=== PATIENT | male | born 1945 | race Caucasian/White ===

== ENCOUNTER 2019-02-11 09:43 | Inpatient (IN) ==
[2019-02-11 10:53] LABS: Basophils # (auto) 0.03 K/uL (0-0.2); Basophils % (auto) 0.4 %; Eosinophils # (auto) 0.07 K/uL (0-0.5); Eosinophils % (auto) 0.9 %; Hematocrit (blood only) 41.9 % (42-52); Hemoglobin 15.2 g/dL (14.0-18.0); Immature Granulocytes # (auto) 0.02 K/uL (0.00-0.02); Immature Granulocytes % (auto) 0.3 %; Lymphocytes # (auto) 1.03 K/uL (1.2-3.4); Lymphocytes % (auto) 13.9 %; Mean Corpuscular Hgb Conc 36.3 g/dL (32-36); Mean Corpuscular Volume 94.4 fL (80-100); Mean Platelet Volume 9.3 fL (7.4-10.4); Monocytes # (auto) 0.84 K/uL (0.11-0.59); Monocytes % (auto) 11.3 %; Neutrophils # (auto) 5.43 K/uL (1.4-6.5); Neutrophils % (auto) 73.2 %; Platelet Count 187 K/uL (130-400); RDW Coefficient of Variation 14.1 % (11.5-14.5); RDW Standard Deviation 48.1 fL (36.4-46.3); Red Blood Count 4.44 M/uL (4.7-6.1); White Blood Count 7.42 K/uL (4.8-10.8)
--- NOTE | 2019-02-11 10:54 | XRay Report ---
XR chest 1V portable CLINICAL HISTORY: Fall. Syncope. COMPARISON STUDY: Chest radiograph November 10, 2018. FINDINGS: Left subclavian pacer/AICD is in place. There are mediastinal wires and clips from bypass g rafting. Cardiomegaly is unchanged. There is no pneumothorax or pleural effusion. No evidence for pul monary edema. The appearance of the chest is unchanged. IMPRESSION: No acute cardiopulmonary findings. No change in appearance of the chest. Electronically signed by: Cristian Bradley M.D. 02/11/2019 10:52 AM
--- NOTE | 2019-02-11 11:07 | XRay Report ---
XR pelvis 1-2V routine CLINICAL HISTORY: Pain status post trauma COMPARISON: None. DISCUSSION: There are bilateral total hip arthroplasties. There are postsurgical changes present with in the lumbar spine. No fractures or dislocations are visualized. There is no SI joint diastases. The re is no symphysis diastases. IMPRESSION: Postsurgical change. No fractures identified. Electronically signed by: Gerardo Cueto M.D. 02/11/2019 11:05 AM
[2019-02-11 11:10] LABS: Appearance Urine Clear (Clear); Bilirubin Urine Negative (Negative); Blood Urine Negative (Negative); Color Urine Yellow; Glucose Urine UA Negative (Negative); Ketones Urine Negative (Negative); Leukocyte Esterase Urine Negative (Negative); Nitrite Urine Negative (Negative); Protein Urine Negative (Negative); Specific Gravity Urine 1.014 (1.000-1.030); Urobilinogen Urine Negative (Negative); pH Urine 7.5 (4.5-7.5)
[2019-02-11 11:13] LABS: Albumin Level 3.3 gm/dl (3.4-5.0); BUN Creatinine Ratio 20.5 (10-20); Calcium 8.7 mg/dl (8.5-10.1); Creatinine Clr Calc Pharmacy 107.4 ml/min; Est GFR (Non-African American) 86.3; INR 3.1 (0.9-1.1); Magnesium 2.2 mg/dl (1.8-2.4); Partial Thromboplastin Ratio 1.2; Partial Thromboplastin Time 32.8 Seconds (21.0-31.0); Potassium 3.5 mmol/L (3.5-5.1); Prothrombin Time 29.6 Seconds (9.0-12.0)
[2019-02-11 11:17] LABS: Albumin Globulin Ratio 1.1 (0.9-2); Bilirubin,Total 0.4 mg/dl (0.2-1); Globulin 3.1 gm/dl (2.5-4.0); Total Protein 6.4 gm/dl (6.4-8.2); Troponin I 0.033 ng/ml (0-0.045)
--- NOTE | 2019-02-11 11:27 | CT Scan Report ---
HEAD CT NONCONTRAST CT DOSE: 1258.59 mGy.cm HISTORY: syncope eval for bleed TECHNIQUE: Multiaxial CT images of the head were performed without the use of intravenous contrast. A utomated exposure control was utilized for this study. A dose lowering technique was utilized adheri ng to the principles of ALARA. Comparison: Head CT 11/10/2018. Findings: The paranasal sinuses and mastoid air cells are clear. The calvarium and skull base are int act. There is no mass, hematoma, midline shift, acute infarct. White matter hypodensity is nonspecifi c but suggestive of microvascular ischemic change. The ventricles and sulci demonstrate mild age-rela josé miguel involutional changes. Old left cerebellar infarct, unchanged. Impression: No significant change compared to the prior study. No acute intracranial abnormality. Electronically signed by: Ace Chao M.D. 02/11/2019 11:26 AM
--- NOTE | 2019-02-11 11:52 | CT Scan Report ---
CT OF THE CERVICAL SPINE WITHOUT CONTRAST CLINICAL HISTORY: Fall. COMPARISON STUDY: Cervical spine CT November 10, 2018. TECHNIQUE: Helical axial images of the cervical spine were obtained without IV contrast. Sagittal a nd coronal reconstructions were viewed. Automated exposure control was utilized for the study. A do se lowering technique was utilized adhering to the principles of ALARA. FINDINGS: Reversal of the normal cervical lordosis is noted. Slight anterolisthesis of C4 on C5 is un changed. There is moderate to severe disc space narrowing and osteophytosis at C5-C6 and C6-C7. There is no acute fracture. There is no prevertebral edema. Chronic deformity of several spinous processes is noted as well as emphysema within visualized portions of the lungs. There is moderate multilevel facet arthrosis. IMPRESSION: No acute cervical spine fracture or subluxation. Electronically signed by: Cristian Bradley M.D. 02/11/2019 11:51 AM
[2019-02-11] MEDS ORDERED: OXYMETAZOLINE 0.05% 30 ML BTL ONE (13:24)
--- NOTE | 2019-02-11 14:04 | History & Physical Report ---
Date of Service February 11, 2019 Assessment & Plan (1) Syncope: 73 yo M with History of VT s/p ICD/pacemaker placement, Afib, DVT, thrombus at base of brain in setting CVA (2011), Ulcerative colitis, CAD s/p Bipass surgery , HTN, HLD, COPD, BPH, CHF presenting with syncopal episode. Syncope: secondary to Ventricular Tachycardia - PER ED physician, interrogated ICD confirming Vtach prior to firing - no further episodes of syncope - Cardiology consulted (2) Ventricular tachycardia: - currently not in Vtach - Restart Amiodarone, Coreg at home dose - rate controlled, VSS - Cardiology consulted as above (3) Ischemic cardiomyopathy: s/p ICD - no CHF symptoms - ICD function appropriately in setting of Vfib - Continue home lasix (4) Atrial fibrillation: not currently in Afib -rate is controlled - remains on anticoagulation with Warfarin as Above (5) CAD (coronary artery disease): asx s/p CABG EKG if chest pain Troponin neg on arrival (6) Hypertension: BP controlled Continue amlodipine, coreg, lasix, losartan at home doses (7) Hyperlipidemia: Continue Lipitor (8) Ulcerative colitis: Continue Azathiprine, Sulfasalazine (9) History of DVT (deep vein thrombosis): already on warfarin (10) Acute head injury: superficial occipital hematoma one exam, patient denies significant pain, CT Head neg for bleed Continue to monitor History of Present Illness Chief Complaint: Syncope, Vtach Primary Care Provider: Ashanti Melchor, DO 73 yo M with History of VTach s/p ICD/pacemaker placement, Afib, DVT, 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 Patient reports around 8:30 am he felt progressively lightheaded while walking in the house and fell. Per his , who observed fall, he fell backwards hitting his head in the process. Defibrillator was activated per as she observed what appeared to be a shock and patient recovered quickly thereafter. Patient was momentarily disoriented per but soon thereafter was at baseline mental state. Patient denies associated palpitation, chest pain sob. He denies fevers chills, n/v, diarrhea. Patient was brought in my ambulance. Allergies Allergy/AdvReac Type Severity Reaction Status Date / Time simvastatin Allergy Mild DIARRHEA/ Verified 02/11/19 10:19 EXACERBATED COLITIS tetanus toxoid, adsorbed Allergy Unknown SWELLING Verified 02/11/19 10:19 lisinopril AdvReac Unknown ABDOMINAL Verified 02/11/19 10:19 PAIN/DIARRHEA Home Medications Home Medications Medication Instructions Recorded Confirmed Type nitroglycerin 1 tab SUBLINGUAL UD PRN #0 btl 08/03/13 02/11/19 History sulfasalazine 1,000 mg PO QID #0 tab 08/03/13 02/11/19 History aspirin 325 mg PO DAILY #0 07/25/16 02/11/19 History atorvastatin 80 mg PO HS #0 tab 07/25/16 02/11/19 History azathioprine 100 mg PO DAILY #0 tab 07/25/16 02/11/19 History carvedilol 25 mg PO BID #0 tab 07/25/16 02/11/19 History furosemide 120 mg PO DAILY #0 tab 07/25/16 02/11/19 History isosorbide mononitrate 60 mg PO DAILY #0 tab 07/25/16 02/11/19 History losartan 100 mg PO DAILY #0 tab 07/25/16 02/11/19 History metolazone 5 mg PO DAILY PRN #0 tab 07/25/16 02/11/19 History potassium chloride 80 meq PO DAILY #0 07/25/16 02/11/19 History multivitamin 1 tab PO DAILY 09/02/18 02/11/19 History amiodarone 300 mg PO DAILY #45 tab 11/11/18 02/11/19 Rx amlodipine [Norvasc] 10 mg PO DAILY 02/11/19 02/11/19 History calcium carbonate-vitamin D3 0 mg PO DAILY 02/11/19 02/11/19 History [Calcium 500 + D] warfarin 5 mg PO PM 02/11/19 02/11/19 History Past Med/Surg History Medical History Blood clots in brain (Acute) Fusion of spine (Acute) lumbar region Osteoarthritis (Acute) Chronic back pain (Acute) BPH (benign prostatic hyperplasia) (Acute) Ulcerative colitis (Acute) On anticoagulant therapy (Acute) Hearing deficit (Acute) bilateral [place] Stroke (Acute) Myocardial Infarction (Acute) Hypertension (Acute) Hyperlipidemia (Acute) ICD (implantable cardioverter-defibrillator) in place (Acute) Pacemaker (Acute) Atrial fibrillation (Acute) Deep vein thrombosis (Acute) RLE Surgical History History of total hip arthroplasty (Acute) bilateral Hx of transurethral resection of prostate (Acute) History of colonoscopy (Acute) History of cholecystectomy (Acute) History of tonsillectomy (Acute) History of adenoidectomy (Acute) History of coronary artery bypass graft (Acute) triple bypass History of heart artery stent (Acute) Social History Preferred Language: [place] Communication Ability: Effective Visual Impairment: No Limitations Hearing Ability: Normal 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 Beliefs That Will Affect Care: None Current Living Situation: Spouse Other Information That Helps Us Care for You: No Feels Safe at Home: Yes Safety Concerns: Feels Safe At This Time Smoking Status: Former smoker Do You Dip or Chew Tobacco: No Second Hand Exposure: No Tobacco Cessation Education Requested by Patient: No Hx Alcohol Use: No Hx Substance Use: No Review of Systems Review of Systems: All systems reviewed & are unremarkable except as noted in HPI & below Physical Exam Vital Signs (Past 24 Hours): Last Vital Signs Temp 36.5 C 02/11/19 09:44 Pulse 60 02/11/19 12:47 Resp 18 02/11/19 12:47 BP 151/71 H 02/11/19 12:47 Pulse Ox 96 02/11/19 12:47 Constitutional: WD/WN, vitals as above no acute distress Eyes: PERRL and EOM intact bilaterally ENMT: external ear and nose normal, oropharynx normal Neck: trachea midline, no thyromegaly Respiratory: normal respiratory effort, lungs clear to auscultation Cardiovascular: RRR, no murmur, no edema Gastrointestinal (Abdomen): normal bowel sounds, soft, nontender, no hepat osplenomegaly Musculoskeletal: no cyanosis or clubbing, extremities motor strength 5/5 Skin: no rashes, warm and dry superficial occipital hematoma Neurologic: PERRL, EOMI, accommodation nl, no face palsy, no dysarthria CN's II-XI intact bilaterally (grossly) and awake Psychiatric: A+Ox3, euthymic affect Results & Data Laboratory Results Laboratory Results WBC 7.42 K/uL (4.8-10.8) 02/11/19 10:41 RBC 4.44 M/uL (4.7-6.1) L 02/11/19 10:41 Hgb 15.2 g/dL (14.0-18.0) 02/11/19 10:41 Hct 41.9 % (42-52) L 02/11/19 10:41 MCV 94.4 fL (80-100) 02/11/19 10:41 MCH 34.2 pg (25-34) H 02/11/19 10:41 MCHC 36.3 g/dL (32-36) H 02/11/19 10:41 RDW Std Deviation 48.1 fL (36.4-46.3) H 02/11/19 10:41 RDW Coeff of Delmi 14.1 % (11.5-14.5) 02/11/19 10:41 Plt Count 187 K/uL (130-400) 02/11/19 10:41 MPV 9.3 fL (7.4-10.4) 02/11/19 10:41 Immature Gran % (Auto) 0.3 % 02/11/19 10:41 Neut % (Auto) 73.2 % 02/11/19 10:41 Lymph % (Auto) 13.9 % 02/11/19 10:41 [place] % (Auto) 11.3 % 02/11/19 10:41 Eos % (Auto) 0.9 % 02/11/19 10:41 Baso % (Auto) 0.4 % 02/11/19 10:41 Immature Gran # (Auto) 0.02 K/uL (0.00-0.02) 02/11/19 10:41 Neut # (Auto) 5.43 K/uL (1.4-6.5) 02/11/19 10:41 Lymph # (Auto) 1.03 K/uL (1.2-3.4) L 02/11/19 10:41 [place] # (Auto) 0.84 K/uL (0.11-0.59) H 02/11/19 10:41 Eos # (Auto) 0.07 K/uL (0-0.5) 02/11/19 10:41 Baso # (Auto) 0.03 K/uL (0-0.2) 02/11/19 10:41 PT 29.6 Seconds (9.0-12.0) H 02/11/19 10:41 INR 3.1 (0.9-1.1) H 02/11/19 10:41 APTT 32.8 Seconds (21.0-31.0) H 02/11/19 10:41 PTT Ratio 1.2 02/11/19 10:41 Sodium 141 mmol/L (136-145) 02/11/19 10:41 Potassium 3.5 mmol/L (3.5-5.1) 02/11/19 10:41 Chloride 106 mmol/L (98-107) 02/11/19 10:41 Carbon Dioxide 32 mmol/L (21-32) 02/11/19 10:41 Anion Gap 4.0 (3-11) 02/11/19 10:41 BUN 17 mg/dl (7-18) 02/11/19 10:41 Creatinine 0.84 mg/dl (0.6-1.4) 02/11/19 10:41 Est Cr Clr Drug Dosing 107.4 ml/min 02/11/19 10:41 Est GFR ( Amer) 100.0 02/11/19 10:41 Est GFR (Non-Af Amer) 86.3 02/11/19 10:41 BUN/Creatinine Ratio 20.5 (10-20) H 02/11/19 10:41 Glucose 108 mg/dl (70-99) H 02/11/19 10:41 Calcium 8.7 mg/dl (8.5-10.1) 02/11/19 10:41 Magnesium 2.2 mg/dl (1.8-2.4) 02/11/19 10:41 Total Bilirubin 0.4 mg/dl (0.2-1) 02/11/19 10:41 AST 18 U/L (15-37) 02/11/19 10:41 ALT 24 U/L (12-78) 02/11/19 10:41 Alkaline Phosphatase 68 U/L (45-117) 02/11/19 10:41 Troponin I 0.033 ng/ml (0-0.045) 02/11/19 10:41 Total Protein 6.4 gm/dl (6.4-8.2) 02/11/19 10:41 Albumin 3.3 gm/dl (3.4-5.0) L 02/11/19 10:41 Globulin 3.1 gm/dl (2.5-4.0) 02/11/19 10:41 Albumin/Globulin Ratio 1.1 (0.9-2) 02/11/19 10:41 Urine Color Yellow 02/11/19 10:41 Urine Appearance Clear (Clear) 02/11/19 10:41 Urine pH 7.5 (4.5-7.5) 02/11/19 10:41 Ur Specific [place] 1.014 (1.000-1.030) 02/11/19 10:41 Urine Protein Negative (Negative) 02/11/19 10:41 Urine Glucose (UA) Negative (Negative) 02/11/19 10:41 Urine Ketones Negative (Negative) 02/11/19 10:41 Urine Blood Negative (Negative) 02/11/19 10:41 Urine Nitrite Negative (Negative) 02/11/19 10:41 Urine Bilirubin Negative (Negative) 02/11/19 10:41 Urine Urobilinogen Negative (Negative) 02/11/19 10:41 Ur Leukocyte Esterase Negative (Negative) 02/11/19 10:[address] NONCONTRAST CT DOSE: 1258.59 mGy.cm HISTORY: syncope eval for bleed TECHNIQUE: Multiaxial CT images of the head were performed without the use of intravenous contrast. Automated exposure control was utilized for this study. A dose lowering technique was utilized adhering to the principles of ALARA. Comparison: Head CT 11/10/2018. Findings: The paranasal sinuses and mastoid air cells are clear. The calvarium and skull base are intact. There is no mass, hematoma, midline shift, acute infarct. White matter hypodensity is nonspecific but suggestive of microvascular ischemic change. The ventricles and sulci demonstrate mild age-related involutional changes. Old left cerebellar infarct, unchanged. Impression: No significant change compared to the prior study. No acute intracranial abnormality. XR chest 1V portable CLINICAL HISTORY: Fall. Syncope. COMPARISON STUDY: Chest radiograph November 10, 2018. FINDINGS: Left subclavian pacer/AICD is in place. There are mediastinal wires and clips from bypass grafting. Cardiomegaly is unchanged. There is no pneumothorax or pleural effusion. No evidence for pulmonary edema. The appearance of the chest is unchanged. IMPRESSION: No acute cardiopulmonary findings. No change in appearance of the chest. Medications Administered Discontinued Medications Oxymetazoline HCl (Afrin 0.05%) Confirm Administered Dose 75 sprays .ROUTE .STK- MED ONE Stop: 02/11/19 13:25 Last Admin: 02/11/19 13:29 Dose: Not Given Documented by: [id number] ECG Rate (beats per minute): 65 Findings: + other (atrial paced) Change: no significant change ( 11-NOV-2018 06:15) Code Status & VTE Plan Code Status Full Code VTE Prophylaxis Plan VTE Prophylaxis will be ordered: Yes Supervising Physician Co-Signing Physician Notes I personally examined the patient and verified all narayanan points of history and exam, discussed case, and agree with decision making with Dr Morataya. Feeling okay now. Fainted and then defibrillator went off. Has happened before. Vitals noted, in general he is in no distress. HEENT normocephalic atraumatic mucous members are moist. Breathing unlabored no accessory muscle use. No focal neurologic deficits. Ventricular arrhythmia arrestfortunately his ICD fired, now stable. Consult cardiology for antiarrhythmic management. otherwise as above Resident Activity Tracking Resident Involvement: Resident Care Provided Care Provided: Adult Hospital Medicine (1) Syncope Syncope type: unspecified Qualified Code(s): R55 - Syncope and collapse (2) Acute head injury Encounter type: initial encounter Qualified Code(s): S09.90XA - Unspecified injury of head, initial encounter
[2019-02-11] MEDS ORDERED: ALUMINUM/MAGNESIUM SUSP 30 ML UDC PO PRN (16:25)
[2019-02-11] MEDS ORDERED: POLYETHYLENE (MIRALAX) 17 GM PACK PO PRN (16:25)
[2019-02-11] MEDS ORDERED: ACETAMINOPHEN 325 MG TAB PO PRN (16:25)
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
[2019-02-11] MEDS: sulfaSALAzine 500 MG TABLET PO SCH ×2 (18:29→20:36)
[2019-02-11] MEDS: CARVEDILOL 25 MG TAB PO SCH (20:36)
[2019-02-11] MEDS ORDERED: ATORVASTATIN 40 MG TAB PO SCH (21:00)
[2019-02-11] MEDS ORDERED: WARFARIN SOD 5 MG TAB PO SCH (21:00)
[2019-02-11] MEDS ORDERED: Nursing to Pharmacy Communication ONE (21:47)
[2019-02-12] MEDS: CARVEDILOL 25 MG TAB PO SCH (08:31)
[2019-02-12] MEDS: sulfaSALAzine 500 MG TABLET PO SCH (08:31)
[2019-02-12] MEDS ORDERED: AMLODIPINE BESYLATE 5 MG TAB PO SCH (09:00)
[2019-02-12] MEDS ORDERED: ISOSORBIDE MONO EXTENDED REL 60 MG TABCR PO SCH (09:00)
[2019-02-12] MEDS ORDERED: LOSARTAN POTASSIUM 50 MG TAB PO SCH (09:00)
[2019-02-12] MEDS ORDERED: azaTHIOprine 50 MG TAB PO SCH (09:00)
[2019-02-12] MEDS ORDERED: MAGNESIUM OXIDE 400 MG TAB PO SCH (09:00)
[2019-02-12] MEDS ORDERED: POTASSIUM CHLORIDE 20 MEQ TABCR PO SCH (09:00)
[2019-02-12] MEDS ORDERED: AMIODARONE 200 MG TAB PO SCH (09:00)
--- NOTE | 2019-02-12 10:28 | Discharge Summary ---
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 Patient reports around 8:30 am he felt progressively lightheaded while walking in the house and fell. Per his , who observed fall, he fell backwards hitting his head in the process. Defibrillator was activated per as she observed what appeared to be a shock and patient recovered quickly thereafter. Patient was momentarily disoriented per but soon thereafter was at baseline mental state. Patient denies associated palpitation, chest pain sob. He denies fevers chills, n/v, diarrhea. Patient was brought in my ambulance. Principal Diagnosis VTACH Discharge Exam Vitals noted and within normal limits . GENERAL: Awake, alert to person, place, and time, nontoxic-appearing, in no distress HENT: Normocephalic, atraumatic. Mucus membranes appear moist. EYES: Normal conjunctiva. Sclera non-icteric. EOMI. NECK: Supple. Full range of motion. No JVD RESPIRATORY: Clear to auscultation. Normal work of breathing. CARDIAC: Regular rate, normal rhythm. Paced with occasional PACs on telemetry. Extremities warm and well perfused, 2+ radial pulses bilaterally. ABDOMEN: Soft, non-distended. No tenderness to palpation in all four quadrants. No rebound or guarding. No masses. Bowel sounds are normal. LOWER EXTREMITIES: Inspection of calves reveal equal size bilaterally. They are non-tender. No edema. No discoloration. NEURO: No focal gross focal motor deficits noted. Sensation in tact. CN II-XII grossly in tact. SKIN: Rash not present. No jaundice noted. Significant lesions not present. PSYCH: Appropriate mood and affect. Cooperative. Exam as done by Ashlyn Galeas MD, Neonatologist. Discharge Data Allergies Allergy/AdvReac Type Severity Reaction Status Date / Time simvastatin Allergy Mild DIARRHEA/ Verified 02/11/19 10:19 EXACERBATED COLITIS tetanus toxoid, adsorbed Allergy Unknown SWELLING Verified 02/11/19 10:19 lisinopril AdvReac Unknown ABDOMINAL Verified 02/11/19 10:19 PAIN/DIARRHEA Consultations 02/11/19 12:12 ED Decision to Admit Stat 02/11/19 16:25 Consult Cardiology Routine Consult Case Management - Discharge Planning Routine Ordered Studies 02/11/19 10:20 CT cervical spine wo con Stat 02/11/19 10:21 CT head/brain wo con Stat Hospital Course (1) Syncope: 73 yo M with History of VT s/p ICD/pacemaker placement, Afib, DVT, 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 Syncope: secondary to Ventricular Tachycardia - interrogation reveals appropriate shock delivered after VT - no further episodes of syncope while here - CT of head revealed no acute issues or bleeding - Cardiology consulted, recommend: increase amiodarone to 400 mg, add mexiletine 150 TID. Plan for follow up in office. (2) Ventricular tachycardia: (3) Ischemic cardiomyopathy: (4) Atrial fibrillation: not currently in Afib -rate is controlled - remains on anticoagulation with Warfarin as Above (5) CAD (coronary artery disease): (6) Hypertension: BP controlled Continue amlodipine, coreg, lasix, losartan at home doses (7) Hyperlipidemia: Continue Lipitor (8) Ulcerative colitis: Continue Azathioprine, Sulfasalazine (9) History of DVT (deep vein thrombosis): No acute issues. Continue warfarin (10) Acute head injury: superficial occipital hematoma, patient denies significant pain. CT Head neg for bleed Continue to monitor Total Time Total Time Spent Total Time Spent (In Minutes): <30 Discharge Plan Discharge Items Patient Disposition: Home - Self-Care Reason For Visit: SYNCOPE,VTACH Discharge Diagnosis: SYNCOPE, VTACH Condition: Good Discharge Goals: Decrease discomfort, Diagnostic testing, Improve disease control, Improve function and Increase independence Activity: Per 'Additional Instructions' section Non-emergency contact: Primary Care Provider and Water Chemist Call non-emergency contact if: you have any medication questions and your sym ptoms worsen Follow-up/Referrals: Ashanti Melchor, [Primary Care Provider] - Diet: Heart Healthy and Low Sodium (2gm) Addtl Provider Instructions: You were admitted for monitoring after an episode of VTACH (your known heart arrhythmia) and fall. Your cat scan of the head did not show any fractures or bleeding in the brain. We've monitored you on our telemetry and you have not had any more episodes of vtach. You were seen by cardiology, and 1 medication has been added, and 1 medication has been increased. 1. Mexiletine : this is medicine to help prevent further VTACH episodes. You are to take this medicine 3 times per day. 2. Amiodarone : this is medicaiton you are currently on, but the dose is being increased to 400mg. Your other medications remain the same. We have sent a refill of your metolazone and nitrostat. Cardiology will follow up with you. If your symptoms recur or you receive a shock from your defibrillator, please return to the emergency room. Be well A Adal CALDERON Prescriptions: New amiodarone 400 mg tablet 400 mg PO DAILY 30 Days Qty: 30 RF: 0 mexiletine 150 mg capsule 150 mg PO Q8H 30 Days Qty: 90 RF: 0 metolazone 5 mg tablet 5 mg PO DAILY Qty: 30 RF: 0 nitroglycerin 0.4 mg tablet, sublingual 0.4 mg sublingual Q5M PRN (Reason: chest pain) 30 Days Qty: 60 RF: 0 Continued sulfasalazine 500 mg Tablet 1,000 mg PO QID Qty: 0 RF: 0 nitroglycerin 0.4 mg Tablet, Sublingual 1 tab Sublingual UD PRN (Reason: Chest Pain) Qty: 0 RF: 0 furosemide 40 mg Tablet 120 mg PO DAILY Qty: 0 RF: 0 atorvastatin 80 mg Tablet 80 mg PO HS Qty: 0 RF: 0 carvedilol 25 mg Tablet 25 mg PO BID Qty: 0 RF: 0 metolazone 5 mg Tablet 5 mg PO DAILY PRN (Reason: Weight Gain) Qty: 0 RF: 0 azathioprine 50 mg Tablet 100 mg PO DAILY Qty: 0 RF: 0 isosorbide mononitrate 60 mg Tablet Extended Release 24 Hr 60 mg PO DAILY Qty: 0 RF: 0 aspirin 325 mg Tablet,Delayed Release (Dr/Ec) 325 mg PO DAILY Qty: 0 RF: 0 losartan 100 mg Tablet 100 mg PO DAILY Qty: 0 RF: 0 potassium chloride 20 mEq Tablet Extended Release 80 meq PO DAILY Qty: 0 RF: 0 multivitamin Tablet 1 tab PO DAILY RF: 0 amlodipine [Norvasc] 10 mg Tablet 10 mg PO DAILY RF: 0 calcium carbonate-vitamin D3 [Calcium 500 + D] 500 mg(1,250mg) -400 unit Tablet PO DAILY RF: 0 warfarin 6 mg tablet 5 mg PO PM RF: 0 Discontinued amiodarone 200 mg Tablet 300 mg PO DAILY Qty: 45 RF: 0 Stand-Alone Forms: [facility]/Other Patient Handouts: Nitroglycerin Sublingual tablet, Mexiletine Hydrochloride Oral capsule, Metolazone Oral tablet Discharge Orders: Discharge Order (Routine); Ordered 02/12/19 Ordered By: Ashlyn Galeas Admission Data Admit Date/Time: 02/11/19 16:25 Attending Provider: Chuy Trujillo Admit Provider: Hima Morataya Primary Care Provider: Ashanti Melchor Other Providers: Orlando Storm ; Alex Mosqueda Service: Telemetry Other Interventions: Discharge Summary Assessment (RN) Last Done: 02/12/19 10:44 Pending Studies at Discharge: No DC Date/Time DO NOT enter until pt leaves facility: 02/12/19 12:28 Supervising Physician Co-Signing Physician Notes I personally examined the patient and verified all narayanan points of history and exam, discussed case, and agree with decision making with Dr Galeas feeling better, case d/w cardiology - input greatly appreciated. pt would very much like to go home today vitals noted nad breathing unlabored no pallor or icterus. vtach - ICD fired appropriately. increase amiodarone, add mexilitine, home, c lose f/u. amiodarone level for outpt f/u Resident Activity Tracking Resident Involvement: Resident Care Provided Care Provided: Adult Hospital Medicine
--- NOTE | 2019-02-12 13:40 | Cardiology Consultation ---
Date of Consultation February 12, 2019 Assessment & Plan (1) Syncope: Secondary to sustained ventricular tachycardia. Fortunately, his implantable device is functioning properly. (2) Ventricular tachycardia: Plan made in conjunction with Randee Mosqueda and Ronnie. We will send off an amiodarone level, however, increase dosing to 400 mg daily. Will also add mexiletine at 75 mg t.i.d.. If this medication changes unsuccessful, we may need to consider a ventricular tachycardia ablation. (3) CAD (coronary artery disease): The patient underwent a 3 vessel bypass in August 2000. Had a stent placed in the mid LAD in January 2006. Has been quiescent on his current medical regimen. (4) Ischemic cardiomyopathy: Left ventricular ejection fraction was 30-35% on echocardiogram performed October. There was moderate global hypokinesis. (5) ICD (implantable cardioverter-defibrillator) in place: Device is functioning properly. Battery longevity is adequate. History of Present Illness Attending Physician: Chuy Trujillo DO History of Present Illness Mr Orlando is a 73-year-old male admitted yesterday after an episode of syncope and a defibrillator discharge. This consultation was ordered assistance cardiac management. Of note, the patient is well known to me from the outpatient setting. The patient was in his usual state of health until approximately 8:30 am on the day of presentation. The patient was walking in his home and was witnessed by the to fall backwards striking his head. She then observed an apparent defibrillator discharge and the patient awoke quickly. He was brought emergency room for further care. The patient has been noticing intermittent episodes of dizziness. He does recall a defibrillator discharge which occurred on January 29 while he was supine in bed. The patient has not experienced any recent angina pectoris or limiting dyspnea. He further denies PND, orthopnea, palpitations, lower extremity edema, and claudication. The patient has a longstanding history of coronary artery disease. He underwent 3 vessel bypass in August 2000. He required a stent to the mid LAD in January 2006. He does have an ischemic cardiomyopathy with an ejection fraction of 30- 35% on an echocardiogram performed in October 2018. The patient did have a dual- chamber ICD placed in August 2013. Unfortunately, Dr. Mosqueda was unable to advance a left ventricular lead. The patient follows daily weights at home. His typical dry weight is 300 lb with a trigger weight of 303 lb. He typically takes Lasix 120 mg daily and uses a dose of metolazone 5 mg prior to his morning dose of Lasix at when needed for weight gain. This occurs approximately 1 time each week. There has been no recent episode of his atrial fibrillation. He is tolerating rhythm control and long-term anticoagulation without difficulty. Currently, patient is resting comfortably in bed without complaints. Past medical and surgical history 1. Coronary artery disease 2. CABG x3-August 2000 3. Mid LAD stent-January 2006 4. Ischemic [id number]% 5. Chronic systolic CHF 6. Recurrent symptomatic ventricular tachycardia 7. Dual-chamber ICD-August 2013, failed LV lead 8. LBBB 9. Hypertension 10. Hypercholesterolemia 11. Paroxysmal atrial fibrillation 12. Ulcerative colitis 13. Obesity 14. Obstructive sleep apnea 15. Cerebellar ataxia 16. Chronic low back pain 17. Vitamin B12 deficiency 18. Hearing deficit 19. Gout 20. Chronic low back pain 21. Laparoscopic cholecystectomy 22. THR 23. Lumbar fusion Social history and lives with his No tobacco or alcohol Family history Noncontributory Review of systems A 10 point review of systems was negative except for that described above. Allergies Allergy/AdvReac Type Severity Reaction Status Date / Time simvastatin Allergy Mild DIARRHEA/ Verified 02/11/19 10:19 EXACERBATED COLITIS tetanus toxoid, adsorbed Allergy Unknown SWELLING Verified 02/11/19 10:19 lisinopril AdvReac Unknown ABDOMINAL Verified 02/11/19 10:19 PAIN/DIARRHEA Home Medications Home Medications Medication Instructions Recorded Confirmed Type nitroglycerin 1 tab SUBLINGUAL UD PRN #0 btl 08/03/13 02/11/19 History sulfasalazine 1,000 mg PO QID #0 tab 08/03/13 02/11/19 History aspirin 325 mg PO DAILY #0 07/25/16 02/11/19 History atorvastatin 80 mg PO HS #0 tab 07/25/16 02/11/19 History azathioprine 100 mg PO DAILY #0 tab 07/25/16 02/11/19 History carvedilol 25 mg PO BID #0 tab 07/25/16 02/11/19 History furosemide 120 mg PO DAILY #0 tab 07/25/16 02/11/19 History isosorbide mononitrate 60 mg PO DAILY #0 tab 07/25/16 02/11/19 History losartan 100 mg PO DAILY #0 tab 07/25/16 02/11/19 History metolazone 5 mg PO DAILY PRN #0 tab 07/25/16 02/11/19 History potassium chloride 80 meq PO DAILY #0 07/25/16 02/11/19 History multivitamin 1 tab PO DAILY 09/02/18 02/11/19 History amlodipine [Norvasc] 10 mg PO DAILY 02/11/19 02/11/19 History calcium carbonate-vitamin D3 0 mg PO DAILY 02/11/19 02/11/19 History [Calcium 500 + D] warfarin 5 mg PO PM 02/11/19 02/11/19 History amiodarone 400 mg PO DAILY 30 Days #30 tab 02/12/19 Rx metolazone 5 mg PO DAILY #30 tab 02/12/19 Rx mexiletine 150 mg PO Q8H 30 Days #90 cap 02/12/19 Rx nitroglycerin 0.4 mg SUBLINGUAL Q5M PRN 30 Days 02/12/19 Rx #60 tab Patient History Medical History Blood clots in brain (Acute) Fusion of spine (Acute) lumbar region Osteoarthritis (Acute) Chronic back pain (Acute) BPH (benign prostatic hyperplasia) (Acute) Ulcerative colitis (Acute) On anticoagulant therapy (Acute) Hearing deficit (Acute) bilateral [place] Stroke (Acute) Myocardial Infarction (Acute) Hypertension (Acute) Hyperlipidemia (Acute) ICD (implantable cardioverter-defibrillator) in place (Acute) Pacemaker (Acute) Atrial fibrillation (Acute) Deep vein thrombosis (Acute) RLE Surgical History History of total hip arthroplasty (Acute) bilateral Hx of transurethral resection of prostate (Acute) History of colonoscopy (Acute) History of cholecystectomy (Acute) History of tonsillectomy (Acute) History of adenoidectomy (Acute) History of coronary artery bypass graft (Acute) triple bypass History of heart artery stent (Acute) Social History Preferred Language: Lithuanian Communication Ability: Effective Visual Impairment: No Limitations Hearing Ability: Normal Tongue Carrier Required: No Beliefs That Will Affect Care: None Current Living Situation: Spouse Other Information That Helps Us Care for You: No Feels Safe at Home: Yes Safety Concerns: Feels Safe At This Time Smoking Status: Former smoker Do You Dip or Chew Tobacco: No Second Hand Exposure: No Tobacco Cessation Education Requested by Patient: No Hx Alcohol Use: No Hx Substance Use: No Physical Exam Physical Exam: In general this is an obese white male lying supine in bed without complaints. HEENT exam is negative. Neck is supple with full carotid upstrokes. No carotid bruits. Jugular venous pressure is flat at 90. There is no thyromegaly. Cardiovascular exam reveals a regular rhythm with distant heart sounds. No obvious murmurs. No S3. Lungs are clear without rales, rhonchi or wheezes. Abdomen is soft nontender without bruits. Extremities reveal intact radial artery pulses bilaterally. Trace pretibial edema is noted bilaterally. Results & Data Vital Signs (Past 12 Hours) Vital Signs Temp Pulse Pulse Resp BP BP Pulse Ox 02/12/19 10:44 36.9 C 60 18 145/85 H 148/77 H 93 02/12/19 08:11 36.9 C 60 18 145/85 H 93 02/12/19 07:59 60 02/12/19 03:24 36.8 C 51 L 19 139/79 92 Laboratory Results CBC notes a hemoglobin 15.2, hematocrit 41.9, white count 7.4, platelet count 336013. Electrolytes episode of 141, potassium 3.5, chloride 106, bicarb 32, BUN 17, creatinine 0.84, and a glucose of 108. INR is 3.1. Diagnostic Findings EKG notes atrial pacing with prolonged AV conduction. There is a left axis deviation incomplete LBBB. Telemetry notes the same. Device interrogation noted a defibrillation January 29, another 1 on February 11. Anti tachycardic pacing failed on both occasions. Chest x-ray notes cardiomegaly mediastinal wires, and the device in the left subclavicular region. (1) Syncope Syncope type: unspecified Qualified Code(s): R55 - Syncope and collapse
== END 2019-02-12 12:28 | disposition home or self-care (01) | DRG 309 ==
LOC: 2S 09:43 → ED 09:43 → 2S 15:40

== ENCOUNTER 2019-06-27 18:31 | Observation (INO) ==
--- NOTE | 2019-06-27 18:43 | Emergency Department Note ---
Entered by Delilah Smallwood acting as a scribe for Rickie Santana MD History of Present Illness General Chief complaint: Cardiac Assessment Time Seen by Provider: 06/27/19 18:34 Source: patient History of Present Illness Provider complaint: Defibrillator fired Onset (ago): hour(s) 2 Location: chest Relieved By: + none Exacerbated By: + none Associated symptoms: + other (+lightheaded); no chest pain and no shortness of breath Treatments prior to arrival: none The patient is a 74 year old male who presents to the Emergency Room with complaints of his defibrillator firing two hours ago. The patient states he was laying in his recliner at home when he began to feel light headed. He notes he was feeling lightheaded earlier in the day as well. The patient denies any chest pain or shortness of breath. The patient states he is feeling OK right now. The defibrillator was placed in 2012. Per the patient, he has been taking all of his prescribed medications regularly. Home Medications Home Medications Medication Instructions Recorded Confirmed Type sulfasalazine 1,000 mg PO QID #0 tab 08/03/13 06/27/19 History potassium chloride 80 meq PO DAILY #0 07/25/16 06/27/19 History multivitamin 1 tab PO DAILY 09/02/18 06/27/19 History amiodarone 400 mg tablet 400 mg PO DAILY #30 tab 05/21/19 06/27/19 Rx aspirin 325 mg tablet,delayed 325 mg PO DAILY #30 tab 05/21/19 06/27/19 Rx release atorvastatin 80 mg tablet 80 mg PO HS #30 tab 05/21/19 06/27/19 Rx azathioprine 50 mg tablet 100 mg PO DAILY #30 tab 05/21/19 06/27/19 Rx carvedilol 25 mg tablet 25 mg PO BID #60 tab 05/21/19 06/27/19 Rx furosemide 40 mg tablet 120 mg PO DAILY #180 tab 05/21/19 06/27/19 Rx isosorbide mononitrate ER 60 mg 60 mg PO DAILY #30 tab 05/21/19 06/27/19 Rx tablet,extended release 24 hr losartan 100 mg tablet 100 mg PO DAILY #90 tab 05/21/19 06/27/19 Rx nitroglycerin 0.4 mg sublingual 0.4 mg SUBLINGUAL UD PRN #1 btl 05/21/19 06/27/19 Rx tablet calcium carbonate 600 mg (1,500 1 tab PO DAILY tab 06/24/19 06/27/19 History mg)-vitamin D3 400 unit tablet acetaminophen [Tylenol Extra 1,000 mg PO QID PRN 06/27/19 06/27/19 History Strength] apixaban [Eliquis] 5 mg PO Q12 06/27/19 06/27/19 History lidocaine 1 applic TOPICAL HS 06/27/19 06/27/19 History metolazone 5 mg PO DAILY PRN 06/27/19 06/27/19 History mexiletine 150 mg PO Q8 06/27/19 06/27/19 History Allergies Allergy/AdvReac Type Severity Reaction Status Date / Time simvastatin Allergy Mild DIARRHEA/ Verified 06/27/19 19:17 EXACERBATED COLITIS tetanus toxoid, adsorbed Allergy Unknown Rash Verified 06/27/19 19:17 lisinopril AdvReac Unknown ABDOMINAL Verified 06/27/19 19:17 PAIN/DIARRHEA, Difficulty Swallowing Past Med/Surg History Medical History Chronic combined systolic and diastolic heart failure Obstructive sleep apnea Low vitamin B12 level Left bundle-branch block Hypercholesterolemia Coronary arteriosclerosis in [place] artery Cerebellar ataxia Cardiac defibrillator in place Osteoarthritis Chronic back pain BPH (benign prostatic hyperplasia) Ulcerative colitis On anticoagulant therapy Hypertension Hyperlipidemia ICD (implantable cardioverter-defibrillator) in place Pacemaker Atrial fibrillation 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) Deep vein thrombosis (Resolved) RLE Myocardial Infarction (Resolved) Stroke (Resolved) History of CVA (cerebrovascular accident) Surgical History History of adenoidectomy (Acute) History of cholecystectomy (Acute) History of colonoscopy (Acute) History of coronary artery bypass graft (Acute) triple bypass History of heart artery stent (Acute) History of tonsillectomy (Acute) History of total hip arthroplasty (Acute) bilateral Hx of transurethral resection of prostate (Acute) Fusion of spine lumbar region Family History Father Coronary heart disease Myocardial infarction Mother Myocardial infarction Coronary heart disease Social History Preferred Language: Belarusian Communication Ability: Effective Visual Impairment: No Limitations Hearing Ability: Normal Hotel Receptionist Required: No Beliefs That Will Affect Care: None Current Living Situation: Spouse Feels Safe at Home: Yes Smoking Status: Former smoker Second Hand Exposure: No ; Hx Alcohol Use: No Hx Substance Use: No Review of Systems See HPI for pertinent positives & negatives. and A total of 10 systems reviewed and were otherwise negative Physical Exam Vital Signs Vital Signs - 24 hr 06/27/19 18:36 06/27/19 18:38 06/27/19 18:47 Temperature 36.5 C Temperature Source Oral Sepsis Recent Fever Within 48 Hours No Sepsis New/Unexplained Change in Mental Status No Sepsis Action Taken by Nursing No Action Required Pulse Rate 66 67 67 Pulse Rate [Apical] Pulse Rate from SpO2 Sensor 33 L 34 L Respiratory Rate 20 18 16 Respiratory Effort / Characteristics Non-Labored Respiratory Depth Normal Blood Pressure 182/80 H 182/80 H Blood Pressure [Right Arm] Blood Pressure Mean 114 114 Blood Pressure Mean [Right Arm] Blood Pressure Position [Right Arm] Pulse Oximetry 95 94 95 Oxygen Delivery Method Room Air 06/27/19 19:00 06/27/19 19:39 06/27/19 19:41 Temperature Temperature Source Sepsis Recent Fever Within 48 Hours Sepsis New/Unexplained Change in Mental Status Sepsis Action Taken by Nursing Pulse Rate 65 60 Pulse Rate [Apical] 61 Pulse Rate from SpO2 Sensor 66 60 Respiratory Rate 19 16 16 Respiratory Effort / Characteristics Respiratory Depth Blood Pressure 176/92 H Blood Pressure [Right Arm] 176/92 H Blood Pressure Mean 120 Blood Pressure Mean [Right Arm] 120 Blood Pressure Position [Right Arm] Sitting Pulse Oximetry 95 93 95 Oxygen Delivery Method Room Air General: Non-ill appearing older male in no acute distress. HEENT: Normal cephalic atraumatic. Pupils are equal round and reactive to light. Extraocular movements are intact. Oropharynx is pink with moist mucous membranes. No swelling of the mouth lips or tongue. Neck: Supple with a midline trachea. No meningeal signs or stiffness, no JVD or bruits. No Stridor. Chest: Clear to auscultation bilaterally. No wheezes or rhonchi. No increased work of breathing. Heart: regular rate and rhythm. Abdomen: Soft nontender, nondistended without rebound guarding or rigidity. Extremities: No cyanosis clubbing or edema. No calf tenderness or asymmetry Spine/Back. Non tender to palpation. No CVA tenderness Skin: Good turgor without rashes. Neurologic exam: Cranial nerves two through 12 are intact. Motor and sensation are intact and symmetrical throughout. Course 1835: Medical records reviewed. The patient was seen in room C4, a physical examination was performed. 1854: I checked on the patient who is stable, I am waiting for [employer] to call back and I talked to the family and son. 1911: I spoke to [employer] who interrogated the pace maker and stated that the battery is fine but he had an episode of V-tach that was 180 bpm and lasted 30 seconds. The device tried to pace but shocked once. There were no other arrhythmias. 1939: I spoke to Irene Banks, [facility] Hospitalist, about the patients case and she agreed to accept for further evaluation. 1945: The patients potassium is hanging but he is resting comfortably. 1944: The patient was admitted. Consultations Consultation #1: I spoke to Irene Banks, [facility] Hospitalist, about the patients case and she agreed to accept for further evaluation. Time: 19:40 Administered Medications Apixaban (Eliquis) 5 mg PO Q12 UNA Stop: 07/27/19 21:18 Last Admin: 06/27/19 22:48 Dose: 5 mg Documented by: [id number] Cosigned by: [id number] Atorvastatin Calcium (Lipitor) 80 mg PO HS [facility] Stop: 07/27/19 21:18 Last Admin: 06/27/19 22:54 Dose: 80 mg Documented by: [id number] Cosigned by: [id number] Carvedilol (Coreg) 25 mg PO BID UNA Stop: 07/27/19 21:18 Last Admin: 06/27/19 22:48 Dose: 25 mg Documented by: [id number] Cosigned by: [id number] Lidocaine (Anecream 4%) 1 appln EXT HS UNA Stop: 07/27/19 21:18 Last Admin: 06/27/19 22:46 Dose: 1 appln Documented by: [id number] Cosigned by: [id number] Miscellaneous (Order Awaiting Action) 1 ea N/A QS UNA Stop: 07/27/19 21:29 Last Admin: 06/27/19 22:56 Dose: Not Given Documented by: [id number] Sulfadiazine (Azulfidine) 1,000 mg PO QID UNA Stop: 07/27/19 21:18 Last Admin: 06/27/19 22:47 Dose: 1,000 mg Documented by: [id number] Cosigned by: [id number] Discontinued Medications Potassium Chloride (K Pierce / Wtr) 10 meq in 100 mls @ 100 mls/hr IV Q1H UNA Stop: 06/27/19 21:44 Last Infusion: 06/27/19 21:54 Dose: 0 mls/hr Documented by: [id number] Admin: 06/27/19 20:48 Dose: 100 mls/hr Documented by: [id number] Infusion: 06/27/19 20:48 Dose: 0 mls/hr Documented by: [id number] Admin: 06/27/19 19:38 Dose: 100 mls/hr Documented by: [id number] Magnesium Sulfate/Dextrose (Magnesium Sulfate / D5w) 1 gm in 100 mls @ 100 mls/hr IV ONE ONE Stop: 06/27/19 22:29 Last Infusion: 06/28/19 00:03 Dose: 0 mls/hr Documented by: [id number] Cosigned by: [id number] Admin: 06/27/19 22:55 Dose: 100 mls/hr Documented by: [id number] Cosigned by: [id number] Potassium Chloride (Klor-Con M10) 40 meq PO NOW STA Stop: 06/27/19 19:34 Last Admin: 06/27/19 19:38 Dose: 40 meq Documented by: [id number] Potassium Chloride (Klor-Con M10) 40 meq PO NOW STA Stop: 06/27/19 21:20 Last Admin: 06/27/19 22:53 Dose: 40 meq Documented by: [id number] Cosigned by: [id number] Medical Decision Making Differential Diagnosis Differential Diagnosis: Acute coronary syndrome, arrhythmia, electrolyte or metabolic abnormality, CHF, infection, anemia. Medical Records Attestation: I reviewed the patient's medical records. Home Medications Current Medication List: was personally reviewed by me Laboratory Data Attestation: I reviewed the patient's lab results. Result diagrams: 06/27/19 18:06 06/27/19 18:06 Lab Results 06/27/19 06/27/19 06/27/19 Range/Units 18:06 18:06 18:06 WBC 7.40 (4.8-10.8) K/uL RBC 4.29 L (4.7-6.1) M/uL Hgb 15.2 (14.0-18.0) g/dL Hct 41.3 L (42-52) % MCV 96.3 (80-100) fL MCH 35.4 H (25-34) pg MCHC 36.8 H (32-36) g/dL RDW Std Deviation 50.4 H (36.4-46.3) fL RDW Coeff of Delmi 14.5 (11.5-14.5) % Plt Count 192 (130-400) K/uL MPV 10.0 (7.4-10.4) fL Immature Gran % (Auto) 0.3 % Neut % (Auto) 58.4 % Lymph % (Auto) 27.3 % Borden % (Auto) 12.3 % Eos % (Auto) 1.2 % Baso % (Auto) 0.5 % Immature Gran # (Auto) 0.02 (0.00-0.02) K/uL Neut # (Auto) 4.32 (1.4-6.5) K/uL Lymph # (Auto) 2.02 (1.2-3.4) K/uL Borden # (Auto) 0.91 H (0.11-0.59) K/uL Eos # (Auto) 0.09 (0-0.5) K/uL Baso # (Auto) 0.04 (0-0.2) K/uL PT 11.9 (9.0-12.0) Seconds INR 1.2 H (0.9-1.1) APTT 27.6 (21.0-31.0) Seconds PTT Ratio 1.0 Sodium 141 (136-145) mmol/L Potassium 2.7 L (3.5-5.1) mmol/L Chloride 100 (98-107) mmol/L Carbon Dioxide 33 H (21-32) mmol/L Anion Gap 8.0 (3-11) BUN 25 H (7-18) mg/dl Creatinine 1.17 (0.6-1.4) mg/dl Est Cr Clr Drug Dosing 77.5 ml/min Est GFR ( Amer) 70.3 Est GFR (Non-Af Amer) 60.6 BUN/Creatinine Ratio 21.1 H (10-20) Glucose 129 H (70-99) mg/dl Calcium 8.8 (8.5-10.1) mg/dl Magnesium 2.0 (1.8-2.4) mg/dl Total Bilirubin 0.4 (0.2-1) mg/dl AST 20 (15-37) U/L ALT 27 (12-78) U/L Alkaline Phosphatase 71 (45-117) U/L Troponin I < 0.015 (0-0.045) ng/ml NT-Pro-B Natriuret Pep (0-900) pg/ml Total Protein 6.8 (6.4-8.2) gm/dl Albumin 3.7 (3.4-5.0) gm/dl Globulin 3.1 (2.5-4.0) gm/dl Albumin/Globulin Ratio 1.2 (0.9-2) Lipase 101 (73-393) U/L 06/27/19 Range/Units 18:06 WBC (4.8-10.8) K/uL RBC (4.7-6.1) M/uL Hgb (14.0-18.0) g/dL Hct (42-52) % MCV (80-100) fL MCH (25-34) pg MCHC (32-36) g/dL RDW Std Deviation (36.4-46.3) fL RDW Coeff of Delmi (11.5-14.5) % Plt Count (130-400) K/uL MPV (7.4-10.4) fL Immature Gran % (Auto) % Neut % (Auto) % Lymph % (Auto) % Borden % (Auto) % Eos % (Auto) % Baso % (Auto) % Immature Gran # (Auto) (0.00-0.02) K/uL Neut # (Auto) (1.4-6.5) K/uL Lymph # (Auto) (1.2-3.4) K/uL Borden # (Auto) (0.11-0.59) K/uL Eos # (Auto) (0-0.5) K/uL Baso # (Auto) (0-0.2) K/uL PT (9.0-12.0) Seconds INR (0.9-1.1) APTT (21.0-31.0) Seconds PTT Ratio Sodium (136-145) mmol/L Potassium (3.5-5.1) mmol/L Chloride (98-107) mmol/L Carbon Dioxide (21-32) mmol/L Anion Gap (3-11) BUN (7-18) mg/dl Creatinine (0.6-1.4) mg/dl Est Cr Clr Drug Dosing ml/min Est GFR ( Amer) Est GFR (Non-Af Amer) BUN/Creatinine Ratio (10-20) Glucose (70-99) mg/dl Calcium (8.5-10.1) mg/dl Magnesium (1.8-2.4) mg/dl Total Bilirubin (0.2-1) mg/dl AST (15-37) U/L ALT (12-78) U/L Alkaline Phosphatase (45-117) U/L Troponin I (0-0.045) ng/ml NT-Pro-B Natriuret Pep 1355 H (0-900) pg/ml Total Protein (6.4-8.2) gm/dl Albumin (3.4-5.0) gm/dl Globulin (2.5-4.0) gm/dl Albumin/Globulin Ratio (0.9-2) Lipase (73-393) U/L Imaging Data Radiologist's Impression: Radiology results as stated below per my review and the radiologist's interpretation: XR chest 1V portable CLINICAL HISTORY: 74 years-old Male presenting with Chest Pain. TECHNIQUE: Portable upright AP view of the chest was obtained. COMPARISON: 02/11/2019. FINDINGS: Left subclavian implanted cardiac defibrillator with leads in the right atrium and right ventricular apex. Multiple median sternotomy wires are broken as on prior exam. Mediastinal surgical clips noted. Atherosclerosis of the aortic arch. Cardiac silhouette mildly enlarged as on prior. No focal opacity. No large effusion or pneumothorax. Osseous structures normal. IMPRESSION: 1. Mild cardiomegaly. No other convincing evidence of acute cardiopulmonary disease. Electronically signed by: Yoni Shoemaker M.D. 06/27/2019 7:23 PM ECG Data Attestation: I personally reviewed and interpreted this ECG as follows: Indication: other (cardiac assessment, poor baseline to interpretation) Rate (beats per minute): 64 Rhythm: normal sinus Findings: + 1st degree AV block and + LBBB; no ST depression, no ST elevation and no acute ischemic change Comparison ECG Date: from (02/11/2019) Change: the following changes noted (Paced spikes were not visualized) Blood Pressure Blood Pressure Findings: Elevated blood pressure Blood Pressure Disposition: further management by hospitalist [facility] Narrative This patient comes in as described above. He was feeling lightheaded and dizzy at times today. His defibrillator fired once. He had no chest pain or shortness of breath. he is asymptomatic at present. His initial EKG shows what appears to be normal sinus rhythm. He is stable vital signs. IV access was established he was placed on a monitoring and evaluation advisor chest x-ray EKG multiple blood testing was obtained. We did interrogate his [employer] pacer/defibrillator. The pacemaker/defibrillator appropriately fired. The patient did have 30 second run of V. tach. He tried to pace him out first but then fired. He had no other V. tach or arrhythmic episodes. His troponin is normal. Chest x-ray does not show overt CHF or pneumonia. His potassium is low at 2.7 and this likely attributed. His magnesium was normal at 2. He was given 2 potassium chloride 10 mill equivalent IV K riders over an hour each. He was also given potassium chloride 40 mEq p.o. I do think that he needs to be admitted/observed I discussed it with Dr. Smith who agrees. I also discussed with Dr. Banks who will be the hospitalist admitting the patient. Impression & Plan V-tach, Defibrillator discharge, Hypokalemia, Weakness Critical Care Time Critical Care Time: Yes Total Critical Care Time: 30 I have personally spent greater than 30 minutes of critical care time in the direct management of this patient. This includes bedside care, interpretation of diagnostic studies, and testing, discussion with consultants, patient, and f amily members, and other required patient management activities. This 30 minutes is in excess of all separately billable procedures. Discharge Plan Visit Data *Final* Discharge Date/Time: 06/27/19 21:00 Chief Complaint: Cardiac Assessment ED Provider: Rickie Santana Discharge Problem: V-tach, Defibrillator discharge, Hypokalemia, Weakness Patient Disposition: Admitted As Inpatient Discharge Instructions Interventions: ED Discharge Assessment Last Done: 06/27/19 21:00 The scribe's documentation has been prepared under my direction and personally r eviewed by me in its entirety. I confirm that the note above accurately reflects all work, treatment, procedures, and medical decision making performed by me.
[2019-06-27 18:58] LABS: Basophils # (auto) 0.04 K/uL (0-0.2); Basophils % (auto) 0.5 %; Eosinophils # (auto) 0.09 K/uL (0-0.5); Eosinophils % (auto) 1.2 %; Hematocrit (blood only) 41.3 % (42-52); Hemoglobin 15.2 g/dL (14.0-18.0); Immature Granulocytes # (auto) 0.02 K/uL (0.00-0.02); Immature Granulocytes % (auto) 0.3 %; Lymphocytes # (auto) 2.02 K/uL (1.2-3.4); Lymphocytes % (auto) 27.3 %; Mean Corpuscular Hemoglobin 35.4 pg (25-34); Mean Corpuscular Hgb Conc 36.8 g/dL (32-36); Mean Corpuscular Volume 96.3 fL (80-100); Monocytes # (auto) 0.91 K/uL (0.11-0.59); Monocytes % (auto) 12.3 %; Neutrophils # (auto) 4.32 K/uL (1.4-6.5); Neutrophils % (auto) 58.4 %; Platelet Count 192 K/uL (130-400); RDW Coefficient of Variation 14.5 % (11.5-14.5); RDW Standard Deviation 50.4 fL (36.4-46.3); Red Blood Count 4.29 M/uL (4.7-6.1)
[2019-06-27 19:08] LABS: INR 1.2 (0.9-1.1); Partial Thromboplastin Time 27.6 Seconds (21.0-31.0); Prothrombin Time 11.9 Seconds (9.0-12.0)
[2019-06-27 19:13] LABS: Alanine Aminotransferase 27 U/L (12-78); Albumin Level 3.7 gm/dl (3.4-5.0); BUN Creatinine Ratio 21.1 (10-20); Blood Urea Nitrogen 25 mg/dl (7-18); Calcium 8.8 mg/dl (8.5-10.1); Carbon Dioxide 33 mmol/L (21-32); Chloride 100 mmol/L (98-107); Creatinine Clr Calc Pharmacy 77.5 ml/min; Est GFR (African American) 70.3; Est GFR (Non-African American) 60.6; Glucose 129 mg/dl (70-99); Lipase 101 U/L (73-393); Potassium 2.7 mmol/L (3.5-5.1); Sodium 141 mmol/L (136-145)
[2019-06-27 19:19] LABS: Albumin Globulin Ratio 1.2 (0.9-2); Alkaline Phosphatase 71 U/L (45-117); Aspartate Aminotransferase 20 U/L (15-37); Bilirubin,Total 0.4 mg/dl (0.2-1); Globulin 3.1 gm/dl (2.5-4.0); Total Protein 6.8 gm/dl (6.4-8.2); Troponin I < 0.015 ng/ml (0-0.045)
--- NOTE | 2019-06-27 19:25 | XRay Report ---
XR chest 1V portable CLINICAL HISTORY: 74 years-old Male presenting with Chest Pain. TECHNIQUE: Portable upright AP view of the chest was obtained. COMPARISON: 02/11/2019. FINDINGS: Left subclavian implanted cardiac defibrillator with leads in the right atrium and right ventricular apex. Multiple median sternotomy wires are broken as on prior exam. Mediastinal surgical clips noted. Atherosclerosis of the aortic arch. Cardiac silhouette mildly enlarged as on prior. No focal opacity . No large effusion or pneumothorax. Osseous structures normal. IMPRESSION: 1. Mild cardiomegaly. No other convincing evidence of acute cardiopulmonary disease. Electronically signed by: Yoni Shoemaker M.D. 06/27/2019 7:23 PM
[2019-06-27] MEDS ORDERED: POTASSIUM CHLORIDE 10 MEQ TABCR PO STA ×2 (19:33→21:19)
[2019-06-27] MEDS: POTASSIUM CHLORIDE / WTR 10 MEQ/100 ML PLCT IV SCH ×2 (19:38→20:48)
--- NOTE | 2019-06-27 20:23 | History & Physical Report ---
Date of Service June 27, 2019 Assessment & Plan (1) Defibrillator discharge: Patient with defibrillator discharge x1 today. Interrogation completed in the ER which revealed V tach. Device attempted to pace out of V. tach which was unsuccessful therefore shock was appropriately delivered. Patient has had 2 AICD discharges in the past, one on November 10 and one on February 09. Etiology unclear, possibly secondary to hypokalemia. Troponin negative. -Observation to medical floor with telemetry -Optimize electrolytes -Check amiodarone level -Continue Eliquis -Continue amiodarone and mexiletine at home doses -Radiology consult in the morning. Appreciate assistance with this case Present on Admission?: Yes (2) V-tach: Description as above. Patient with history of the same, status post AICD. -Plan as above Present on Admission?: Yes (3) Hypokalemia: Potassium of 2.7. Patient is on high doses of Lasix at home as well as p.o. potassium supplementation. He takes metolazone as needed for 3 pound weight gain. reports that he has been taking metolazone more frequently than usual. This may be underlying cause of hypokalemia. He was repleted with 50 mEq of potassium in the ER. -Administer magnesium sulfate x1 g -Administer additional 40 mEq of potassium -Repeat BMP at midnight Present on Admission?: Yes (4) Chronic combined systolic and diastolic heart failure: Patient appears clinically euvolemic. No overt evidence of failure -Continue home medications. Lasix, carvedilol, losartan -Continue Imdur, Statin, ASA Present on Admission?: Yes (5) Obstructive sleep apnea: Patient reports compliance with home CPAP -CPAP nightly (6) Hypercholesterolemia: Chronic. Stable -Continue atorvastatin Present on Admission?: Yes (7) Coronary arteriosclerosis in [place] artery: Patient with no complaint of chest pain. EKG with no evidence of acute ischemia. Troponin x1- -continue aspirin, atorvastatin, carvedilol, losartan, Imdur Present on Admission?: Yes (8) Chronic back pain: Patient presently in mild back pain -Tylenol as needed -Continue home Lidoderm patch Present on Admission?: Yes (9) Ulcerative colitis: Currently well controlled. Patient reports normal bowel movements. No flare -Continue azathioprine -Continue sulfasalazine Present on Admission?: Yes (10) Hypertension: Blood pressure presently elevated 182/80 -Continue home medication regimen. Carvedilol, losartan -Continue to monitor FENHep-Lock. Potassium repletion as above. Check BMP at midnight. Heart healthy diet as tolerated. Continue calcium and multivitamin Prophylaxis-patient is anticoagulated on Eliquis. We will continue Code-full code. Dispositionobservation to medical floor telemetry Present on Admission?: Yes History of Present Illness Chief Complaint: AICD discharge Primary Care Provider: Ashanti Melchor DO Mr. Arnulfo Orlando is a pleasant 74-year-old male with multiple medical problems, most significantly CAD status post three-vessel CABG, ischemic cardiomyopathy with ejection fraction of 30 to 35% and global severe LV dysfunction per echo October 2018, status post AICD placed for history of sustained VT. Patient is on amiodarone and mexiletine antiarrhythmics and Eliquis anticoagulation. He presents today after an AICD discharge. At approximately 1630 he was sitting in his recliner when he began to feel light headed for approximately 5 to 10 minutes this was followed by an AICD discharge x1. Patient reports that the lightheadedness resolved. He denies chest pain, palpitations, dizziness, shortness of breath acutely. He does state that he has become slightly more short of breath over the past month. Patient manages his diuretics at home. He takes Lasix 120 mg p.o. daily. He weighs himself daily and takes a metolazone if his weight increases by 3 pounds. He reports that he has used 5-7 doses of metolazone over the last month. He took a dose on 06/21 and another dose on 06/24. His comments that he has been needing it more frequently than usual. He has no complaints of shortness of breath, orthopnea, edema. He states that his weight is stable. (134.6 kg today which is close to prior admissions) ER course: Testing chloride 10 mEq IV, potassium chloride 40 mEq p.o. Allergies Allergy/AdvReac Type Severity Reaction Status Date / Time simvastatin Allergy Mild DIARRHEA/ Verified 06/27/19 19:17 EXACERBATED COLITIS tetanus toxoid, adsorbed Allergy Unknown Rash Verified 06/27/19 19:17 lisinopril AdvReac Unknown ABDOMINAL Verified 06/27/19 19:17 PAIN/DIARRHEA, Difficulty Swallowing Home Medications Home Medications Medication Instructions Recorded Confirmed Type sulfasalazine 1,000 mg PO QID #0 tab 08/03/13 06/27/19 History potassium chloride 80 meq PO DAILY #0 07/25/16 06/27/19 History multivitamin 1 tab PO DAILY 09/02/18 06/27/19 History amiodarone 400 mg tablet 400 mg PO DAILY #30 tab 05/21/19 06/27/19 Rx aspirin 325 mg tablet,delayed 325 mg PO DAILY #30 tab 05/21/19 06/27/19 Rx release atorvastatin 80 mg tablet 80 mg PO HS #30 tab 05/21/19 06/27/19 Rx azathioprine 50 mg tablet 100 mg PO DAILY #30 tab 05/21/19 06/27/19 Rx carvedilol 25 mg tablet 25 mg PO BID #60 tab 05/21/19 06/27/19 Rx furosemide 40 mg tablet 120 mg PO DAILY #180 tab 05/21/19 06/27/19 Rx isosorbide mononitrate ER 60 mg 60 mg PO DAILY #30 tab 05/21/19 06/27/19 Rx tablet,extended release 24 hr losartan 100 mg tablet 100 mg PO DAILY #90 tab 05/21/19 06/27/19 Rx nitroglycerin 0.4 mg sublingual 0.4 mg SUBLINGUAL UD PRN #1 btl 05/21/19 06/27/19 Rx tablet calcium carbonate 600 mg (1,500 1 tab PO DAILY tab 06/24/19 06/27/19 History mg)-vitamin D3 400 unit tablet acetaminophen [Tylenol Extra 1,000 mg PO QID PRN 06/27/19 06/27/19 History Strength] apixaban [Eliquis] 5 mg PO Q12 06/27/19 06/27/19 History lidocaine 1 applic TOPICAL HS 06/27/19 06/27/19 History metolazone 5 mg PO DAILY PRN 06/27/19 06/27/19 History mexiletine 150 mg PO Q8 06/27/19 06/27/19 History Past Med/Surg History Medical History Chronic combined systolic and diastolic heart failure Obstructive sleep apnea Low vitamin B12 level Left bundle-branch block Hypercholesterolemia Coronary arteriosclerosis in [place] artery Cerebellar ataxia Cardiac defibrillator in place Osteoarthritis Chronic back pain BPH (benign prostatic hyperplasia) Ulcerative colitis On anticoagulant therapy Hypertension Hyperlipidemia ICD (implantable cardioverter-defibrillator) in place Pacemaker Atrial fibrillation 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) Deep vein thrombosis (Resolved) RLE Myocardial Infarction (Resolved) Stroke (Resolved) History of CVA (cerebrovascular accident) Surgical History History of adenoidectomy (Acute) History of cholecystectomy (Acute) History of colonoscopy (Acute) History of coronary artery bypass graft (Acute) triple bypass History of heart artery stent (Acute) History of tonsillectomy (Acute) History of total hip arthroplasty (Acute) bilateral Hx of transurethral resection of prostate (Acute) Fusion of spine lumbar region Family History Father Coronary heart disease Myocardial infarction Mother Myocardial infarction Coronary heart disease Social History Preferred Language: Stateless Communication Ability: Effective Visual Impairment: No Limitations Hearing Ability: Normal [place] Required: No Beliefs That Will Affect Care: None Current Living Situation: Spouse Feels Safe at Home: Yes Smoking Status: Former smoker Second Hand Exposure: No ; Hx Alcohol Use: No Hx Substance Use: No Review of Systems Review of Systems: All systems reviewed & are unremarkable except as noted in HPI & below Physical Exam Physical Exam: General: patient resting comfortably, NAD, non-toxic in appearance, AA&O x 4 Skin: warm, dry, intact, no rashes or lesions HEENT: NC/AT, PERRL, EOMI, anicteric sclera, conjunctiva without injection, external ear normal to inspection and nontender, nares patent, moist mucus membranes, dentition intact, no oropharyngeal lesions, neck supple, trachea midline, no LAD, no thyromegaly, no JVD Heart: +S1/S2, regular, distant heart sounds, no m/r/g Lungs: equal air entry bilaterally, no rales/rhonchi/wheezes Abd: +BS, soft, NT/ND, no masses/organomegaly/ascites Ext: warm, 2+ pulses in UE/LE bilaterally, no clubbing/cyanosis or edema Neuro: nonfocal, patient AA&O x 4, speech intact, no facial droop, moving all extremities on command with equal strength 5/5 Results & Data Vital Signs (Past 12 Hours) Vital Signs Temp Pulse Pulse Resp BP BP Pulse Ox 06/27/19 19:39 61 16 176/92 H 93 06/27/19 18:38 36.5 C 67 18 182/80 H 94 Laboratory Results Lab Results 06/27/19 06/27/19 06/27/19 Range/Units 18:06 18:06 18:06 WBC 7.40 (4.8-10.8) K/uL RBC 4.29 L (4.7-6.1) M/uL Hgb 15.2 (14.0-18.0) g/dL Hct 41.3 L (42-52) % MCV 96.3 (80-100) fL MCH 35.4 H (25-34) pg MCHC 36.8 H (32-36) g/dL RDW Std Deviation 50.4 H (36.4-46.3) fL RDW Coeff of Delmi 14.5 (11.5-14.5) % Plt Count 192 (130-400) K/uL MPV 10.0 (7.4-10.4) fL Immature Gran % (Auto) 0.3 % Neut % (Auto) 58.4 % Lymph % (Auto) 27.3 % [place] % (Auto) 12.3 % Eos % (Auto) 1.2 % Baso % (Auto) 0.5 % Immature Gran # (Auto) 0.02 (0.00-0.02) K/uL Neut # (Auto) 4.32 (1.4-6.5) K/uL Lymph # (Auto) 2.02 (1.2-3.4) K/uL [place] # (Auto) 0.91 H (0.11-0.59) K/uL Eos # (Auto) 0.09 (0-0.5) K/uL Baso # (Auto) 0.04 (0-0.2) K/uL PT 11.9 (9.0-12.0) Seconds INR 1.2 H (0.9-1.1) APTT 27.6 (21.0-31.0) Seconds PTT Ratio 1.0 Sodium 141 (136-145) mmol/L Potassium 2.7 L (3.5-5.1) mmol/L Chloride 100 (98-107) mmol/L Carbon Dioxide 33 H (21-32) mmol/L Anion Gap 8.0 (3-11) BUN 25 H (7-18) mg/dl Creatinine 1.17 (0.6-1.4) mg/dl Est Cr Clr Drug Dosing 77.5 ml/min Est GFR ( Amer) 70.3 Est GFR (Non-Af Amer) 60.6 BUN/Creatinine Ratio 21.1 H (10-20) Glucose 129 H (70-99) mg/dl Calcium 8.8 (8.5-10.1) mg/dl Magnesium 2.0 (1.8-2.4) mg/dl Total Bilirubin 0.4 (0.2-1) mg/dl AST 20 (15-37) U/L ALT 27 (12-78) U/L Alkaline Phosphatase 71 (45-117) U/L Troponin I < 0.015 (0-0.045) ng/ml Total Protein 6.8 (6.4-8.2) gm/dl Albumin 3.7 (3.4-5.0) gm/dl Globulin 3.1 (2.5-4.0) gm/dl Albumin/Globulin Ratio 1.2 (0.9-2) Lipase 101 (73-393) U/L Diagnostic Findings XR chest 1V portable CLINICAL HISTORY: 74 years-old Male presenting with Chest Pain. TECHNIQUE: Portable upright AP view of the chest was obtained. COMPARISON: 02/11/2019. FINDINGS: Left subclavian implanted cardiac defibrillator with leads in the right atrium and right ventricular apex. Multiple median sternotomy wires are broken as on prior exam. Mediastinal surgical clips noted. Atherosclerosis of the aortic arch. Cardiac silhouette mildly enlarged as on prior. No focal opacity. No large effusion or pneumothorax. Osseous structures normal. IMPRESSION: 1. Mild cardiomegaly. No other convincing evidence of acute cardiopulmonary disease. Electronically signed by: Yoni Shoemaker M.D. 06/27/2019 7:23 PM Dictated: 06/27/191921 Transcribed: 06/27/191921 ECG Additional Comments: The study shows sinus rhythm at 64 bpm, left axis deviation left bundle branch block, no evidence of acute ischemia Code Status & VTE Plan Code Status Full VTE Prophylaxis Plan VTE Prophylaxis will be ordered: Yes PG Care Time/CCT Total # of Minutes Spent Total Time Spent with Patient: Total time spent is greater than 50% in coordination of care (as documented) at patient's floor/unit and/or counseling patient: (1) Chronic back pain Back pain location: low back pain Back pain laterality: midline Sciatica presence: without sciatica Qualified Code(s): M54.5 - Low back pain; G89.29 - Other chronic pain (2) Ulcerative colitis Ulcerative colitis location: unspecified ulcerative colitis location Digestive disease complication type: without complication Qualified Code(s): K51.90 - Ulcerative colitis, unspecified, without complications (3) Hypertension Hypertension type: essential hypertension Qualified Code(s): I10 - Essential (primary) hypertension
[2019-06-27] MEDS ORDERED: ACETAMINOPHEN 500 MG TAB PO PRN (21:19)
[2019-06-27] MEDS ORDERED: DOCUSATE SODIUM 100 MG CAP PO PRN (21:19)
[2019-06-27] MEDS ORDERED: ACETAMINOPHEN 325 MG TAB PO PRN (21:19)
[2019-06-27] MEDS ORDERED: MAGNESIUM SULFATE / D5W 1 GM/100 ML BAG IV ONE (21:30)
[2019-06-27] MEDS: LIDOCAINE 4% CREAM 15 GM TUBE EXT SCH (22:46)
[2019-06-27] MEDS: sulfaSALAzine 500 MG TABLET PO SCH (22:47)
[2019-06-27] MEDS: APIXABAN 5 MG TABLET PO SCH (22:48)
[2019-06-27] MEDS: CARVEDILOL 25 MG TAB PO SCH (22:48)
[2019-06-27] MEDS: ATORVASTATIN 40 MG TAB PO SCH (22:54)
[2019-06-28 00:42] LABS: BUN Creatinine Ratio 25.5 (10-20); Calcium 8.1 mg/dl (8.5-10.1); Est GFR (African American) 89.3; Potassium 2.9 mmol/L (3.5-5.1)
[2019-06-28 06:23] LABS: Basophils # (auto) 0.04 K/uL (0-0.2); Basophils % (auto) 0.5 %; Eosinophils # (auto) 0.11 K/uL (0-0.5); Eosinophils % (auto) 1.5 %; Hematocrit (blood only) 37.5 % (42-52); Hemoglobin 13.5 g/dL (14.0-18.0); Immature Granulocytes # (auto) 0.02 K/uL (0.00-0.02); Immature Granulocytes % (auto) 0.3 %; Lymphocytes # (auto) 1.86 K/uL (1.2-3.4); Lymphocytes % (auto) 25.5 %; Mean Corpuscular Hemoglobin 34.6 pg (25-34); Mean Corpuscular Volume 96.2 fL (80-100); Mean Platelet Volume 9.5 fL (7.4-10.4); Monocytes # (auto) 0.67 K/uL (0.11-0.59); Monocytes % (auto) 9.2 %; Neutrophils # (auto) 4.59 K/uL (1.4-6.5); Platelet Count 149 K/uL (130-400); RDW Coefficient of Variation 14.5 % (11.5-14.5); RDW Standard Deviation 50.7 fL (36.4-46.3); White Blood Count 7.29 K/uL (4.8-10.8)
[2019-06-28 06:59] LABS: BUN Creatinine Ratio 23.9 (10-20); Calcium 8.3 mg/dl (8.5-10.1); Creatinine Clr Calc Pharmacy 99.1 ml/min; Est GFR (Non-African American) 81.1; Potassium 3.2 mmol/L (3.5-5.1)
[2019-06-28] MEDS: MULTIVITAMIN TAB PO SCH (08:11)
[2019-06-28] MEDS: azaTHIOprine 50 MG TAB PO SCH (08:11)
[2019-06-28] MEDS: FUROSEMIDE 40 MG TAB PO SCH (08:11)
[2019-06-28] MEDS: APIXABAN 5 MG TABLET PO SCH ×2 (08:11→21:29)
[2019-06-28] MEDS: ISOSORBIDE MONO EXTENDED REL 60 MG TABCR PO SCH (08:12)
[2019-06-28] MEDS: sulfaSALAzine 500 MG TABLET PO SCH ×4 (08:12→21:31)
[2019-06-28] MEDS: LOSARTAN POTASSIUM 50 MG TAB PO SCH (08:12)
[2019-06-28] MEDS: AMIODARONE 200 MG TAB PO SCH (08:12)
[2019-06-28] MEDS: CARVEDILOL 25 MG TAB PO SCH ×2 (08:12→21:32)
[2019-06-28] MEDS: ASPIRIN 325 MG ECTAB PO SCH (08:12)
[2019-06-28] MEDS ORDERED: POTASSIUM CHLORIDE 20 MEQ TABCR PO STA (08:36)
[2019-06-28] MEDS: POTASSIUM CHLORIDE 20 MEQ TABCR PO SCH (08:41)
[2019-06-28] MEDS: CALCIUM 600MG + VIT D 400 IU TAB PO SCH (08:41)
[2019-06-28] MEDS ORDERED: CALCIUM CARBONATE VITAMIN D3 PO SCH (09:00)
[2019-06-28] MEDS ORDERED: POTASSIUM CHLORIDE 20 MEQ TABCR PO ONE (16:00)
[2019-06-28] MEDS: MEXILETINE HCL PO SCH ×2 (16:14→21:35)
--- NOTE | 2019-06-28 16:41 | Cardiology Consultation ---
Date of Consultation June 28, 2019 Assessment & Plan (1) V-tach: The patient had a symptomatic episode of ventricular tachycardia yesterday which required a defibrillator discharge. Suspect that his significant hypokalemia may have been a factor. We have discussed increasing his potassium supplements, especially when he administers metolazone. (2) Chronic combined systolic and diastolic heart failure: The patient manages his volume status well in outpatient setting. As above, we will increase his potassium supplementation after he administers a metolazone tablet. (3) Coronary arteriosclerosis in [place] artery: Extensive history as described above. He did undergo a 3 vessel bypass in August 2000 and also had a stent placed within the mid LAD in January 2006. (4) Ischemic cardiomyopathy: Left ventricular ejection fraction was 30-35% on an echocardiogram performed October. There is moderate global hypokinesis. (5) ICD (implantable cardioverter-defibrillator) in place: Properly functioning device. History of Present Illness Attending Physician: Viri Banks DO History of Present Illness Mr Orlando is a 74-year-old male admitted yesterday after a defibrillator dis charge. This consultation was ordered to assist in his cardiac management. Of note, the patient follows with me in the outpatient setting. The patient was in his usual state of health until yesterday afternoon. He was seated in his reclining chair when he began to note dizziness. After approximately 5 minutes, he received a defibrillator discharge. After the event, he noticed numbness of his forehead. He proceeded to the emergency room for further care. Interrogation of his device apparently noted ventricular tachycardia with appropriate therapies delivered. His potassium level is s ignificantly depressed at 2.9. The patient has not experienced any recent angina pectoris or limiting dyspnea. He further denies PND, orthopnea, palpitations, lower extremity edema, and claudication. The patient has a longstanding history of coronary artery disease. He underwent 3 vessel bypass in August 2000. He required a stent to the mid LAD in January 2006. He does have an ischemic cardiomyopathy with an ejection fraction of 30- 35% on an echocardiogram performed in October 2018. The patient did have a dual- chamber ICD placed in August 2013. Unfortunately, Dr. Mosqueda was unable to a dvance a left ventricular lead. The patient follows daily weights at home. His typical dry weight is 300 lb with a trigger weight of 303 lb. He typically takes Lasix 120 mg daily and uses a dose of metolazone 5 mg prior to his morning dose of Lasix at when needed for weight gain. This occurs approximately 1 time each week. There has been no recent episode of his atrial fibrillation. He is tolerating rhythm control and long-term anticoagulation without difficulty. Currently, patient is resting comfortably in bed without complaints. Past medical and surgical history 1. Coronary artery disease 2. CABG x3-August 2000 3. Mid LAD stent-January 2006 4. Ischemic [id number]-15-70% 5. Chronic systolic CHF 6. Recurrent symptomatic ventricular tachycardia 7. Dual-chamber ICD-August 2013, failed LV lead 8. LBBB 9. Hypertension 10. Hypercholesterolemia 11. Paroxysmal atrial fibrillation 12. Ulcerative colitis 13. Obesity 14. Obstructive sleep apnea 15. Cerebellar ataxia 16. Chronic low back pain 17. Vitamin B12 deficiency 18. Hearing deficit 19. Gout 20. Chronic low back pain 21. Laparoscopic cholecystectomy 22. THR 23. Lumbar fusion Social history and lives with his No tobacco or alcohol Family history Noncontributory Review of systems A 10 point review of systems was negative except for that described above. Allergies Allergy/AdvReac Type Severity Reaction Status Date / Time simvastatin Allergy Mild DIARRHEA/ Verified 06/27/19 19:17 EXACERBATED COLITIS tetanus toxoid, adsorbed Allergy Unknown Rash Verified 06/27/19 19:17 lisinopril AdvReac Unknown ABDOMINAL Verified 06/27/19 19:17 PAIN/DIARRHEA, Difficulty Swallowing Home Medications Home Medications Medication Instructions Recorded Confirmed Type sulfasalazine 1,000 mg PO QID #0 tab 08/03/13 06/27/19 History potassium chloride 80 meq PO DAILY #0 07/25/16 06/27/19 History multivitamin 1 tab PO DAILY 09/02/18 06/27/19 History amiodarone 400 mg tablet 400 mg PO DAILY #30 tab 05/21/19 06/27/19 Rx aspirin 325 mg tablet,delayed 325 mg PO DAILY #30 tab 05/21/19 06/27/19 Rx release atorvastatin 80 mg tablet 80 mg PO HS #30 tab 05/21/19 06/27/19 Rx azathioprine 50 mg tablet 100 mg PO DAILY #30 tab 05/21/19 06/27/19 Rx carvedilol 25 mg tablet 25 mg PO BID #60 tab 05/21/19 06/27/19 Rx furosemide 40 mg tablet 120 mg PO DAILY #180 tab 05/21/19 06/27/19 Rx isosorbide mononitrate ER 60 mg 60 mg PO DAILY #30 tab 05/21/19 06/27/19 Rx tablet,extended release 24 hr losartan 100 mg tablet 100 mg PO DAILY #90 tab 05/21/19 06/27/19 Rx nitroglycerin 0.4 mg sublingual 0.4 mg SUBLINGUAL UD PRN #1 btl 05/21/19 06/27/19 Rx tablet calcium carbonate 600 mg (1,500 1 tab PO DAILY tab 06/24/19 06/27/19 History mg)-vitamin D3 400 unit tablet acetaminophen [Tylenol Extra 1,000 mg PO QID PRN 06/27/19 06/27/19 History Strength] apixaban [Eliquis] 5 mg PO Q12 06/27/19 06/27/19 History lidocaine 1 applic TOPICAL HS 06/27/19 06/27/19 History metolazone 5 mg PO DAILY PRN 06/27/19 06/27/19 History mexiletine 150 mg PO Q8 06/27/19 06/27/19 History Patient History Medical History Chronic combined systolic and diastolic heart failure Obstructive sleep apnea Low vitamin B12 level Left bundle-branch block Hypercholesterolemia Coronary arteriosclerosis in [place] artery Cerebellar ataxia Cardiac defibrillator in place Osteoarthritis Chronic back pain BPH (benign prostatic hyperplasia) Ulcerative colitis On anticoagulant therapy Hypertension Hyperlipidemia ICD (implantable cardioverter-defibrillator) in place Pacemaker Atrial fibrillation 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) Deep vein thrombosis (Resolved) RLE Myocardial Infarction (Resolved) Stroke (Resolved) History of CVA (cerebrovascular accident) Surgical History History of adenoidectomy (Acute) History of cholecystectomy (Acute) History of colonoscopy (Acute) History of coronary artery bypass graft (Acute) triple bypass History of heart artery stent (Acute) History of tonsillectomy (Acute) History of total hip arthroplasty (Acute) bilateral Hx of transurethral resection of prostate (Acute) Fusion of spine lumbar region Family History Father Coronary heart disease Myocardial infarction Mother Myocardial infarction Coronary heart disease Social History Preferred Language: Persian Communication Ability: Effective Visual Impairment: No Limitations Hearing Ability: Normal [place] [employer]ving Required: No Beliefs That Will Affect Care: None Current Living Situation: Spouse Feels Safe at Home: Yes Smoking Status: Former smoker Second Hand Exposure: No ; Hx Alcohol Use: No Hx Substance Use: No Physical Exam Physical Exam: In general this is an obese white male lying supine in bed without complaints. HEENT exam is negative. Neck is supple with full carotid upstrokes. No carotid bruits. Jugular venous pressure is flat at 90. There is no thyromegaly. Cardiovascular exam reveals a regular rhythm with distant heart sounds. No obvious murmurs. No S3. Lungs are clear without rales, rhonchi or wheezes. Abdomen is soft nontender without bruits. Extremities reveal intact radial artery pulses bilaterally. Trace pretibial edema is noted bilaterally. Results & Data Vital Signs (Past 12 Hours) Vital Signs Temp Pulse Pulse Pulse Resp BP Pulse Ox 06/28/19 15:57 36.3 C L 60 18 118/70 94 06/28/19 12:00 36.9 C 58 L 18 109/66 95 06/28/19 11:26 36.4 C L 63 20 108/66 96 06/28/19 07:16 36.5 C 60 20 153/77 H 93 06/28/19 05:42 60 16 97 Laboratory Results Laboratory Results - last 24 hr 06/27/19 06/27/19 06/27/19 18:06 18:06 18:06 WBC 7.40 RBC 4.29 L Hgb 15.2 Hct 41.3 L MCV 96.3 MCH 35.4 H MCHC 36.8 H RDW Std Deviation 50.4 H RDW Coeff of Delmi 14.5 Plt Count 192 MPV 10.0 Immature Gran % (Auto) 0.3 Neut % (Auto) 58.4 Lymph % (Auto) 27.3 [place] % (Auto) 12.3 Eos % (Auto) 1.2 Baso % (Auto) 0.5 Immature Gran # (Auto) 0.02 Neut # (Auto) 4.32 Lymph # (Auto) 2.02 [place] # (Auto) 0.91 H Eos # (Auto) 0.09 Baso # (Auto) 0.04 PT 11.9 INR 1.2 H APTT 27.6 PTT Ratio 1.0 Sodium 141 Potassium 2.7 L Chloride 100 Carbon Dioxide 33 H Anion Gap 8.0 BUN 25 H Creatinine 1.17 Est Cr Clr Drug Dosing 77.5 Est GFR ( Amer) 70.3 Est GFR (Non-Af Amer) 60.6 BUN/Creatinine Ratio 21.1 H Glucose 129 H Calcium 8.8 Magnesium 2.0 Total Bilirubin 0.4 AST 20 ALT 27 Alkaline Phosphatase 71 Troponin I < 0.015 NT-Pro-B Natriuret Pep Total Protein 6.8 Albumin 3.7 Globulin 3.1 Albumin/Globulin Ratio 1.2 Lipase 101 Amiodarone Desmethylamiodarone 06/27/19 06/27/19 06/27/19 18:06 23:44 23:44 WBC RBC Hgb Hct MCV MCH MCHC RDW Std Deviation RDW Coeff of Delmi Plt Count MPV Immature Gran % (Auto) Neut % (Auto) Lymph % (Auto) [place] % (Auto) Eos % (Auto) Baso % (Auto) Immature Gran # (Auto) Neut # (Auto) Lymph # (Auto) [place] # (Auto) Eos # (Auto) Baso # (Auto) PT INR APTT PTT Ratio Sodium 140 Potassium 2.9 L Chloride 103 Carbon Dioxide 32 Anion Gap 5.0 BUN 24 H Creatinine 0.96 Est Cr Clr Drug Dosing 95.0 Est GFR ( Amer) 89.3 Est GFR (Non-Af Amer) 77.0 BUN/Creatinine Ratio 25.5 H Glucose 102 H Calcium 8.1 L Magnesium Total Bilirubin AST ALT Alkaline Phosphatase Troponin I NT-Pro-B Natriuret Pep 1355 H Total Protein Albumin Globulin Albumin/Globulin Ratio Lipase Amiodarone Pending Desmethylamiodarone Pending 06/28/19 06/28/19 06:09 06:09 WBC 7.29 RBC 3.90 L Hgb 13.5 L Hct 37.5 L MCV 96.2 MCH 34.6 H MCHC 36.0 RDW Std Deviation 50.7 H RDW Coeff of Delmi 14.5 Plt Count 149 MPV 9.5 Immature Gran % (Auto) 0.3 Neut % (Auto) 63.0 Lymph % (Auto) 25.5 [place] % (Auto) 9.2 Eos % (Auto) 1.5 Baso % (Auto) 0.5 Immature Gran # (Auto) 0.02 Neut # (Auto) 4.59 Lymph # (Auto) 1.86 [place] # (Auto) 0.67 H Eos # (Auto) 0.11 Baso # (Auto) 0.04 PT INR APTT PTT Ratio Sodium 142 Potassium 3.2 L Chloride 105 Carbon Dioxide 33 H Anion Gap 4.0 BUN 22 H Creatinine 0.92 Est Cr Clr Drug Dosing 99.1 Est GFR ( Amer) 94.0 Est GFR (Non-Af Amer) 81.1 BUN/Creatinine Ratio 23.9 H Glucose 92 Calcium 8.3 L Magnesium Total Bilirubin AST ALT Alkaline Phosphatase Troponin I NT-Pro-B Natriuret Pep Total Protein Albumin Globulin Albumin/Globulin Ratio Lipase Amiodarone Desmethylamiodarone Diagnostic Findings director of radiology notes appropriate ventricular pacing. PG Care Time/CCT Total # of Minutes Spent Total Time Spent with Patient: Total time spent is greater than 50% in coordination of care (as documented) at patient's floor/unit and/or counseling patient:
--- NOTE | 2019-06-28 18:00 | Hospitalist Progress Note ---
Date of Service June 28, 2019 Assessment & Plan (1) Defibrillator discharge: Underlying cardiomyopathy, pacer/ICD appears to have done appropriate work. Seems most likely proximally to have been driven by hypokalemia, obviously with the underlying cardiomyopathy to blame. Correct hypokalemia (see below) (2) V-tach: See above (3) Hypokalemia: Appears to be that his diuretic related potassium wasting is out of proportion to his supplementation. We discussed that he seems to do a very good job of following his weights and dosing extra diuretics, first question would be to see simply need extra potassium supplementation, but the other question would be is he is occasionally creating a situation of fluid retention from unwittingly taking in too much sodium that that is leading to extra days of excess diuretics to offload his left ventricle. His will be bringing in his logs, generally they eat the breakfast in question on , we will follow what his weight is doing over the following days and see if that is a major culprit or a minor player. If it is a major culprit, we will discuss the risks and benefits of dropping that breakfast from his rotation, if it does not seem to be a significant player, then he may simply need more potassium supplementation (4) Chronic combined systolic and diastolic heart failure: Patient appears clinically euvolemic. No overt evidence of failure -Discussed diet as above, continue home regimen. (5) Obstructive sleep apnea: Patient reports compliance with home CPAP -Continue CPAP (6) Hypercholesterolemia: -Continue atorvastatin (7) Coronary arteriosclerosis in [place] artery: Continue home meds, no cardiac symptoms. (8) Chronic back pain: Patient presently in mild back pain -Tylenol as needed -Continue home Lidoderm patch (9) Ulcerative colitis: Currently well controlled. Patient reports normal bowel movements. No flare -Continue azathioprine -Continue sulfasalazine (10) Hypertension: Follow with home regimen, blood pressure has improved Prophylaxis-patient is anticoagulated on Eliquis. We will continue Code-full code. Dispositionif his potassium continues to improve, hopefully home tomorrow. Subjective Feeling better. No new complaints. Cardiology input appreciated. Discussed diet with patient. It sounds like generally he does quite well with sodium except for a few notable exceptions. One day a week he does have a breakfast with eggs, smith or sausage, and tomato juice (unclear what brand of tomato juice, which certainly could make a significant difference in sodium), and occasionally spaghetti with meat sauce (which certainly is very high in sodium). He does keep a log of daily weights, when he takes his metolazone in addition to his Lasix, and he notes his will bring this in tomorrow. Generally he seems very well versed in following his CHF. Review of Systems Review of Systems: All systems reviewed & are unremarkable except as noted in HPI & below Physical Exam Physical Exam: In general he is awake and alert pleasant no distress. HEENT normal cephalic atraumatic mucous membranes moist. Breathing unlabored no accessory muscle use good effort. Skin shows no rashes no pallor or icterus. Neuro shows no focal deficits. Results & Data Vital Signs (Past 12 Hours) Vital Signs Temp Pulse Pulse Resp BP Pulse Ox 06/28/19 15:57 97.3 F L 60 18 118/70 94 06/28/19 12:00 98.4 F 58 L 18 109/66 95 06/28/19 11:26 97.5 F L 63 20 108/66 96 06/28/19 07:16 97.7 F 60 20 153/77 H 93 PG Care Time/CCT Total # of Minutes Spent Total Time Spent with Patient: Total time spent is greater than 50% in coordination of care (as documented) at patient's floor/unit and/or counseling patient: (1) Chronic back pain Back pain location: low back pain Back pain laterality: midline Sciatica presence: without sciatica Qualified Code(s): M54.5 - Low back pain; G89.29 - Other chronic pain (2) Ulcerative colitis Ulcerative colitis location: unspecified ulcerative colitis location Digestive disease complication type: without complication Qualified Code(s): K51.90 - Ulcerative colitis, unspecified, without complications (3) Hypertension Hypertension type: essential hypertension Qualified Code(s): I10 - Essential (primary) hypertension
[2019-06-28] MEDS: LIDOCAINE 4% CREAM 15 GM TUBE EXT SCH (21:28)
[2019-06-28] MEDS: ATORVASTATIN 40 MG TAB PO SCH (21:34)
[2019-06-29 08:03] LABS: BUN Creatinine Ratio 20.7 (10-20); Calcium 8.7 mg/dl (8.5-10.1); Creatinine Clr Calc Pharmacy 97.4 ml/min; Est GFR (African American) 92.7; Potassium 3.8 mmol/L (3.5-5.1)
[2019-06-29] MEDS: APIXABAN 5 MG TABLET PO SCH (08:26)
[2019-06-29] MEDS: LOSARTAN POTASSIUM 50 MG TAB PO SCH (08:26)
[2019-06-29] MEDS: FUROSEMIDE 40 MG TAB PO SCH (08:26)
[2019-06-29] MEDS: POTASSIUM CHLORIDE 20 MEQ TABCR PO SCH (08:26)
[2019-06-29] MEDS: azaTHIOprine 50 MG TAB PO SCH (08:26)
[2019-06-29] MEDS: ISOSORBIDE MONO EXTENDED REL 60 MG TABCR PO SCH (08:26)
[2019-06-29] MEDS: CARVEDILOL 25 MG TAB PO SCH (08:26)
[2019-06-29] MEDS: ASPIRIN 325 MG ECTAB PO SCH (08:26)
[2019-06-29] MEDS: AMIODARONE 200 MG TAB PO SCH (08:26)
[2019-06-29] MEDS: sulfaSALAzine 500 MG TABLET PO SCH ×2 (08:26→12:39)
[2019-06-29] MEDS: CALCIUM 600MG + VIT D 400 IU TAB PO SCH (08:26)
[2019-06-29] MEDS: MEXILETINE HCL PO SCH (08:27)
[2019-06-29] MEDS: MULTIVITAMIN TAB PO SCH (08:27)
--- NOTE | 2019-06-29 13:08 | Discharge Summary ---
Date of Service June 29, 2019 Admission HPI Per Admitting Provider Mr. Arnulfo Orlando is a pleasant 74-year-old male with multiple medical problems, most significantly CAD status post three-vessel CABG, ischemic cardiomyopathy with ejection fraction of 30 to 35% and global severe LV dysfunction per echo October 2018, status post AICD placed for history of sustained VT. Patient is on amiodarone and mexiletine antiarrhythmics and Eliquis anticoagulation. He presents today after an AICD discharge. At approximately 1630 he was sitting in his recliner when he began to feel lightheaded for approximately 5 to 10 minutes this was followed by an AICD discharge x1. Patient reports that the lightheadedness resolved. He denies chest pain, palpitations, dizziness, shortness of breath acutely. He does state that he has become slightly more short of breath over the past month. Patient manages his diuretics at home. He takes Lasix 120 mg p.o. daily. He weighs himself daily and takes a metolazone if his weight increases by 3 pounds. He reports that he has used 5-7 doses of metolazone over the last month. He took a dose on 06/21 and another dose on 06/24. His comments that he has been needing it more frequently than usual. He has no complaints of shortness o f breath, orthopnea, edema. He states that his weight is stable. (134.6 kg today which is close to prior admissions) ER course: Testing chloride 10 mEq IV, potassium chloride 40 mEq p.o. Admission Exam Per Admitting Provider General: patient resting comfortably, NAD, non-toxic in appearance, AA&O x 4 Skin: warm, dry, intact, no rashes or lesions HEENT: NC/AT, PERRL, EOMI, anicteric sclera, conjunctiva without injection, external ear normal to inspection and nontender, nares patent, moist mucus membranes, dentition intact, no oropharyngeal lesions, neck supple, trachea midline, no LAD, no thyromegaly, no JVD Heart: +S1/S2, regular, distant heart sounds, no m/r/g Lungs: equal air entry bilaterally, no rales/rhonchi/wheezes Abd: +BS, soft, NT/ND, no masses/organomegaly/ascites Ext: warm, 2+ pulses in UE/LE bilaterally, no clubbing/cyanosis or edema Neuro: nonfocal, patient AA&O x 4, speech intact, no facial droop, moving all extremities on command with equal strength 5/5 Principal Diagnosis Ventricular Tachycardia, Hypokalemia Discharge Exam Constitutional WD/WN, vitals as above Respiratory normal respiratory effort, lungs clear to auscultation Cardiovascular Rate/Rhythm: regular rate and regular rhythm Heart Sounds: no murmur Extremities: + edema (minimal in bilateraly lower extremities) Skin no rashes, warm and dry Psychiatric A+Ox3, euthymic affect Discharge Data Allergies Allergy/AdvReac Type Severity Reaction Status Date / Time simvastatin Allergy Mild DIARRHEA/ Verified 06/27/19 19:17 EXACERBATED COLITIS tetanus toxoid, adsorbed Allergy Unknown Rash Verified 06/27/19 19:17 lisinopril AdvReac Unknown ABDOMINAL Verified 06/27/19 19:17 PAIN/DIARRHEA, Difficulty Swallowing Consultations 06/27/19 19:35 ED Decision to Admit Stat 06/27/19 21:19 Consult Cardiology Routine Hospital Course (1) Ventricular tachycardia: (2) Hypokalemia: (3) Syncope: 73 yo M with History of VT s/p ICD/pacemaker placement, Afib, DVT, 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 In regular rhythm now. Ventricular Tachycardia - While in the hospital Cardiology determined that his ICD was functioning properly. - Was found to be profoundly hypokalemic to 2.7, repleted to 3.8. - Discussed at length his diet and as determined that a high salt diet was causing increased need for metolazone which was the likely cause for his hypokalemia which likely threw him into VTach. - Have increased his potassium supplement at home to 80mEq K daily with an extra 80mEq on days he takes his metolazone. Hypokalemia - see Ventricular Tachycardia. Syncope: secondary to Ventricular Tachycardia - interrogation reveals appropriate shock delivered after VT. - no further episodes of syncope while here. - CT of head revealed no acute issues or bleeding. AFib - Has been rate controlled in the hospital without episodes of AFib. - To continue home amiodarone, carvedilol. - Will resume home Eliquis. CAD - BP controlled. - Resume home medications. HLD - continue home Lipitor. UC - Continue home azathioprine and sulfasalazine. YI - continue home CPAP at discharge. (4) Ischemic cardiomyopathy: (5) Atrial fibrillation: (6) CAD (coronary artery disease): (7) Hypertension: (8) Hyperlipidemia: (9) Ulcerative colitis: (10) Obstructive sleep apnea: (11) History of DVT (deep vein thrombosis): Total Time Total Time Spent Total Time Spent (In Minutes): >30 minutes, observation status Discharge Plan Discharge Items Patient Disposition: Home - Self-Care Reason For Visit: AICD DISCHARGE Discharge Diagnosis: Ventricular Tachycardia Discharge Goals: Improve disease control, Improve function and Therapeutic intervention Activity: Resume your previous activity Non-emergency contact: Primary Care Provider Call non-emergency contact if: you have any medication questions, your symptoms worsen and your temperature is above 100.5 Follow-up/Referrals: Ashanti Melchor DO [Primary Care Provider] - (Please call for an appointment this week as you will need hospital follow up.) Diet: Low Sodium (2gm) Addtl Provider Instructions: You were admitted to the hospital because your defibrillator went off. Here you were found to have gone into Ventricular Tachycardia, an irregular heart rhythm. This is likely due to your low potassium, which we fixed in the hospital. The cardiology service checked your defibrillator and found it to be working properly. Cardiology and the primary team feel comfortable sending you home with specific instructions moving forward. 1) We have sent you home with a potassium supplement to take by mouth. You will take 80 of potassium every day. You will add an EXTRA 80 of potassium on the days you take your metolazone. 2) We have also discussed your diet and that it is extremely important for you to decrease your salt intake so that you do not need to take your metolazone as much. 3) Please follow up with your family doctor within one week. Prescriptions: New potassium chloride 20 mEq tablet extended release 80 meq PO UD Qty: 60 RF: 0 Continued sulfasalazine 500 mg Tablet 1,000 mg PO QID Qty: 0 RF: 0 potassium chloride 20 mEq Tablet Extended Release 80 meq PO DAILY Qty: 0 RF: 0 amiodarone 400 mg tablet 400 mg PO DAILY Qty: 30 RF: 2 aspirin 325 mg tablet,delayed release (DR/EC) 325 mg PO DAILY Qty: 30 RF: 0 atorvastatin 80 mg tablet 80 mg PO HS Qty: 30 RF: 5 azathioprine 50 mg tablet 100 mg PO DAILY Qty: 30 RF: 1 carvedilol 25 mg tablet 25 mg PO BID Qty: 60 RF: 5 furosemide 40 mg tablet 120 mg PO DAILY Qty: 180 RF: 1 isosorbide mononitrate 60 mg tablet extended release 24 hr 60 mg PO DAILY Qty: 30 RF: 5 losartan 100 mg tablet 100 mg PO DAILY Qty: 90 RF: 1 nitroglycerin 0.4 mg tablet, sublingual 0.4 mg Sublingual UD PRN (Reason: Chest Pain) Qty: 1 RF: 0 calcium carbonate-vitamin D3 600 mg(1,500mg) -400 unit tablet 1 tab PO DAILY RF: 0 multivitamin Tablet 1 tab PO DAILY RF: 0 lidocaine 4 % Cream 1 applic TOPICAL HS RF: 0 acetaminophen [Tylenol Extra Strength] 500 mg Tablet 1,000 mg PO QID PRN (Reason: Pain) RF: 0 mexiletine 150 mg capsule 150 mg PO Q8 RF: 0 metolazone 5 mg tablet 5 mg PO DAILY PRN (Reason: FLUID BUILD UP) RF: 0 Eliquis 5 mg tablet 5 mg PO Q12 RF: 0 Stand-Alone Forms: [facility] Discharge Orders: Discharge Order (Routine); Ordered 06/29/19 Ordered By: Sofía Carreon Admission Data Admit Date/Time: 06/27/19 19:56 Attending Provider: Viri Banks Admit Provider: Viri Banks Primary Care Provider: Ashanti Melchor. Other Providers: Viri Banks ; Johnny Smith Service: Telemetry Medical Other Interventions: Discharge Summary Assessment (RN) Last Done: 06/29/19 12:24 DC Date/Time DO NOT enter until pt leaves facility: 06/29/19 13:00 Supervising Physician Co-Signing Physician Notes I personally examined the patient and verified all narayanan points of history and exam, discussed case, and agree with decision making with Dr Carreon. Feeling better. Would like to go home. On review of his weight and medication log, there does seem to be a pretty significant correlation between his metolazone days and when he most commonly eats his saltierbreakfast. We discussed this in the context of cutting down on accidental sodium intake so that he needs the metolazone less, but also discussed that because overall he is doing a very good job of keeping himself out of pulmonary edema, to continue his usual run of dosing diuretics, and including the additional metolazone, but to take double the potassium on his metolazone days. Vitals noted, in general he is awake and alert pleasant no distress. HEENT normocephalic atraumatic mucous members moist. Breathing unlabored no accessory muscle use good effort. Skin shows no rashes no pallor or icterus. ICD firingrelated to V. tachthis would in turn was related to hypokalemiathis in turn was related to diuretic losses. Discussed where he was not seeing some accidental ingestion of sodium, and discussed how cutting down on this would cut down on the need for the additional metolazone. He will take twice as much potassium on the days that he needs metolazone compared to what he was previously taking. Would recommend a weekly basic metabolic panel for the short-term but for foreseeable future Stable for home Outpatient follow-up Resident Activity Tracking Resident Involvement: Resident Care Provided Care Provided: Adult Hospital Medicine
--- NOTE | 2019-06-29 13:36 | Cardiology Progress Note ---
Date of Service June 29, 2019 Assessment & Plan (1) V-tach: The patient had a symptomatic episode of ventricular tachycardia prompting a defibrillator discharge. Suspect that his significant hypokalemia may have been a factor. We have discussed increasing his potassium supplements when he administers metolazone, from 20 mEq to 40 mEq. (2) Chronic combined systolic and diastolic heart failure: The patient manages his volume status well in outpatient setting. As above, we will increase his potassium supplementation after he administers a metolazone tablet. We have also discussed importance of avoiding high sodium foods such as smith, sausage, and tomato juice. (3) Coronary arteriosclerosis in [place] artery: Extensive history as described. He did undergo a 3 vessel bypass in August 2000 and also had a stent placed within the mid LAD in January 2006. (4) Ischemic cardiomyopathy: Left ventricular ejection fraction was 30-35% on an echocardiogram performed October. There is moderate global hypokinesis. (5) ICD (implantable cardioverter-defibrillator) in place: Properly functioning device. Subjective The patient is resting comfortably at the bedside without complaints of chest pain or dyspnea. Dr. Trujillo identify the fact the patient has been eating smith and drinking tomato juice 1 day each week. We have discussed importance of a dietary change. We have also discussed importance of increasing his potassium supplement when taking metolazone. Physical Exam Physical Exam: In general this is an obese male seated at the bedside without complaints. HEENT exam is negative. Neck is supple with full carotid upstrokes. No carotid bruits. Jugular venous pressure is flat at 90. There is no thyromegaly. Cardiovascular exam reveals a regular rhythm with distant heart sounds. No obvious murmurs. No S3. Lungs are clear without rales, rhonchi or wheezes. Abdomen is soft nontender without bruits. Extremities reveal intact radial artery pulses bilaterally. Trace pretibial edema is noted bilaterally. Results & Data Vital Signs (Past 12 Hours) Vital Signs Temp Pulse Pulse Resp BP Pulse Ox 06/29/19 12:24 36.5 C 60 20 139/68 95 06/29/19 12:06 36.5 C 60 20 139/68 95 06/29/19 09:00 69 06/29/19 07:35 36.6 C 60 20 146/50 H 94 06/29/19 04:17 155/83 H 06/29/19 03:40 36.5 C 60 19 166/91 H 96 Laboratory Results Potassium levels up to 3.8. Diagnostic Findings surveillance monitor notes appropriate ventricular pacing. PG Care Time/CCT Total # of Minutes Spent Total Time Spent with Patient: Total time spent is greater than 50% in coordination of care (as documented) at patient's floor/unit and/or counseling patient:
== END 2019-06-29 13:00 | disposition home or self-care (01) ==
LOC: ED 18:31 → 2N 18:31

== ENCOUNTER 2019-11-11 00:34 | Observation (INO) ==
[2019-11-11 01:01] LABS: Basophils # (auto) 0.03 K/uL (0-0.2); Basophils % (auto) 0.3 %; Eosinophils # (auto) 0.15 K/uL (0-0.5); Eosinophils % (auto) 1.7 %; Hematocrit (blood only) 43.8 % (42-52); Hemoglobin 15.9 g/dL (14.0-18.0); Immature Granulocytes # (auto) 0.04 K/uL (0.00-0.02); Immature Granulocytes % (auto) 0.4 %; Lymphocytes # (auto) 3.02 K/uL (1.2-3.4); Lymphocytes % (auto) 33.6 %; Mean Corpuscular Hemoglobin 34.9 pg (25-34); Mean Corpuscular Hgb Conc 36.3 g/dL (32-36); Mean Corpuscular Volume 96.1 fL (80-100); Mean Platelet Volume 9.9 fL (7.4-10.4); Monocytes # (auto) 0.89 K/uL (0.11-0.59); Monocytes % (auto) 9.9 %; Neutrophils # (auto) 4.87 K/uL (1.4-6.5); Neutrophils % (auto) 54.1 %; Platelet Count 211 K/uL (130-400); RDW Coefficient of Variation 13.9 % (11.5-14.5); RDW Standard Deviation 48.4 fL (36.4-46.3); Red Blood Count 4.56 M/uL (4.7-6.1)
[2019-11-11 01:20] LABS: iSTAT Hemoglobin 13.6 g/dl (14.0-18.0); iSTAT Ionized Calcium 1.06 mmol/l (1.12-1.32)
[2019-11-11 01:21] LABS: Alanine Aminotransferase 30 U/L (12-78); Albumin Level 3.6 gm/dl (3.4-5.0); Aspartate Aminotransferase 24 U/L (15-37); BUN Creatinine Ratio 24.2 (10-20); Blood Urea Nitrogen 25 mg/dl (7-18); Carbon Dioxide 32 mmol/L (21-32); Chloride 101 mmol/L (98-107); Est GFR (Non-African American) 69.9; Glucose 88 mg/dl (70-99); Lipase 122 U/L (73-393); Potassium 2.9 mmol/L (3.5-5.1); Sodium 139 mmol/L (136-145)
[2019-11-11 01:26] LABS: Alkaline Phosphatase 74 U/L (45-117); Bilirubin,Total 0.4 mg/dl (0.2-1); Creatine Kinase 95 U/L (39-308); Globulin 3.6 gm/dl (2.5-4.0); Total Protein 7.2 gm/dl (6.4-8.2); Troponin I 0.031 ng/ml (0-0.045)
[2019-11-11] MEDS ORDERED: POTASSIUM CHLORIDE 20 MEQ TABCR PO STA (01:37)
[2019-11-11] MEDS: POTASSIUM CHLORIDE / WTR 10 MEQ/100 ML PLCT IV SCH ×2 (01:45→02:37)
--- NOTE | 2019-11-11 02:39 | Emergency Department Note ---
Entered by Bubba Kam acting as a scribe for History of Present Illness General Chief complaint: Cardiac Assessment Stated complaint: CARDIAC ASSESSMENT Time Seen by Provider: 11/11/19 00:38 Source: patient History of Present Illness Onset (ago): day(s) (tonight) Location: chest Pain Consistency: + other (an episode) Quality: + other (cardiac assessment) Associated symptoms: + other (Negative for abdominal pain.) The patient is a 74 year old male who presents to the emergency department with a request for a cardiac assessment tonight. The patient states that his defibrillator went off twice recently. He notes that it went off the first time five days ago, and he reports that it went off again tonight. He denies any abdominal pain. The patient states that he takes Eliquis. Home Medications Home Medications Medication Instructions Recorded Confirmed Type sulfasalazine 1,000 mg PO QID #0 tab 08/03/13 11/11/19 History multivitamin 1 tab PO DAILY 09/02/18 11/11/19 History aspirin 325 mg tablet,delayed 325 mg PO DAILY #30 tab 05/21/19 11/11/19 Rx release atorvastatin 80 mg tablet 80 mg PO HS #30 tab 05/21/19 11/11/19 Rx azathioprine 50 mg tablet 100 mg PO DAILY #30 tab 05/21/19 11/11/19 Rx carvedilol 25 mg tablet 25 mg PO BID #60 tab 05/21/19 11/11/19 Rx furosemide 40 mg tablet 120 mg PO DAILY #180 tab 05/21/19 11/11/19 Rx isosorbide mononitrate 60 mg 60 mg PO DAILY #30 tab 05/21/19 11/11/19 Rx tablet,extended release 24 hr losartan 100 mg tablet 100 mg PO DAILY #90 tab 05/21/19 11/11/19 Rx nitroglycerin 0.4 mg sublingual 0.4 mg SUBLINGUAL UD PRN #1 btl 05/21/19 11/11/19 Rx tablet calcium carbonate 600 mg (1,500 1 tab PO DAILY tab 06/24/19 11/11/19 History mg)-vitamin D3 400 unit tablet Eliquis 5 mg PO Q12 06/27/19 11/11/19 History acetaminophen [Tylenol Extra 1,000 mg PO QID PRN 06/27/19 11/11/19 History Strength] lidocaine 1 applic TOPICAL HS 06/27/19 11/11/19 History metolazone 5 mg PO DAILY PRN 06/27/19 11/11/19 History mexiletine 150 mg PO Q8 06/27/19 11/11/19 History potassium chloride 20 mEq 80 meq PO UD #80 tab 08/26/19 11/11/19 Rx tablet,extended release levothyroxine 200 mcg tablet 200 mcg PO DAILY #30 tab 09/28/19 11/11/19 Rx levothyroxine 25 mcg capsule 25 mcg PO DAILY #30 cap 11/09/19 11/11/19 Rx amiodarone 400 mg tablet 600 mg PO DAILY #135 tab 11/10/19 11/11/19 Rx Allergies Allergy/AdvReac Type Severity Reaction Status Date / Time simvastatin Allergy Mild DIARRHEA/ Verified 11/11/19 02:19 EXACERBATED COLITIS tetanus toxoid, adsorbed Allergy Unknown Rash Verified 11/11/19 02:19 lisinopril AdvReac Unknown ABDOMINAL Verified 11/11/19 02:19 PAIN/DIARRHEA, Difficulty Swallowing Past Med/Surg History Social History Preferred Language: Setswana Communication Ability: Effective Visual Impairment: No Limitations Hearing Ability: Normal Cushion Mat Maker Required: No Beliefs That Will Affect Care: None marital status: Current Living Situation: Spouse current occupational status: retired and disabled Feels Safe at Home: Yes Smoking Status: Former smoker Second Hand Exposure: No ; Hx Alcohol Use: No Hx Substance Use: No Childhood Exposure to Second-Hand Smoke: Yes caffeine: Yes during the past year weight has: remained stable Dental Care, Regularly: Yes Physical Activity Frequency: Does not Exercise Seatbelt Use: always Sunscreen Use: Yes Review of Systems See HPI for pertinent positives & negatives. and A total of 10 systems reviewed and were otherwise negative Physical Exam Vital Signs Vital Signs - 24 hr 11/11/19 00:37 11/11/19 00:39 11/11/19 01:00 Temperature 36.4 C L Temperature Source Oral Pulse Rate 67 63 61 Pulse Rate from SpO2 Sensor 63 61 Respiratory Rate 17 20 19 Respiratory Effort / Characteristics Non-Labored Spontaneous Respiratory Depth Normal Respiratory Pattern Regular Blood Pressure 151/76 H 151/76 H 136/58 L Blood Pressure Mean 101 84 70 Blood Pressure Position Sitting Pulse Oximetry 96 96 96 Oxygen Delivery Method Room Air Sepsis Recent Fever Within 48 Hours No Sepsis New/Unexplained Change in Mental Status No Sepsis Action Taken by Nursing No Action Required 11/11/19 01:18 11/11/19 01:30 11/11/19 02:00 Temperature Temperature Source Pulse Rate 60 60 Pulse Rate from SpO2 Sensor 60 59 L Respiratory Rate 15 18 Respiratory Effort / Characteristics Respiratory Depth Respiratory Pattern Blood Pressure 130/62 144/77 H Blood Pressure Mean 75 103 Blood Pressure Position Pulse Oximetry 96 95 96 Oxygen Delivery Method Room Air Sepsis Recent Fever Within 48 Hours Sepsis New/Unexplained Change in Mental Status Sepsis Action Taken by Nursing GENERAL: Awake, alert, well-appearing, in no acute distress HENT: Normocephalic, atraumatic. Oropharynx unremarkable. EYES: Normal conjunctiva. Sclera non-icteric. NECK: Supple. No nuchal rigidity. FROM. No JVD. RESPIRATORY: Clear to auscultation. CARDIAC: Regular rate, normal rhythm. Extremities warm and well perfused. Pulses equal. ABDOMEN: Soft, non-distended. No tenderness to palpation. No rebound or guarding. No masses. RECTAL: Deferred. MUSCULOSKELETAL: Chest examination reveals no tenderness. The back is symmetrical on inspection without obvious abnormality. There is no CVA tenderness to palpation. No joint edema. LOWER EXTREMITIES: Calves are equal size bilaterally and non-tender. No edema. No discoloration. NEURO: Normal sensorium. No sensory or motor deficits noted. SKIN: No rash or jaundice noted. Course Course 0040: The patient was evaluated in room B11. A complete history and physical exam was performed. 0157: [employer] does not feel as though the defibrillator went off tonight. 0224: Upon reevaluation, the patient is stable. I discussed the findings and the treatment plan with the patient. He expresses agreement and understanding. I spoke with Dr. Moraes of the [facility] Hospitalist Service. The patient will be evaluated for further management. Consultations Consultation #1: I reviewed the patient's case with Dr. Moraes - Hospitalist, [facility]. He will evaluate the patient for further management. Time: 02:24 Administered Medications Potassium Chloride (K Pierce / Wtr) 10 meq in 100 mls @ 100 mls/hr IV Q1H UNA Stop: 11/11/19 03:44 Last Admin: 11/11/19 02:37 Dose: 100 mls/hr Documented by: [id number] Infusion: 11/11/19 02:37 Dose: 100 mls/hr Documented by: [id number] Admin: 11/11/19 01:45 Dose: 100 mls/hr Documented by: [id number] Discontinued Medications Potassium Chloride (Klor-Con M20) 40 meq PO NOW STA Stop: 11/11/19 01:38 Last Admin: 11/11/19 01:45 Dose: 40 meq Documented by: [id number] Medical Decision Making Differential Diagnosis Differential diagnosis: Etiologies such as shingles, musculoskeletal pain, pericarditis, myocarditis, cardiac ischemia, pericardial tamponade, pneumonia, pneumothorax, pleural effusion, hemothorax, pleurisy, aortic pathology, pulmonary embolism, intra- abdominal process, as well as others were considered. Medical Records Attestation: I reviewed the patient's medical records. Home Medications Current Medication List: was personally reviewed by me Laboratory Data Attestation: I reviewed the patient's lab results. Result diagrams: 11/11/19 00:05 11/11/19 00:05 Lab Results 11/11/19 11/11/19 11/11/19 Range/Units 00:05 00:05 01:05 WBC 9.00 (4.8-10.8) K/uL RBC 4.56 L (4.7-6.1) M/uL Hgb 15.9 (14.0-18.0) g/dL POC Hgb 13.6 L (14.0-18.0) g/dl Hct 43.8 (42-52) % POC Hct 40 L (42-52) % MCV 96.1 (80-100) fL MCH 34.9 H (25-34) pg MCHC 36.3 H (32-36) g/dL RDW Std Deviation 48.4 H (36.4-46.3) fL RDW Coeff of Delmi 13.9 (11.5-14.5) % Plt Count 211 (130-400) K/uL MPV 9.9 (7.4-10.4) fL Immature Gran % (Auto) 0.4 % Neut % (Auto) 54.1 % Lymph % (Auto) 33.6 % [place] % (Auto) 9.9 % Eos % (Auto) 1.7 % Baso % (Auto) 0.3 % Immature Gran # (Auto) 0.04 H (0.00-0.02) K/uL Neut # (Auto) 4.87 (1.4-6.5) K/uL Lymph # (Auto) 3.02 (1.2-3.4) K/uL [place] # (Auto) 0.89 H (0.11-0.59) K/uL Eos # (Auto) 0.15 (0-0.5) K/uL Baso # (Auto) 0.03 (0-0.2) K/uL POC Sodium 137 (135-144) mmol/L Sodium 139 (136-145) mmol/L POC Potassium 5.0 (3.3-5.0) mmol/L Potassium 2.9 L (3.5-5.1) mmol/L POC Chloride 97 L (101-112) mmol/L Chloride 101 (98-107) mmol/L Carbon Dioxide 32 (21-32) mmol/L POC Total CO2 35 H (24-31) mEq/l Anion Gap 6.0 (3-11) POC Anion Gap 11.0 L (16-25) mmol/L POC BUN 35 H (7-18) mg/dl BUN 25 H (7-18) mg/dl Creatinine 1.04 (0.6-1.4) mg/dl POC Creatinine 1.0 (0.6-1.3) mg/dl Est Cr Clr Drug Dosing Not Reportable Est GFR ( Amer) 81.0 Est GFR (Non-Af Amer) 69.9 BUN/Creatinine Ratio 24.2 H (10-20) Glucose 88 (70-99) mg/dl POC Glucose (other) 95 (70-99) mg/dl Calcium 9.0 (8.5-10.1) mg/dl POC Ioniz Calcium Fredi 1.06 L (1.12-1.32) mmol/l Magnesium 2.0 (1.8-2.4) mg/dl Total Bilirubin 0.4 (0.2-1) mg/dl AST 24 (15-37) U/L ALT 30 (12-78) U/L Alkaline Phosphatase 74 (45-117) U/L Total Creatine Kinase 95 (39-308) U/L CK-MB (CK-2) 1.0 (0.5-3.6) ng/ml CK/CKMB % Calc 1.1 (0-3.0) Troponin I 0.031 (0-0.045) ng/ml Total Protein 7.2 (6.4-8.2) gm/dl Albumin 3.6 (3.4-5.0) gm/dl Globulin 3.6 (2.5-4.0) gm/dl Albumin/Globulin Ratio 1.0 (0.9-2) Lipase 122 (73-393) U/L Specimen Hemolysis Imaging Data Attestation: I personally reviewed and interpreted this imaging study as follows: My Impression: 1 VIEW CHEST X-RAY: Pacemaker noted. No evidence of pneumonia, congestion, or pneumothorax. ECG Data Attestation: I personally reviewed and interpreted this ECG as follows: Indication: + chest pain Rate (beats per minute): 65 Rhythm: + other (atrial paced) ECG Intervals/blocks: + Left bundle branch block ECG ST segments: no ST depression and no ST elevation Comparison ECG Date: from (02/11/2019) Change: no significant change Additional Comments: QTC 517. Blood Pressure Blood Pressure Findings: Elevated blood pressure Blood Pressure Disposition: further management by hospitalist MDM Narrative This is a 74-year-old male who presents the emergency department complaining of his defibrillator going off. This is the second time the defibrillator has gone off in the past 5 days. Patient's potassium was found to be low therefore he was given IV potassium and p.o. potassium here in the emergency department. I did discuss the case with the hospitalist service who did agree to admit the pa adalberto. Patient was in agreement with the treatment plan. Impression & Plan ICD (implantable cardioverter-defibrillator) in place, Defibrillator discharge Discharge Plan Visit Data Chief Complaint: Cardiac Assessment Stated Complaint: CARDIAC ASSESSMENT ED Provider: Ricci Zamudio Discharge Problem: ICD (implantable cardioverter-defibrillator) in place, Defibrillator discharge Patient Disposition: Being Evaluated by Hospitalist Forms Stand Alone Forms: My [facility] [employer] Prescriptions Prescriptions: No Action sulfasalazine 500 mg Tablet 1,000 mg PO QID Qty: 0 RF: 0 potassium chloride 20 mEq tablet extended release 80 meq PO UD Qty: 80 RF: 1 levothyroxine 200 mcg tablet 200 mcg PO DAILY Qty: 30 RF: 1 levothyroxine 25 mcg capsule 25 mcg PO DAILY Qty: 30 RF: 2 amiodarone 400 mg tablet 600 mg PO DAILY Qty: 135 RF: 3 aspirin 325 mg tablet,delayed release (DR/EC) 325 mg PO DAILY Qty: 30 RF: 0 atorvastatin 80 mg tablet 80 mg PO HS Qty: 30 RF: 5 azathioprine 50 mg tablet 100 mg PO DAILY Qty: 30 RF: 1 carvedilol 25 mg tablet 25 mg PO BID Qty: 60 RF: 5 furosemide 40 mg tablet 120 mg PO DAILY Qty: 180 RF: 1 isosorbide mononitrate 60 mg tablet extended release 24 hr 60 mg PO DAILY Qty: 30 RF: 5 losartan 100 mg tablet 100 mg PO DAILY Qty: 90 RF: 1 nitroglycerin 0.4 mg tablet, sublingual 0.4 mg Sublingual UD PRN (Reason: Chest Pain) Qty: 1 RF: 0 calcium carbonate-vitamin D3 600 mg(1,500mg) -400 unit tablet 1 tab PO DAILY RF: 0 multivitamin Tablet 1 tab PO DAILY RF: 0 lidocaine 4 % Cream 1 applic TOPICAL HS RF: 0 acetaminophen [Tylenol Extra Strength] 500 mg Tablet 1,000 mg PO QID PRN (Reason: Pain) RF: 0 mexiletine 150 mg capsule 150 mg PO Q8 RF: 0 metolazone 5 mg tablet 5 mg PO DAILY PRN (Reason: FLUID BUILD UP) RF: 0 Eliquis 5 mg tablet 5 mg PO Q12 RF: 0 Referrals Referrals: Ashanti Melchor, DO [Primary Care Provider] - The scribe's documentation has been prepared under my direction and personally reviewed by me in its entirety. I confirm that the note above accurately r eflects all work, treatment, procedures, and medical decision making performed by me.
[2019-11-11] MEDS ORDERED: ONDANSETRON INJ 2 MG/ML 2 ML VIAL IV PRN (04:31)
[2019-11-11] MEDS ORDERED: NITROGLYCERIN SL 0.4 MG/TAB TAB SL PRN (04:31)
[2019-11-11] MEDS ORDERED: POTASSIUM CHLORIDE 20 MEQ TABCR PO SCH (04:31)
[2019-11-11] MEDS ORDERED: ACETAMINOPHEN 325 MG TAB PO PRN (04:31)
--- NOTE | 2019-11-11 04:59 | History & Physical Report ---
Date of Service November 11, 2019 Assessment & Plan (1) Hypokalemia: Obs tele replaced in ED check BMP in am. (2) Defibrillator discharge: 2 episodes in 5 days time Consult cardiology. (3) Chronic combined systolic and diastolic heart failure: Compensated. Continue Lasix and metolazone. (4) CAD (coronary artery disease): (5) Atrial fibrillation: Continue Eliquis Continue carvedilol (6) V-tach: Continue amiodarone, mexiletine. History of Present Illness 74 y/o male presented to the ED after his defibrillator discharged. He reports that this is the second time in 5 days. He had no preemptive symptoms. No chest pain, SOB, cough, F/C, palpitations, weakness, or headache. He was found to have low potassium of 2.9. Primary Care Provider: Ashanti Melchor DO Allergies Allergy/AdvReac Type Severity Reaction Status Date / Time simvastatin Allergy Mild DIARRHEA/ Verified 11/11/19 02:19 EXACERBATED COLITIS tetanus toxoid, adsorbed Allergy Unknown Rash Verified 11/11/19 02:19 lisinopril AdvReac Unknown ABDOMINAL Verified 11/11/19 02:19 PAIN/DIARRHEA, Difficulty Swallowing Home Medications Home Medications Medication Instructions Recorded Confirmed Type sulfasalazine 1,000 mg PO QID #0 tab 08/03/13 11/11/19 History multivitamin 1 tab PO DAILY 09/02/18 11/11/19 History aspirin 325 mg tablet,delayed 325 mg PO DAILY #30 tab 05/21/19 11/11/19 Rx release atorvastatin 80 mg tablet 80 mg PO HS #30 tab 05/21/19 11/11/19 Rx azathioprine 50 mg tablet 100 mg PO DAILY #30 tab 05/21/19 11/11/19 Rx carvedilol 25 mg tablet 25 mg PO BID #60 tab 05/21/19 11/11/19 Rx furosemide 40 mg tablet 120 mg PO DAILY #180 tab 05/21/19 11/11/19 Rx isosorbide mononitrate 60 mg 60 mg PO DAILY #30 tab 05/21/19 11/11/19 Rx tablet,extended release 24 hr losartan 100 mg tablet 100 mg PO DAILY #90 tab 05/21/19 11/11/19 Rx nitroglycerin 0.4 mg sublingual 0.4 mg SUBLINGUAL UD PRN #1 btl 05/21/19 11/11/19 Rx tablet calcium carbonate 600 mg (1,500 1 tab PO DAILY tab 06/24/19 11/11/19 History mg)-vitamin D3 400 unit tablet Eliquis 5 mg PO Q12 06/27/19 11/11/19 History acetaminophen [Tylenol Extra 1,000 mg PO QID PRN 06/27/19 11/11/19 History Strength] lidocaine 1 applic TOPICAL HS 06/27/19 11/11/19 History metolazone 5 mg PO DAILY PRN 06/27/19 11/11/19 History mexiletine 150 mg PO Q8 06/27/19 11/11/19 History potassium chloride 20 mEq 80 meq PO UD #80 tab 08/26/19 11/11/19 Rx tablet,extended release levothyroxine 200 mcg tablet 200 mcg PO DAILY #30 tab 09/28/19 11/11/19 Rx levothyroxine 25 mcg capsule 25 mcg PO DAILY #30 cap 11/09/19 11/11/19 Rx amiodarone 400 mg tablet 600 mg PO DAILY #135 tab 11/10/19 11/11/19 Rx Past Med/Surg History Medical History Atrial fibrillation 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) BPH (benign prostatic hyperplasia) Cerebellar ataxia Chronic back pain Chronic combined systolic and diastolic heart failure Coronary arteriosclerosis in [place] artery Deep vein thrombosis (Resolved) RLE History of CVA (cerebrovascular accident) Hyperlipidemia Hypertension Left bundle-branch block Low vitamin B12 level Myocardial Infarction (Resolved) Obstructive sleep apnea On anticoagulant therapy Osteoarthritis Stroke (Resolved) Ulcerative colitis Surgical History Fusion of spine lumbar region H/O prostate biopsy History of adenoidectomy (Acute) History of cholecystectomy (Acute) History of colonoscopy (Acute) History of coronary artery bypass graft (Acute) triple bypass History of heart artery stent (Acute) History of tonsillectomy (Acute) History of total hip arthroplasty (Acute) bilateral Hx of transurethral resection of prostate (Acute) Status post surgery implantation of diaphragmatic pacemaker Family History Father Coronary heart disease Myocardial infarction Mother Myocardial infarction Coronary heart disease Sister Breast cancer Had mastectomy in 2018'. Brother Cardiac disorder Social History Preferred Language: Arabic Communication Ability: Effective Visual Impairment: No Limitations Hearing Ability: Normal Care Support Representative Required: No Beliefs That Will Affect Care: None marital status: Current Living Situation: Spouse current occupational status: retired and disabled Other Information That Helps Us Care for You: No Feels Safe at Home: Yes Safety Concerns: Feels Safe At This Time Smoking Status: Never smoker Second Hand Exposure: No ; Hx Alcohol Use: No Hx Substance Use: No Childhood Exposure to Second-Hand Smoke: Yes caffeine: Yes during the past year weight has: remained stable Dental Care, Regularly: Yes Physical Activity Frequency: Does not Exercise Seatbelt Use: always Sunscreen Use: Yes Review of Systems Review of Systems: All systems reviewed & are unremarkable except as noted in HPI & below Physical Exam Physical Exam: General- adult male, NAD Head- atraumatic Eyes- PERRL, EOMI, anicteric ENT- oropharynx clear Neck- supple, no JVD, no adenopathy, no thyromegaly. Lungs- CTA b/l no R/R/W Heart- regular rhythm; no murmur, no gallop, no rub appreciated Abdomen- normal bowel sounds, soft, nontender, Extremities- trace pretibial edema, no calf tenderness; peripheral pulses intact Neuro- alert, oriented x 3; PERRL, EOMI; bruise trimmer II-XII grossly intact, non-focal. Skin- warm & dry Results & Data Vital Signs (Past 12 Hours) Vital Signs Temp Pulse Pulse Resp BP BP Pulse Ox 11/11/19 04:36 68 20 146/75 H 94 11/11/19 04:00 60 12 144/74 H 96 11/11/19 03:00 60 14 154/76 H 95 11/11/19 02:30 60 14 156/74 H 96 11/11/19 02:00 60 18 144/77 H 96 11/11/19 01:30 60 15 130/62 95 11/11/19 01:18 96 11/11/19 01:00 61 19 136/58 L 96 11/11/19 00:39 63 20 151/76 H 96 11/11/19 00:37 36.4 C L 67 17 151/76 H 96 Laboratory Results Laboratory Results WBC 9.00 K/uL (4.8-10.8) 11/11/19 00:05 RBC 4.56 M/uL (4.7-6.1) L 11/11/19 00:05 Hgb 15.9 g/dL (14.0-18.0) 11/11/19 00:05 POC Hgb 13.6 g/dl (14.0-18.0) L 11/11/19 01:05 Hct 43.8 % (42-52) 11/11/19 00:05 POC Hct 40 % (42-52) L 11/11/19 01:05 MCV 96.1 fL (80-100) 11/11/19 00:05 MCH 34.9 pg (25-34) H 11/11/19 00:05 MCHC 36.3 g/dL (32-36) H 11/11/19 00:05 RDW Std Deviation 48.4 fL (36.4-46.3) H 11/11/19 00:05 RDW Coeff of Delmi 13.9 % (11.5-14.5) 11/11/19 00:05 Plt Count 211 K/uL (130-400) 11/11/19 00:05 MPV 9.9 fL (7.4-10.4) 11/11/19 00:05 Immature Gran % (Auto) 0.4 % 11/11/19 00:05 Neut % (Auto) 54.1 % 11/11/19 00:05 Lymph % (Auto) 33.6 % 11/11/19 00:05 [place] % (Auto) 9.9 % 11/11/19 00:05 Eos % (Auto) 1.7 % 11/11/19 00:05 Baso % (Auto) 0.3 % 11/11/19 00:05 Immature Gran # (Auto) 0.04 K/uL (0.00-0.02) H 11/11/19 00:05 Neut # (Auto) 4.87 K/uL (1.4-6.5) 11/11/19 00:05 Lymph # (Auto) 3.02 K/uL (1.2-3.4) 11/11/19 00:05 [place] # (Auto) 0.89 K/uL (0.11-0.59) H 11/11/19 00:05 Eos # (Auto) 0.15 K/uL (0-0.5) 11/11/19 00:05 Baso # (Auto) 0.03 K/uL (0-0.2) 11/11/19 00:05 POC Sodium 137 mmol/L (135-144) 11/11/19 01:05 Sodium 139 mmol/L (136-145) 11/11/19 00:05 POC Potassium 5.0 mmol/L (3.3-5.0) 11/11/19 01:05 Potassium 2.9 mmol/L (3.5-5.1) L 11/11/19 00:05 POC Chloride 97 mmol/L (101-112) L 11/11/19 01:05 Chloride 101 mmol/L (98-107) 11/11/19 00:05 Carbon Dioxide 32 mmol/L (21-32) 11/11/19 00:05 POC Total CO2 35 mEq/l (24-31) H 11/11/19 01:05 Anion Gap 6.0 (3-11) 11/11/19 00:05 POC Anion Gap 11.0 mmol/L (16-25) L 11/11/19 01:05 POC BUN 35 mg/dl (7-18) H 11/11/19 01:05 BUN 25 mg/dl (7-18) H 11/11/19 00:05 Creatinine 1.04 mg/dl (0.6-1.4) 11/11/19 00:05 POC Creatinine 1.0 mg/dl (0.6-1.3) 11/11/19 01:05 Est Cr Clr Drug Dosing Not Reportable 11/11/19 00:05 Est GFR ( Amer) 81.0 11/11/19 00:05 Est GFR (Non-Af Amer) 69.9 11/11/19 00:05 BUN/Creatinine Ratio 24.2 (10-20) H 11/11/19 00:05 Glucose 88 mg/dl (70-99) 11/11/19 00:05 POC Glucose (other) 95 mg/dl (70-99) 11/11/19 01:05 Calcium 9.0 mg/dl (8.5-10.1) 11/11/19 00:05 POC Ioniz Calcium Fredi 1.06 mmol/l (1.12-1.32) L 11/11/19 01:05 Magnesium 2.0 mg/dl (1.8-2.4) 11/11/19 00:05 Total Bilirubin 0.4 mg/dl (0.2-1) 11/11/19 00:05 AST 24 U/L (15-37) 11/11/19 00:05 ALT 30 U/L (12-78) 11/11/19 00:05 Alkaline Phosphatase 74 U/L (45-117) 11/11/19 00:05 Total Creatine Kinase 95 U/L (39-308) 11/11/19 00:05 CK-MB (CK-2) 1.0 ng/ml (0.5-3.6) 11/11/19 00:05 CK/CKMB % Calc 1.1 (0-3.0) 11/11/19 00:05 Troponin I 0.031 ng/ml (0-0.045) 11/11/19 00:05 Total Protein 7.2 gm/dl (6.4-8.2) 11/11/19 00:05 Albumin 3.6 gm/dl (3.4-5.0) 11/11/19 00:05 Globulin 3.6 gm/dl (2.5-4.0) 11/11/19 00:05 Albumin/Globulin Ratio 1.0 (0.9-2) 11/11/19 00:05 Lipase 122 U/L (73-393) 11/11/19 00:05 Specimen Hemolysis 11/11/19 00:05 Code Status & VTE Plan VTE Prophylaxis Plan VTE Prophylaxis will be ordered: Yes PG Care Time/CCT Total # of Minutes Spent Total Time Spent: 55 Total Time Spent with Patient: Total time spent is greater than 50% in tank cooper rdination of care (as documented) at patient's floor/unit and/or counseling patient:
[2019-11-11] MEDS: MEXILETINE HCL 150 MG CAPSULE PO SCH ×3 (05:41→21:25)
[2019-11-11] MEDS ORDERED: Nursing to Pharmacy Communication ONE (05:44)
[2019-11-11] MEDS ORDERED: LEVOTHYROXINE SODIUM 25 MCG TABLET PO SCH ×2 (06:30→21:00)
[2019-11-11] MEDS ORDERED: LEVOTHYROXINE SODIUM 200 MCG TABLET PO SCH ×2 (06:30→21:00)
--- NOTE | 2019-11-11 06:31 | XRay Report ---
XR chest 1V portable HISTORY: 74 years-old Male Chest Pain acute atypical chest pain COMPARISON: Chest radiograph 06/27/2019 TECHNIQUE: Portable AP view of the chest FINDINGS: Cardiac silhouette is enlarged, unchanged. Prior median sternotomy and CABG. Left subclavian pacer/AI CD redemonstrated. Calcified plaque of the thoracic aortic arch. Lungs are mildly hyperinflated. No p neumothorax, pleural effusion, focal airspace consolidation or overt pulmonary edema. Degenerative ch anges of the shoulders and spine. IMPRESSION: Mild cardiomegaly without acute process. ACT 112: Negative or not required by law. The above report was generated using voice recognition software. It may contain grammatical, syntax o r spelling errors. Electronically signed by: Sky Chacon M.D. 11/11/2019 6:30 AM
[2019-11-11] MEDS: sulfaSALAzine 500 MG TABLET PO SCH ×4 (08:27→19:44)
[2019-11-11] MEDS: carvediloL 25 MG TAB PO SCH ×2 (08:27→19:46)
[2019-11-11] MEDS: CALCIUM 600MG + VIT D 400 IU TAB PO SCH (08:28)
[2019-11-11] MEDS: FUROSEMIDE 40 MG TAB PO SCH (08:28)
[2019-11-11] MEDS: ISOSORBIDE MONO EXTENDED REL 60 MG TABCR PO SCH (08:28)
[2019-11-11] MEDS: MULTIVITAMIN TAB PO SCH (08:29)
[2019-11-11] MEDS: APIXABAN 5 MG TABLET PO SCH ×2 (08:29→19:47)
[2019-11-11] MEDS: azaTHIOprine 50 MG TAB PO SCH (08:29)
[2019-11-11] MEDS: AMIODARONE 200 MG TAB PO SCH (08:30)
[2019-11-11] MEDS: LOSARTAN POTASSIUM 50 MG TAB PO SCH (08:30)
[2019-11-11] MEDS: ASPIRIN 325 MG ECTAB PO SCH (08:30)
[2019-11-11 08:36] LABS: BUN Creatinine Ratio 24.5 (10-20); Creatinine Clr Calc Pharmacy 102.6 ml/min; Est GFR (African American) 96.5; Est GFR (Non-African American) 83.3; Potassium 3.2 mmol/L (3.5-5.1)
--- NOTE | 2019-11-11 10:25 | Cardiology Consultation ---
Date of Consultation November 11, 2019 Assessment & Plan (1) Defibrillator discharge: Dr. Mosqueda will review the ICD interpretation. This is the 2nd episode since June of to fibrillator discharges. On each occasion, patient demonstrates significant hypokalemia. We will add spironolactone as a potassium-sparing diuretic. Potassium will be followed closely. Will likely need to decrease his supplementation. (2) Chronic combined systolic and diastolic heart failure: The patient follows daily weights and sliding-scale diuretics. He is well compensated at this time. However, has been taking metolazone every 3-4 days since . Suspect this may be the cause of his hypokalemia. Continue his outpatient cardiac medications. Could entertain a change to Entresto. (3) Ischemic cardiomyopathy: Will repeat an echocardiogram to assess left ventricular systolic function. (4) CAD (coronary artery disease): Quiescent his current medical regimen. (5) ICD (implantable cardioverter-defibrillator) in place: As above, his interrogation will be reviewed by Dr. Mosqueda. Further recommendations pending. History of Present Illness Attending Physician: Magdaleno Salazar History of Present Illness Mr Orlando is a 74-year-old male admitted yesterday after a defibrillator discharge. This consultation was ordered to assist in his cardiac management. Of note, the patient follows with me in the outpatient setting. The patient was in his usual state of health until approximately 3 a.m. Saturday when he awoke from a sound sleep after a defibrillation. He contacted our office and was instructed to increase his amiodarone to 600 mg daily. Unfortunately, at approximately 12:30 a.m. on Saturday, the patient again woke from sleep after a defibrillation. He then proceeded to our emergency room for further care. Unfortunately, his potassium level was low at 2.8. The patient has not experienced any recent angina pectoris or limiting dyspnea. He further denies PND, orthopnea, palpitations, lower extremity edema, and claudication. The patient has a longstanding history of coronary artery disease. He underwent 3 vessel bypass in August 2000. He required a stent to the mid LAD in January 2006. He does have an ischemic cardiomyopathy with an ejection fraction of 30- 35% on an echocardiogram performed in October 2018. The patient did have a dual- chamber ICD placed in August 2013. Unfortunately, Dr. Mosqueda was unable to advance a left ventricular lead. The patient follows daily weights at home. His typical dry weight is 309 lb with a trigger weight of 311 lb. He typically takes Lasix 40 mg, 3 tablets daily, and uses a dose of metolazone 5 mg prior to his morning dose of Lasix at when needed for weight gain. He has required metolazone every 3 or 4 days since Jarod. There has been no recent episode of his atrial fibrillation. He is tolerating rhythm control and long-term anticoagulation without difficulty. Currently, patient is resting comfortably in bed without complaints. Past medical and surgical history 1. Coronary artery disease 2. CABG x3-August 2000 3. Mid LAD stent-January 2006 4. Ischemic [id number]% 5. Chronic systolic CHF 6. Recurrent symptomatic ventricular tachycardia 7. Dual-chamber ICD-August 2013, failed LV lead 8. LBBB 9. Hypertension 10. Hypercholesterolemia 11. Paroxysmal atrial fibrillation 12. Ulcerative colitis 13. Obesity 14. Obstructive sleep apnea 15. Cerebellar ataxia 16. Chronic low back pain 17. Vitamin B12 deficiency 18. Hearing deficit 19. Gout 20. Chronic low back pain 21. Laparoscopic cholecystectomy 22. THR 23. Lumbar fusion Social history and lives with his No tobacco or alcohol Family history Noncontributory Review of systems A 10 point review of systems was negative except for that described above. Allergies Allergy/AdvReac Type Severity Reaction Status Date / Time simvastatin Allergy Mild DIARRHEA/ Verified 11/11/19 02:19 EXACERBATED COLITIS tetanus toxoid, adsorbed Allergy Unknown Rash Verified 11/11/19 02:19 lisinopril AdvReac Unknown ABDOMINAL Verified 11/11/19 02:19 PAIN/DIARRHEA, Difficulty Swallowing Home Medications Home Medications Medication Instructions Recorded Confirmed Type sulfasalazine 1,000 mg PO QID #0 tab 08/03/13 11/11/19 History multivitamin 1 tab PO DAILY 09/02/18 11/11/19 History aspirin 325 mg tablet,delayed 325 mg PO DAILY #30 tab 05/21/19 11/11/19 Rx release atorvastatin 80 mg tablet 80 mg PO HS #30 tab 05/21/19 11/11/19 Rx azathioprine 50 mg tablet 100 mg PO DAILY #30 tab 05/21/19 11/11/19 Rx carvedilol 25 mg tablet 25 mg PO BID #60 tab 05/21/19 11/11/19 Rx furosemide 40 mg tablet 120 mg PO DAILY #180 tab 05/21/19 11/11/19 Rx isosorbide mononitrate 60 mg 60 mg PO DAILY #30 tab 05/21/19 11/11/19 Rx tablet,extended release 24 hr losartan 100 mg tablet 100 mg PO DAILY #90 tab 05/21/19 11/11/19 Rx nitroglycerin 0.4 mg sublingual 0.4 mg SUBLINGUAL UD PRN #1 btl 05/21/19 11/11/19 Rx tablet calcium carbonate 600 mg (1,500 1 tab PO DAILY tab 06/24/19 11/11/19 History mg)-vitamin D3 400 unit tablet Eliquis 5 mg PO Q12 06/27/19 11/11/19 History acetaminophen [Tylenol Extra 1,000 mg PO QID PRN 06/27/19 11/11/19 History Strength] lidocaine 1 applic TOPICAL HS 06/27/19 11/11/19 History metolazone 5 mg PO DAILY PRN 06/27/19 11/11/19 History mexiletine 150 mg PO Q8 06/27/19 11/11/19 History potassium chloride 20 mEq 80 meq PO UD #80 tab 08/26/19 11/11/19 Rx tablet,extended release levothyroxine 200 mcg tablet 200 mcg PO DAILY #30 tab 09/28/19 11/11/19 Rx levothyroxine 25 mcg capsule 25 mcg PO DAILY #30 cap 11/09/19 11/11/19 Rx amiodarone 400 mg tablet 600 mg PO DAILY #135 tab 11/10/19 11/11/19 Rx Patient History Medical History Atrial fibrillation 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) BPH (benign prostatic hyperplasia) Cerebellar ataxia Chronic back pain Chronic combined systolic and diastolic heart failure Coronary arteriosclerosis in [place] artery Deep vein thrombosis (Resolved) RLE History of CVA (cerebrovascular accident) Hyperlipidemia Hypertension Left bundle-branch block Low vitamin B12 level Myocardial Infarction (Resolved) Obstructive sleep apnea On anticoagulant therapy Osteoarthritis Stroke (Resolved) Ulcerative colitis Surgical History Fusion of spine lumbar region H/O prostate biopsy History of adenoidectomy (Acute) History of cholecystectomy (Acute) History of colonoscopy (Acute) History of coronary artery bypass graft (Acute) triple bypass History of heart artery stent (Acute) History of tonsillectomy (Acute) History of total hip arthroplasty (Acute) bilateral Hx of transurethral resection of prostate (Acute) Status post surgery implantation of diaphragmatic pacemaker Family History Father Coronary heart disease Myocardial infarction Mother Myocardial infarction Coronary heart disease Sister Breast cancer Had mastectomy in 2018'. Brother Cardiac disorder Social History Preferred Language: Austrian Communication Ability: Effective Visual Impairment: No Limitations Hearing Ability: Normal Nuclear Medicine Pet Ct Technologist Required: No Beliefs That Will Affect Care: None marital status: Current Living Situation: Spouse current occupational status: retired and disabled Other Information That Helps Us Care for You: No Feels Safe at Home: Yes Safety Concerns: Feels Safe At This Time Smoking Status: Never smoker Second Hand Exposure: No ; Hx Alcohol Use: No Hx Substance Use: No Childhood Exposure to Second-Hand Smoke: Yes caffeine: Yes during the past year weight has: remained stable Dental Care, Regularly: Yes Physical Activity Frequency: Does not Exercise Seatbelt Use: always Sunscreen Use: Yes Physical Exam Physical Exam: In general this is an obese white male in no acute distress. HEENT exam is negative. Neck is supple with full carotid upstrokes. There are no carotid bruits. No jugular venous distension. There is no thyromegaly. Cardiovascular exam reveals a regular rhythm with distant heart sounds. No obvious S3, S4, or murmurs. Lungs are clear without rales, rhonchi, or wheezes. Abdomen is obese without bruits. Extremities reveal intact radial artery pulses bilaterally. Trace pretibial edema. Results & Data Vital Signs (Past 12 Hours) Vital Signs Temp Pulse Pulse Resp BP BP Pulse Ox 11/11/19 08:35 60 11/11/19 08:25 60 140/69 11/11/19 07:12 36.5 C 55 L 18 134/63 96 11/11/19 04:36 68 20 146/75 H 94 11/11/19 04:00 60 12 144/74 H 96 11/11/19 03:00 60 14 154/76 H 95 11/11/19 02:30 60 14 156/74 H 96 01/15/20 02:00 60 18 144/77 H 96 11/11/19 01:30 60 15 130/62 95 11/11/19 01:18 96 11/11/19 01:00 61 19 136/58 L 96 11/11/19 00:39 63 20 151/76 H 96 11/11/19 00:37 36.4 C L 67 17 151/76 H 96 Laboratory Results Laboratory Results - last 24 hr 11/11/19 11/11/19 11/11/19 00:05 00:05 01:05 WBC 9.00 RBC 4.56 L Hgb 15.9 POC Hgb 13.6 L Hct 43.8 POC Hct 40 L MCV 96.1 MCH 34.9 H MCHC 36.3 H RDW Std Deviation 48.4 H RDW Coeff of Delmi 13.9 Plt Count 211 MPV 9.9 Immature Gran % (Auto) 0.4 Neut % (Auto) 54.1 Lymph % (Auto) 33.6 Routt % (Auto) 9.9 Eos % (Auto) 1.7 Baso % (Auto) 0.3 Immature Gran # (Auto) 0.04 H Neut # (Auto) 4.87 Lymph # (Auto) 3.02 Routt # (Auto) 0.89 H Eos # (Auto) 0.15 Baso # (Auto) 0.03 POC Sodium 137 Sodium 139 POC Potassium 5.0 Potassium 2.9 L POC Chloride 97 L Chloride 101 Carbon Dioxide 32 POC Total CO2 35 H Anion Gap 6.0 POC Anion Gap 11.0 L POC BUN 35 H BUN 25 H Creatinine 1.04 POC Creatinine 1.0 Est Cr Clr Drug Dosing Not Reportable Est GFR ( Amer) 81.0 Est GFR (Non-Af Amer) 69.9 BUN/Creatinine Ratio 24.2 H Glucose 88 POC Glucose (other) 95 Calcium 9.0 POC Ioniz Calcium Ferdi 1.06 L Magnesium 2.0 Total Bilirubin 0.4 AST 24 ALT 30 Alkaline Phosphatase 74 Total Creatine Kinase 95 CK-MB (CK-2) 1.0 CK/CKMB % Calc 1.1 Troponin I 0.031 Total Protein 7.2 Albumin 3.6 Globulin 3.6 Albumin/Globulin Ratio 1.0 Lipase 122 Specimen Hemolysis Amiodarone Desmethylamiodarone 11/11/19 11/11/19 11/11/19 07:53 07:53 11:02 WBC RBC Hgb POC Hgb Hct POC Hct MCV MCH MCHC RDW Std Deviation RDW Coeff of Delmi Plt Count MPV Immature Gran % (Auto) Neut % (Auto) Lymph % (Auto) Routt % (Auto) Eos % (Auto) Baso % (Auto) Immature Gran # (Auto) Neut # (Auto) Lymph # (Auto) [place] # (Auto) Eos # (Auto) Baso # (Auto) POC Sodium Sodium 139 POC Potassium Potassium 3.2 L POC Chloride Chloride 102 Carbon Dioxide 33 H POC Total CO2 Anion Gap 4.0 POC Anion Gap POC BUN BUN 22 H Creatinine 0.90 POC Creatinine Est Cr Clr Drug Dosing 102.6 Est GFR ( Amer) 96.5 Est GFR (Non-Af Amer) 83.3 BUN/Creatinine Ratio 24.5 H Glucose 95 POC Glucose (other) Calcium 9.0 POC Ioniz Calcium Fredi Magnesium Total Bilirubin AST ALT Alkaline Phosphatase Total Creatine Kinase CK-MB (CK-2) CK/CKMB % Calc Troponin I 0.039 Total Protein Albumin Globulin Albumin/Globulin Ratio Lipase Specimen Hemolysis Amiodarone Pending Desmethylamiodarone Pending Diagnostic Findings residential monitor notes sinus rhythm and appropriate atrial and ventricular pacing. PG Care Time/CCT Total # of Minutes Spent Total Time Spent with Patient: Total time spent is greater than 50% in coordination of care (as documented) at patient's floor/unit and/or counseling patient:
[2019-11-11] MEDS: SPIRONOLACTONE 25 MG TAB PO SCH (10:42)
--- NOTE | 2019-11-11 11:24 | Electrocardiogram Report ---
Test Reason : Blood Pressure : / mmHG Vent. Rate : 065 BPM Atrial Rate : 065 BPM P-R Int : 256 ms QRS Dur : 156 ms QT Int : 498 ms P-R-T Axes : 000 -50 117 degrees QTc Int : 517 ms Electronic atrial pacemaker with prolonged AV conduction Left axis deviation Left bundle branch block Abnormal ECG When compared with ECG of 27-JUN-2019 18:38, Electronic atrial pacemaker has replaced Sinus rhythm Confirmed by Jozef Romo ([id number]) on 11/11/2019 11:24:29 AM Referred By: REFERRED SELF Confirmed By:Jozef Romo
[2019-11-11] MEDS ORDERED: ATORVASTATIN 40 MG TAB PO SCH (21:00)
[2019-11-12] MEDS: POTASSIUM CHLORIDE / WTR 10 MEQ/100 ML PLCT IV SCH ×8 (01:16→13:11)
[2019-11-12] MEDS: MEXILETINE HCL 150 MG CAPSULE PO SCH (06:30)
[2019-11-12 07:06] LABS: Basophils # (auto) 0.03 K/uL (0-0.2); Basophils % (auto) 0.4 %; Eosinophils # (auto) 0.18 K/uL (0-0.5); Eosinophils % (auto) 2.3 %; Hematocrit (blood only) 39.4 % (42-52); Hemoglobin 14.1 g/dL (14.0-18.0); Immature Granulocytes # (auto) 0.01 K/uL (0.00-0.02); Immature Granulocytes % (auto) 0.1 %; Lymphocytes # (auto) 1.83 K/uL (1.2-3.4); Lymphocytes % (auto) 23.7 %; Mean Corpuscular Hemoglobin 34.7 pg (25-34); Mean Corpuscular Hgb Conc 35.8 g/dL (32-36); Mean Platelet Volume 9.4 fL (7.4-10.4); Monocytes # (auto) 0.65 K/uL (0.11-0.59); Monocytes % (auto) 8.4 %; Neutrophils # (auto) 5.02 K/uL (1.4-6.5); Neutrophils % (auto) 65.1 %; Platelet Count 171 K/uL (130-400); RDW Coefficient of Variation 13.9 % (11.5-14.5); RDW Standard Deviation 49.6 fL (36.4-46.3); Red Blood Count 4.06 M/uL (4.7-6.1); White Blood Count 7.72 K/uL (4.8-10.8)
[2019-11-12 07:46] LABS: BUN Creatinine Ratio 23.8 (10-20); Calcium 8.5 mg/dl (8.5-10.1); Creatinine Clr Calc Pharmacy 102.8 ml/min; Est GFR (African American) 97.8; Est GFR (Non-African American) 84.4; Potassium 3.2 mmol/L (3.5-5.1)
[2019-11-12] MEDS: azaTHIOprine 50 MG TAB PO SCH (07:53)
[2019-11-12] MEDS: MULTIVITAMIN TAB PO SCH (07:54)
[2019-11-12] MEDS: carvediloL 25 MG TAB PO SCH (07:54)
[2019-11-12] MEDS: sulfaSALAzine 500 MG TABLET PO SCH ×2 (07:55→13:14)
[2019-11-12] MEDS: ASPIRIN 325 MG ECTAB PO SCH (07:55)
[2019-11-12] MEDS: APIXABAN 5 MG TABLET PO SCH (07:55)
[2019-11-12] MEDS: AMIODARONE 200 MG TAB PO SCH (07:56)
[2019-11-12] MEDS: ISOSORBIDE MONO EXTENDED REL 60 MG TABCR PO SCH (07:56)
[2019-11-12] MEDS: LOSARTAN POTASSIUM 50 MG TAB PO SCH (07:56)
[2019-11-12] MEDS: SPIRONOLACTONE 25 MG TAB PO SCH (07:56)
[2019-11-12] MEDS: CALCIUM 600MG + VIT D 400 IU TAB PO SCH (07:57)
--- NOTE | 2019-11-12 09:33 | Cardiology Progress Note ---
Date of Service November 12, 2019 Assessment & Plan (1) Defibrillator discharge: The only recent defibrillation occurred on November 06. There was no defibrillation late Saturday night as the patient suspected. The defibrillation converted ventricular tachycardia at a rate of 160 bpm. Suspect his dysrhythmia was related to significant hypokalemia. Spironolactone was started yesterday. He is currently receiving intravenous rider of potassium. Would start oral potassium at approximately 40 mEq daily. Would check a PRP on November 16. (2) Chronic combined systolic and diastolic heart failure: The patient is well compensated at this time. He does follow daily weights and sliding-scale diuretics. He had been taking frequent doses of metolazone since . Suspect this may be the cause of his hypokalemia. Continue his outpatient cardiac medications. Could entertain a change to Entresto. (3) Ischemic cardiomyopathy: Echocardiogram last October noted moderate to severe left ventricular dysfunction with an ejection fraction of 30-35%. (4) CAD (coronary artery disease): Quiescent his current medical regimen. (5) ICD (implantable cardioverter-defibrillator) in place: As above, interrogation revealed a defibrillator discharge on November 06. Amiodarone has been increased to 600 mg daily. Amiodarone levels are pending. Subjective The patient is resting comfortably in the bedside chair without complaints of chest pain, dyspnea, or palpitations. He is anxious for hospital discharge. Physical Exam Physical Exam: In general this is an obese white male in no acute distress. HEENT exam is negative. Neck is supple with full carotid upstrokes. There are no carotid bruits. No jugular venous distension. There is no thyromegaly. Cardiovascular exam reveals a regular rhythm with distant heart sounds. No obvious S3, S4, or murmurs. Lungs are clear without rales, rhonchi, or wheezes. Abdomen is obese without bruits. Extremities reveal intact radial artery pulses bilaterally. Trace pretibial edema. Results & Data Vital Signs (Past 12 Hours) Vital Signs Temp Pulse Resp BP Pulse Ox 11/12/19 07:20 36.3 C L 60 19 139/64 93 11/12/19 03:38 37.1 C 60 18 137/61 96 11/11/19 23:51 36.5 C 60 20 139/56 L 95 PG Care Time/CCT Total # of Minutes Spent Total Time Spent with Patient: Total time spent is greater than 50% in pastry cook helper rdination of care (as documented) at patient's floor/unit and/or counseling patient:
[2019-11-12] MEDS: FUROSEMIDE 40 MG TAB PO SCH (10:03)
[2019-11-12] MEDS ORDERED: POTASSIUM CHLORIDE 20 MEQ TABCR PO STA (12:49)
--- NOTE | 2019-11-18 00:26 | Discharge Summary ---
Date of Service November 12, 2019 Principal Diagnosis hypokalemia Discharge Exam General- adult male, NAD Head- atraumatic Eyes- PERRL, EOMI, anicteric ENT- oropharynx clear Neck- supple, no JVD, no adenopathy, no thyromegaly. Lungs- CTA b/l no R/R/W Heart- regular rhythm; no murmur, no gallop, no rub appreciated Abdomen- normal bowel sounds, soft, nontender, Extremities- trace pretibial edema, no calf tenderness; peripheral pulses intact Neuro- alert, oriented x 3; PERRL, EOMI; liberal arts teacher II-XII grossly intact, non-focal. Skin- warm & dry Discharge Data Allergies Allergy/AdvReac Type Severity Reaction Status Date / Time simvastatin Allergy Mild DIARRHEA/ Verified 11/17/19 09:34 EXACERBATED COLITIS tetanus toxoid, adsorbed Allergy Unknown Rash Verified 11/17/19 09:34 lisinopril AdvReac Unknown ABDOMINAL Verified 11/17/19 09:34 PAIN/DIARRHEA, Difficulty Swallowing Consultations 11/11/19 01:54 ED Decision to Admit Stat 11/11/19 04:31 Consult Cardiology Routine Hospital Course (1) Hypokalemia: Obs tele replaced (2) Defibrillator discharge: 2 episodes in 5 days time Consult cardiology. Appreciate cardio input (in bold) (1) Defibrillator discharge: The only recent defibrillation occurred on November 06. There was no defibrillation late Saturday night as the patient suspected. The defibrillation converted ventricular tachycardia at a rate of 160 bpm. Suspect his dysrhythmia was related to significant hypokalemia. Spironolactone was started yesterday. He is currently receiving intravenous rider of potassium. Would start oral potassium at approximately 40 mEq daily. Would check a PRP on November 16. (2) Chronic combined systolic and diastolic heart failure: The patient is well compensated at this time. He does follow daily weights and sliding-scale diuretics. He had been taking frequent doses of metolazone since . Suspect this may be the cause of his hypokalemia. Continue his outpatient cardiac medications. Could entertain a change to Entresto. (3) Ischemic cardiomyopathy: Echocardiogram last October noted moderate to severe left ventricular dysfunction with an ejection fraction of 30-35%. (4) CAD (coronary artery disease): Quiescent his current medical regimen. (5) ICD (implantable cardioverter-defibrillator) in place: As above, interrogation revealed a defibrillator discharge on November 06. Amiodarone has been increased to 600 mg daily. (3) Chronic combined systolic and diastolic heart failure: Compensated. Continue Lasix and metolazone. (4) CAD (coronary artery disease): (5) Atrial fibrillation: Continue Eliquis Continue carvedilol (6) V-tach: Continue amiodarone, mexiletine. Total Time Total Time Spent Total Time Spent (In Minutes): 32 Total Time Includes: Examination of the Patient, Discharge Planning and Medication Reconciliation Discharge Plan Discharge Items Patient Disposition: Home - Self-Care Reason For Visit: HYPOKALEMIA, AICD FIRING Discharge Diagnosis: Hypokalemia Activity: Resume your previous activity Non-emergency contact: Primary Care Provider Call non-emergency contact if: you have any medication questions Follow-up/Referrals: Ashanti Melchor DO [Primary Care Provider] - Diet: Heart Healthy Addtl Attending Provider Instructions: You have been hospitalized for an acute medical problem. During your stay at [facility], we have made an effort to correct the problem that brought you to the hospital while keeping you as comfortable as possible. Medications were used to bring your condition under control and your discharge instructions will include directions for any medications you should take after leaving the hospital. Please make sure you see your Primary Care Provider as part of your follow up plan. will check blood work on saturday. Pending Studies at Discharge: No Stand-Alone Forms: My [facility], Smoking Cessation Medications and DC Order Prescriptions: New spironolactone 25 mg Tablet 25 mg PO QAM Qty: 30 RF: 0 Continued sulfasalazine 500 mg Tablet 1,000 mg PO QID Qty: 0 RF: 0 amiodarone 400 mg tablet 600 mg PO DAILY Qty: 135 RF: 3 aspirin 325 mg tablet,delayed release (DR/EC) 325 mg PO DAILY Qty: 30 RF: 0 atorvastatin 80 mg tablet 80 mg PO HS Qty: 30 RF: 5 azathioprine 50 mg tablet 100 mg PO DAILY Qty: 30 RF: 1 carvedilol 25 mg tablet 25 mg PO BID Qty: 60 RF: 5 furosemide 40 mg tablet 120 mg PO DAILY Qty: 180 RF: 1 isosorbide mononitrate 60 mg tablet extended release 24 hr 60 mg PO DAILY Qty: 30 RF: 5 losartan 100 mg tablet 100 mg PO DAILY Qty: 90 RF: 1 nitroglycerin 0.4 mg tablet, sublingual 0.4 mg Sublingual UD PRN (Reason: Chest Pain) Qty: 1 RF: 0 calcium carbonate-vitamin D3 600 mg(1,500mg) -400 unit tablet 1 tab PO DAILY RF: 0 multivitamin Tablet 1 tab PO DAILY RF: 0 lidocaine 4 % Cream 1 applic TOPICAL HS RF: 0 acetaminophen [Tylenol Extra Strength] 500 mg Tablet 1,000 mg PO QID PRN (Reason: Pain) RF: 0 mexiletine 150 mg capsule 150 mg PO Q8 RF: 0 metolazone 5 mg tablet 5 mg PO DAILY PRN (Reason: FLUID BUILD UP) RF: 0 Eliquis 5 mg tablet 5 mg PO Q12 RF: 0 Discontinued potassium chloride 20 mEq tablet extended release 80 meq PO UD Qty: 80 RF: 1 No Action levothyroxine 25 mcg tablet 25 mcg PO DAILY Qty: 30 RF: 5 levothyroxine 200 mcg tablet 200 mcg PO DAILY Qty: 30 RF: 1 cholecalciferol (vitamin D3) 25 mcg PO DAILY RF: 0 potassium chloride 20 mEq tablet extended release See Rx Instructions PO DAILY Qty: 0 RF: 1 Discharge Orders: Discharge Order (Routine); Ordered 11/12/19 Ordered By: Magdaleno Salazar Admission Data Admit Date/Time: 11/11/19 02:28 Attending Provider: Magdaleno Salazar Admit Provider: Lul Moraes Primary Care Provider: Ashanti Melchor Other Providers: Lul Moraes ; Kirk Estrada Other Interventions: Discharge Summary Assessment (RN) Last Done: 11/12/19 12:56 DC Date/Time DO NOT enter until pt leaves facility: 11/12/19 14:50
== END 2019-11-12 14:50 | disposition home or self-care (01) ==
LOC: 2E 00:34 → ED 00:34 → SUATTDRO 02:28 → 2E 04:12

== ENCOUNTER 2021-04-11 09:34 | Observation (INO) ==
--- NOTE | 2021-03-24 16:18 | PAT Medication Instructions ---
Medication Instructions Date of Service March 24, 2021 Home Medications Medication Instructions Recorded atorvastatin 80 mg tablet 80 mg PO HS #30 tab 05/21/19 carvedilol 25 mg tablet 25 mg PO BID #60 tab 05/21/19 spironolactone 25 mg tablet 25 mg PO QAM #30 tab 12/08/19 metolazone 5 mg tablet 5 mg PO DAILY PRN #90 tab 06/03/20 nitroglycerin 0.4 mg sublingual 0.4 mg SUBLINGUAL UD PRN #25 tabs 07/25/20 tablet multivitamin 1 tab PO QAM atorvastatin 80 mg tablet 80 mg PO HS carvedilol 25 mg tablet 25 mg PO BID calcium carbonate 600 mg (1,500 mg)-vitamin D3 400 unit tablet 1 tab PO QAM Eliquis 5 mg PO Q12H acetaminophen [Tylenol Extra Strength] 1,000 mg PO QID PRN lidocaine 1 applic TOPICAL HS mexiletine 150 mg PO TID spironolactone 25 mg tablet 25 mg PO QAM metolazone 5 mg tablet 5 mg PO DAILY PRN probenecid 500 mg tablet 500 mg PO BID nitroglycerin 0.4 mg sublingual tablet 0.4 mg SUBLINGUAL UD PRN sulfasalazine 500 mg tablet 1,000 mg PO QID amiodarone 600 mg PO QAM aspirin 325 mg PO QAM azathioprine 100 mg PO QAM cholecalciferol (vitamin D3) [Vitamin D3] 1,000 unit PO QAM furosemide 120 mg PO QAM losartan 100 mg PO QAM potassium chloride 40 meq PO BID levothyroxine 250 mcg PO QAM pantoprazole 40 mg PO QAM Continue as directed nitroglycerin 0.4 mg sublingual tablet 0.4 mg SUBLINGUAL UD PRN ASK your prescriber and surgeon Eliquis 5 mg PO Q12H sulfasalazine 500 mg tablet 1,000 mg PO QID aspirin 325 mg PO QAM DO NOT take the morning of surgery multivitamin 1 tab PO QAM calcium carbonate 600 mg (1,500 mg)-vitamin D3 400 unit tablet 1 tab PO QAM spironolactone 25 mg tablet 25 mg PO QAM metolazone 5 mg tablet 5 mg PO DAILY PRN cholecalciferol (vitamin D3) [Vitamin D3] 1,000 unit PO QAM furosemide 120 mg PO QAM losartan 100 mg PO QAM potassium chloride 40 meq PO BID Take morning of surgery With a small sip of water, OTHERWISE NOTHING TO EAT OR DRINK AFTER MIDNIGHT: carvedilol 25 mg tablet 25 mg PO BID acetaminophen [Tylenol Extra Strength] 1,000 mg PO QID PRN (if needed, may be taken up to four hours before surgery) mexiletine 150 mg PO TID probenecid 500 mg tablet 500 mg PO BID amiodarone 600 mg PO QAM azathioprine 100 mg PO QAM levothyroxine 250 mcg PO QAM pantoprazole 40 mg PO QAM Take evening before surgery atorvastatin 80 mg tablet 80 mg PO HS carvedilol 25 mg tablet 25 mg PO BID acetaminophen [Tylenol Extra Strength] 1,000 mg PO QID PRN (if needed) mexiletine 150 mg PO TID metolazone 5 mg tablet 5 mg PO DAILY PRN (if needed) probenecid 500 mg tablet 500 mg PO BID potassium chloride 40 meq PO BID Other Notes If you have any questions please call us at [phone] or [phone] or or [phone]
--- NOTE | 2021-03-28 14:18 | Anesthesiology Consultation ---
Date of Service March 28, 2021 Assessment & Plan (1) Encounter for preoperative assessment: COVID Status: As of 03/28 assessment, patient denies travel to endemic area, known exposure/sick contacts, or symptoms of COVID19. Patient advised to adhere to social distancing guidelines, wear a mask in public and avoid large crowds or unnecessary travel in the 2 weeks leading up to surgery. Preoperative COVID19 testing to be completed prior to surgery per surgeon's arrangements. Patient encouraged to be extra cautious/conscientious with COVID precautions between COVID testing and surgery. Pt is fully vaccinated. Chart Review Chart Review: Acceptable Risk for Surgery (pending cardio appt 03/29, icd check 03/31) and Patient seen in Pre Admission Testing Teaching & Discussion Instructed NPO after midnight before surgery, except medications with 15 cc of water. Medication instructions provided according to the PAT guidelines. History Surgery Operation Date: 04/11/21 07:30 Proposed Procedures p Cystoscopy Transurethral Resection Prostate - Edin Bishop MD Height/Weight Height: 5 ft 10 in Weight: 139.7 kg Allergies Allergy/AdvReac Type Severity Reaction Status Date / Time lisinopril Allergy Intermediate ABDOMINAL Verified 03/22/21 13:37 PAIN/DIARRHEA, Difficulty Swallowing simvastatin Allergy Mild DIARRHEA/ Verified 03/22/21 13:37 EXACERBATED COLITIS tetanus toxoid, adsorbed Allergy Mild Rash Verified 03/22/21 13:37 Medications Home Medications Medication Instructions Recorded Confirmed Last Taken multivitamin 1 tab PO QAM 09/02/18 03/22/21 10/12/20 atorvastatin 80 mg tablet 80 mg PO HS #30 tab 05/21/19 03/22/21 10/12/20 carvedilol 25 mg tablet 25 mg PO BID #60 tab 05/21/19 03/22/21 10/13/20 05:40 calcium carbonate 600 mg (1,500 1 tab PO QAM tab 06/24/19 03/22/21 10/12/20 mg)-vitamin D3 400 unit tablet Eliquis 5 mg PO Q12H 06/27/19 03/22/21 10/12/20 acetaminophen [Tylenol Extra 1,000 mg PO QID PRN 06/27/19 03/22/21 Unknown Strength] lidocaine 1 applic TOPICAL HS 06/27/19 03/22/21 10/12/20 mexiletine 150 mg PO TID 06/27/19 03/22/21 10/13/20 0540 spironolactone 25 mg tablet 25 mg PO QAM #30 tab 12/08/19 03/22/21 10/13/20 metolazone 5 mg tablet 5 mg PO DAILY PRN #90 tab 06/03/20 03/22/21 10/09/20 probenecid 500 mg tablet 500 mg PO BID 06/15/20 03/22/21 10/12/20 nitroglycerin 0.4 mg sublingual 0.4 mg SUBLINGUAL UD PRN #25 tabs 07/25/20 03/22/21 Unknown tablet sulfasalazine 500 mg tablet 1,000 mg PO QID #0 tab 10/06/20 03/22/21 10/12/20 amiodarone 600 mg PO QAM 10/11/20 03/22/21 10/13/20 05:40 aspirin 325 mg PO QAM 10/11/20 03/22/21 10/12/20 azathioprine 100 mg PO QAM 10/11/20 03/22/21 10/12/20 cholecalciferol (vitamin D3) 1,000 unit PO QAM 10/11/20 03/22/21 10/12/20 [Vitamin D3] furosemide 120 mg PO QAM 10/11/20 03/22/21 10/12/20 losartan 100 mg PO QAM 10/11/20 03/22/21 10/13/20 05:40 potassium chloride 40 meq PO BID 10/11/20 03/22/21 10/12/20 levothyroxine 250 mcg PO QAM 03/22/21 03/22/21 Unknown pantoprazole 40 mg PO QAM 03/22/21 03/22/21 Unknown Past Medical History Medical History Atrial fibrillation on eliquis. Per Dr. Smith no reoccurrence since dx in 2015 BPH (benign prostatic hyperplasia) Cerebellar ataxia Chronic back pain Chronic combined systolic and diastolic heart failure EF 30-35% 2019 echo Coronary arteriosclerosis in [place] artery s/p CABG x 3 in 1999, LAD stent x 1 01/2006. Deep vein thrombosis RLE - dx ~2005, anticoagulant therapy Dysphagia Gout Hearing deficit History of CVA (cerebrovascular accident) 10/2011--on eliquis, no deficits. Previously followed with Dr Ty, was released from neuro. Hyperlipidemia Hypertension Hypothyroidism ICD (implantable cardioverter-defibrillator) in place (09/17/13) medtronic 2019. Last checked 03/31/21 Ischemic cardiomyopathy EF initially 25%, now 30-35% on most recent echo 2019. Left bundle-branch block Low vitamin B12 level Morbid obesity with BMI of 40.0-44.9, adult Myocardial Infarction x2--1997/[address] Smith Obstructive sleep apnea cpap On anticoagulant therapy eliquis--d/t CVA Osteoarthritis Ulcerative colitis Ventricular tachycardia hx of--follows with Dr. Smith Exercise / Class Metabolic Activity III < 4 Walking/Shop/Light housework (Denies CP or SOB with ambulation one one level using walker) Random episodes of chest pain once every month or so, usually just sitting. Past Family History Family History Father Coronary heart disease Myocardial infarction Mother Coronary heart disease Myocardial infarction Sister Breast cancer Had mastectomy in 2018'. Family history of diabetes mellitus Brother Cardiac disorder Other No family history of adverse response to anesthesia Denies family history of Ovarian cancer Prostate cancer Lung cancer Colorectal cancer Past Surgical History Surgical History Fusion of spine lumbar region H/O prostate biopsy History of adenoidectomy History of cardiac cath History of cholecystectomy History of colonoscopy History of coronary artery [place] [facility] [place] of esophageal dilatation Pt does report continued issues with taking his pills due to esophageal problems. History of heart artery stent x1--1997 History of tonsillectomy History of tooth extraction upper teeth removed History of total hip arthroplasty bilateral Hx of transurethral resection of prostate S/P cardiac pacemaker procedure inserted 09/17/2013. Medtronic device. Past Anesthesia History No Hx of Anesthesia Complications (other than issues with waking from CABG) and No Family Hx of Anesthesia Complications History of PONV No Hx of PONV and Hx of Motion Sickness Social History Smoking Status: Former smoker tobacco type: cigarettes Do You Dip or Chew Tobacco: No Smoking End Date: Hx Alcohol Use: No Hx Substance Use: No substance use type: does not use Review of Systems Pt denies any recent chest pain, shortness of breath, palpitations, cough, fever, URI, or uncontrolled acid reflux. Physical Exam Vital Signs BP: 128/71 P: 60bpm SPO2: 95% RA T: 97.8 F R: 16 ENMT Mouth: + dentures (upper full); no chipped teeth and no loose teeth Thyromental Distance: > or= 3.5 Finger Breadths Mallampati Class: I Neck + thick neck; neck extension not limited Respiratory normal respiratory effort, lungs clear to auscultation + prolonged expiratory phase Cardiovascular Heart Sounds: no murmur Vessels: no carotid bruit diifcult to hear Lab Results Anesthesia Preop Results Results Anesthesia Widget: WBC 5.84 K/uL (4.8-10.8) 03/28/21 Hgb 13.5 g/dL (14.0-18.0) L 03/28/21 Hct 39.6 % (42-52) L 03/28/21 Plt 217 K/uL (130-400) 03/28/21 Na 140 mmol/L (136-145) 03/28/21 K 4.1 mmol/L (3.5-5.1) 03/28/21 Cl 107 mmol/L (98-107) 03/28/21 CO2 28 mmol/L (21-32) 03/28/21 BUN 23 mg/dl (7-18) H 03/28/21 Creat 1.24 mg/dl (0.6-1.4) 03/28/21 Glucose Level 103 mg/dl (70-99) H 03/28/21 Testing Electrocardiogram Date: 03/28/21 Atrial-paced rhythm @ 62bpm, with prolonged AV conduction Right superior axis deviation Non-specific intra-ventricular conduction block When compared with ECG of 11-NOV-2019 00:37, No significant change. Chest X-Ray Date: 03/28/21 FINDINGS: Left subclavian pacer/AICD is in place. There are median sternotomy wires and mediastinal surgical clips. Mild cardiomegaly is unchanged. There is no evidence for pulmonary edema. There is no consolidation to suggest pneumonia. There is no pneumothorax or pleural effusion. Mild lung hyperexpansion is noted with flattening of the hemidiaphragms. IMPRESSION: No acute cardiopulmonary findings. Stable cardiomegaly. Echocardiogram Date: 11/10/18 EF: 30-35% Valvular Disease: + no significant valvular disease Normal LV size, mild c LVH. Severe global LV dysfunction, with abnormal septal motion c/w conduction abnormality. RV not well visualized. Normal est PAP.
[~2021-04-11 09:34] MED LIST: CIPROFLOXACIN / D5W 400 MG/200 ML BAG IV SCH; LR 15ML/HR IV SCH
[2021-04-11] MEDS ORDERED: LIDOCAINE 2% 2 ML VIAL/AMP(20MG/ML) INFIL ONE (11:41)
[2021-04-11] MEDS ORDERED: ONDANSETRON INJ 2 MG/ML 2 ML VIAL ONE (11:41)
[2021-04-11] MEDS ORDERED: PROPOFOL IV EMULSION 10 MG/ML 20 ML VIAL IV ONE (11:41)
[2021-04-11] MEDS ORDERED: fentaNYL citrate 100 MCG/2 ML VIAL ONE (11:41)
[2021-04-11] MEDS ORDERED: ePHEDrine sulfate 50 MG/ML AMP IV PRN (11:51)
[2021-04-11] MEDS ORDERED: ATROPINE SULFATE 0.1 MG/ML 10ML SYR IV PRN (11:51)
[2021-04-11] MEDS ORDERED: HYDROmorphone INJ 2 MG/ML SYR/VIAL IV PRN (11:51)
[2021-04-11] MEDS ORDERED: fentaNYL citrate 100 MCG/2 ML VIAL IV PRN (11:51)
[2021-04-11] MEDS ORDERED: ONDANSETRON INJ 2 MG/ML 2 ML VIAL IV PRN (11:51)
--- NOTE | 2021-04-11 12:19 | History & Physical Bridge Note ---
Date of Service April 11, 2021 History & Physical Bridge Note I have examined the patient, reviewed the History & Physical and in the interval since the performance of the History & Physical I have noted the following changes of clinical significance: no changes noted
--- NOTE | 2021-04-11 13:20 | Operative Report ---
PG Post Operative Report Pre & Post Diagnosis Operation Date: 04/11/21 11:35 Pre-Op Diagnosis: Benign Prostatic Hyperplasia Post-Op Diagnosis: Benign Prostatic Hyperplasia I identified the patient and participated in the time-out.: Yes Procedure Operation Date: 04/11/21 11:35 Actual Procedures p Cystoscopy, Transurethral Resection of Prostate(Not Applicable) - Edin Bishop MD Surgeon Otto Bishop MD Newspaper Illustrator none Estimated Blood Loss 0 Findings Consistent with Post-Op Diagnosis Specimens none Description of Procedure The patient was identified in the preoperative holding area, appropriate informed consents were reviewed and completed and the patient was transferred to the operative suite. Upon arrival, appropriate antibiotics and anesthesia were administered and the patient was placed in dorsal lithotomy position and prepped and draped in sterile fashion. Begin the case I passed a 27 Nauruan resectoscope with 30 degree lens and visual obturator. Inspection revealed a healthy-appearing urethra. His prostate is notably status post prior intervention. He does have asymmetrical regrowth of his prostatic tissue including a lump at the bladder neck as well as some lateral lobe tissue from both sides. Inspection of his bladder reveals a heavily trabeculated bladder with ureteral orifices in orthotopic position. There is one small stone within the bladder. There were no other gross abnormalities. Following my inspection I exchanged the visual obturator for resecting element using a button electrode. I began to flatten the lumps of regrowth. I began at the bladder neck and then moved to the left and right lateral lobes. At the conclusion of my resection the prostatic fossa was widely patent and hemostasis was excellent. A 22 Nauruan Seymour catheter was inserted without difficulty and the case was concluded. He was reversed of anesthesia and taken to the recovery room in stable condition. There were no complications. I attest to the content of the Intraoperative Record and any orders documented therein. Any exceptions are noted below.
--- NOTE | 2021-04-11 15:35 | Anesthesiology Progress Note ---
Date of Service April 11, 2021 Anesthesia Post Procedure Vital Signs Vital Signs: Temp Pulse Resp BP Pulse Ox 04/11/21 14:27 64 18 178/72 H 96 04/11/21 14:17 65 18 180/47 H 96 04/11/21 14:07 36.6 C 63 18 165/69 H 96 04/11/21 13:57 36.6 C 60 19 172/72 H 97 04/11/21 13:47 36.5 C 60 16 176/77 H 97 04/11/21 13:37 36.5 C 60 20 184/78 H 98 04/11/21 13:17 36.6 C 60 18 182/78 H 97 04/11/21 10:34 36.4 C L 61 18 177/80 H 97 Pain Intensity Penis: Pain Intensity: 3 Transfer of Care Handoff Completed per policy Notes Mental Status: alert / awake / arousable Patient Amnestic to Procedure: Yes Nausea / Vomiting: adequately controlled Pain: adequately controlled Airway Patency, RR, SpO2: stable & adequate BP & HR: stable & adequate Hydration State: stable & adequate Anesthetic Complications: no major complications apparent
[2021-04-11] MEDS ORDERED: metOLazone 5 MG TABLET PO PRN (16:03)
[2021-04-11] MEDS ORDERED: ACETAMINOPHEN HOME PACK 500 MG TABLET PO PRN (16:03)
[2021-04-11] MEDS ORDERED: NITROGLYCERIN SL 0.4 MG/TAB TAB SL PRN (16:03)
[2021-04-11] MEDS ORDERED: HYDROCODONE/ACETAMOPHEN 5/325MG TAB PO PRN (16:03)
[2021-04-11] MEDS ORDERED: ACETAMINOPHEN 325 MG TAB PO PRN (16:03)
[2021-04-11] MEDS: sulfaSALAzine 500 MG TABLET PO SCH ×2 (18:03→21:16)
[2021-04-11] MEDS: MEXILETINE HCL 150 MG CAPSULE PO SCH ×2 (18:03→21:16)
[2021-04-11] MEDS: POTASSIUM CHLORIDE CRTAB 20 MEQ TABCR PO SCH (18:03)
[2021-04-11] MEDS ORDERED: ATORVASTATIN 40 MG TAB PO SCH (21:00)
[2021-04-11] MEDS: carvediloL 25 MG TAB PO SCH (21:16)
[2021-04-11] MEDS: PROBENECID 500 MG TAB PO SCH (21:16)
[2021-04-12] MEDS ORDERED: LEVOTHYROXINE SODIUM 125 MCG TABLET PO SCH (06:30)
[2021-04-12 07:12] LABS: Basophils # (auto) 0.05 K/uL (0-0.2); Basophils % (auto) 0.6 %; Hematocrit (blood only) 42.6 % (42-52); Hemoglobin 14.6 g/dL (14.0-18.0); Immature Granulocytes # (auto) 0.03 K/uL (0.00-0.02); Immature Granulocytes % (auto) 0.3 %; Lymphocytes # (auto) 1.27 K/uL (1.2-3.4); Lymphocytes % (auto) 14.8 %; Mean Corpuscular Hemoglobin 35.4 pg (25-34); Mean Corpuscular Hgb Conc 34.3 g/dL (32-36); Mean Corpuscular Volume 103.4 fL (80-100); Mean Platelet Volume 9.3 fL (7.4-10.4); Monocytes # (auto) 0.88 K/uL (0.11-0.59); Monocytes % (auto) 10.3 %; Neutrophils # (auto) 6.35 K/uL (1.4-6.5); Platelet Count 225 K/uL (130-400); Red Blood Count 4.12 M/uL (4.7-6.1); White Blood Count 8.58 K/uL (4.8-10.8)
[2021-04-12] MEDS: POTASSIUM CHLORIDE CRTAB 20 MEQ TABCR PO SCH (07:20)
[2021-04-12] MEDS: PROBENECID 500 MG TAB PO SCH (07:22)
[2021-04-12] MEDS: carvediloL 25 MG TAB PO SCH (07:22)
[2021-04-12] MEDS: sulfaSALAzine 500 MG TABLET PO SCH ×2 (07:22→13:06)
[2021-04-12] MEDS: MEXILETINE HCL 150 MG CAPSULE PO SCH ×2 (07:25→13:06)
[2021-04-12 07:31] LABS: BUN Creatinine Ratio 19.3 (10-20); Calcium 8.8 mg/dl (8.5-10.1); Creatinine Clr Calc Pharmacy 79.1 ml/min; Est GFR (African American) 74.7 ml/min; Est GFR (Non-African American) 64.4 ml/min
[2021-04-12] MEDS ORDERED: ASPIRIN 325 MG ECTAB PO SCH (09:00)
[2021-04-12] MEDS ORDERED: azaTHIOprine 50 MG TAB PO SCH (09:00)
[2021-04-12] MEDS ORDERED: LOSARTAN POTASSIUM 50 MG TAB PO SCH (09:00)
[2021-04-12] MEDS ORDERED: FUROSEMIDE 40 MG TAB PO SCH (09:00)
[2021-04-12] MEDS ORDERED: MULTIVITAMIN TAB PO SCH (09:00)
[2021-04-12] MEDS ORDERED: SPIRONOLACTONE 25 MG TAB PO SCH (09:00)
[2021-04-12] MEDS ORDERED: CHOLECALCIFEROL 1,000 UNITS 25 MCG TAB PO SCH (09:00)
[2021-04-12] MEDS ORDERED: PANTOprazole 40 MG TAB PO SCH (09:00)
[2021-04-12] MEDS ORDERED: CALCIUM 600MG + VIT D 400 IU TAB PO SCH (09:00)
--- NOTE | 2021-04-12 09:20 | Urology Progress Note ---
Date of Service April 12, 2021 Assessment & Plan (1) BPH (benign prostatic hyperplasia): (2) Urinary symptom or sign: POD#1 s/p TURP - voiding trial this AM - dc home after lunch/void - resume eliquis on if urine remains clear - relatively high risk of re-bleed, but also has high cardiac risk status Admission and Anticipated Discharge Date Admission Date: April 11, 2021 Subjective no issues overnight cath draining well no pain minor leakage around the catheter Physical Exam Physical Exam: blood tinged urine in tubing - but overall all looks appropriate Results & Data ([facility]) Vital Signs (Past 12 Hours) Vital Signs Temp Pulse Pulse Resp BP Pulse Ox 04/12/21 07:20 36.5 C 60 16 152/81 H 94 04/12/21 03:20 82 18 96 04/12/21 03:05 37 C 60 19 134/68 97 04/11/21 23:24 36.6 C 60 20 135/75 95 04/11/21 22:41 60 20 94 PG Care Time/CCT Total # of Minutes Spent Total Time Spent with Patient: Total time spent is greater than 50% in coordination of care (as documented) at patient's floor/unit and/or counseling patient: Coding Level of Care Code 21098 Subseq Hosp Care Lvl 2 Diagnoses BPH (benign prostatic hyperplasia) N40.0 Urinary symptom or sign R39.9
--- NOTE | 2021-04-25 14:23 | Discharge Summary ---
Date of Service April 25, 2021 Principal Diagnosis BPH Discharge Data Allergies Allergy/AdvReac Type Severity Reaction Status Date / Time lisinopril Allergy Intermediate ABDOMINAL Verified 04/11/21 10:23 PAIN/DIARRHEA, Difficulty Swallowing simvastatin Allergy Mild DIARRHEA/ Verified 04/11/21 10:23 EXACERBATED COLITIS tetanus toxoid, adsorbed Allergy Mild Rash Verified 04/11/21 10:23 Procedures Performed Operation Date: 04/11/21 11:35 Actual Procedures p Cystoscopy, Transurethral Resection of Prostate(Not Applicable) - Edin Bishop MD Hospital Course (1) BPH (benign prostatic hyperplasia): Admitted for TURP - tolerated procedure very well - progressed appropriately overnight - passed a voiding trial on the morning of POD#1 - d/c home in stable condition Total Time Total Time Spent Total Time Spent (In Minutes): 15 Discharge Plan Discharge Items Patient Disposition: Home - Self-Care Reason For Visit: BPH Discharge Diagnosis: BPH Activity: Per Instructions section Lifting: No more than 25 pounds Bathing: No limitations Sexual Activity: Wait until after follow-up appointment Exercise/Sports: Wait until after follow-up appointment Driving/Machine Use: Do not drive while taking prescription pain medication. Non-emergency contact: Surgeon and Urologist Call non-emergency contact if: you have any medication questions, your pain is not controlled, you have a fever and your temperature is above 101.5 Follow-up/Referrals: Pool Ventura MD [Physician] - 04/26/21 1:20 pm Ashanti Melchor DO [Primary Care Provider] - Diet: Heart Healthy Addtl Attending Provider Instructions: Please take all medications as prescribed and keep all follow-ups as scheduled. Please call our office at [phone] with any questions, concerns or need to reschedule appointments for any reason. We are happy to assist you. You have a phone visit follow-up on 04/26/[address] Ventura. You can resume your Eliquis tomorrow () if your urine remains clear. Please call urology office if your urine is bright red in color. Tips for your recovery at home: Dont be alarmed by brownish or reddish blood or clots in your urine. This is a result of the procedure. This may occur off and on for weeks to months after the procedure but should continue to improve. Drink plenty of fluids during the day (enough to keep your urine very light colored). This will help keep a healthy flow of urine. Do not lift >25 lbs until your followup Avoid constipation. Please use a stool softener (Colace) for the first two weeks after your procedure Be sure to finish the antibiotics as prescribed. If you go home with a catheter, please wash tubing where it enters your body twice daily with mild soap (Dove or Dial). Once your catheter is removed, expect some blood in your urine and some burning when you urinate. You should have an appointment to have this removed, if you do not please call our office to arrange. When to call [facility] [place] Urology at [phone]: Your urine contains heavy blood clots You are constantly leaking urine Fever of 101F or higher, chills, nausea, or vomiting Your pain is not relieved with medication Pending Studies at Discharge: Yes Stand-Alone Forms: [facility] C[facility] Medications and DC Order Prescriptions: New docusate sodium [Colace] 100 mg capsule 100 mg PO BID Qty: 30 RF: 0 Continued spironolactone 25 mg tablet 25 mg PO QAM Qty: 30 RF: 0 metolazone 5 mg tablet 5 mg PO DAILY PRN (Reason: FLUID BUILD UP) Qty: 90 RF: 3 nitroglycerin 0.4 mg tablet, sublingual 0.4 mg Sublingual UD PRN (Reason: Chest Pain) Qty: 25 RF: 3 sulfasalazine 500 mg tablet 1,000 mg PO QID Qty: 0 RF: 0 probenecid 500 mg tablet 500 mg PO BID RF: 0 atorvastatin 80 mg tablet 80 mg PO HS Qty: 30 RF: 5 carvedilol 25 mg tablet 25 mg PO BID Qty: 60 RF: 5 calcium carbonate-vitamin D3 600 mg(1,500mg) -400 unit tablet 1 tab PO QAM RF: 0 multivitamin Tablet 1 tab PO QAM RF: 0 lidocaine 4 % Cream 1 applic TOPICAL HS RF: 0 acetaminophen [Tylenol Extra Strength] 500 mg Tablet 1,000 mg PO QID PRN (Reason: Pain) RF: 0 mexiletine 150 mg capsule 150 mg PO TID RF: 0 cholecalciferol (vitamin D3) [Vitamin D3] 25 mcg (1,000 unit) Tablet 1,000 unit PO QAM RF: 0 furosemide 40 mg tablet 120 mg PO QAM RF: 0 amiodarone 200 mg tablet 600 mg PO QAM RF: 0 azathioprine 50 mg tablet 100 mg PO QAM RF: 0 aspirin 325 mg tablet,delayed release (DR/EC) 325 mg PO QAM RF: 0 losartan 100 mg tablet 100 mg PO QAM RF: 0 potassium chloride 20 mEq tablet extended release 40 meq PO BID RF: 0 levothyroxine 125 mcg Tablet 250 mcg PO QAM RF: 0 pantoprazole 40 mg tablet,delayed release (DR/EC) 40 mg PO QAM RF: 0 Eliquis 5 mg tablet 5 mg PO Q12H Qty: 0 RF: 0 Discharge Orders: Discharge Order (Routine); Ordered 04/12/21 Ordered By: Opal Velarde Admission Data Admit Date/Time: 04/11/21 13:26 Attending Provider: Edin Bishop Admit Provider: Edin Bishop Primary Care Provider: Ashanti Melchor Other Interventions: Discharge Summary Assessment (RN) Last Done: 04/12/21 12:31 Coding Level of Care Code D/C Day Management <30 mins Diagnoses BPH (benign prostatic hyperplasia) N40.0 Time Spent (min) 15
== END 2021-04-12 13:29 | disposition home or self-care (01) ==
LOC: 3E 09:34 → ASU 09:34
DX: N40.0 Benign prostatic hyperplasia without lower urinary tract symptoms; E66.9 Obesity, unspecified; Z68.41 Body mass index [BMI] 40.0-44.9, adult; Z87.891 Personal history of nicotine dependence; I11.0 Hypertensive heart disease with heart failure; I50.42 Chronic combined systolic (congestive) and diastolic (congestive) heart failure; Z88.8 Allergy status to other drugs, medicaments and biological substances; G47.30 Sleep apnea, unspecified; E78.5 Hyperlipidemia, unspecified

== ENCOUNTER 2021-05-08 15:01 | Observation (INO) ==
--- NOTE | 2021-05-08 16:18 | Emergency Department Note ---
Impression & Plan CHF (congestive heart failure), Acute dyspnea ED Provider Note NAME: PRABHU JALLOH AGE: 76 SEX: M : 1945 ARRIVES VIA: Walk-In INFORMANT: patient, ED PROVIDER(S): Brannon Palma MD Chief Complaint: Hypotension, increased diuresis HPI: Patient does present with concern for increased diuresis and lower blood pressure. The patient states that over the weekend he had been about 3 pounds overweight and he had been told to take metolazone as an extra diuretic in the event that this occurs. The patient did this around 1 PM after muslim yesterday. The patient states that since then he has been urinating essentially on the hour every hour since then and believes he is down now 8 pounds since yesterday. The patient did have a lower blood pressure prior to arrival reported at home but not upon presentation. The patient denies any chest pains but does have some acute on chronic shortness of breath. The patient has not noticed much in sort of change of lower extremity edema. Patient denies any current chest pains. The patient is vaccinated for Covid and denies any cough. ROS: See HPI for pertinent positives and negatives. A total of 10 systems were reviewed and otherwise negative. Past medical history: See below Surgical history: See below Social history: See below Physical Exam: GENERAL: Wearing glasses and a mask. NAD, non-toxic. EYE EXAM: Normal conjunctiva. PERRL, no anisocoria and EOM's grossly intact w/o pain. NECK: Supple, no nuchal rigidity, no adenopathy, non-tender. No signs of meningismus. LUNGS: Clear to auscultation. Normal chest wall mechanics. HEART: NSR, no MRG. ABDOMEN: Abdomen soft, non-tender, normo-active bowel sounds, no masses, no rebound or guarding. BACK: No CVA TTP. SKIN: No rashes and no bruising. UPPER EXTREMITIES: Upper extremities are grossly normal. LOWER EXTREMITIES: Grossly normal, no edema. NEURO EXAM: A&O x3, cranial nerves II-XII grossly intact, normal speech, moves all 4 extremities on command w/o issue. Differential diagnoses: Infection, dehydration, metabolic abnormality, hypo/hyperglycemia, electrolyte disturbance, anemia, hypoxia, cardiac sources, intracerebral event, toxicologic, neurologic, as well as other pathologies. Course: Patient was seen and evaluated the bedside. Full history physical exam was performed. EKG interpreted by me Atrial paced rhythm, rate of 63, left axis deviation with left lower branch block. Imaging Studies: See below Cardiac monitoring: An order was placed for continuous cardiac monitoring. The monitor shows a rate of 61 with paced rhythm. MDM: Patient does present with concern for shortness of breath and increased diuresis. Blood work is obtained. The patient blood work is not grossly unremarkable with the exception of elevated BNP. After further discussion with the patient and the patient did undergo an ambulatory trial but was still feeling quite winded and short of breath where he believes that even if he went home patient would likely return for worsening shortness of breath. Given this with the patient's medical comorbidities I did speak with the on-call ho spitalist Dr. Nobles and the patient was admitted to the medicine service. Past Med/Surg History Medical History Atrial fibrillation on eliquis. Per Dr. Smith no reoccurrence since dx in 2015 BPH (benign prostatic hyperplasia) Cerebellar ataxia Chronic back pain Chronic combined systolic and diastolic heart failure EF 30-35% 2019 echo Coronary arteriosclerosis in [place] artery s/p CABG x 3 in 1999, LAD stent x 1 01/2006. Deep vein thrombosis RLE - dx ~2005, anticoagulant therapy Dysphagia Gout Hearing deficit History of CVA (cerebrovascular accident) 10/2011--on eliquis, no deficits. Previously followed with Dr Ty, was released from neuro. Hyperlipidemia Hypertension Hypothyroidism ICD (implantable cardioverter-defibrillator) in place (09/17/13) medtronic 2019. Last checked 03/31/21 Ischemic cardiomyopathy EF initially 25%, now 30-35% on most recent echo 2019. Left bundle-branch block Low vitamin B12 level Morbid obesity with BMI of 40.0-44.9, adult Myocardial Infarction x2--1997/[address] Smith Obstructive sleep apnea cpap On anticoagulant therapy eliquis--d/t CVA Osteoarthritis Ulcerative colitis Ventricular tachycardia hx of--follows with Dr. Smith Surgical History Fusion of spine lumbar region H/O prostate biopsy History of adenoidectomy History of cardiac cath History of cholecystectomy History of colonoscopy History of coronary artery bypass graft x 3 2007 @ [facility] [place] History of esophageal dilatation Pt does report continued issues with taking his pills due to esophageal problems. History of heart artery stent x1--1997 History of tonsillectomy History of tooth extraction upper teeth removed History of total hip arthroplasty bilateral Hx of transurethral resection of prostate S/P cardiac pacemaker procedure inserted 09/17/2013. Medtronic device. Family History Father Coronary heart disease Myocardial infarction Mother Coronary heart disease Myocardial infarction Sister Breast cancer Had mastectomy in 2018'. 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: No Beliefs That Will Affect Care: None marital status: Current Living Situation: Spouse Current Living Situation Comment: home with current occupational status: retired and disabled Feels Safe at Home: Yes Childhood Exposure to Second-Hand Smoke: Yes caffeine: Yes during the past year weight has: remained stable Dental Care, Regularly: Yes Physical Activity Frequency: Does not Exercise Seatbelt Use: always Sunscreen Use: Yes Assistive Devices: Denture - Upper and Glasses Allergies Allergies Allergy/AdvReac Type Severity Reaction Status Date / Time lisinopril Allergy Intermediate ABDOMINAL Verified 05/08/21 16:55 PAIN/DIARRHEA, Difficulty Swallowing simvastatin Allergy Intermediate DIARRHEA/ Verified 05/08/21 16:55 EXACERBATED COLITIS tetanus toxoid, adsorbed Allergy Mild Rash Verified 05/08/21 16:55 Home Meds Home Medications Medication Instructions Recorded Confirmed multivitamin 1 tab PO QAM 09/02/18 05/08/21 calcium carbonate 600 mg (1,500 1 tab PO QAM tab 06/24/19 05/08/21 mg)-vitamin D3 400 unit tablet acetaminophen [Tylenol Extra 1,000 mg PO QID PRN 06/27/19 05/08/21 Strength] lidocaine 1 applic TOPICAL HS 06/27/19 05/08/21 mexiletine 150 mg PO TID 06/27/19 05/08/21 probenecid 500 mg tablet 500 mg PO BID 06/15/20 05/08/21 sulfasalazine 500 mg tablet 1,000 mg PO QID #0 tab 10/06/20 05/08/21 amiodarone 600 mg PO QAM 10/11/20 05/08/21 aspirin 325 mg PO QAM 10/11/20 05/08/21 azathioprine 100 mg PO QAM 10/11/20 05/08/21 cholecalciferol (vitamin D3) 1,000 unit PO QAM 10/11/20 05/08/21 [Vitamin D3] furosemide 120 mg PO QAM 10/11/20 05/08/21 losartan 100 mg PO DAILYBB 10/11/20 05/08/21 potassium chloride 40 meq PO BID 10/11/20 05/08/21 levothyroxine 250 mcg PO DAILYBB 03/22/21 05/08/21 pantoprazole 40 mg PO DAILYBB 03/22/21 05/08/21 Previous Rx's Medication Instructions Recorded atorvastatin 80 mg tablet 80 mg PO HS #30 tab 05/21/19 carvedilol 25 mg tablet 25 mg PO BID #60 tab 05/21/19 spironolactone 25 mg tablet 25 mg PO QAM #30 tab 12/08/19 nitroglycerin 0.4 mg sublingual 0.4 mg SUBLINGUAL UD PRN #25 tabs 07/25/20 tablet Eliquis 5 mg PO Q12H #0 tab 04/12/21 metolazone 2.5 mg PO DAILY PRN #10 tab 05/09/21 Results & Data (ED) Vital Signs Vital Signs - 24 hr 05/08/21 18:00 05/08/21 18:31 05/08/21 19:01 Pulse Rate 60 60 61 Pulse Rate from SpO2 Sensor 60 59 L 60 Respiratory Rate 17 14 21 Blood Pressure 142/65 H 157/66 H 164/72 H Blood Pressure Mean 90 96 102 Pulse Oximetry 96 96 98 Oxygen Delivery Method Room Air Room Air 05/08/21 19:31 05/08/21 20:01 05/08/21 20:31 Pulse Rate 60 60 60 Pulse Rate from SpO2 Sensor 60 60 60 Respiratory Rate 13 20 24 Blood Pressure 140/65 150/71 H 168/83 H Blood Pressure Mean 90 97 111 Pulse Oximetry 96 96 96 Oxygen Delivery Method 05/08/21 21:01 Pulse Rate 60 Pulse Rate from SpO2 Sensor 55 L Respiratory Rate 23 Blood Pressure 203/83 H Blood Pressure Mean 123 Pulse Oximetry 95 Oxygen Delivery Method Home Medications Current Medication List: was personally reviewed by me Laboratory Data Attestation: I reviewed the patient's lab results. Result diagrams: 05/09/21 06:44 05/09/21 06:44 Lab Results 05/08/21 05/08/21 05/08/21 Range/Units 16:20 16:20 16:20 WBC 8.10 (4.8-10.8) K/uL RBC 4.17 L (4.7-6.1) M/uL Hgb 14.5 (14.0-18.0) g/dL Hct 42.4 (42-52) % MCV 101.7 H (80-100) fL MCH 34.8 H (25-34) pg MCHC 34.2 (32-36) g/dL RDW Std Deviation 51.4 H (36.4-46.3) fL RDW Coeff of Delmi 13.8 (11.5-14.5) % Plt Count 240 (130-400) K/uL MPV 9.7 (7.4-10.4) fL Immature Gran % (Auto) 0.4 % Neut % (Auto) 66.4 % Lymph % (Auto) 20.7 % Gilliam % (Auto) 11.9 % Eos % (Auto) 0.0 % Baso % (Auto) 0.6 % Neut # (Auto) 5.38 (1.4-6.5) K/uL Lymph # (Auto) 1.68 (1.2-3.4) K/uL Gilliam # (Auto) 0.96 H (0.11-0.59) K/uL Eos # (Auto) 0.00 (0-0.5) K/uL Baso # (Auto) 0.05 (0-0.2) K/uL Immature Gran # (Auto) 0.03 H (0.00-0.02) K/uL PT 11.4 (9.0-12.0) Seconds INR 1.1 (0.9-1.1) Sodium 136 (136-145) mmol/L Potassium 3.9 (3.5-5.1) mmol/L Chloride 103 (98-107) mmol/L Carbon Dioxide 28 (21-32) mmol/L Anion Gap 5.0 (3-11) BUN 29 H (7-18) mg/dl Creatinine 1.58 H (0.6-1.4) mg/dl Est Cr Clr Drug Dosing 56.0 ml/min Est GFR ( Amer) 48.2 ml/min Est GFR (Non-Af Amer) 41.6 ml/min BUN/Creatinine Ratio 18.5 (10-20) Glucose 111 H (70-99) mg/dl Calcium 8.6 (8.5-10.1) mg/dl Phosphorus 3.4 (2.5-4.9) mg/dl Magnesium 2.3 (1.8-2.4) mg/dl Total Bilirubin 0.4 (0.2-1) mg/dl AST 18 (15-37) U/L ALT 23 (12-78) U/L Alkaline Phosphatase 80 (45-117) U/L Troponin I < 0.015 (0-0.045) ng/ml NT-Pro-B Natriuret Pep 2923 H (0-1800) pg/ml Total Protein 7.1 (6.4-8.2) gm/dl Albumin 3.6 (3.4-5.0) gm/dl Globulin 3.5 (2.5-4.0) gm/dl Albumin/Globulin Ratio 1.0 (0.9-2) TSH 1.770 (0.300-4.500) uIu/ml Urine Color Urine Appearance (Clear) Urine pH (4.5-7.5) Ur Specific [place] (1.000-1.030) Urine Protein (Negative) Urine Glucose (UA) (Negative) Urine Ketones (Negative) Urine Blood (Negative) Urine Nitrite (Negative) Urine Bilirubin (Negative) Urine Urobilinogen (Negative) Ur Leukocyte Esterase (Negative) Urine WBC (Auto) (0-5) /hpf Urine RBC (Auto) (0-4) /hpf U Hyaline Cast (Auto) (0-5) /lpf U Epithel Cells (Auto) (0-5) /lpf Urine Bacteria (Auto) (Negative) COVID-19 Eval Order SARS-CoV-2 (PCR) (Negative) 05/08/21 05/08/21 05/08/21 Range/Units 18:55 19:50 19:50 WBC (4.8-10.8) K/uL RBC (4.7-6.1) M/uL Hgb (14.0-18.0) g/dL Hct (42-52) % MCV (80-100) fL MCH (25-34) pg MCHC (32-36) g/dL RDW Std Deviation (36.4-46.3) fL RDW Coeff of Delmi (11.5-14.5) % Plt Count (130-400) K/uL MPV (7.4-10.4) fL Immature Gran % (Auto) % Neut % (Auto) % Lymph % (Auto) % Gilliam % (Auto) % Eos % (Auto) % Baso % (Auto) % Neut # (Auto) (1.4-6.5) K/uL Lymph # (Auto) (1.2-3.4) K/uL [place]illi[place] # (Auto) (0.11-0.59) K/uL Eos # (Auto) (0-0.5) K/uL Baso # (Auto) (0-0.2) K/uL Immature Gran # (Auto) (0.00-0.02) K/uL PT (9.0-12.0) Seconds INR (0.9-1.1) Sodium (136-145) mmol/L Potassium (3.5-5.1) mmol/L Chloride (98-107) mmol/L Carbon Dioxide (21-32) mmol/L Anion Gap (3-11) BUN (7-18) mg/dl Creatinine (0.6-1.4) mg/dl Est Cr Clr Drug Dosing ml/min Est GFR ( Amer) ml/min Est GFR (Non-Af Amer) ml/min BUN/Creatinine Ratio (10-20) Glucose (70-99) mg/dl Calcium (8.5-10.1) mg/dl Phosphorus (2.5-4.9) mg/dl Magnesium (1.8-2.4) mg/dl Total Bilirubin (0.2-1) mg/dl AST (15-37) U/L ALT (12-78) U/L Alkaline Phosphatase (45-117) U/L Troponin I (0-0.045) ng/ml NT-Pro-B Natriuret Pep (0-1800) pg/ml Total Protein (6.4-8.2) gm/dl Albumin (3.4-5.0) gm/dl Globulin (2.5-4.0) gm/dl Albumin/Globulin Ratio (0.9-2) TSH (0.300-4.500) uIu/ml Urine Color Dark Yellow Urine Appearance Clear (Clear) Urine pH 5.0 (4.5-7.5) Ur Specific [place] 1.021 (1.000-1.030) Urine Protein Negative (Negative) Urine Glucose (UA) Negative (Negative) Urine Ketones Negative (Negative) Urine Blood Negative (Negative) Urine Nitrite Negative (Negative) Urine Bilirubin Negative (Negative) Urine Urobilinogen Negative (Negative) Ur Leukocyte Esterase 1+ H (Negative) Urine WBC (Auto) 10-30 H (0-5) /hpf Urine RBC (Auto) 5-10 H (0-4) /hpf U Hyaline Cast (Auto) 1-5 (0-5) /lpf U Epithel Cells (Auto) 10-20 H (0-5) /lpf Urine Bacteria (Auto) Negative (Negative) COVID-19 Eval Order Covid19 at [facility] SARS-CoV-2 (PCR) NEGATIVE (Negative) Administered Medications [facility] ([facility] 200 Mg Tab) [facility] Stop: 06/08/21 08:59 Last Admin: 05/09/21 08:33 Dose: 600 mg Documented by: [id number] Apixaban (Apixaban 5 Mg Tablet) 5 mg PO BID [facility] Stop: 06/07/21 22:04 Last Admin: 05/09/21 08:34 Dose: 5 mg Documented by: [id number] Admin: 05/08/21 23:08 Dose: 5 mg Documented by: [id number] Aspirin (Aspirin 325 Mg Ectab) 325 mg PO QAM [facility] Stop: 06/08/21 08:59 Last Admin: 05/09/21 08:33 Dose: 325 mg Documented by: [id number] Atorvastatin Calcium (Atorvastatin 40 Mg Tab) 80 mg PO [facility] Stop: 06/07/21 22:04 Last Admin: 05/08/21 22:47 Dose: 80 mg Documented by: [id number] Azathioprine (Azathioprine 50 Mg Tab) [facility] [place] Stop: 06/08/21 08:59 Last Admin: 05/09/21 08:33 Dose: 100 mg Documented by: [id number] Carvedilol (Carvedilol 25 Mg Tab) 25 mg PO BID [facility] Stop: 06/07/21 22:04 Last Admin: 05/09/21 08:33 Dose: 25 mg Documented by: [id number] Admin: 05/08/21 22:46 Dose: 25 mg Documented by: [id number] Furosemide (Furosemide 40 Mg Tab) [facility] [place] Stop: 06/08/21 09:14 Last Admin: 05/09/21 10:35 Dose: 120 mg Documented by: [id number] Levothyroxine Sodium (Levothyroxine Sodium 125 Mcg Tablet) [facility] Stop: 06/08/21 06:29 Last Admin: 05/09/21 03:01 Dose: 250 mcg Documented by: [id number] Lidocaine (Lidocaine 4% Cream 15 Gm Tube) 1 appln EXT HS [facility] Stop: 06/07/21 22:04 Last Admin: 05/08/21 22:47 Dose: 1 appln Documented by: [id number] Losartan Potassium (Losartan Potassium 50 Mg Tab) 100 mg PO DAILYBB [facility] Stop: 06/08/21 06:29 Last Admin: 05/09/21 05:51 Dose: 100 mg Documented by: [id number] Mexiletine HCl (Mexiletine Hcl 150 Mg Capsule) 150 mg PO TID [facility] Stop: 06/07/21 22:04 Last Admin: 05/09/21 13:10 Dose: 150 mg Documented by: [id number] Admin: 05/09/21 08:34 Dose: 150 mg Documented by: [id number] Admin: 05/08/21 22:48 Dose: 150 mg Documented by: [id number] Multivitamins (Multivitamin Tab) 1 tab PO [facility] Stop: 06/08/21 08:59 Last Admin: 05/09/21 08:33 Dose: 1 tab Documented by: [id number] Pantoprazole Sodium (Pantoprazole 40 Mg Tab) 40 mg PO DAILYBB [facility] Stop: 06/08/21 06:29 Last Admin: 05/09/21 05:48 Dose: 40 mg Documented by: [id number] Potassium Chloride (Potassium Chloride Crtab 20 Meq Tabcr) 40 meq PO BID [facility] Stop: 06/07/21 22:04 Last Admin: 05/09/21 08:34 Dose: 40 meq Documented by: [id number] Admin: 05/08/21 22:46 Dose: 40 meq Documented by: [id number] Probenecid (Probenecid 500 Mg Tab) 500 mg PO BID [facility] Stop: 06/07/21 22:04 Last Admin: 05/09/21 08:34 Dose: 500 mg Documented by: [id number] Admin: 05/08/21 23:16 Dose: Not Given Documented by: [id number] Spironolactone (Spironolactone 25 Mg Tab) 25 mg PO QAM [facility] Stop: 06/08/21 09:14 Last Admin: 05/09/21 10:35 Dose: 25 mg Documented by: [id number] Sulfasalazine (Sulfasalazine 500 Mg Tablet) 1,000 mg PO QID [facility] Stop: 06/07/21 22:04 Last Admin: 05/09/21 17:02 Dose: 1,000 mg Documented by: [id number] Admin: 05/09/21 13:10 Dose: 1,000 mg Documented by: [id number] Admin: 05/09/21 08:33 Dose: 1,000 mg Documented by: [id number] Admin: 05/08/21 22:47 Dose: 1,000 mg Documented by: [id number] Discontinued Medications Furosemide (Furosemide 40 Mg/4 Ml Vial) 40 mg IV NOW STA Stop: 05/08/21 20:12 Last Admin: 05/08/21 20:19 Dose: 40 mg Documented by: [id number] Potassium Chloride (K Pierce / Wtr) 10 meq in 100 mls @ 100 mls/hr IV Q1H [facility] Stop: 05/08/21 21:49 Last Infusion: 05/08/21 23:17 Dose: 0 mls/hr Documented by: [id number] Admin: 05/08/21 21:28 Dose: 100 mls/hr Documented by: [id number] Sodium Chloride (Nss 1000ml) 1,000 mls @ 60 mls/hr IV .[id number] [facility] Stop: 06/07/21 20:49 Last Infusion: 05/09/21 10:30 Dose: 0 mls/hr Documented by: [id number] Admin: 05/08/21 21:25 Dose: 60 mls/hr Documented by: [id number] Potassium Chloride (Potassium Chloride Crtab 20 Meq Tabcr) 20 meq PO NOW STA Stop: 05/09/21 09:12 Last Admin: 05/09/21 09:53 Dose: 20 meq Documented by: [id number] Discharge Plan Visit Data Chief Complaint: Hypotension Stated Complaint: DIZZY,LOW BP ED Provider: Brannon Palma Discharge Problem: CHF (congestive heart failure), Acute dyspnea Patient Disposition: Admitted As Inpatient Condition: Good Discharge Instructions Interventions: ED Discharge Assessment Last Done: 05/08/21 21:49 Discharge Problem: CHF (congestive heart failure) Qualifiers: Heart failure type: unspecified Heart failure chronicity: unspecified Qualified Code(s): I50.9 - Heart failure, unspecified
[2021-05-08 16:39] LABS: Basophils # (auto) 0.05 K/uL (0-0.2); Basophils % (auto) 0.6 %; Hematocrit (blood only) 42.4 % (42-52); Hemoglobin 14.5 g/dL (14.0-18.0); Immature Granulocytes # (auto) 0.03 K/uL (0.00-0.02); Immature Granulocytes % (auto) 0.4 %; Lymphocytes # (auto) 1.68 K/uL (1.2-3.4); Lymphocytes % (auto) 20.7 %; Mean Corpuscular Hemoglobin 34.8 pg (25-34); Mean Corpuscular Hgb Conc 34.2 g/dL (32-36); Mean Corpuscular Volume 101.7 fL (80-100); Mean Platelet Volume 9.7 fL (7.4-10.4); Monocytes # (auto) 0.96 K/uL (0.11-0.59); Monocytes % (auto) 11.9 %; Neutrophils # (auto) 5.38 K/uL (1.4-6.5); Neutrophils % (auto) 66.4 %; Platelet Count 240 K/uL (130-400); RDW Coefficient of Variation 13.8 % (11.5-14.5); RDW Standard Deviation 51.4 fL (36.4-46.3); Red Blood Count 4.17 M/uL (4.7-6.1)
[2021-05-08 16:49] LABS: INR 1.1 (0.9-1.1); Prothrombin Time 11.4 Seconds (9.0-12.0)
[2021-05-08 16:58] LABS: Alanine Aminotransferase 23 U/L (12-78); Albumin Level 3.6 gm/dl (3.4-5.0); Aspartate Aminotransferase 18 U/L (15-37); BUN Creatinine Ratio 18.5 (10-20); Blood Urea Nitrogen 29 mg/dl (7-18); Calcium 8.6 mg/dl (8.5-10.1); Carbon Dioxide 28 mmol/L (21-32); Chloride 103 mmol/L (98-107); Est GFR (African American) 48.2 ml/min; Est GFR (Non-African American) 41.6 ml/min; Glucose 111 mg/dl (70-99); Magnesium 2.3 mg/dl (1.8-2.4); Potassium 3.9 mmol/L (3.5-5.1); Sodium 136 mmol/L (136-145)
[2021-05-08 17:09] LABS: Alkaline Phosphatase 80 U/L (45-117); Bilirubin,Total 0.4 mg/dl (0.2-1); Globulin 3.5 gm/dl (2.5-4.0); NT Pro B Type Natriuretic Pept 2923 pg/ml (0-1800); Phosphorus 3.4 mg/dl (2.5-4.9); Total Protein 7.1 gm/dl (6.4-8.2); Troponin I < 0.015 ng/ml (0-0.045)
--- NOTE | 2021-05-08 17:56 | XRay Report ---
XR chest 1V portable CLINICAL HISTORY: weakness COMPARISON STUDY: Chest radiograph March 28, 2021. FINDINGS: There are median sternotomy wires. A left subclavian pacer/AICD is in place. There is no pn eumothorax or pleural effusion. There is no consolidation or evidence for pulmonary edema. Cardiomega ly is unchanged. The appearance of the chest is unchanged. IMPRESSION: No acute cardiopulmonary findings. No change in appearance of the chest. Cardiomegaly. ACT 112: Negative or not required by law. Electronically signed by: Cristian Bradley M.D. 05/08/2021 5:54 PM
[2021-05-08 19:38] LABS: Bacteria Urine Automated Negative (Negative); Bilirubin Urine Negative (Negative); Blood Urine Negative (Negative); Color Urine Dark Yellow; Glucose Urine UA Negative (Negative); Ketones Urine Negative (Negative); Leukocyte Esterase Urine 1+ (Negative); Nitrite Urine Negative (Negative); Protein Urine Negative (Negative); Specific Gravity Urine 1.021 (1.000-1.030); Urobilinogen Urine Negative (Negative)
[2021-05-08 19:50] LABS: Appearance Urine Clear (Clear)
[2021-05-08] MEDS ORDERED: FUROSEMIDE 40 MG/4 ML VIAL IV STA (20:11)
[2021-05-08] MEDS ORDERED: SODIUM CHLORIDE 0.9% 1000ML 1,000 ML IV SCH (20:50)
[2021-05-08] MEDS ORDERED: POTASSIUM CHLORIDE / WTR 10 MEQ/100 ML PLCT IV STA (20:50)
--- NOTE | 2021-05-08 20:54 | History & Physical Report ---
Date of Service May 08, 2021 Assessment & Plan (1) MATT (acute kidney injury): 76 yo M Hx HTN, HLD, CAD s/p CABG with ischemic cardiomyopathy (EF 30-35% in 2019) and AICD, hypothyroidism, gout, AFib on Eliquis admitted for MATT due to overdiuresis causing lightheadedness. MATT: - Presented to ER with lightheadedness and weight of 302 (dry weight per Cardiology of 303) after taking metolazone yesterday for weight gain. - BP normal in ER; on standing however patient felt lightheaded. - Creatinine 1.58; baseline 1.1. - MATT suspected to be prerenal from overdiuresis. - Light fluid resuscitation given Hx HFrEF; 60cc/hr NSS x1bag. - Repeat BMP in AM. CAD s/p CABG, ischemic CM, AICD, HTN, HLD: - Hx [place] s/p CABG 2007. - Hx VTach January 2019 s/p dual-chamber AICD. - Maximize electrolytes (K>4< Mg>2, Phos >3). - Last Echo October 2018 showed EF 30-35%. - Home regimen: takes daily Lasix 120mg, spironolactone 25mg daily. Metolazone as needed for weight gain (dry weight 303, to take if weight gain >3lbs). - Close monitoring of fluid status, resume diuretics either when patient has worsening respiratory status, or when creatinine improves to baseline. - May benefit from decreased dose or elimination of metolazone, and increased dose of spironolactone given spironolactone is potassium-sparing and given acute presentation today. - Presented with complaints of hypotension at home and lightheadedness after taking metolazone yesterday (for a weight of 309lbs). 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 - In ER not hypoxic, no respiratory distress. Normal BP, but began to feel pre- syncopal with standing. - Will hold diuretics with low salt diet for now. - Continue Eliquis for Hx AFib, normal HR and no RVR in ER. Continue mexiletine, amiodarone for rhythm control. - Echo tomorrow AM to evaluate for change in ejection fraction. - Telemetry for cardiac monitoring. COPD, YI: - Hx COPD on EMR, however not on any inhalers at home. - No SOB in ER, not hypoxic. - Continue CPAP qHS for YI. Hypothyroidism: - Continue levothyroxine. Gout: - Continue probenecid. Ulcerative colitis: - Continue sulfasalazine. Code Status: FULL CODE FEN: Hearty Healthy, low sodium diet; gentle fluids NSS @ 60cc/hr DVT ppx: home Eliquis BID Dispo: Med/Surg with Telemetry (2) Ischemic cardiomyopathy: (3) Chronic obstructive pulmonary disease: (4) Atrial fibrillation: (5) CAD (coronary artery disease): (6) Hypothyroidism: (7) Gout: (8) Obstructive sleep apnea: (9) Ulcerative colitis: (10) Hypertension: (11) Hyperlipidemia: History of Present Illness Chief Complaint: lightheadedness Primary Care Provider: Ashanti Melchor, DO 76 yo M Hx HTN, HLD, CAD s/p CABG with ischemic cardiomyopathy (EF 30-35% in 2019) and AICD, hypothyroidism, gout, AFib on Eliquis presented to the ER for complaints of weakness starting this morning. Reports that his blood pressure was 80s over 50s on waking with a normal heart rate. His weight was 302 pounds. Yesterday he reports taking metolazone for a weight of 309 lbs in the morning. He has been advised by Dr. Smith with cardiology to take metolazone as needed for weight gain greater than 3 pounds; his dry weight is 303 pounds. When the symptoms did not improve he came to the ER at the suggestion of his primary care doctor. In the ER patient was found to have normal vitals, lab work which showed an MATT. When patient was asked to stand he started to again feel lightheaded. Hospitalist service was consulted for admission. At time of my interview patient does not complain of chest pain, shortness of breath, nausea, bowel or bladder issues, headaches, lightheadedness. Allergies Allergy/AdvReac Type Severity Reaction Status Date / Time lisinopril Allergy Intermediate ABDOMINAL Verified 05/08/21 16:55 PAIN/DIARRHEA, Difficulty Swallowing simvastatin Allergy Intermediate DIARRHEA/ Verified 05/08/21 16:55 EXACERBATED COLITIS tetanus toxoid, adsorbed Allergy Mild Rash Verified 05/08/21 16:55 Home Medications Medication Instructions Recorded Confirmed Type multivitamin 1 tab PO QAM 09/02/18 05/08/21 History atorvastatin 80 mg tablet 80 mg PO HS #30 tab 05/21/19 05/08/21 Rx carvedilol 25 mg tablet 25 mg PO BID #60 tab 05/21/19 05/08/21 Rx calcium carbonate 600 mg (1,500 1 tab PO QAM tab 06/24/19 05/08/21 History mg)-vitamin D3 400 unit tablet acetaminophen [Tylenol Extra 1,000 mg PO QID PRN 06/27/19 05/08/21 History Strength] lidocaine 1 applic TOPICAL HS 06/27/19 05/08/21 History mexiletine 150 mg PO TID 06/27/19 05/08/21 History spironolactone 25 mg tablet 25 mg PO QAM #30 tab 12/08/19 05/08/21 Rx probenecid 500 mg tablet 500 mg PO BID 06/15/20 05/08/21 History nitroglycerin 0.4 mg sublingual 0.4 mg SUBLINGUAL UD PRN #25 tabs 07/25/20 05/08/21 Rx tablet sulfasalazine 500 mg tablet 1,000 mg PO QID #0 tab 10/06/20 05/08/21 History amiodarone 600 mg PO QAM 10/11/20 05/08/21 History aspirin 325 mg PO QAM 10/11/20 05/08/21 History azathioprine 100 mg PO QAM 10/11/20 05/08/21 History cholecalciferol (vitamin D3) 1,000 unit PO QAM 10/11/20 05/08/21 History [Vitamin D3] furosemide 120 mg PO QAM 10/11/20 05/08/21 History losartan 100 mg PO DAILYBB 10/11/20 05/08/21 History potassium chloride 40 meq PO BID 10/11/20 05/08/21 History levothyroxine 250 mcg PO DAILYBB 03/22/21 05/08/21 History pantoprazole 40 mg PO DAILYBB 03/22/21 05/08/21 History Eliquis 5 mg PO Q12H #0 tab 04/12/21 05/08/21 Rx metolazone 2.5 mg PO DAILY PRN #10 tab 05/09/21 Rx Past Med/Surg History Medical History Atrial fibrillation on eliquis. Per Dr. Smith no reoccurrence since dx in 2016 BPH (benign prostatic hyperplasia) Cerebellar ataxia Chronic back pain Chronic combined systolic and diastolic heart failure EF 30-35% 2019 echo Coronary arteriosclerosis in [place] artery s/p CABG x 3 in 1999, LAD stent x 1 01/2006. Deep vein thrombosis RLE - dx ~2005, anticoagulant therapy Dysphagia Gout Hearing deficit History of CVA (cerebrovascular accident) 10/2011--on eliquis, no deficits. Previously followed with Dr Ty, was released from neuro. Hyperlipidemia Hypertension Hypothyroidism ICD (implantable cardioverter-defibrillator) in place (09/17/13) medtronic 2019. Last checked 03/31/21 Ischemic cardiomyopathy EF initially 25%, now 30-35% on most recent echo 2019. Left bundle-branch block Low vitamin B12 level Morbid obesity with BMI of 40.0-44.9, adult Myocardial Infarction x2--1997/[address] Smith Obstructive sleep apnea cpap On anticoagulant therapy eliquis--d/t CVA Osteoarthritis Ulcerative colitis Ventricular tachycardia hx of--follows with Dr. Smith Surgical History Fusion of spine lumbar region H/O prostate biopsy History of adenoidectomy History of cardiac cath History of cholecystectomy History of colonoscopy History of coronary artery bypass graft [place] [address] [facility] [place] of esophageal dilatation Pt does report continued issues with taking his pills due to esophageal problems. History of heart artery stent x1--1997 History of tonsillectomy History of tooth extraction upper teeth removed History of total hip arthroplasty bilateral Hx of transurethral resection of prostate S/P cardiac pacemaker procedure inserted 09/17/2013. Medtronic device. Family History Father Coronary heart disease Myocardial infarction Mother Coronary heart disease Myocardial infarction Sister Breast cancer Had mastectomy in 2018'. Family history of diabetes mellitus Brother Cardiac disorder Other No family history of adverse response to anesthesia Denies family history of Ovarian cancer Prostate cancer Lung cancer Colorectal cancer Social History Smoking Status: Former smoker Tobacco Type: Cigarettes and Pipe Second Hand Exposure: No; Hx Alcohol Use: No Hx Substance Use: No Preferred Language: Danish Communication Ability: Effective Visual Impairment: No Limitations Hearing Ability: Hard of Hearing Seat Cover Cutter Required: No Beliefs That Will Affect Care: None marital status: Current Living Situation: Spouse Current Living Situation Comment: home with current occupational status: retired and disabled Feels Safe at Home: Yes Childhood Exposure to Second-Hand Smoke: Yes caffeine: Yes during the past year weight has: remained stable Dental Care, Regularly: Yes Physical Activity Frequency: Does not Exercise Seatbelt Use: always Sunscreen Use: Yes Assistive Devices: Denture - Upper and Glasses Review of Systems Review of Systems: All systems reviewed & are unremarkable except as noted in HPI & below Constitutional: no fever, no chills and no malaise Respiratory: no cough and no dyspnea Cardiovascular: no chest pain, no palpitations and no edema Gastrointestinal: no abdominal pain, no constipation and no diarrhea/loose stools Physical Exam Constitutional: well developed, well nourished and + morbidly obese Eyes: PERRL, conjunctivae normal, anicteric sclerae ENMT: external ear and nose normal, oropharynx normal Neck: normal visual inspection Respiratory: poor air movement, no wheezes, no rhonchi or crackles, saturating well Cardiovascular: Rate/Rhythm: + irregularly irregular Heart Sounds: no murmur Extremities: + edema (1+ bilateral LE) Gastrointestinal (Abdomen): normal bowel sounds, soft, nontender, no hepatosplenomegaly (protuberant) Musculoskeletal: no cyanosis or clubbing, extremities motor strength 5/5 Skin: no rashes, warm and dry Neurologic: No focal motor deficits, alert and oriented, normal speech Psychiatric: A+Ox3, euthymic affect Results & Data Results & Data ([facility]) Vital Signs (Past 12 Hours) Vital Signs Temp Pulse Resp BP Pulse Ox 05/08/21 18:31 60 14 157/66 H 96 05/08/21 18:00 60 17 142/65 H 96 05/08/21 17:31 60 22 138/66 95 05/08/21 17:00 60 16 141/63 H 95 05/08/21 16:31 60 14 125/61 95 05/08/21 16:30 60 20 95 05/08/21 16:18 95 05/08/21 16:16 60 17 161/70 H 95 05/08/21 15:06 36.8 C 68 20 120/64 95 Supervising Physician Co-Signing Physician Notes Attending addendum: I have physically seen this patient, have supervised the medical residents activities, and agree with the H&P unless as otherwise noted. Assessment and Plan: Acute kidney injury- Creatinine 1.58 upon admission Hold metolazone Gentle IV fluid rehydration due to EF of 30 to 35%. 1 L total of normal saline Repeat laboratories in a.m. CAD, status post CABG, ischemic cardiomyopathy, AICD, hypertension, V. tach history- The patient will be admitted to telemetry for serial cardiac enzymes, serial EKG's, cardiac rhythm monitoring and a 2-D echocardiogram with Dopplers. HFpEF, with EF 30 to 35% noted on echo 11/10/2018. Hold metolazone as noted for now Hold furosemide and spironolactone overnight Consult cardiology for further management Remaining orders and notations as noted Resident Activity Tracking Resident Involvement: Resident Care Provided Care Provided: Adult Hospital Medicine (1) Hypertension Hypertension type: essential hypertension Qualified Code(s): I10 - Essential (primary) hypertension (2) Ulcerative colitis Digestive disease complication type: without complication Ulcerative colitis location: unspecified ulcerative colitis location Qualified Code(s): K51.90 - Ulcerative colitis, unspecified, without complications
[2021-05-08] MEDS ORDERED: LIDOCAINE 4% CREAM 15 GM TUBE EXT SCH (22:05)
[2021-05-08] MEDS ORDERED: ATORVASTATIN 40 MG TAB PO SCH (22:05)
[2021-05-08] MEDS ORDERED: ONDANSETRON INJ 2 MG/ML 2 ML VIAL IV PRN (22:05)
[2021-05-08] MEDS ORDERED: NITROGLYCERIN SL 0.4 MG/TAB TAB SL PRN (22:05)
[2021-05-08] MEDS ORDERED: ACETAMINOPHEN 325 MG TAB PO PRN (22:05)
[2021-05-08] MEDS: carvediloL 25 MG TAB PO SCH (22:46)
[2021-05-08] MEDS: POTASSIUM CHLORIDE CRTAB 20 MEQ TABCR PO SCH (22:46)
[2021-05-08] MEDS: sulfaSALAzine 500 MG TABLET PO SCH (22:47)
[2021-05-08] MEDS: MEXILETINE HCL 150 MG CAPSULE PO SCH (22:48)
[2021-05-08] MEDS: APIXABAN 5 MG TABLET PO SCH (23:08)
[2021-05-08] MEDS: PROBENECID 500 MG TAB PO SCH (23:16)
[2021-05-09] MEDS ORDERED: LOSARTAN POTASSIUM 50 MG TAB PO SCH (06:30)
[2021-05-09] MEDS ORDERED: LEVOTHYROXINE SODIUM 125 MCG TABLET PO SCH (06:30)
[2021-05-09] MEDS ORDERED: PANTOprazole 40 MG TAB PO SCH (06:30)
[2021-05-09 07:08] LABS: Mean Corpuscular Hemoglobin 34.1 pg (25-34); Mean Corpuscular Hgb Conc 34.2 g/dL (32-36); Mean Corpuscular Volume 99.7 fL (80-100); Mean Platelet Volume 9.5 fL (7.4-10.4); Platelet Count 187 K/uL (130-400); RDW Coefficient of Variation 13.9 % (11.5-14.5); RDW Standard Deviation 50.1 fL (36.4-46.3); Red Blood Count 3.81 M/uL (4.7-6.1); White Blood Count 6.46 K/uL (4.8-10.8)
[2021-05-09 07:53] LABS: BUN Creatinine Ratio 24.7 (10-20); Creatinine Clr Calc Pharmacy 77.6 ml/min; Magnesium 2.3 mg/dl (1.8-2.4); Phosphorus 3.4 mg/dl (2.5-4.9); Potassium 3.2 mmol/L (3.5-5.1)
[2021-05-09] MEDS: sulfaSALAzine 500 MG TABLET PO SCH ×3 (08:33→17:02)
[2021-05-09] MEDS: carvediloL 25 MG TAB PO SCH (08:33)
[2021-05-09] MEDS: APIXABAN 5 MG TABLET PO SCH (08:34)
[2021-05-09] MEDS: POTASSIUM CHLORIDE CRTAB 20 MEQ TABCR PO SCH (08:34)
[2021-05-09] MEDS: PROBENECID 500 MG TAB PO SCH (08:34)
[2021-05-09] MEDS: MEXILETINE HCL 150 MG CAPSULE PO SCH ×2 (08:34→13:10)
[2021-05-09] MEDS ORDERED: AMIODARONE 200 MG TAB PO SCH (09:00)
[2021-05-09] MEDS ORDERED: MULTIVITAMIN TAB PO SCH (09:00)
[2021-05-09] MEDS ORDERED: ASPIRIN 325 MG ECTAB PO SCH (09:00)
[2021-05-09] MEDS ORDERED: azaTHIOprine 50 MG TAB PO SCH (09:00)
[2021-05-09] MEDS ORDERED: POTASSIUM CHLORIDE CRTAB 20 MEQ TABCR PO STA (09:11)
[2021-05-09] MEDS ORDERED: SPIRONOLACTONE 25 MG TAB PO SCH (09:15)
[2021-05-09] MEDS ORDERED: FUROSEMIDE 40 MG TAB PO SCH (09:15)
--- NOTE | 2021-05-09 16:43 | XCELERA ---
[id number] \\[id number]
--- NOTE | 2021-05-09 16:58 | Discharge Summary ---
Date of Service May 09, 2021 Admission HPI Per Admitting Provider 76 yo M Hx HTN, HLD, CAD s/p CABG with ischemic cardiomyopathy (EF 30-35% in 2019) and AICD, hypothyroidism, gout, AFib on Eliquis presented to the ER for complaints of weakness starting this morning. Reports that his blood pressure was 80s over 50s on waking with a normal heart rate. His weight was 302 pounds. Yesterday he reports taking metolazone for a weight of 309 lbs in the morning. He has been advised by Dr. Smith with cardiology to take metolazone as needed for weight gain greater than 3 pounds; his dry weight is 303 pounds. When the symptoms did not improve he came to the ER at the suggestion of his primary care doctor. In the ER patient was found to have normal vitals, lab work which showed an MATT. When patient was asked to stand he started to again feel lightheaded. Hospitalist service was consulted for admission. At time of my interview patient does not complain of chest pain, shortness of breath, nausea, bowel or bladder issues, headaches, lightheadedness. Principal Diagnosis Hypotension, acute kidney injury Discharge Exam Constitutional WD/WN, vitals as above Eyes PERRL, conjunctivae normal, anicteric sclerae ENMT external ear and nose normal, oropharynx normal Neck trachea midline, no thyromegaly Respiratory normal respiratory effort, lungs clear to auscultation Cardiovascular Rate/Rhythm: regular rate and regular rhythm Chest (Breasts) Chest: normal inspection of chest Gastrointestinal (Abdomen) normal bowel sounds, soft, nontender, no hepatosplenomegaly Musculoskeletal Extremities: extremities normal to inspection; no cyanosis and no clubbing Skin no rashes, warm and dry Neurologic moves all extremities and awake; no focal motor deficits Psychiatric A+Ox3, euthymic affect Lymphatic no lymphedema Discharge Data Allergies Allergy/AdvReac Type Severity Reaction Status Date / Time lisinopril Allergy Intermediate ABDOMINAL Verified 05/17/21 10:07 PAIN/DIARRHEA, Difficulty Swallowing simvastatin Allergy Intermediate DIARRHEA/ Verified 05/17/21 10:07 EXACERBATED COLITIS tetanus toxoid, adsorbed Allergy Mild Rash Verified 05/17/21 10:07 Consultations 05/08/21 20:12 ED Decision to Admit Stat Hospital Course (1) MATT (acute kidney injury): 76 yo M Hx HTN, HLD, CAD s/p CABG with ischemic cardiomyopathy (EF 30-35% in 2019) and AICD, hypothyroidism, gout, AFib on Eliquis admitted for MATT due to overdiuresis causing lightheadedness. MATT: - Presented to ER with lightheadedness and weight of 302 (dry weight per Cardiology of 303) after taking metolazone for weight gain. - BP normal in ER; on standing however patient felt lightheaded. - Creatinine 1.58; baseline 1.1. - MATT suspected to be prerenal from overdiuresis. - Light fluid resuscitation given Hx HFrEF; 60cc/hr NSS x1bag was given and patient's symptoms improved. -Creatinine down to 1.12 on day of discharge CAD s/p CABG, ischemic CM, AICD, HTN, HLD: - Hx [place] s/p CABG 2007. - Hx VTach January 2019 s/p dual-chamber AICD. - Maximize electrolytes (K>4< Mg>2, Phos >3). Replaced potassium - Last Echo October 2018 showed EF 30-35%. Echocardiogram here now with EF 35- 40%, moderate aortic regurgitation, mild mitral regurgitation - Home regimen: takes daily Lasix 120mg, spironolactone 25mg daily. Metolazone as needed for weight gain (dry weight 303, to take if weight gain >3lbs). - Presented with complaints of hypotension at home and lightheadedness after taking metolazone yesterday (for a weight of 309lbs). 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 - In ER not hypoxic, no respiratory distress. Normal BP, but began to feel pre- syncopal with standing. -Held diuretics initially but can restart upon discharge, would recommend only taking half of a metolazone pill in the future as needed - Continue Eliquis for Hx AFib, normal HR and no RVR in ER. Continue mexiletine, amiodarone for rhythm control. -He had only paced rhythm on telemetry and no arrhythmias COPD, YI: - Hx COPD on EMR, however not on any inhalers at home. - No SOB in ER, not hypoxic. - Continue CPAP qHS for YI. Hypothyroidism: - Continue levothyroxine. Gout: - Continue probenecid. Ulcerative colitis: - Continue sulfasalazine. Code Status: FULL CODE DVT ppx: home Eliquis BID Dispo: Discharged to home Doing well (2) Ischemic cardiomyopathy: (3) Chronic obstructive pulmonary disease: (4) Atrial fibrillation: (5) CAD (coronary artery disease): (6) Hypothyroidism: (7) Gout: (8) Obstructive sleep apnea: (9) Ulcerative colitis: (10) Hypertension: (11) Hyperlipidemia: Total Time Total Time Spent Total Time Spent (In Minutes): 35 minutes Discharge Plan Discharge Items Patient Disposition: Home - Self-Care Reason For Visit: MATT, WEAKNESS Discharge Diagnosis: Hypotension, Acute kidney injury Condition on Discharge: Good Activity: As commented below Lifting: Gradually increase as tolerated Exercise/Sports: Gradually increase as tolerated Non-emergency contact: Primary Care Provider and Business Office Technician Call non-emergency contact if: you have any medication questions and your symptoms worsen Follow-up/Referrals: Ashanti Melchor DO [Primary Care Provider] - 05/17/21 10:20 am (Follow up within 1-2 weeks. Your appointment is with the physician daycare assistant, Macy Cyr. If you have any questions or need to change this appointment, please call [phone].) Diet: Low Sodium (2gm) Fluids: 1800ml (7 cups) Addtl Attending Provider Instructions: You were admitted with lightheadedness and low blood pressure, likely due to taking metolazone. In the future, it is advised that you only take 1/2 of a tablet of the metolazone as needed. Pending Studies at Discharge: No Stand-Alone Forms: My [facility] Medications and DC Order Prescriptions: New metolazone 5 mg tablet 2.5 mg PO DAILY PRN (Reason: weight gain > 3 lbs in one day) Qty: 10 RF: 0 Continued spironolactone 25 mg tablet 25 mg PO QAM Qty: 30 RF: 0 nitroglycerin 0.4 mg tablet, sublingual 0.4 mg Sublingual UD PRN (Reason: Chest Pain) Qty: 25 RF: 3 sulfasalazine 500 mg tablet 1,000 mg PO QID Qty: 0 RF: 0 probenecid 500 mg tablet 500 mg PO BID RF: 0 atorvastatin 80 mg tablet 80 mg PO HS Qty: 30 RF: 5 carvedilol 25 mg tablet 25 mg PO BID Qty: 60 RF: 5 calcium carbonate-vitamin D3 600 mg(1,500mg) -400 unit tablet 1 tab PO QAM RF: 0 multivitamin Tablet 1 tab PO QAM RF: 0 lidocaine 4 % Cream 1 applic TOPICAL HS RF: 0 acetaminophen [Tylenol Extra Strength] 500 mg Tablet 1,000 mg PO QID PRN (Reason: Pain) RF: 0 mexiletine 150 mg capsule 150 mg PO TID RF: 0 cholecalciferol (vitamin D3) [Vitamin D3] 25 mcg (1,000 unit) Tablet 1,000 unit PO QAM RF: 0 furosemide 40 mg tablet 120 mg PO QAM RF: 0 amiodarone 200 mg tablet 600 mg PO QAM RF: 0 azathioprine 50 mg tablet 100 mg PO QAM RF: 0 losartan 100 mg tablet 100 mg PO DAILYBB RF: 0 potassium chloride 20 mEq tablet extended release 40 meq PO BID RF: 0 levothyroxine 125 mcg Tablet 250 mcg PO DAILYBB RF: 0 pantoprazole 40 mg tablet,delayed release (DR/EC) 40 mg PO DAILYBB RF: 0 Eliquis 5 mg tablet 5 mg PO Q12H Qty: 0 RF: 0 No Action aspirin 81 mg tablet,delayed release (DR/EC) 81 mg PO DAILY RF: 0 ketoconazole topical DAILY PRN (Reason: as needed for rash) RF: 0 Discharge Orders: Discharge Order (Routine); Ordered 05/09/21 Ordered By: Shayla Harvey Admission Data Admit Date/Time: 05/08/21 21:17 Attending Provider: Shayla Harvey Admit Provider: Xavi Mohan Primary Care Provider: Ashanti Melchor Other Interventions: Discharge Summary Assessment (RN) Last Done: 05/09/21 16:58 Coding Level of Care Code 55533 OBS Care - Discharge Diagnoses MATT (acute kidney injury) N17.9 Ischemic cardiomyopathy I25.5 Chronic obstructive pulmonary disease J44.9 Atrial fibrillation I48.91 CAD (coronary artery disease) I25.10 Hypothyroidism E03.9 Gout M10.9 Obstructive sleep apnea G47.33 Ulcerative colitis K51.90 Digestive disease complication type: without complication Ulcerative colitis location: unspecified ulcerative colitis location Hypertension I10 Hypertension type: essential hypertension Hyperlipidemia E78.5
--- NOTE | 2021-05-09 18:22 | Electrocardiogram Report ---
Test Reason : Blood Pressure : / mmHG Vent. Rate : 063 BPM Atrial Rate : 063 BPM P-R Int : 256 ms QRS Dur : 156 ms QT Int : 502 ms P-R-T Axes : 074 -43 107 degrees QTc Int : 513 ms Atrial-paced rhythm with prolonged AV conduction Left axis deviation Left bundle branch block Abnormal ECG When compared with ECG of 28-MAR-2021 14:34, No significant change was found Confirmed by Otto Dooley ([id number]) on 05/09/2021 6:21:54 PM Referred By: Ashanti Melchor Confirmed By:Maikel Dooley
--- NOTE | 2021-05-09 18:27 | Electrocardiogram Report ---
Test Reason : Blood Pressure : / mmHG Vent. Rate : 061 BPM Atrial Rate : 061 BPM P-R Int : 282 ms QRS Dur : 170 ms QT Int : 526 ms P-R-T Axes : 096 -42 091 degrees QTc Int : 529 ms Atrial-paced rhythm with prolonged AV conduction Left axis deviation Left bundle branch block Abnormal ECG When compared with ECG of 08-MAY-2021 16:14, (unconfirmed) No significant change was found Confirmed by Otto Dooley ([id number] on 05/09/2021 6:27:25 PM Referred By: Ashanti Melchor Confirmed By:Maikel Dooley
--- NOTE | 2021-05-09 19:33 | Billing Data ---
Date of Service May 09, 2021 Coding Level of Care Code 73475 Initial Inpt Care Lvl 3
--- NOTE | 2021-05-09 19:33 | Billing Data ---
Date of Service May 09, 2021 Coding Level of Care Code INT OBSERVATION CARE 70M LVL 3
== END 2021-05-09 18:30 | disposition home or self-care (01) ==
LOC: ED 15:01 → 2N 15:01 → SUATTDRO 21:17 → 2N 21:49
DX: E03.9 Hypothyroidism, unspecified; Z86.718 Personal history of other venous thrombosis and embolism; G47.33 Obstructive sleep apnea (adult) (pediatric); Z99.89 Dependence on other enabling machines and devices; Z88.8 Allergy status to other drugs, medicaments and biological substances; M10.9 Gout, unspecified; Z79.899 Other long term (current) drug therapy; Z79.890 Hormone replacement therapy; Z79.82 Long term (current) use of aspirin; Z88.7 Allergy status to serum and vaccine; Z79.01 Long term (current) use of anticoagulants; I10 Essential (primary) hypertension; E66.01 Morbid (severe) obesity due to excess calories; N17.9 Acute kidney failure, unspecified; I25.5 Ischemic cardiomyopathy; Z87.891 Personal history of nicotine dependence; Z95.5 Presence of coronary angioplasty implant and graft; I25.10 Atherosclerotic heart disease of native coronary artery without angina pectoris; E78.5 Hyperlipidemia, unspecified; Z95.1 Presence of aortocoronary bypass graft; Z20.822 Contact with and (suspected) exposure to COVID-19; J44.9 Chronic obstructive pulmonary disease, unspecified; Z95.810 Presence of automatic (implantable) cardiac defibrillator; Z68.41 Body mass index [BMI] 40.0-44.9, adult

== ENCOUNTER 2022-08-06 22:08 | Observation (INO) ==
[2022-08-06 22:42] LABS: Basophils # (auto) 0.06 K/uL (0-0.2); Eosinophils # (auto) 0.24 K/uL (0-0.50); Eosinophils % (auto) 3.8 %; Hematocrit (blood only) 38.3 % (40.1-51.0); Hemoglobin 13.7 g/dl (14.0-18.0); Immature Granulocytes # (auto) 0.04 K/uL (0.00-0.02); Immature Granulocytes % (auto) 0.6 %; Lymphocytes # (auto) 1.58 K/uL (1.2-3.4); Lymphocytes % (auto) 25.3 %; Mean Corpuscular Hemoglobin 36.6 pg (25.0-34.0); Mean Corpuscular Hgb Conc 35.8 g/dL (32.0-36.0); Mean Corpuscular Volume 102.4 fL (80.0-100.0); Mean Platelet Volume 9.6 fL (9.4-12.4); Monocytes # (auto) 0.68 K/uL (0.24-0.82); Monocytes % (auto) 10.9 %; Neutrophils # (auto) 3.65 K/uL (1.4-6.5); Neutrophils % (auto) 58.4 %; Platelet Count 205 K/uL (130-400); RDW Coefficient of Variation 12.9 % (11.5-14.5); RDW Standard Deviation 48.2 fL (36.4-46.3); Red Blood Count 3.74 M/uL (4.63-6.08); White Blood Count 6.25 K/ul (4.8-10.8)
[2022-08-06 22:58] LABS: Albumin Globulin Ratio 1.4 (0.9-2); Albumin Level 3.7 gm/dl (3.4-5.0); Bilirubin,Total 0.4 mg/dl (0.2-1.0); Calcium 8.5 mg/dl (8.5-10.1); Creatinine Clr Calc Pharmacy 67.2 ml/min; Est GFR (African American) 59.5 ml/min; Est GFR (Non-African American) 51.3 ml/min; Globulin 2.6 gm/dl (2.5-4.0); Potassium 3.7 mmol/L (3.5-5.1); Total Protein 6.3 gm/dl (6.0-8.3)
[2022-08-06 23:00] LABS: Troponin I High Sensitivity 28.7 pg/ml (0-20)
[2022-08-06 23:04] LABS: INR 1.2 (0.9-1.1); Partial Thromboplastin Time 27.5 Seconds (21.0-31.0); Prothrombin Time 12.2 Seconds (9.0-12.0)
--- NOTE | 2022-08-06 23:22 | Emergency Department Note ---
History of Present Illness General Chief complaint: Cardiac Assessment Stated complaint: DEFIBRILATOR FIRED X2 Time Seen by Provider: 08/06/22 22:34 History of Present Illness 77-year-old male presents to the ED with a chief complaint of AICD activation. The patient states that around 830 or 9 PM tonight he was at his residence laying in bed. He states that he began feeling like his heart was racing and he became lightheaded and passed out. His AICD the shocked him. His called EMS when he became unresponsive. He was transported the ambulance without incident. A interrogation of the AICD shows that he was shocked at 5 J which did not help and then shocked a second time at 35 J which converted him into a normal rhythm.The patient states that he feels a little tired right now but otherwise denies any other specific symptoms. Home Medications Medication Instructions Recorded Confirmed Type multivitamin 1 tab PO QAM 09/02/18 07/19/22 History atorvastatin 80 mg tablet 80 mg PO HS #30 tabs 05/21/19 07/19/22 Rx carvedilol 25 mg tablet 25 mg PO BID #60 tabs 05/21/19 07/19/22 Rx calcium carbonate 600 mg-vitamin 1 tab PO QAM 06/24/19 07/19/22 History D3 10 mcg (400 unit) tablet acetaminophen 500 mg tablet 1,000 mg PO QID PRN Pain 06/27/19 07/19/22 History (Tylenol Extra Strength) lidocaine 4 % topical cream 1 applic topical HS 06/27/19 07/19/22 History mexiletine 150 mg capsule 150 mg PO TID 06/27/19 07/19/22 History spironolactone 25 mg tablet 25 mg PO QAM #30 tabs 12/08/19 07/19/22 Rx probenecid 500 mg tablet 500 mg PO BID 06/15/20 07/19/22 History nitroglycerin 0.4 mg sublingual 0.4 mg sublingual UD PRN Chest 07/25/20 07/19/22 Rx tablet Pain #25 Tabs sulfasalazine 500 mg tablet 1,000 mg PO QID #0 tabs 10/06/20 07/19/22 History amiodarone 200 mg tablet 600 mg PO QAM 10/11/20 07/19/22 History azathioprine 50 mg tablet 100 mg PO QAM 10/11/20 07/19/22 History cholecalciferol (vitamin D3) 25 1,000 unit PO QAM 10/11/20 07/19/22 History mcg (1,000 unit) tablet (Vitamin D3) furosemide 40 mg tablet 120 mg PO QAM 10/11/20 07/19/22 History losartan 100 mg tablet 100 mg PO DAILYBB 10/11/20 07/19/22 History potassium chloride 20 mEq 40 meq PO BID 10/11/20 07/19/22 History tablet,extended release levothyroxine 125 mcg tablet 250 mcg PO DAILYBB 03/22/21 07/19/22 History pantoprazole 40 mg tablet,delayed 40 mg PO DAILYBB 03/22/21 07/19/22 History release apixaban 5 mg tablet (Eliquis) 5 mg PO Q12H #0 tabs 04/12/21 07/19/22 Rx metolazone 5 mg tablet 2.5 mg PO DAILY PRN weight gain > 05/09/21 07/19/22 Rx 3 lbs in one day #10 tabs aspirin 81 mg tablet,delayed 81 mg PO DAILY 05/17/21 07/19/22 History release ketoconazole topical DAILY PRN as needed for 05/17/21 07/19/22 History rash carbidopa 25 mg-levodopa 100 mg 1 tab PO BID 90 days #180 tabs 05/01/22 07/19/22 Rx tablet (Sinemet) amoxicillin 500 mg capsule 2,000 mg PO ONCE PRN 07/03/22 07/19/22 History mecobalamin (vitamin B12) 1,000 1,000 mcg sublingual DAILY #30 tabs 07/03/22 07/19/22 Rx mcg disintegrating tablet,sublingual Allergies Allergy/AdvReac Type Severity Reaction Status Date / Time lisinopril Allergy Intermediate ABDOMINAL Verified 07/19/22 09:51 PAIN/DIARRHEA, Difficulty Swallowing simvastatin Allergy Intermediate DIARRHEA/ Verified 07/19/22 09:51 EXACERBATED COLITIS tetanus toxoid, adsorbed Allergy Mild Rash Verified 07/19/22 09:51 Past Med/Surg History Medical History Atrial fibrillation on eliquis. Per Dr. Smith no reoccurrence since dx in 2016 BPH (benign prostatic hyperplasia) Cerebellar ataxia Chronic back pain Chronic combined systolic and diastolic heart failure EF 30-35% 2019 echo Coronary arteriosclerosis in [place] artery s/p CABG x 3 in 1999, LAD stent x 1 01/2006. Deep vein thrombosis RLE - dx ~2005, anticoagulant therapy Dysphagia Gout Hearing deficit History of CVA (cerebrovascular accident) 10/2011--on eliquis, no deficits. Previously followed with Dr Ty, was released from neuro. Hyperlipidemia Hypertension Hypothyroidism ICD (implantable cardioverter-defibrillator) in place (09/17/13) medtronic 2019. Last checked 03/31/21 Ischemic cardiomyopathy EF initially 25%, now 30-35% on most recent echo 2019. Left bundle-branch block Low vitamin B12 level Morbid obesity with BMI of 40.0-44.9, adult Myocardial Infarction x2--1997/[address] Smith Obstructive sleep apnea cpap On anticoagulant therapy eliquis--d/t CVA Osteoarthritis Ulcerative colitis Ventricular tachycardia hx of--follows with Dr. Smith Surgical History Fusion of spine lumbar region H/O prostate biopsy H/O transurethral resection of prostate (03/2021) History of adenoidectomy History of cardiac cath History of cholecystectomy History of colonoscopy History of coronary artery bypass graft x 3 2007 [place] [facility] [place] [facility] [place] History of esophageal dilatation Pt does report continued issues with taking his pills due to esophageal problems. History of heart artery stent x1--1997 History of tonsillectomy History of tooth extraction upper teeth removed History of total hip arthroplasty bilateral Hx of transurethral resection of prostate S/P cardiac pacemaker procedure inserted 09/17/2013. Medtronic device. Family History Father Coronary heart disease Myocardial infarction Mother Coronary heart disease Myocardial infarction Sister Breast cancer Had mastectomy in 2018'. Family history of diabetes mellitus Brother Cardiac disorder Other No family history of adverse response to anesthesia Denies family history of Ovarian cancer Prostate cancer Lung cancer Colorectal cancer Social History Smoking Status: Former smoker Tobacco Type: Cigarettes, Pipe and Cigars Second Hand Exposure: No; Hx Alcohol Use: No Hx Substance Use: No Preferred Language: Bulgarian Communication Ability: Effective Visual Impairment: No Limitations Hearing Ability: Hard of Hearing Serologist Required: No Beliefs That Will Affect Care: None marital status: Current Living Situation: Spouse Current Living Situation Comment: home with current occupational status: retired and disabled Feels Safe at Home: Yes Childhood Exposure to Second-Hand Smoke: Yes Diet Comment: regular caffeine: Yes during the past year weight has: remained stable Dental Care, Regularly: Yes Physical Activity Frequency: Does not Exercise Seatbelt Use: always Sunscreen Use: Yes Assistive Devices: Denture - Upper and Glasses Review of Systems A total of 10 systems reviewed and were otherwise negative Physical Exam Vital Signs Vital Signs - 24 hr 08/06/22 21:50 08/06/22 22:24 08/06/22 22:24 Temperature 36.4 C L 36.4 C L Temperature Source Oral Oral Pulse Rate 62 Pulse Rate [Right Brachial] 62 Respiratory Rate 20 20 Respiratory Effort / Characteristics Non-Labored Spontaneous Non-Labored Spontaneous Respiratory Depth Normal Normal Blood Pressure 138/79 Blood Pressure [Right Arm] 138/79 Blood Pressure Mean 98 Blood Pressure Mean [Right Arm] 98 Pulse Oximetry 98 100 Oxygen Delivery Method Room Air Room Air Room Air Sepsis New/Unexplained Change in Mental Status No Sepsis Action Taken by Nursing No Action Required 08/06/22 22:34 Temperature Temperature Source Pulse Rate Pulse Rate [Right Brachial] Respiratory Rate Respiratory Effort / Characteristics Respiratory Depth Blood Pressure Blood Pressure [Right Arm] Blood Pressure Mean Blood Pressure Mean [Right Arm] Pulse Oximetry 98 Oxygen Delivery Method Room Air Sepsis New/Unexplained Change in Mental Status Sepsis Action Taken by Nursing CONSTITUTIONAL/VITAL SIGNS: Reviewed / noted above. GENERAL: Non-toxic in appearance. INTEGUMENTARY: Warm, dry, and [place]. HEAD: Normocephalic. EYES: without scleral icterus or trauma. ENT/OROPHARYNX: clear and moist. LYMPHADENOPATHY/NECK: Is supple without lymphadenopathy or meningismus. RESPIRATORY: Clear to auscultation bilaterally. No increased work of breathing. CARDIOVASCULAR: Regular rate and rhythm. GI/ABDOMEN: Soft and nontender. No organomegaly or pulsatile mass. EXTREMITIES: Warm and well perfused. BACK: No CVA tenderness. NEUROLOGICAL: Intact without focal deficits. PSYCHIATRIC: normal affect. MUSCULOSKELETAL: Normally developed with good muscle tone. TRIAGE NURSING DOCUMENTATION REVIEWED. Medical Decision Making Differential Diagnosis The differential that was considered includes acute myocardial infarction, acute coronary syndrome, myocarditis, pericarditis, pericardial effusions /tamponade, esophageal perforation, thoracic aortic dissection, pulmonary embolism, pneumonia, pneumothorax, pancreatitis, shingles, acute cholecystitis, perforated abdominal viscus. Medical Records Attestation: I reviewed the patient's medical records. Home Medications Current Medication List: was personally reviewed by me Laboratory Data Attestation: I reviewed the patient's lab results. Result diagrams: 08/06/22 22:25 08/06/22 22:25 Lab Results 08/06/22 08/06/22 08/06/22 Range/Units 22:25 22:25 22: WBC 6.25 (4.8-10.8) K/ul RBC 3.74 L (4.63-6.08) M/uL Hgb 13.7 L (14.0-18.0) g/dl Hct 38.3 L (40.1-51.0) % MCV 102.4 H (80.0-100.0) fL MCH 36.6 H (25.0-34.0) pg MCHC 35.8 (32.0-36.0) g/dL RDW Std Deviation 48.2 H (36.4-46.3) fL RDW Coeff of Delmi 12.9 (11.5-14.5) % Plt Count 205 (130-400) K/uL MPV 9.6 (9.4-12.4) fL Immature Gran % (Auto) 0.6 % Neut % (Auto) 58.4 % Lymph % (Auto) 25.3 % Vance % (Auto) 10.9 % Eos % (Auto) 3.8 % Baso % (Auto) 1.0 % Neut # (Auto) 3.65 (1.4-6.5) K/uL Lymph # (Auto) 1.58 (1.2-3.4) K/uL Vance # (Auto) 0.68 (0.24-0.82) K/uL Eos # (Auto) 0.24 (0-0.50) K/uL Baso # (Auto) 0.06 (0-0.2) K/uL Immature Gran # (Auto) 0.04 H (0.00-0.02) K/uL PT 12.2 H (9.0-12.0) Seconds INR 1.2 H (0.9-1.1) APTT 27.5 (21.0-31.0) Seconds PTT Ratio 1.0 Sodium 138 (136-145) mmol/L Potassium 3.7 (3.5-5.1) mmol/L Chloride 106 (98-107) mmol/L Carbon Dioxide 25 (21-32) mmol/L Anion Gap 7 (3-11) BUN 29 H (6-23) mg/dl Creatinine 1.32 (0.6-1.4) mg/dl Est Cr Clr Drug Dosing 67.2 ml/min Est GFR ( Amer) 59.5 ml/min Est GFR (Non-Af Amer) 51.3 ml/min BUN/Creatinine Ratio 22.0 H (10-20) Glucose 142 H (70-99(Fasting)) mg/dl Calcium 8.5 (8.5-10.1) mg/dl Total Bilirubin 0.4 (0.2-1.0) mg/dl AST 22 (13-39) U/L ALT 19 (7-52) U/L Alkaline Phosphatase 50 (34-104) U/L Troponin I High Sens 28.7 H (0-20) pg/ml Total Protein 6.3 (6.0-8.3) gm/dl Albumin 3.7 (3.4-5.0) gm/dl Globulin 2.6 (2.5-4.0) gm/dl Albumin/Globulin Ratio 1.4 (0.9-2) Lipase 30 (11-82) U/L Imaging Data My Impression: Chest x-ray: Per my interpretation there is no acute disease. No pneumothorax or pneumonia. ECG Data Attestation: I personally reviewed and interpreted this ECG as follows: Additional Comments: Twelve-lead EKG:Per my interpretation there is an atrial paced rhythm at a rate of 63. Left bundle branch block. No PVCs. Normal QTC. MDM Narrative 77-year-old male presents to the ED with a chief complaint of an AICD activation. The patient was resting this evening in bed when he became symptomatic with some lightheadedness and passed out. His AICD shocked him at 5 J and then 35 J to convert him into a normal rhythm. He was a paced atrial rhythm with a left bundle branch block on his evaluation here. His troponin was mildly elevated. CBC and chemistry panel was unremarkable. The patient states that he feels little tired but otherwise has no symptoms. He was seen by the hospitalist for further evaluation and care. Impression & Plan Ventricular tachycardia, AICD (automatic cardioverter/defibrillator) present Discharge Plan Visit Data Chief Complaint: Cardiac Assessment Stated Complaint: DEFIBRILATOR FIRED X2 ED Provider: Ricci Ernst Discharge Problem: Ventricular tachycardia, AICD (automatic cardioverter/defibrillator) present Patient Disposition: Being Evaluated by Hospitalist Forms Stand Alone Forms: [facility] Prescriptions Prescriptions: No Action spironolactone 25 mg tablet 25 mg PO QAM Qty: 30 0RF nitroglycerin 0.4 mg tablet, sublingual 0.4 mg Sublingual UD PRN (Reason: Chest Pain) Qty: 25 3RF sulfasalazine 500 mg tablet 1,000 mg PO QID Qty: 0 Rx Instructions: TAKES AT BREAKFAST, 1100, 1600 & HS carbidopa-levodopa [Sinemet] 25-100 mg tablet 1 tab PO BID 90 Days Qty: 180 1RF Rx Instructions: TAKE WITHOUT PROTEIN probenecid 500 mg tablet 500 mg PO BID Rx Instructions: TAKES WITH BREAKFAST & 1600. aspirin 81 mg tablet,delayed release (DR/EC) 81 mg PO DAILY ketoconazole topical DAILY PRN (Reason: as needed for rash) amoxicillin 500 mg capsule 2,000 mg PO ONCE PRN Rx Instructions: TAKE 4 CAPSULES BY MOUTH 1/2 HOUR PRIOR TO APPOINTMENT mecobalamin (vitamin B12) 1,000 mcg tablet,disintegrating 1,000 mcg sublingual DAILY Qty: 30 5RF Rx Instructions: place 1 tablet under tongue and allow to dissolve for at least 30 secs before swallowing. atorvastatin 80 mg tablet 80 mg PO HS Qty: 30 5RF carvedilol 25 mg tablet 25 mg PO BID Qty: 60 5RF Rx Instructions: TAKES 0530 & 1600 calcium carbonate-vitamin D3 600 mg(1,500mg) -400 unit tablet 1 tab PO QAM multivitamin Tablet 1 tab PO QAM lidocaine 4 % Cream 1 applic TOPICAL HS acetaminophen [Tylenol Extra Strength] 500 mg Tablet 1,000 mg PO QID PRN (Reason: Pain) mexiletine 150 mg capsule 150 mg PO TID Rx Instructions: TAKES WITH BREAKFAST, 1600 & HS cholecalciferol (vitamin D3) [Vitamin D3] 25 mcg (1,000 unit) Tablet 1,000 unit PO QAM furosemide 40 mg tablet 120 mg PO QAM amiodarone 200 mg tablet 600 mg PO QAM azathioprine 50 mg tablet 100 mg PO QAM losartan 100 mg tablet 100 mg PO DAILYBB potassium chloride 20 mEq tablet extended release 40 meq PO BID Rx Instructions: Take 4 tabs PO daily, on day of Metolazone take extra 2 tabs PO daily; levothyroxine 125 mcg Tablet 250 mcg PO DAILYBB Rx Instructions: USUALLY TAKES BETWEEN 4352-3798. pantoprazole 40 mg tablet,delayed release (DR/EC) 40 mg PO DAILYBB Eliquis 5 mg tablet 5 mg PO Q12H Qty: 0 0RF metolazone 5 mg tablet 2.5 mg PO DAILY PRN (Reason: weight gain > 3 lbs in one day) Qty: 10 0RF Referrals Referrals: Ashanti Melchor DO [Primary Care Provider] -
[2022-08-06] MEDS ORDERED: POTASSIUM CHLORIDE CRTAB 20 MEQ TABCR PO STA (23:29)
--- NOTE | 2022-08-06 23:50 | History & Physical Report ---
Date of Service August 06, 2022 Assessment & Plan (1) Ventricular tachycardia: Plan: Ventricular tachycardia/status post AICD discharge/CAD/hypertension/ischemic cardiomyopathy/CHF- The patient will be admitted to telemetry for serial cardiac enzymes, serial EKG's, cardiac rhythm monitoring and a 2-D echocardiogram with Dopplers. Continue amiodarone 600 mg every morning, aspirin 81 mg every morning, carvedilol 25 mg p.o. twice daily, Eliquis 5 mg p.o. every 12 hours, furosemide 120 mg every morning, losartan 100 mg p.o. daily, mexiletine 150 mg p.o. 3 times daily and spironolactone 25 mg p.o. every morning. Consult cardiology (2) AICD discharge: Plan: See above (3) CHF (congestive heart failure): Plan: See above (4) Ischemic cardiomyopathy: Plan: See above (5) Atrial fibrillation: Plan: See above (6) CAD (coronary artery disease): Plan: See above (7) Parkinsonism: Plan: Continue carbidopa/levodopa 25/100, 1 p.o. twice daily (8) B12 deficiency: Plan: Continue B12 supplement (9) History of DVT (deep vein thrombosis): Plan: Continue Eliquis 5 mg p.o. every 12 hours (10) Hypothyroidism: Plan: Continue levothyroxine 2050 mcg daily (11) Gout: Plan: Continue probenecid 500 mg p.o. twice daily (12) Obstructive sleep apnea: Plan: CPAP at bedtime as needed (13) BPH (benign prostatic hyperplasia): Plan: Monitor urine output (14) Ulcerative colitis: Plan: Continue azathioprine 100 mg every morning, sulfasalazine 1000 mg p.o. 4 times daily (15) Hypertension: Plan: See above (16) Hyperlipidemia: Plan: Continue atorvastatin 80 mg at bedtime History of Present Illness Chief Complaint: The patient presents to the emergency department with complaint of palpitations that began around 830 this evening, followed by lightheadedness and dizziness, and then he next became aware of his standing over him calling 911, having had his AICD fire Primary Care Provider: Ashanti Melchor DO The patient is a 77-year-old male with a past medical history including ventricular tachycardia, atrial fibrillation, parkinsonism, gait abnormality, B12 deficiency, CHF some, ICM, COPD, CAD, history of DVT, hypothyroidism, YI, LBBB, cerebellar ataxia, BPH, ulcerative colitis, hypertension hyperlipidemia. The patient had gone to bed as usual time around 8:00, and sometime close to 8:30 he developed palpitations, became lightheaded and dizzy, and then became aware of his standing over him calling 911. Interrogation of his pacer in ED showed that patient had V. tach. Initial shock was 5 J, with a second shock being 35 J which ablated the V. tach and return to normal sinus rhythm. In the ED, patient's monitor showed normal sinus rhythm in the low 60s. Significant laboratories in the ED: Hemoglobin 13.7, hematocrit 38.3, potassium 3.7, creatinine 1.32, glucose 142, and troponin 28.7 Allergies Allergy/AdvReac Type Severity Reaction Status Date / Time lisinopril Allergy Intermediate ABDOMINAL Verified 08/07/22 01:16 PAIN/DIARRHEA, Difficulty Swallowing simvastatin Allergy Intermediate DIARRHEA/ Verified 08/07/22 01:16 EXACERBATED COLITIS tetanus toxoid, adsorbed Allergy Mild Rash Verified 08/07/22 01:16 Home Medications Medication Instructions Recorded Confirmed Type multivitamin 1 tab PO QAM 09/02/18 08/07/22 History atorvastatin 80 mg tablet 80 mg PO HS #30 tabs 05/21/19 08/07/22 Rx carvedilol 25 mg tablet 25 mg PO BID #60 tabs 05/21/19 08/07/22 Rx calcium carbonate 600 mg-vitamin 1 tab PO QAM 06/24/19 08/07/22 History D3 10 mcg (400 unit) tablet acetaminophen 500 mg tablet 1,000 mg PO QID PRN Pain 06/27/19 08/07/22 History (Tylenol Extra Strength) lidocaine 4 % topical cream 1 applic topical HS 06/27/19 08/07/22 History mexiletine 150 mg capsule 150 mg PO TID 06/27/19 08/07/22 History spironolactone 25 mg tablet 25 mg PO QAM #30 tabs 12/08/19 08/07/22 Rx probenecid 500 mg tablet 500 mg PO BID 06/15/20 08/07/22 History nitroglycerin 0.4 mg sublingual 0.4 mg sublingual UD PRN Chest 07/25/20 08/07/22 Rx tablet Pain #25 Tabs sulfasalazine 500 mg tablet 1,000 mg PO QID #0 tabs 10/06/20 08/07/22 History amiodarone 200 mg tablet 600 mg PO QAM 10/11/20 08/07/22 History azathioprine 50 mg tablet 100 mg PO QAM 10/11/20 08/07/22 History cholecalciferol (vitamin D3) 25 1,000 unit PO QAM 10/11/20 08/07/22 History mcg (1,000 unit) tablet (Vitamin D3) furosemide 40 mg tablet 120 mg PO QAM 10/11/20 08/07/22 History losartan 100 mg tablet 100 mg PO DAILYBB 10/11/20 08/07/22 History potassium chloride 20 mEq 40 meq PO BID 10/11/20 08/07/22 History tablet,extended release levothyroxine 125 mcg tablet 250 mcg PO DAILYBB 03/22/21 08/07/22 History pantoprazole 40 mg tablet,delayed 40 mg PO DAILYBB 03/22/21 08/07/22 History release apixaban 5 mg tablet (Eliquis) 5 mg PO Q12H #0 tabs 04/12/21 08/07/22 Rx aspirin 81 mg tablet,delayed 81 mg PO DAILY 05/17/21 08/07/22 History release carbidopa 25 mg-levodopa 100 mg 1 tab PO BID 90 days #180 tabs 05/01/22 08/07/22 Rx tablet (Sinemet) amoxicillin 500 mg capsule 2,000 mg PO ONCE PRN .1 hr before 07/03/22 08/07/22 History dental mecobalamin (vitamin B12) 1,000 1,000 mcg sublingual DAILY #30 tabs 07/03/22 08/07/22 Rx mcg disintegrating tablet,sublingual ketoconazole 2 % topical cream 1 applic topical DAILY PRN .flare 08/07/22 08/07/22 History up metolazone 2.5 mg tablet 5 mg PO DAILY PRN Fluid Retention 08/07/22 08/07/22 History Past Med/Surg History Medical History Atrial fibrillation on eliquis. Per Dr. Smith no reoccurrence since dx in 2016 BPH (benign prostatic hyperplasia) Cerebellar ataxia Chronic back pain Chronic combined systolic and diastolic heart failure EF 30-35% 2019 echo Coronary arteriosclerosis in [place] artery s/p CABG x 3 in 1999, LAD stent x 1 01/2006. Deep vein thrombosis RLE - dx ~2005, anticoagulant therapy Dysphagia Gout Hearing deficit History of CVA (cerebrovascular accident) 10/2011--on eliquis, no deficits. Previously followed with Dr Ty, was released from neuro. Hyperlipidemia Hypertension Hypothyroidism ICD (implantable cardioverter-defibrillator) in place (09/17/13) medtronic 2019. Last checked 03/31/21 Ischemic cardiomyopathy EF initially 25%, now 30-35% on most recent echo 2019. Left bundle-branch block Low vitamin B12 level Morbid obesity with BMI of 40.0-44.9, adult Myocardial Infarction x2--1997/[address] Smith Obstructive sleep apnea cpap On anticoagulant therapy eliquis--d/t CVA Osteoarthritis Ulcerative colitis Ventricular tachycardia hx of--follows with Dr. Smith Surgical History Fusion of spine lumbar region H/O prostate biopsy H/O transurethral resection of prostate (03/2021) History of adenoidectomy History of cardiac cath History of cholecystectomy History of colonoscopy History of coronary artery bypass graft x 3 2007 [place] [facility] [place] History of esophageal dilatation Pt does report continued issues with taking his pills due to esophageal problems. History of heart artery stent x1--1997 History of tonsillectomy History of tooth extraction upper teeth removed History of total hip arthroplasty bilateral Hx of transurethral resection of prostate S/P cardiac pacemaker procedure inserted 09/17/2013. Medtronic device. Family History Father Coronary heart disease Myocardial infarction Mother Coronary heart disease Myocardial infarction Sister Breast cancer Had mastectomy in 2018'. Family history of diabetes mellitus Brother Cardiac disorder Other No family history of adverse response to anesthesia Denies family history of Ovarian cancer Prostate cancer Lung cancer Colorectal cancer Social History Smoking Status: Never smoker Tobacco Type: Cigarettes, Pipe and Cigars Second Hand Exposure: No; Hx Alcohol Use: No Hx Substance Use: No Preferred Language: Tajik Communication Ability: Effective Visual Impairment: No Limitations Hearing Ability: Hard of Hearing Combiner Operator Required: No Beliefs That Will Affect Care: None marital status: Current Living Situation: Spouse Current Living Situation Comment: home with current occupational status: retired and disabled Other Information That Helps Us Care for You: No Feels Safe at Home: Yes Safety Concerns: Feels Safe At This Time Childhood Exposure to Second-Hand Smoke: Yes Diet Comment: regular caffeine: Yes during the past year weight has: remained stable Dental Care, Regularly: Yes Physical Activity Frequency: Does not Exercise Seatbelt Use: always Sunscreen Use: Yes Assistive Devices: Denture - Upper and Walker Review of Systems Review of Systems: The patient denies cough, lower extremity swelling, sore throat, fevers, chills, sweats, weight change, fatigue, nausea, vomiting, diarrhea , constipation, abdominal pain, pelvic pain, blood in urine or stool, dysuria, urinary frequency or urgency, rash, abnormal bruising or bleeding, imbalance, generalized weakness, numbness or tingling in arms or legs, generalized arthralgias or myalgias, back or neck pain, or night sweats. The review of systems is otherwise negative other than for that already noted above, and at least 10 systems have been reviewed. Physical Exam Physical Exam: The patient is awake, alert and oriented 3, well developed and well nourished, normocephalic and atraumatic, lying in bed and in no acute distress. HEENT--PERRL, EOMI, mucous membranes and oropharynx normal. Neck--supple. No JVD. No bruits. Thyroid normal, trachea midline, no adenopathy. Heart--normal S1 and S2. No murmurs, rubs or gallops. Lungs--clear bilaterally, no respiratory distress, no accessory muscle use. Abdomen--normal bowel sounds and soft. Nontender. Nondistended, no hernias or masses, no organomegaly. Extremities--no cyanosis or clubbing. No edema. There are good distal pulses b/l. Dermatologic--normal skin turgor, normal color, no abnormal lymph nodes, no rash. Neurologic--cranial nerves II through XII grossly intact. Rheumatologic--normal range of motion. Psychiatric--normal affect. Results & Data Results & Data ([facility]) Vital Signs (Past 12 Hours) Vital Signs Temp Pulse Pulse Resp BP BP Pulse Ox 08/06/22 22:34 98 08/06/22 22:24 36.4 C L 62 20 138/79 100 08/06/22 22:24 08/06/22 21:50 36.4 C L 62 20 138/79 98 O2 Del Method 08/06/22 22:34 Room Air 08/06/22 22:24 Room Air 08/06/22 22:24 Room Air 08/06/22 21:50 Room Air Laboratory Results Laboratory Results WBC 6.25 K/ul (4.8-10.8) 08/06/22 22:25 RBC 3.74 M/uL (4.63-6.08) L 08/06/22 22:25 Hgb 13.7 g/dl (14.0-18.0) L 08/06/22 22:25 Hct 38.3 % (40.1-51.0) L 08/06/22 22:25 MCV 102.4 fL (80.0-100.0) H 08/06/22 22:25 MCH 36.6 pg (25.0-34.0) H 08/06/22 22:25 MCHC 35.8 g/dL (32.0-36.0) 08/06/22 22:25 RDW Std Deviation 48.2 fL (36.4-46.3) H 08/06/22 22:25 RDW Coeff of Delmi 12.9 % (11.5-14.5) 08/06/22 22:25 Plt Count 205 K/uL (130-400) 08/06/22 22:25 MPV 9.6 fL (9.4-12.4) 08/06/22 22:25 Immature Gran % (Auto) 0.6 % 08/06/22 22:25 Neut % (Auto) 58.4 % 08/06/22 22:25 Lymph % (Auto) 25.3 % 08/06/22 22:25 [place] % (Auto) 10.9 % 08/06/22 22:25 Eos % (Auto) 3.8 % 08/06/22 22:25 Baso % (Auto) 1.0 % 08/06/22 22:25 Neut # (Auto) 3.65 K/uL (1.4-6.5) 08/06/22 22:25 Lymph # (Auto) 1.58 K/uL (1.2-3.4) 08/06/22 22:25 [place] # (Auto) 0.68 K/uL (0.24-0.82) 08/06/22 22:25 Eos # (Auto) 0.24 K/uL (0-0.50) 08/06/22 22:25 Baso # (Auto) 0.06 K/uL (0-0.2) 08/06/22 22:25 Immature Gran # (Auto) 0.04 K/uL (0.00-0.02) H 08/06/22 22:25 PT 12.2 Seconds (9.0-12.0) H 08/06/22:25 INR 1.2 (0.9-1.1) H 08/06/22:25 APTT 27.5 Seconds (21.0-31.0) 08/06/22: PTT Ratio 1.0 08/06/22 22:25 Sodium 138 mmol/L (136-145) 08/06/22:25 Potassium 3.7 mmol/L (3.5-5.1) 08/06/22 22:25 Chloride 106 mmol/L (98-107) 08/06/22 22:25 Carbon Dioxide 25 mmol/L (21-32) 08/06/22 22:25 Anion Gap 7 (3-11) 08/06/22: BUN 29 mg/dl (6-23) H 08/06/22:25 Creatinine 1.32 mg/dl (0.6-1.4) 08/06/22:25 Est Cr Clr Drug Dosing 67.2 ml/min 08/06/22 22:25 Est GFR ( Amer) 59.5 ml/min 08/06/22 22:25 Est GFR (Non-Af Amer) 51.3 ml/min 08/06/22 22:25 BUN/Creatinine Ratio 22.0 (10-20) H 08/06/22 22: Glucose 142 mg/dl (70-99(Fasting)) H 08/06/22 22:25 Calcium 8.5 mg/dl (8.5-10.1) 08/06/22 22:25 Magnesium 2.0 mg/dl (1.7-2.4) 08/06/22:25 Total Bilirubin 0.4 mg/dl (0.2-1.0) 08/06/22 22:25 AST 22 U/L (13-39) 08/06/22 22:25 ALT 19 U/L (7-52) 08/06/22 22:25 Alkaline Phosphatase 50 U/L (34-104) 08/06/22 22:25 Troponin I High Sens 28.7 pg/ml (0-20) H 08/06/22 22:25 Total Protein 6.3 gm/dl (6.0-8.3) 08/06/22 22:25 Albumin 3.7 gm/dl (3.4-5.0) 08/06/22 22:25 Globulin 2.6 gm/dl (2.5-4.0) 08/06/22 22:25 Albumin/Globulin Ratio 1.4 (0.9-2) 08/06/22 22:25 Lipase 30 U/L (11-82) 08/06/22 22:25 SARS-CoV-2, RNA, NAAT NEGATIVE (NEGATIVE) 08/06/22 23:42 Code Status & VTE Plan Code Status Full code VTE Prophylaxis Plan VTE Prophylaxis will be ordered: Yes PG Care Time/CCT Total # of Minutes Spent Total Time Spent with Patient: Total time spent is greater than 50% in coordination of care (as documented) at patient's floor/unit and/or counseling patient: Coding Level of Care Code 75302 Initial Inpt Care Lvl 3 Diagnoses Ventricular tachycardia I47.20 AICD discharge Z45.02 CHF (congestive heart failure) I50.9 Heart failure chronicity: unspecified Heart failure type: unspecified Ischemic cardiomyopathy I25.5 Atrial fibrillation I48.91 CAD (coronary artery disease) I25.10 Parkinsonism G20 B12 deficiency E53.8 History of DVT (deep vein thrombosis) Z86.718 Hypothyroidism E03.9 Gout M10.9 Obstructive sleep apnea G47.33 BPH (benign prostatic hyperplasia) N40.0 Ulcerative colitis K51.90 Ulcerative colitis location: unspecified ulcerative colitis location Digestive disease complication type: without complication Hypertension I10 Hypertension type: essential hypertension Hyperlipidemia E78.5 (1) CHF (congestive heart failure) Heart failure chronicity: unspecified Heart failure type: unspecified Qualified Code(s): I50.9 - Heart failure, unspecified (2) Ulcerative colitis Ulcerative colitis location: unspecified ulcerative colitis location Digestive disease complication type: without complication Qualified Code(s): K51.90 - Ulcerative colitis, unspecified, without complications (3) Hypertension Hypertension type: essential hypertension Qualified Code(s): I10 - Essential (primary) hypertension
[2022-08-07] MEDS ORDERED: NITROGLYCERIN SL 0.4 MG/TAB TAB SL PRN (01:26)
[2022-08-07] MEDS ORDERED: ACETAMINOPHEN 325 MG TAB PO PRN (01:26)
[2022-08-07] MEDS ORDERED: ONDANSETRON INJ 2 MG/ML 2 ML VIAL IV PRN (01:26)
[2022-08-07] MEDS: APIXABAN 5 MG TABLET PO SCH ×2 (03:05→12:09)
[2022-08-07] MEDS: carvediloL 25 MG TAB PO SCH ×2 (03:05→08:30)
[2022-08-07] MEDS: CARBIDOPA/LEVODOPA 25/100MG TAB PO SCH ×2 (03:05→08:30)
[2022-08-07] MEDS: LEVOTHYROXINE SODIUM 125 MCG TABLET PO SCH ×2 (06:01→06:43)
[2022-08-07] MEDS ORDERED: PANTOprazole 40 MG TAB PO SCH (06:30)
[2022-08-07] MEDS ORDERED: LOSARTAN POTASSIUM 50 MG TAB PO SCH (06:30)
[2022-08-07] MEDS ORDERED: PROBENECID 500 MG TAB PO SCH (08:00)
[2022-08-07] MEDS ORDERED: MEXILETINE HCL 150 MG CAPSULE PO SCH (08:00)
[2022-08-07] MEDS: sulfaSALAzine 500 MG TABLET PO SCH ×2 (08:31→12:09)
--- NOTE | 2022-08-07 08:38 | XRay Report ---
XR chest 1V portable HISTORY: Atypical Chest Pain COMPARISON: Chest 05/08/2021. FINDINGS: No pneumothorax. No pleural effusions. No new focal lung consolidations to suggest a pneumo chelsey. Mild cardiomegaly, unchanged. No evidence for pulmonary edema. There is a left-sided pacemaker/d efibrillator and poststernotomy changes. Small linear scarlike densities within the left lung base, u nchanged. IMPRESSION: No significant change compared to the prior study. No acute process. ACT 112: Negative or not required by law. Electronically signed by: Ace Chao M.D. 08/07/2022 8:36 AM
[2022-08-07 08:53] LABS: Basophils # (auto) 0.04 K/uL (0-0.2); Basophils % (auto) 0.6 %; Eosinophils % (auto) 2.9 %; Hematocrit (blood only) 40.8 % (40.1-51.0); Hemoglobin 14.4 g/dl (14.0-18.0); Immature Granulocytes # (auto) 0.04 K/uL (0.00-0.02); Immature Granulocytes % (auto) 0.6 %; Lymphocytes # (auto) 1.58 K/uL (1.2-3.4); Lymphocytes % (auto) 23.1 %; Mean Corpuscular Hemoglobin 36.5 pg (25.0-34.0); Mean Corpuscular Hgb Conc 35.3 g/dL (32.0-36.0); Mean Corpuscular Volume 103.6 fL (80.0-100.0); Mean Platelet Volume 9.8 fL (9.4-12.4); Monocytes # (auto) 0.74 K/uL (0.24-0.82); Monocytes % (auto) 10.8 %; Neutrophils # (auto) 4.25 K/uL (1.4-6.5); Platelet Count 206 K/uL (130-400); RDW Coefficient of Variation 13.2 % (11.5-14.5); RDW Standard Deviation 50.3 fL (36.4-46.3); Red Blood Count 3.94 M/uL (4.63-6.08); White Blood Count 6.85 K/ul (4.8-10.8)
[2022-08-07] MEDS ORDERED: CALCIUM 600MG + VIT D 400 IU TAB PO SCH (09:00)
[2022-08-07] MEDS ORDERED: MULTIVITAMIN TAB PO SCH (09:00)
[2022-08-07] MEDS ORDERED: CHOLECALCIFEROL 1,000 UNITS 25 MCG TAB PO SCH (09:00)
[2022-08-07] MEDS ORDERED: FUROSEMIDE 40 MG TAB PO SCH (09:00)
[2022-08-07] MEDS ORDERED: azaTHIOprine 50 MG TAB PO SCH (09:00)
[2022-08-07] MEDS ORDERED: POTASSIUM CHLORIDE CRTAB 20 MEQ TABCR PO SCH (09:00)
[2022-08-07] MEDS ORDERED: AMIODARONE 200 MG TAB PO SCH (09:00)
[2022-08-07] MEDS ORDERED: SPIRONOLACTONE 25 MG TAB PO SCH (09:00)
[2022-08-07] MEDS ORDERED: ASPIRIN 81 MG ECTAB PO SCH (09:00)
[2022-08-07] MEDS ORDERED: CYANOCOBALAMIN (B-12) 500 MCG TABLET PO SCH (09:00)
[2022-08-07 09:23] LABS: Albumin Globulin Ratio 1.5 (0.9-2); Albumin Level 3.7 gm/dl (3.4-5.0); BUN Creatinine Ratio 21.8 (10-20); Bilirubin,Total 0.4 mg/dl (0.2-1.0); Calcium 8.6 mg/dl (8.5-10.1); Creatinine Clr Calc Pharmacy 73.7 ml/min; Est GFR (African American) 67.4 ml/min; Est GFR (Non-African American) 58.2 ml/min; Globulin 2.5 gm/dl (2.5-4.0); Magnesium 2.2 mg/dl (1.7-2.4); Potassium 3.6 mmol/L (3.5-5.1); Total Protein 6.2 gm/dl (6.0-8.3)
[2022-08-07 09:40] LABS: Troponin I High Sensitivity 51.9 pg/ml (0-20)
--- NOTE | 2022-08-07 10:03 | Cardiology Consultation ---
Date of Consultation August 07, 2022 Assessment & Plan (1) Ventricular tachycardia: (2) AICD discharge: Mr. Orlando is a 77 year old male with a history of Hypertension, Dyslipidemia, COPD, Paroxysmal Atrial Fibrillation, LBBB, CAD s/p CABG x 3 Vessels 08/2000, LAD Stent 2005, Ventricular Tachycardia, Cerebellar Ataxia, Parkinson's Disease, Ulcerative Colitis, Chronic Systolic and Diastolic CHF, and an Ischemic Cardiomyopathy s/p Medtronic Evera Dual Chamber AICD 08/2013(unable to place an LV lead due to technical difficulties). His LVEF was last measured at 30% to 35% in 2019. Patient presented acutely to [facility] ER via EMS on the evening of 08/06/22 after developing acute onset tachy-palpitations followed by lightheadedness and syncope followed by AICD discharge x 2. Patient was able to yell for his before losing consciousness. His AICD was interrogated in the ER and showed sustained ventricular tachycardia -- his device went through its ATP algorithms which were not successful at aborting the arrhythmia so he received a 5 J shock followed by a 35 J shock -- which successfully converted him back into sinus bradycardia. Patient has maintained a sinus or electronically paced rhythm since then. At the present time, he is sitting upright in a bedside chair. He does admit to feeling SOB and having BALL today. His body weight at home has been ranging between 302 to 305 pounds over the past couple of weeks. His dry weight is 300 pounds and his trigger weight is 303 pounds. He has only been using Metolazone about once every 4 to 5 days. Patient denies any chest pain, heaviness, tightness, pressure, discomfort, or angina pectoris. He denies any recent illnesses or medication changes. His serum potassium level was low a few weeks ago -- so he was taking extra KCL temporarily which corrected his hypokalemia. His work-up thus far shows an elevated hs Troponin I of 51.9, 60.2, and 28.7 pg/mL -- these are most likely elevated because of the shocks he received. His BNP is elevated. Serum potassium on admission was 3.7 mmol/L and today is down to 3.6 mmol/L. Serum Mg was 2.0 mg/dL on admission and is 2.2 mg/dL today. EKG shows an electronic atrially paced rhythm with left axis deviation and an LBBB. Corrected QT interval is prolonged at 532 msec. Interrogation of his Medtronic Evera Dual Chamber AICD 08/06/22 shows: -- Device paces in the MVP mode. -- Pacing from the RA 95.2% of the time. -- Pacing from the RV 0.5% of the time. -- Two shocks delivered for sustained V-tach. -- Two treated episodes of V-tach lasting > 30 seconds. -- One episode of V-tach accelerated to VF. -- Nine monitored episodes of V-tach, longest lasted 9 minutes. Patient is at higher risk for ventricular arrhythmias due to his ischemic cardiomyopathy, reduced LV systolic function, and heart disease -- which is why he has an AICD. We are hesitant to increase his anti- arrhythmic medications due to his prolonged QT interval. Recommend the followin. Continue Amiodarone 600 mg daily. 2. Continue Mexiletine 150 mg every 8 hours. 3. Continue Coreg 25 mg b.i.d.. 4. Increase Potassium Chloride to maintain serum K level > 4.0 mmol/L. (3) Chronic combined systolic and diastolic heart failure: Patient appears to be mildly hypervolemic today. 1. Lasix 100 mg IV now x 1 dose. 2. Potassium Chloride 40 mEq now x 1 dose. 3. Monitor I&O's. 4. Maintain a 2 g low sodium diet. (4) Ischemic cardiomyopathy: LVEF 30% to 35%. -- Continue medical therapy. -- Continue Lasix 120 mg daily. -- Increase potassium supplementation. -- Monitor daily body weights. Dry weight is 300 lbs, trigger weight is 303 lbs. -- Use Metolazone 2.5 mg as needed for body weight > 303 pounds. (5) CAD (coronary artery disease): CAD s/p CABG x 3 Vessels in August 2000. -- Continue BB, ARB, ASA, and statin. -- Elevated hs Troponin I most likely secondary to AICD shocks. -- No further ischemic work-up is recommended at this time. (6) Hypertension: BP today is 119/70. -- Continue current medical regimen. (7) Hyperlipidemia: -- Continue Atorvastatin 80 mg daily. History of Present Illness Reason for Consultation: -- AICD shock x 2. -- Paroxysmal Ventricular Tachycardia. -- Elevated Troponin I. -- Chronic Systolic and Diastolic CHF. Requesting Physician: Chuy Trujillo DO Attending Physician: Johnny Smith MD History of Present Illness Mr. Orlando is a 77 year old male with a history of Hypertension, Dyslipidemia, COPD, Paroxysmal Atrial Fibrillation, LBBB, CAD s/p CABG x 3 Vessels 08/2000, LAD Stent 2005, Ventricular Tachycardia, Cerebellar Ataxia, Parkinson's Disease, Ulcerative Colitis, Chronic Systolic and Diastolic CHF, and an Ischemic Cardiomyopathy s/p Medtronic Evera Dual Chamber AICD 08/2013(unable to place an LV lead due to technical difficulties). His LVEF was last measured at 30% to 35% in 2019. Patient presented acutely to [facility] ER via EMS on the evening of 08/06/22 after developing acute onset tachy-palpitations followed by lightheadedness and syncope followed by AICD discharge x 2. Patient was able to yell for his before losing consciousness. His AICD was interrogated in the ER and showed sustained ventricular tachycardia -- his device went through its ATP algorithms which was not successful at aborting the arrhythmia so he received a 5 J shock followed by a 35 J shock -- which successfully converted him back into sinus bradycardia. Patient has maintained a sinus or electronically paced rhythm since then. At the present time, he is sitting upright in a bedside chair. He does admit to feeling SOB and having BALL today. His body weight at home has been ranging between 302 to 305 pounds over the past couple of weeks. His dry weight is 300 pounds and his trigger weight is 303 pounds. He has only been using Metolazone about once every 4 to 5 days. Patient denies any chest pain, heaviness, tightness, pressure, discomfort, or angina pectoris. He denies any recent illnesses or medication changes. His serum potassium level was low a few weeks ago -- so he was taking extra KCL temporarily which corrected his hypokalemia. His work-up thus far shows an elevated hs Troponin I of 51.9, 60.2, and 28.7 pg/mL -- these are most likely elevated because of the shocks he received. His BNP is elevated. Serum potassium on admission was 3.7 mmol/L and today is down to 3.6 mmol/L. Serum Mg was 2.0 mg/dL on admission and is 2.2 mg/dL today. EKG shows an electronic atrially paced rhythm with left axis deviation and an LBBB. Corrected QT interval is prolonged at 532 msec. Allergies Allergy/AdvReac Type Severity Reaction Status Date / Time lisinopril Allergy Intermediate ABDOMINAL Verified 08/07/22 01:16 PAIN/DIARRHEA, Difficulty Swallowing simvastatin Allergy Intermediate DIARRHEA/ Verified 08/07/22 01:16 EXACERBATED COLITIS tetanus toxoid, adsorbed Allergy Mild Rash Verified 08/07/22 01:16 Home Medications Medication Instructions Recorded Confirmed Type multivitamin 1 tab PO QAM 09/02/18 08/07/22 History atorvastatin 80 mg tablet 80 mg PO HS #30 tabs 05/21/19 08/07/22 Rx carvedilol 25 mg tablet 25 mg PO BID #60 tabs 05/21/19 08/07/22 Rx calcium carbonate 600 mg-vitamin 1 tab PO QAM 06/24/19 08/07/22 History D3 10 mcg (400 unit) tablet acetaminophen 500 mg tablet 1,000 mg PO QID PRN Pain 06/27/19 08/07/22 History (Tylenol Extra Strength) lidocaine 4 % topical cream 1 applic topical HS 06/27/19 08/07/22 History mexiletine 150 mg capsule 150 mg PO TID 06/27/19 08/07/22 History spironolactone 25 mg tablet 25 mg PO QAM #30 tabs 12/08/19 08/07/22 Rx probenecid 500 mg tablet 500 mg PO BID 06/15/20 08/07/22 History nitroglycerin 0.4 mg sublingual 0.4 mg sublingual UD PRN Chest 07/25/20 08/07/22 Rx tablet Pain #25 Tabs sulfasalazine 500 mg tablet 1,000 mg PO QID #0 tabs 10/06/20 08/07/22 History amiodarone 200 mg tablet 600 mg PO QAM 10/11/20 08/07/22 History azathioprine 50 mg tablet 100 mg PO QAM 10/11/20 08/07/22 History cholecalciferol (vitamin D3) 25 1,000 unit PO QAM 10/11/20 08/07/22 History mcg (1,000 unit) tablet (Vitamin D3) furosemide 40 mg tablet 120 mg PO QAM 10/11/20 08/07/22 History losartan 100 mg tablet 100 mg PO DAILYBB 10/11/20 08/07/22 History potassium chloride 20 mEq 40 meq PO BID 10/11/20 08/07/22 History tablet,extended release levothyroxine 125 mcg tablet 250 mcg PO DAILYBB 03/22/21 08/07/22 History pantoprazole 40 mg tablet,delayed 40 mg PO DAILYBB 03/22/21 08/07/22 History release apixaban 5 mg tablet (Eliquis) 5 mg PO Q12H #0 tabs 04/12/21 08/07/22 Rx aspirin 81 mg tablet,delayed 81 mg PO DAILY 05/17/21 08/07/22 History release carbidopa 25 mg-levodopa 100 mg 1 tab PO BID 90 days #180 tabs 05/01/22 08/07/22 Rx tablet (Sinemet) amoxicillin 500 mg capsule 2,000 mg PO ONCE PRN .1 hr before 07/03/22 08/07/22 History dental mecobalamin (vitamin B12) 1,000 1,000 mcg sublingual DAILY #30 tabs 07/03/22 08/07/22 Rx mcg disintegrating tablet,sublingual ketoconazole 2 % topical cream 1 applic topical DAILY PRN .flare 08/07/22 08/07/22 History up metolazone 2.5 mg tablet 5 mg PO DAILY PRN Fluid Retention 08/07/22 08/07/22 History Patient History Medical History Atrial fibrillation on eliquis. Per Dr. Smith no reoccurrence since dx in 2015 BPH (benign prostatic hyperplasia) Cerebellar ataxia Chronic back pain Chronic combined systolic and diastolic heart failure EF 30-35% 2019 echo Coronary arteriosclerosis in [place] artery s/p CABG x 3 in 1999, LAD stent x 1 01/2006. Deep vein thrombosis RLE - dx ~2005, anticoagulant therapy Dysphagia Gout Hearing deficit History of CVA (cerebrovascular accident) 10/2011--on eliquis, no deficits. Previously followed with Dr Ty, was released from neuro. Hyperlipidemia Hypertension Hypothyroidism ICD (implantable cardioverter-defibrillator) in place (09/17/13) medtronic 2019. Last checked 03/31/21 Ischemic cardiomyopathy EF initially 25%, now 30-35% on most recent echo 2019. Left bundle-branch block Low vitamin B12 level Morbid obesity with BMI of 40.0-44.9, adult Myocardial Infarction x2-- follows with Dr. Smith Obstructive sleep apnea cpap On anticoagulant therapy eliquis--d/t CVA Osteoarthritis Ulcerative colitis Ventricular tachycardia hx of--follows with Dr. Smith Surgical History Fusion of spine lumbar region H/O prostate biopsy H/O transurethral resection of prostate (03/2021) History of adenoidectomy History of cardiac cath History of cholecystectomy History of colonoscopy History of coronary artery bypass graft x 3 2007 @ [facility] [place] History of esophageal dilatation Pt does report continued issues with taking his pills due to esophageal problems. History of heart artery stent x1--1997 History of tonsillectomy History of tooth extraction upper teeth removed History of total hip arthroplasty bilateral Hx of transurethral resection of prostate S/P cardiac pacemaker procedure inserted 09/17/2013. meinKauf device. Family History Father Coronary heart disease Myocardial infarction Mother Coronary heart disease Myocardial infarction Sister Breast cancer Had mastectomy in 2018'. Family history of diabetes mellitus Brother Cardiac disorder Other No family history of adverse response to anesthesia Denies family history of Ovarian cancer Prostate cancer Lung cancer Colorectal cancer Social History Smoking Status: Never smoker Tobacco Type: Cigarettes, Pipe and Cigars Second Hand Exposure: No; Hx Alcohol Use: No Hx Substance Use: No Preferred Language: Mauritanian Communication Ability: Effective Visual Impairment: No Limitations Hearing Ability: Hard of Hearing Communications Supervisor Required: No Beliefs That Will Affect Care: None marital status: Current Living Situation: Spouse Current Living Situation Comment: home with current occupational status: retired and disabled Other Information That Helps Us Care for You: No Feels Safe at Home: Yes Safety Concerns: Feels Safe At This Time Childhood Exposure to Second-Hand Smoke: Yes Diet Comment: regular caffeine: Yes during the past year weight has: remained stable Dental Care, Regularly: Yes Physical Activity Frequency: Does not Exercise Seatbelt Use: always Sunscreen Use: Yes Assistive Devices: Denture - Upper and Walker Review of Systems Review of Systems: 10 point ROS completed and is negative with the exception of what is mentioned in the HPI. Physical Exam Physical Exam: GENERAL: Patient in no acute distress. HEENT: Head is atraumatic, normocephalic. EOM's intact. Facies symmetric. No perioral cyanosis. NECK: No JVD. JVP is just above the clavicle sitting upright. Carotid upstrokes are + 2 bilaterally without obvious bruits. CHEST/LUNGS: Scattered bibasilar crackles. CVS: S1 and S2 are regular, distant without obvious murmurs, gallops, or rubs. PMI is nonpalpable. No lifts, heaves, or thrills. No abdominal aortic or renal bruits. Palpable AICD generator is present in the left subclavian fossa. ABDOMINAL EXAM: Bowel sounds are present. EXTREMITIES: No clubbing or cyanosis. +1 bipedal and distal leg edema. Intact radial pulses bilaterally. NEUROLOGIC EXAM: Patient is awake, alert, and oriented. Pleasant and cooperative. Answers questions appropriately. Speech is clear. Gait pattern was not assessed. 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 Interrogation of his Medtronic Evera Dual Chamber AICD 08/06/22 shows: -- Device paces in the MVP mode. -- Pacing from the RA 95.2% of the time. -- Pacing from the RV 0.5% of the time. -- Two shocks delivered for sustained V-tach. -- Two treated episodes of V-tach lasting > 30 seconds. -- One episode of V-tach accelerated to VF. -- Nine monitored episodes of V-tach, longest lasted 9 minutes. Results & Data ([facility]) Vital Signs (Past 12 Hours) Vital Signs Temp Pulse Pulse Resp BP Pulse Ox Pulse Ox 08/07/22 07:41 36.7 C 60 16 119/70 97 08/07/22 06:10 61 08/07/22 03:21 36.3 C L 61 22 146/69 H 96 08/07/22 02:29 08/07/22 01:26 97 08/06/22 23:57 97 08/07/22 01:26 36 C L 61 20 155/79 H 98 08/07/22 00:53 08/07/22 00:00 60 18 95 08/06/22 23:30 60 20 96 08/06/22 23:00 60 21 96 08/06/22 22:34 98 10/10/22 22:24 36.4 C L 62 20 138/79 100 08/06/22 22:24 O2 Del Method O2 Del Method 08/07/22 07:41 Room Air 08/07/22 06:10 08/07/22 03:21 Room Air 08/07/22 02:29 Room Air 08/07/22 01:26 Room Air 08/06/22 23:57 Room Air 08/07/22 01:26 Room Air 08/07/22 00:53 Room Air 08/07/22 00:00 08/06/22 23:30 08/06/22 23:00 08/06/22 22:34 Room Air 08/06/22 22:24 Room Air 08/06/22 22:24 Room Air Laboratory Results Laboratory Results - last 24 hr 08/06/22 08/06/22 08/06/22 22:25 22:25 22:25 WBC 6.25 RBC 3.74 L Hgb 13.7 L Hct 38.3 L MCV 102.4 H MCH 36.6 H MCHC 35.8 RDW Std Deviation 48.2 H RDW Coeff of Delmi 12.9 Plt Count 205 MPV 9.6 Immature Gran % (Auto) 0.6 Neut % (Auto) 58.4 Lymph % (Auto) 25.3 [place] % (Auto) 10.9 Eos % (Auto) 3.8 Baso % (Auto) 1.0 Neut # (Auto) 3.65 Lymph # (Auto) 1.58 [place] # (Auto) 0.68 Eos # (Auto) 0.24 Baso # (Auto) 0.06 Immature Gran # (Auto) 0.04 H PT 12.2 H INR 1.2 H APTT 27.5 PTT Ratio 1.0 Sodium 138 Potassium 3.7 Chloride 106 Carbon Dioxide 25 Anion Gap 7 BUN 29 H Creatinine 1.32 Est Cr Clr Drug Dosing 67.2 Est GFR ( Amer) 59.5 Est GFR (Non-Af Amer) 51.3 BUN/Creatinine Ratio 22.0 H Glucose 142 H Calcium 8.5 Magnesium Total Bilirubin 0.4 AST 22 ALT 19 Alkaline Phosphatase 50 Troponin I High Sens 28.7 H Total Protein 6.3 Albumin 3.7 Globulin 2.6 Albumin/Globulin Ratio 1.4 Lipase 30 SARS-CoV-2, RNA, NAAT 08/06/22 08/06/22 08/07/22 22:25 23:42 01:57 WBC RBC Hgb Hct MCV MCH MCHC RDW Std Deviation RDW Coeff of Delmi Plt Count MPV Immature Gran % (Auto) Neut % (Auto) Lymph % (Auto) [place] % (Auto) Eos % (Auto) Baso % (Auto) Neut # (Auto) Lymph # (Auto) [place] # (Auto) Eos # (Auto) Baso # (Auto) Immature Gran # (Auto) PT INR APTT PTT Ratio Sodium Potassium Chloride Carbon Dioxide Anion Gap BUN Creatinine Est Cr Clr Drug Dosing Est GFR ( Amer) Est GFR (Non-Af Amer) BUN/Creatinine Ratio Glucose Calcium Magnesium 2.0 Total Bilirubin AST ALT Alkaline Phosphatase Troponin I High Sens 60.2 H* D Total Protein Albumin Globulin Albumin/Globulin Ratio Lipase SARS-CoV-2, RNA, NAAT NEGATIVE 08/07/22 08/07/22 08/07/22 07:55 07:55 07:55 WBC 6.85 RBC 3.94 L Hgb 14.4 Hct 40.8 MCV 103.6 H MCH 36.5 H MCHC 35.3 RDW Std Deviation 50.3 H RDW Coeff of Delmi 13.2 Plt Count 206 MPV 9.8 Immature Gran % (Auto) 0.6 Neut % (Auto) 62.0 Lymph % (Auto) 23.1 [place] % (Auto) 10.8 Eos % (Auto) 2.9 Baso % (Auto) 0.6 Neut # (Auto) 4.25 Lymph # (Auto) 1.58 [place] # (Auto) 0.74 Eos # (Auto) 0.20 Baso # (Auto) 0.04 Immature Gran # (Auto) 0.04 H PT INR APTT PTT Ratio Sodium 139 Potassium 3.6 Chloride 106 Carbon Dioxide 29 Anion Gap 4 BUN 26 H Creatinine 1.19 Est Cr Clr Drug Dosing 73.7 Est GFR ( Amer) 67.4 Est GFR (Non-Af Amer) 58.2 BUN/Creatinine Ratio 21.8 H Glucose 95 Calcium 8.6 Magnesium 2.2 Total Bilirubin 0.4 AST 23 ALT 12 Alkaline Phosphatase 52 Troponin I High Sens Cancelled 51.9 H* Total Protein 6.2 Albumin 3.7 Globulin 2.5 Albumin/Globulin Ratio 1.5 Lipase SARS-CoV-2, RNA, NAAT Diagnostic Findings CXR 08/06/22: No pneumothorax. No pleural effusions. No new focal lung consolidations to suggest a pneumonia. Mild cardiomegaly, unchanged. No evidence for pulmonary edema. There is a left-sided pacemaker/defibrillator and poststernotomy changes. Small linear scar-like densities within the left lung base, unchanged. IMPRESSION: -- No significant change compared to the prior study. No acute process. Medications Administered Medications multivitamin 1 tab PO QAM 09/02/18 [History Confirmed 08/07/22] atorvastatin 80 mg tablet 80 mg PO HS #30 tabs 05/21/19 [Rx Confirmed 08/07/22] carvedilol 25 mg tablet 25 mg PO BID #60 tabs 05/21/19 [Rx Confirmed 08/07/22] calcium carbonate 600 mg-vitamin D3 10 mcg (400 unit) tablet 1 tab PO QAM 06/24/19 [History Confirmed 08/07/22] acetaminophen 500 mg tablet (Tylenol Extra Strength) 1,000 mg PO QID PRN Pain 06/27/19 [History Confirmed 08/07/22] lidocaine 4 % topical cream 1 applic topical HS 06/27/19 [History Confirmed 08/07/22] mexiletine 150 mg capsule 150 mg PO TID 06/27/19 [History Confirmed 08/07/22] spironolactone 25 mg tablet 25 mg PO QAM #30 tabs 12/08/19 [Rx Confirmed 08/07/22] probenecid 500 mg tablet 500 mg PO BID 06/15/20 [History Confirmed 08/07/22] nitroglycerin 0.4 mg sublingual tablet 0.4 mg sublingual UD PRN Chest Pain #25 Tabs 07/25/20 [Rx Confirmed 08/07/22] sulfasalazine 500 mg tablet 1,000 mg PO QID #0 tabs 10/06/20 [History Confirmed 08/07/22] amiodarone 200 mg tablet 600 mg PO QAM 10/11/20 [History Confirmed 08/07/22] azathioprine 50 mg tablet 100 mg PO QAM 10/11/20 [History Confirmed 08/07/22] cholecalciferol (vitamin D3) 25 mcg (1,000 unit) tablet (Vitamin D3) 1,000 unit PO QAM 10/11/20 [History Confirmed 08/07/22] furosemide 40 mg tablet 120 mg PO QAM 10/11/20 [History Confirmed 08/07/22] losartan 100 mg tablet 100 mg PO DAILYBB 10/11/20 [History Confirmed 08/07/22] potassium chloride 20 mEq tablet,extended release 40 meq PO BID 10/11/20 [History Confirmed 08/07/22] levothyroxine 125 mcg tablet 250 mcg PO DAILYBB 03/22/21 [History Confirmed 08/07/22] pantoprazole 40 mg tablet,delayed release 40 mg PO DAILYBB 03/22/21 [History Confirmed 08/07/22] apixaban 5 mg tablet (Eliquis) 5 mg PO Q12H #0 tabs 04/12/21 [Rx Confirmed 08/07/22] aspirin 81 mg tablet,delayed release 81 mg PO DAILY 05/17/21 [History Confirmed 08/07/22] carbidopa 25 mg-levodopa 100 mg tablet (Sinemet) 1 tab PO BID 90 days #180 tabs 05/01/22 [Rx Confirmed 08/07/22] amoxicillin 500 mg capsule 2,000 mg PO ONCE PRN .1 hr before dental 07/03/22 [History Confirmed 08/07/22] mecobalamin (vitamin B12) 1,000 mcg disintegrating tablet,sublingual 1,000 mcg sublingual DAILY #30 tabs 07/03/22 [Rx Confirmed 08/07/22] ketoconazole 2 % topical cream 1 applic topical DAILY PRN .flare up 08/07/22 [History Confirmed 08/07/22] metolazone 2.5 mg tablet 5 mg PO DAILY PRN Fluid Retention 08/07/22 [History Confirmed 08/07/22] Home Medications Acetaminophen (Acetaminophen 325 Mg Tab) 650 mg PO Q4H PRN PRN Reason: Pain or Fever Stop: 09/06/22 01:25 Amiodarone HCl (Amiodarone 200 Mg Tab) 600 mg PO QAM [facility] Stop: 09/06/22 08:59 Last Admin: 08/07/22 10:01 Dose: 600 mg Apixaban (Apixaban 5 Mg Tablet) 5 mg PO Q12 [facility] Stop: 09/06/22 01:59 Last Admin: 08/07/22 03:05 Dose: 5 mg Aspirin (Aspirin 81 Mg Ectab) 81 mg PO DAILY [facility] Stop: 09/06/22 08:59 Last Admin: 08/07/22 08:32 Dose: 81 mg Atorvastatin Calcium (Atorvastatin 40 Mg Tab) 80 mg PO HS [facility] Stop: 09/06/22 20:59 Azathioprine (Azathioprine 50 Mg Tab) 100 mg PO QAM [facility] Stop: 09/06/22 08:59 Last Admin: 08/07/22 08:32 Dose: 100 mg Carbidopa/Levodopa (Carbidopa/Levodopa 25/100mg Tab) 1 tab PO BID [facility] Stop: 09/06/22 01:25 Last Admin: 08/07/22 08:30 Dose: 1 tab Carvedilol (Carvedilol 25 Mg Tab) 25 mg PO BID@0530,1600 [facility] Stop: 09/06/22 01:25 Last Admin: 08/07/22 08:30 Dose: 25 mg Cyanocobalamin (Cyanocobalamin (B-12) 500 Mcg Tablet) 1,000 mcg PO DAILY [facility] Stop: 09/06/22 08:59 Last Admin: 08/07/22 08:32 Dose: 1,000 mcg Furosemide (Furosemide 40 Mg Tab) 120 mg PO QAM [facility] Stop: 09/06/22 08:59 Last Admin: 08/07/22 08:32 Dose: 120 mg Levothyroxine Sodium (Levothyroxine Sodium 125 Mcg Tablet) 250 mcg PO DAILYBB [facility] Stop: 09/06/22 06:29 Last Admin: 08/07/22 06:43 Dose: 250 mcg Losartan Potassium (Losartan Potassium 50 Mg Tab) 100 mg PO DAILYBB [facility] Stop: 09/06/22 06:29 Last Admin: 08/07/22 08:32 Dose: 100 mg Mexiletine HCl (Mexiletine Hcl 150 Mg Capsule) 150 mg PO TID@0800,1600,2100 [facility] Stop: 09/06/22 07:59 Last Admin: 08/07/22 08:30 Dose: 150 mg Multivitamins (Multivitamin Tab) 1 tab PO QAM [facility] Stop: 09/06/22 08:59 Last Admin: 08/07/22 08:31 Dose: 1 tab Multivitamins/Minerals (Calcium 600mg + Vit D 400 Iu Tab) 1 tab PO QAM [facility] Stop: 09/06/22 08:59 Last Admin: 08/07/22 08:32 Dose: 1 tab Nitroglycerin (Nitroglycerin Sl 0.4 Mg/Tab Tab) 0.4 mg SL UD PRN PRN Reason: Chest Pain Stop: 09/06/22 01:25 Ondansetron HCl (Ondansetron Inj 2 Mg/Ml 2 Ml Vial) 4 mg IV Q6H PRN PRN Reason: Nausea Stop: 09/06/22 01:25 Pantoprazole Sodium (Pantoprazole 40 Mg Tab) 40 mg PO DAILYBB [facility] Stop: 09/06/22 06:29 Last Admin: 08/07/22 08:31 Dose: 40 mg Potassium Chloride (Potassium Chloride Crtab 20 Meq Tabcr) 40 meq PO BID [facility] Stop: 09/06/22 08:59 Last Admin: 08/07/22 08:31 Dose: 40 meq Probenecid (Probenecid 500 Mg Tab) 500 mg PO BID@0800,1600 [facility] Stop: 09/06/22 07:59 Last Admin: 08/07/22 08:30 Dose: 500 mg Spironolactone (Spironolactone 25 Mg Tab) 25 mg PO QAM [facility] Stop: 09/06/22 08:59 Last Admin: 08/07/22 08:31 Dose: 25 mg Sulfasalazine (Sulfasalazine 500 Mg Tablet) 1,000 mg PO QID@0800,1100,1600,2100 [facility] Stop: 09/06/22 07:59 Last Admin: 08/07/22 08:31 Dose: 1,000 mg Vitamin D (Cholecalciferol 1,000 Units 25 Mcg Tab) 1,000 units PO QAM [facility] Stop: 09/06/22 08:59 Last Admin: 08/07/22 08:32 Dose: 1,000 units PG Care Time/CCT Total # of Minutes Spent Total Time Spent with Patient: Total time spent is greater than 50% in coordination of care (as documented) at patient's floor/unit and/or counseling patient:35 [place] [address] Initial Inpt Care Lvl 2 Patient Type Established History Detailed Exam Detailed Medical Decision Making High Complexity Diagnoses Ventricular tachycardia I47.20 AICD discharge Z45.02 Chronic combined systolic and diastolic heart failure I50.42 Ischemic cardiomyopathy I25.5 CAD (coronary artery disease) I25.10 Hypertension I10 Hypertension type: essential hypertension Hyperlipidemia E78.5 Time Spent (min) 64 (1) Hypertension Hypertension type: essential hypertension Qualified Code(s): I10 - Essential (primary) hypertension
[2022-08-07] MEDS ORDERED: POTASSIUM CHLORIDE CRTAB 20 MEQ TABCR PO ONE (10:15)
[2022-08-07] MEDS ORDERED: FUROSEMIDE 10 MG/ML 10 ML VIAL IV ONE (10:15)
--- NOTE | 2022-08-07 11:37 | Hospitalist Progress Note ---
Date of Service August 07, 2022 Assessment & Plan (1) Ventricular tachycardia: Plan: 77 yo M with extensive cardiac disease including HTN, HLD, PAF, LBBB, CAD s/p LAD stent and CABG x 3 vessels, previous VT, CHF with 2019 EF of 30-35, also COPD, UC admitted for runs of VT requiring AICD firing. Ventricular tachycardia s/p AICD discharge in background of ischemic cardiomyopathy -May be due to chronic cardiac disease-induced scarring of conduction tissue as no clear trigger can be identified such as electrolyte abnormality or recent illness. Medication non-adherence may be implicated -Continue home regimen for ischemic cardiomyopathy- aspirin, carvedilol, losartan -Continue home anti-arrhythmic regimen- amiodarone, mexiletine -Echocardiogram pending -Cardiology consulted, awaiting recommendations -Considering amiodarone bolus/infusion if there is indeed a component of medication nonadherence at play Chronic congestive heart failure -Continue home regimen of carvedilol, Lasix, losartan, spironolactone -Does not appear to be in exacerbation at this time, euvolemic status FENGI: Heart healthy Code status: Full DVT ppx: Eliquis Isolation: None Disposition: Telemetry (2) AICD discharge: Plan: See above (3) CHF (congestive heart failure): Plan: See above (4) Ischemic cardiomyopathy: Plan: See above (5) Atrial fibrillation: Plan: See above (6) CAD (coronary artery disease): Plan: See above (7) Parkinsonism: Plan: Continue carbidopa/levodopa 25/100, 1 p.o. twice daily (8) B12 deficiency: Plan: Continue B12 supplement (9) History of DVT (deep vein thrombosis): Plan: Continue Eliquis 5 mg p.o. every 12 hours (10) Hypothyroidism: Plan: Continue levothyroxine 2050 mcg daily (11) Gout: Plan: Continue probenecid 500 mg p.o. twice daily (12) Obstructive sleep apnea: Plan: CPAP at bedtime as needed (13) BPH (benign prostatic hyperplasia): Plan: Monitor urine output (14) Ulcerative colitis: Plan: Continue azathioprine 100 mg every morning, sulfasalazine 1000 mg p.o. 4 times daily (15) Hypertension: Plan: See above (16) Hyperlipidemia: Plan: Continue atorvastatin 80 mg at bedtime Admission and Anticipated Discharge Date Admission Date: August 06, 2022 Supervising Physician Co-Signing Physician Notes I personally examined the patient and verified all narayanan points of history and exam, discussed case, and agree with decision making with Dr Rodriguez as above, see dc summary as well Subjective No acute events overnight. Pt reports feeling well aside from a usual feeling of being "washed out". Denies further palpitations, lightheadedness. Denies chest pain or dyspnea. No acute complaints. Interrogation of his [employer] Evera Dual Chamber AICD 08/06/22 shows: -- Device paces in the MVP mode. -- Pacing from the RA 95.2% of the time. -- Pacing from the RV 0.5% of the time. -- Two shocks delivered for sustained V-tach. -- Two treated episodes of V-tach lasting > 30 seconds. -- One episode of V-tach accelerated to VF. -- Nine monitored episodes of V-tach, longest lasted 9 minutes. Review of Systems Review of Systems: Per subjective Physical Exam Physical Exam: GENERAL: Patient in no acute distress. HEENT: Head is atraumatic, normocephalic.Facies symmetric. No perioral cyanos is. NECK: No JVD. Carotid upstrokes are +2 bilaterally without obvious bruits. CHEST/LUNGS: CTAB, unlabored respirations CVS: S1 and S2 are regular, distant without obvious murmurs, gallops, or rubs. PMI is nonpalpable. No lifts, heaves, or thrills. No abdominal aortic or renal bruits. Palpable AICD generator is present in the left subclavian fossa. EXTREMITIES: No clubbing or cyanosis. Trace peripheral edema. Intact radial pulses bilaterally. NEUROLOGIC EXAM: Patient is awake, alert, and oriented. Pleasant and cooperative. Answers questions appropriately. Speech is clear. 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 Results & Data Results & Data ([facility]) Vital Signs (Past 12 Hours) Vital Signs Temp Pulse Pulse Resp BP Pulse Ox Pulse Ox 08/07/22 07:41 36.7 C 60 16 119/70 97 08/07/22 06:10 61 08/07/22 03:21 36.3 C L 61 22 146/69 H 96 08/07/22 02:29 08/07/22 01:26 97 08/06/22 23:57 97 08/07/22 01:26 36 C L 61 20 155/79 H 98 08/07/22 00:53 08/07/22 00:00 60 18 95 08/06/22 23:30 60 20 96 O2 Del Method O2 Del Method 08/07/22 07:41 Room Air 08/07/22 06:10 08/07/22 03:21 Room Air 08/07/22 02:29 Room Air 08/07/22 01:26 Room Air 08/06/22 23:57 Room Air 08/07/22 01:26 Room Air 08/07/22 00:53 Room Air 08/07/22 00:00 08/06/22 23:30 Resident Activity Tracking Resident Involvement: Resident Care Provided Care Provided: Adult Hospital Medicine (1) CHF (congestive heart failure) Heart failure chronicity: unspecified Heart failure type: unspecified Qualified Code(s): I50.9 - Heart failure, unspecified (2) Hypertension Hypertension type: essential hypertension Qualified Code(s): I10 - Essential (primary) hypertension (3) Ulcerative colitis Digestive disease complication type: without complication Ulcerative colitis location: unspecified ulcerative colitis location Qualified Code(s): K51.90 - Ulcerative colitis, unspecified, without complications
--- NOTE | 2022-08-07 13:21 | Discharge Summary ---
Date of Service August 07, 2022 Admission HPI Per Admitting Provider The patient is a 77-year-old male with a past medical history including ventricular tachycardia, atrial fibrillation, parkinsonism, gait abnormality, B12 deficiency, CHF some, ICM, COPD, CAD, history of DVT, hypothyroidism, YI, LBBB, cerebellar ataxia, BPH, ulcerative colitis, hypertension hyperlipidemia. The patient had gone to bed as usual time around 8:00, and sometime close to 8:30 he developed palpitations, became lightheaded and dizzy, and then became aware of his standing over him calling 911. Interrogation of his pacer in ED showed that patient had V. tach. Initial shock was 5 J, with a second shock being 35 J which ablated the V. tach and return to normal sinus rhythm. In the ED, patient's monitor showed normal sinus rhythm in the low 60s. Significant laboratories in the ED: Hemoglobin 13.7, hematocrit 38.3, potassium 3.7, creatinine 1.32, glucose 142, and troponin 28.7 Principal Diagnosis vtach - interrupted by ICD firing Discharge Exam see progress note same date, nad heent nc at mmm breathing unlabored no accessory muscles good effort skin no rashes no pallor or icterus mental status intact Discharge Data Allergies Allergy/AdvReac Type Severity Reaction Status Date / Time lisinopril Allergy Intermediate ABDOMINAL Verified 08/07/22 01:16 PAIN/DIARRHEA, Difficulty Swallowing simvastatin Allergy Intermediate DIARRHEA/ Verified 08/07/22 01:16 EXACERBATED COLITIS tetanus toxoid, adsorbed Allergy Mild Rash Verified 08/07/22 01:16 Consultations 08/06/22 23:14 ED Decision to Admit Stat 08/07/22 01:26 Consult Cardiology Routine Hospital Course (1) Ventricular tachycardia: -gives very good hx for med compliance/adherence - unlikely to be missing doses of significance -has very significant ischemic cardiomyopathy as the reason why he has an ICD - cardiomyopathy making him quite prone to these rhythms to begin with (as the most likely reason for the Vtach) -K was slightly suboptimal - will discharge on 40meq TID for the time being with repeat BMP in ~3-5 days; mag was acceptable -safe/stable for home (2) AICD discharge: See above (3) CHF (congestive heart failure): compensated combined systolic and diastolic CHF (4) Ischemic cardiomyopathy: See above (5) Atrial fibrillation: rate controlled, anticoagulated (6) CAD (coronary artery disease): mild troponin elevation likely due to ICD firing, not ischemia (7) Parkinsonism: home meds (8) B12 deficiency: Continue B12 supplement (9) History of DVT (deep vein thrombosis): Continue Eliquis 5 mg p.o. every 12 hours (10) Hypothyroidism: Continue levothyroxine (11) Gout: Continue probenecid 500 mg p.o. twice daily (12) Obstructive sleep apnea: CPAP at bedtime as needed (13) BPH (benign prostatic hyperplasia): Monitor urine output (14) Ulcerative colitis: Continue azathioprine 100 mg every morning, sulfasalazine 1000 mg p.o. 4 times daily (15) Hypertension: BP acceptable (16) Hyperlipidemia: Continue atorvastatin 80 mg at bedtime (17) Morbid obesity: BMI 41.3. with bicarb on BMP @ 29, ?consider evaluation of CPAP settings for YI as outpt Total Time Total Time Spent Total Time Spent (In Minutes): <30 Discharge Plan Discharge Items Patient Disposition: Home - Self-Care Reason For Visit: V TACH, S/P AICD FIRING Discharge Diagnosis: ventricular tachycardia causing ICD to fire Activity: Resume your previous activity Non-emergency contact: Primary Care Provider and Legal Cashier Call non-emergency contact if: you have any medication questions Follow-up/Referrals: Ashanti Melchor, [Primary Care Provider] - Diet: Heart Healthy Addtl Attending Provider Instructions: ICD firing - after review of your situation and discussion with the cardiology team, the bottom line is that your ICD did its job - it was placed because your heart condition puts you at risk for bad rhythms like ventricular tachycardia - the ICD saw that you had gone into ventricular tachycardia - and then successfully shocked you out of it. one thing we saw we could modify some to h elp reduce future risk was that your potassium levels were just a little low. since you take multiple medications at many times of day already (and do a remarkable job of keeping them all straight), the best way to increase your potassium will be to take it 3 times a day, instead of the twice a day you had been previously taking. we'd also recommend that Dr Melchor or Dr Smith repeat labwork (BMP, basic metabolic panel) at the end of this week or the beginning of the next to make sure that 40meq of potassium 3 times a day appears to be the right dose for you at this time to do: increase potassium to 40meq three times a day labwork (BMP) saturday or saturday via Dr Melchor or Dr Smith Pending Studies at Discharge: No Stand-Alone Forms: [facility], Smoking Cessation Medications and DC Order Prescriptions: Continued spironolactone 25 mg tablet 25 mg PO QAM Qty: 30 0RF nitroglycerin 0.4 mg tablet, sublingual 0.4 mg Sublingual UD PRN (Reason: Chest Pain) Qty: 25 3RF sulfasalazine 500 mg tablet 1,000 mg PO QID Qty: 0 Rx Instructions: TAKES AT BREAKFAST, 1100, 1600 & HS carbidopa-levodopa [Sinemet] 25-100 mg tablet 1 tab PO BID 90 Days Qty: 180 1RF Rx Instructions: TAKE WITHOUT PROTEIN probenecid 500 mg tablet 500 mg PO BID Rx Instructions: TAKES WITH BREAKFAST & 1600. aspirin 81 mg tablet,delayed release (DR/EC) 81 mg PO DAILY amoxicillin 500 mg capsule 2,000 mg PO ONCE PRN (Reason: .1 hr before dental) Rx Instructions: TAKE 4 CAPSULES BY MOUTH 1/2 HOUR PRIOR TO APPOINTMENT mecobalamin (vitamin B12) 1,000 mcg tablet,disintegrating 1,000 mcg sublingual DAILY Qty: 30 5RF Rx Instructions: place 1 tablet under tongue and allow to dissolve for at least 30 secs before swallowing. atorvastatin 80 mg tablet 80 mg PO HS Qty: 30 5RF carvedilol 25 mg tablet 25 mg PO BID Qty: 60 5RF Rx Instructions: TAKES 0530 & 1600 calcium carbonate-vitamin D3 600 mg(1,500mg) -400 unit tablet 1 tab PO QAM multivitamin Tablet 1 tab PO QAM lidocaine 4 % Cream 1 applic TOPICAL HS acetaminophen [Tylenol Extra Strength] 500 mg Tablet 1,000 mg PO QID PRN (Reason: Pain) mexiletine 150 mg capsule 150 mg PO TID Rx Instructions: TAKES WITH BREAKFAST, 1600 & HS cholecalciferol (vitamin D3) [Vitamin D3] 25 mcg (1,000 unit) Tablet 1,000 unit PO QAM furosemide 40 mg tablet 120 mg PO QAM amiodarone 200 mg tablet 600 mg PO QAM azathioprine 50 mg tablet 100 mg PO QAM losartan 100 mg tablet 100 mg PO DAILYBB levothyroxine 125 mcg Tablet 250 mcg PO DAILYBB Rx Instructions: USUALLY TAKES BETWEEN 1600-5953. pantoprazole 40 mg tablet,delayed release (DR/EC) 40 mg PO DAILYBB Eliquis 5 mg tablet 5 mg PO Q12H Qty: 0 0RF metolazone 2.5 mg Tablet 5 mg PO DAILY PRN (Reason: Fluid Retention) ketoconazole 2 % Cream 1 applic TOPICAL DAILY PRN (Reason: .flare up) Changed potassium chloride 20 mEq tablet extended release 40 meq PO TID Qty: 180 0RF Rx Instructions: Take 4 tabs PO daily, on day of Metolazone take extra 2 tabs PO daily; Discharge Orders: Discharge Order (Routine); Ordered 08/07/22 Ordered By: Chuy Trujillo Admission Data Admit Date/Time: 08/06/22 23:49 Attending Provider: Chuy Trujillo Admit Provider: Xavi Mohan Primary Care Provider: Ashanti Melchor Other Providers: Xavi Mohan ; Alex Mosqueda Coding Level of Care Code D/C DAY MANAGEMENT <30 MINS Diagnoses Ventricular tachycardia I47.20 AICD discharge Z45.02 CHF (congestive heart failure) I50.9 Heart failure chronicity: unspecified Heart failure type: unspecified Ischemic cardiomyopathy I25.5 Atrial fibrillation I48.91 CAD (coronary artery disease) I25.10 Parkinsonism G20 B12 deficiency E53.8 History of DVT (deep vein thrombosis) Z86.718 Hypothyroidism E03.9 Gout M10.9 Obstructive sleep apnea G47.33 BPH (benign prostatic hyperplasia) N40.0 Ulcerative colitis K51.90 Ulcerative colitis location: unspecified ulcerative colitis location Digestive disease complication type: without complication Hypertension I10 Hypertension type: essential hypertension Hyperlipidemia E78.5 Morbid obesity E66.01
--- NOTE | 2022-08-07 14:43 | Electrocardiogram Report ---
Test Reason : Blood Pressure : / mmHG Vent. Rate : 063 BPM Atrial Rate : 063 BPM P-R Int : 276 ms QRS Dur : 170 ms QT Int : 520 ms P-R-T Axes : 101 -44 101 degrees QTc Int : 532 ms Atrial-paced rhythm with prolonged AV conduction Left axis deviation Left bundle branch block Abnormal ECG When compared with ECG of 09-MAY-2021 06:11, No significant change was found Confirmed by Johnny Smith ([id number]) on 08/07/2022 2:42:23 PM Referred By: REFERRED SELF Confirmed By:Johnny Smith
--- NOTE | 2022-08-07 14:59 | Electrocardiogram Report ---
Test Reason : Blood Pressure : / mmHG Vent. Rate : 060 BPM Atrial Rate : 060 BPM P-R Int : 314 ms QRS Dur : 186 ms QT Int : 518 ms P-R-T Axes : 095 -45 126 degrees QTc Int : 518 ms Atrial-paced rhythm with prolonged AV conduction Left axis deviation Non-specific intra-ventricular conduction block Abnormal ECG When compared with ECG of 06-AUG-2022 22:16, (unconfirmed) No significant change was found Confirmed by Johnny Smith ([id number]) on 08/07/2022 2:59:18 PM Referred By: REFERRED SELF Confirmed By:Johnny Smith
[2022-08-07] MEDS ORDERED: ATORVASTATIN 40 MG TAB PO SCH (21:00)
== END 2022-08-07 15:57 | disposition home or self-care (01) | DRG 309 ==
LOC: ED 22:08 → SUATTDRO 23:49 → INTOOBSV 23:49 → 2S 23:49
DX: I49.01 Ventricular fibrillation; M10.9 Gout, unspecified; Z79.899 Other long term (current) drug therapy; Z98.1 Arthrodesis status; Z79.82 Long term (current) use of aspirin; Z95.1 Presence of aortocoronary bypass graft; Z68.41 Body mass index [BMI] 40.0-44.9, adult; E66.01 Morbid (severe) obesity due to excess calories; Z95.810 Presence of automatic (implantable) cardiac defibrillator; I25.5 Ischemic cardiomyopathy; Z87.891 Personal history of nicotine dependence; N40.0 Benign prostatic hyperplasia without lower urinary tract symptoms; G20 Parkinson's disease; Z88.7 Allergy status to serum and vaccine; I47.20 Ventricular tachycardia, unspecified; I25.2 Old myocardial infarction; K51.90 Ulcerative colitis, unspecified, without complications; Z79.01 Long term (current) use of anticoagulants; Z88.8 Allergy status to other drugs, medicaments and biological substances; E53.8 Deficiency of other specified B group vitamins; E03.9 Hypothyroidism, unspecified; E78.5 Hyperlipidemia, unspecified; I50.42 Chronic combined systolic (congestive) and diastolic (congestive) heart failure; Z86.718 Personal history of other venous thrombosis and embolism; Z79.890 Hormone replacement therapy

== ENCOUNTER 2024-04-24 21:08 | Observation (INO) ==
[2024-04-24 21:47] LABS: Basophils # (auto) 0.06 K/uL (0.00-0.20); Basophils % (auto) 0.7 %; Eosinophils # (auto) 0.22 K/uL (0.00-0.50); Eosinophils % (auto) 2.7 %; Hematocrit (blood only) 39.1 % (42.0-52.0); Hemoglobin 13.2 g/dl (14.0-18.0); Immature Granulocytes # (auto) 0.03 K/uL (0.01-0.20); Immature Granulocytes % (auto) 0.4 %; Lymphocytes # (auto) 1.62 K/uL (1.20-3.40); Lymphocytes % (auto) 20.1 %; Mean Corpuscular Hemoglobin 35.2 pg (25.0-34.0); Mean Corpuscular Hgb Conc 33.8 g/dL (32.0-36.0); Mean Corpuscular Volume 104.3 fL (80.0-100.0); Mean Platelet Volume 9.9 fL (9.4-12.4); Monocytes % (auto) 11.2 %; Neutrophils # (auto) 5.23 K/uL (1.40-6.50); Neutrophils % (auto) 64.9 %; Platelet Count 225 K/uL (130-400); RDW Coefficient of Variation 13.5 % (11.5-14.5); RDW Standard Deviation 51.8 fL (36.4-46.3); Red Blood Count 3.75 M/uL (4.70-6.10); White Blood Count 8.06 K/ul (4.8-10.8)
[2024-04-24 21:53] LABS: Alanine Aminotransferase 8 U/L (7-52); Albumin Globulin Ratio 1.2 (0.9-2); Albumin Level 3.6 gm/dl (3.4-5.0); Alkaline Phosphatase 77 U/L (34-104); Anion Gap 6 (3-11); Aspartate Aminotransferase 14 U/L (13-39); BUN Creatinine Ratio 20.1 (10-20); Bilirubin,Total 0.4 mg/dl (0.2-1.0); Blood Urea Nitrogen 35 mg/dl (6-23); Calcium 8.6 mg/dl (8.6-10.3); Carbon Dioxide 29 mmol/L (21-32); Chloride 103 mmol/L (98-107); Est GFR (Non-African American) 36.2 ml/min; Globulin 3.1 gm/dl (2.5-4.0); Glucose 111 mg/dl (70-99(Fasting)); Sodium 138 mmol/L (136-145); Total Protein 6.7 gm/dl (6.0-8.3)
[2024-04-24 21:59] LABS: Troponin I High Sensitivity 26.7 pg/ml (0-20)
[2024-04-24 22:04] LABS: INR 1.1 (0.9-1.1); Partial Thromboplastin Time 27 Seconds (21-31); Prothrombin Time 12.2 Seconds (9.0-12.0)
--- NOTE | 2024-04-24 22:17 | CT Scan Report ---
Exam(s): CT C SPINE EXAM: CT Cervical Spine Without Intravenous Contrast CLINICAL HISTORY: Reason for exam: Neck trauma. TECHNIQUE: Axial computed tomography images of the cervical spine without intravenous contrast. CTDI is 26.96 mGy and DLP is 529.47 mGy-cm. Automated exposure control was utilized for the study. A dose lowering technique was utilized adhering to the principles of ALARA. COMPARISON: No relevant prior studies available. FINDINGS: Vertebrae: Unremarkable. No acute fracture. Discs/spinal canal/neural foramina: No acute findings. No spinal canal stenosis. Soft tissues: Unremarkable. IMPRESSION: Normal cervical spine CT. Electronically signed by: Chuy Mcneil MD 04/24/24 22:17 PM
--- NOTE | 2024-04-24 22:19 | CT Scan Report ---
Exam(s): CT HEAD Without Contrast EXAM: CT Head Without Intravenous Contrast CLINICAL HISTORY: Reason for exam: Head trauma moderate-severe. TECHNIQUE: Axial computed tomography images of the head/brain without intravenous contrast. CTDI is 37.61 mGy and DLP is 624.41 mGy-cm. age appropriate cerebral volume loss Automated exposure control was utilized for the study. A dose lowering technique was utilized adhering to the principles of ALARA. COMPARISON: No relevant prior studies available. FINDINGS: Brain: Unremarkable. No hemorrhage. No significant white matter disease. No edema. Ventricles: Unremarkable. No ventriculomegaly. Bones/joints: Unremarkable. No acute fracture. Soft tissues: Unremarkable. Sinuses: Unremarkable as visualized. No acute sinusitis. Mastoid air cells: Unremarkable as visualized. No mastoid effusion. Other findings: IMPRESSION: No acute findings in the head/brain. Electronically signed by: Chuy Mcneil MD 04/24/24 22:18 PM
[2024-04-24] MEDS: ACETAMINOPHEN 1,000 MG/100 ML VIAL IV STA (22:24)
--- NOTE | 2024-04-24 23:21 | History & Physical Report ---
Date of Service April 24, 2024 Assessment & Plan (1) Syncope: (2) MATT (acute kidney injury): (3) Elevated troponin: (4) Parkinson disease: (5) AICD (automatic cardioverter/defibrillator) present: (6) CHF (congestive heart failure): (7) Hypothyroidism: (8) CAD (coronary artery disease): (9) Dysphagia: (10) Chronic back pain: (11) BPH (benign prostatic hyperplasia): Zayda Arredondo is a 79M w/ PMH of PD, CAD w/ AICD, CHF, hypothyroidism, dysphagia, gout, LBBB, cerebellar ataxia, chronic LBP, and BPH who presents from home with concern of syncope. Syncopal Event | Fall - Acute, singular event w/ subsequent striking of head - CT C-spine & Head negative - EKG w/ wide QRS and LBBB (known) - Interrogate AICD 04/25: no arrhythmias noted, device functioning as programmed - Admit to monitor on telemetry - Patient noticing increased LE edema, and took Metolazone in addition to daily Furosemide, subsequently losing 6 lbs in 2 days Weight loss provoked lightheadedness which likely provoked syncopal event - Echocardiogram ordered Last performed 2020, EF 35-40% - Cardiology contacted at patient's request Longstanding patient of Dr. Smith - Will check AM TSH, Mg, CBC, and CMP MATT - Patinet's baseline creatinine ~ 1.3, currently 1.7 - Likely secondary to dehydration/diuretic use (as above) - Held Furosemide and Metolazone Elevated Troponin - Appears to be patient's baseline ~25-30 - Trended to peak - No active chest pain or acute dyspnea Chronic Conditions - PD/cerebellar ataxia: carbidopa/levodopa ongoing - CAD and Ischemic Cardiomyopathy w/ AICD: continue home medications - Hypothyroidism: continue home medications, check TSH - Dysphagia: continue home PPI - LBP: continue home lidocaine patch - Gout/RA: continue Azathioprine/Probenecid/Sulfasalazine Code: Full Diet: Heart Healthy IVF: None, diuretics held DVT: Continue home Eliquis Dispo: Med/Tele History of Present Illness Chief Complaint: Syncope Primary Care Provider: Ashanti Melchor DO Arnulfo is a 79M w/ PMH of PD, CAD w/ AICD, CHF, hypothyroidism, dysphagia, gout, LBBB, cerebellar ataxia, chronic LBP, and BPH who presents from home with c oncern of syncope. Patient notes that over the last 2 days he has been feeling increasingly lightheaded. He presented to the ED tonight after falling over backwards while brushing his teeth. Prior to this he had been sitting in his lounge chair, walked to the kitchen, taken his evening medications, and then walked to the bathroom. He notes this has occurred before, once when he fell into a chair and another when he fell into the wall. During one of the prior episodes he did have a run of V Tach. Patient has an AICD implanted and recently had the battery replaced. Patient notes that he has been feeling more 'puffy" and had noted 3 lbs of weight gain in 1 day. He takes Furosemide daily, but took an additional dose of Metolazone. Following the Metolazone he lost 6 lbs in 2 days, he then began to feel dizzy. Patient denies chest pain, dyspnea, nausea, or emesis. He is not experienced any recent fevers or chills. He denies dysuria, frequency, diarrhea, or constipation. Patient follows his BP, HR, and medications closely in a journal and has otherwise had no recent changes. He notes that he is dyspneic at baseline but notices it is more bothersome when the temperature rises. ED Course: Tylenol Allergies Allergy/AdvReac Type Severity Reaction Status Date / Time lisinopril Allergy Intermediate ABDOMINAL Verified 03/16/24 07:20 PAIN/DIARRHEA, Difficulty Swallowing simvastatin Allergy Intermediate DIARRHEA/ Verified 03/16/24 07:20 EXACERBATED COLITIS tetanus toxoid, adsorbed Allergy Mild Rash Verified 03/16/24 07:20 Home Medications Medication Instructions Recorded Confirmed Type atorvastatin 80 mg tablet 80 mg PO HS #30 tabs 05/21/19 04/24/24 Rx carvedilol 25 mg tablet 25 mg PO BID #60 tabs 05/21/19 04/24/24 Rx mexiletine 150 mg capsule 150 mg PO Q8 06/27/19 04/24/24 History spironolactone 25 mg tablet 25 mg PO QAM #30 tabs 12/08/19 04/24/24 Rx probenecid 500 mg tablet 500 mg PO BID 06/15/20 04/24/24 History nitroglycerin 0.4 mg sublingual 0.4 mg sublingual UD PRN Chest 07/25/20 04/24/24 Rx tablet Pain #25 Tabs sulfasalazine 500 mg tablet 1,000 mg PO QID #0 tabs 10/06/20 04/24/24 History azathioprine 50 mg tablet 100 mg PO QAM 10/11/20 04/24/24 History cholecalciferol (vitamin D3) 25 1,000 unit PO QAM 10/11/20 04/24/24 History mcg (1,000 unit) tablet (Vitamin D3) furosemide 40 mg tablet 120 mg PO QAM 10/11/20 04/24/24 History levothyroxine 125 mcg tablet 250 mcg PO QAM 03/22/21 04/24/24 History pantoprazole 40 mg tablet,delayed 40 mg PO QAM 03/22/21 04/24/24 History release apixaban 5 mg tablet (Eliquis) 5 mg PO Q12H #0 tabs 04/12/21 04/24/24 Rx aspirin 81 mg tablet,delayed 81 mg PO QAM 05/17/21 04/24/24 History release amoxicillin 500 mg capsule 2,000 mg PO DIRECTED PRN .1 hr 07/03/22 04/24/24 History before dental mecobalamin (vitamin B12) 1,000 1,000 mcg sublingual DAILY #30 tabs 07/03/22 04/24/24 Rx mcg disintegrating tablet,sublingual ketoconazole 2 % topical cream 1 applic topical HS PRN Rash 08/07/22 04/24/24 History amiodarone 200 mg tablet 600 mg (3 x 200 mg) PO QAM #270 11/01/23 04/24/24 Rx tabs lidocaine 5 % topical patch 1 patch topical DAILY PRN Pain 03/09/24 04/24/24 History losartan 50 mg tablet 50 mg PO QAM 03/09/24 04/24/24 History metolazone 2.5 mg tablet 2.5 mg PO DAILY PRN Fluid Retention 03/09/24 04/24/24 History acetaminophen 650 mg 650 mg PO Q12H 04/24/24 04/24/24 History tablet,extended release calcium carbonate 600 mg-vitamin 1 tab PO DAILY 04/24/24 04/24/24 History D3 5 mcg (200 unit) tablet carbidopa ER 50 mg-levodopa 200 mg 2 tab PO DAILY 04/24/24 04/24/24 History tablet,extended release multivitamin with minerals 1 tab PO DAILY 04/24/24 04/24/24 History potassium chloride 20 mEq 240 meq PO DAILY 04/24/24 04/24/24 History tablet,extended release Past Med/Surg History Problem List (Updated 04/24/24 @ 23:25 by Carlyn Mcgee PA-C) Elevated troponin (Acute) MATT (acute kidney injury) (Acute) Syncope (Acute) Head injury (Acute) Diplopia Tremor of right hand Lumbar radicular pain Parkinson disease Morbid obesity AICD (automatic cardioverter/defibrillator) present (Acute) Gait abnormality Parkinsonism B12 deficiency CHF (congestive heart failure) (Acute) Hypothyroidism CAD (coronary artery disease) On amiodarone therapy Dysphagia "has a lot of difficulty" Gout Left bundle-branch block Cerebellar ataxia Osteoarthritis Chronic back pain BPH (benign prostatic hyperplasia) Medical History Implantable cardioverter-defibrillator (ICD) in situ dual-chamber ICD; generator change 03/2023 History of ventricular tachycardia 01/2019 History of cerebellar stroke 11/22/11, [facility], on eliquis, no deficits. Previously followed with Dr Ty, was released from neuro. Chronic combined systolic and diastolic heart failure EF 30-35% 2019 echo Obstructive sleep apnea cpap Coronary arteriosclerosis in [place] artery s/p 1997 x1 stent, LAD stent x 1 01/2006, CABG x 3 in 09/02/08>all done sat [facility] [place] History of DVT (deep vein thrombosis) Ischemic cardiomyopathy EF initially 25%, now 30-35% on most recent echo 2018. Ulcerative colitis On anticoagulant therapy eliquis--d/t CVA Hypertension Hyperlipidemia Atrial fibrillation PAF. on eliquis. Chronic obstructive pulmonary disease Parkinson disease Slow to wake up after anesthesia "took 2 1/2 days following CABG to extubate him" ICD (implantable cardioverter-defibrillator) battery depletion generator change 03/2023, [facility] Hypothyroidism Hearing deficit Ventricular tachycardia hx of--follows with Dr. Smith Myocardial Infarction x2-- follows with Dr. Smith Deep vein thrombosis RLE - dx ~2005, anticoagulant therapy; "still has one clot in his RLE as of 03/09/24" Surgical History Fusion of spine lumbar region, 2009 AICD (automatic cardioverter/defibrillator) present History of esophageal dilatation Pt does report continued issues with taking his pills due to esophageal problems. S/P cardiac pacemaker procedure inserted 09/17/2013. [employer] device. 2022, generator change, [facility] History of tooth extraction upper teeth removed History of cardiac cath History of coronary artery bypass graft x 3 2007 @ [facility] [place] H/O prostate biopsy History of total hip arthroplasty bilateral-january and march 2006 Hx of transurethral resection of prostate x2 History of colonoscopy History of cholecystectomy 05/12/09 History of tonsillectomy History of adenoidectomy History of heart artery stent x1--1997, x1 stent 2005>both done at [facility] [place] Family History Father Coronary heart disease Myocardial infarction Mother Coronary heart disease Myocardial infarction Sister Breast cancer Had mastectomy in 2018'. Family history of diabetes mellitus Brother Cardiac disorder Other No family history of adverse response to anesthesia Denies family history of Ovarian cancer Prostate cancer Lung cancer Colorectal cancer Social History Smoking Status: Former smoker Tobacco Type: Cigarettes and Pipe Age Started Using Tobacco: 12; Age Quit Using Tobacco: 25; packs per day: 2; Cigarettes Per Day: smoked cigarettes, and pipes 2PPD; Second Hand Exposure: No; Do You Dip or Chew Tobacco: No; Hx Alcohol Use: No Hx Substance Use: No Preferred Language: Malian Communication Ability: Effective Visual Impairment: Limited Hearing Ability: Hard of Hearing Drug Safety Assistant Required: No Beliefs That Will Affect Care: None marital status: Current Living Situation: Spouse Current Living Situation Comment: spouse current occupational status: retired and disabled How many Children do You have: 2 Other Information That Helps Us Care for You: No Feels Safe at Home: Yes Safety Concerns: Feels Safe At This Time Childhood Exposure to Second-Hand Smoke: Yes Diet: regular Diet Comment: regular caffeine: Yes during the past year weight has: remained stable Dental Care, Regularly: Yes Physical Activity Frequency: Does not Exercise Physical Activity Frequency Comment: limited d/t physical condition Seatbelt Use: always Sunscreen Use: Yes Assistive Devices: Denture - Upper, Glasses, Hearing Aid - Bilateral and Walker Physical Exam Physical Exam: Gen: NAD, alert, interactive HEENT: Supple, PERRLA/EOMI, NCAT, no LAD, no thyromegaly, no JVD Resp:Non-labored, no wheezing/rhonchi/rales, CTAB CV:irregular rhythm, regular rate, normal S1/S2, no M/R/G Abd: Soft, non-distended, no TTP, normoactive bowels, no masses Extr: 2+ dp bilaterally, 1+ peripheral edema edema bilaterally Skin: No rashes lesions or erythema Results & Data Results & Data Vital Signs (Past 12 Hours) Vital Signs Temp Pulse Resp BP Pulse Ox O2 Del Method 04/24/24 22:09 60 19 151/69 H 96 Room Air 04/24/24 22:06 61 04/24/24 21:10 36.7 C 113 H 20 152/75 H 93 Room Air Supervising Physician Co-Signing Physician Notes Attending addendum: I have physically seen this patient, have supervised the medical residents activities, and agree with the H&P unless as otherwise noted. Assessment and Plan: Syncope and collapse- Patient had taken extra diuretic metolazone in addition to daily furosemide on 04/21, and now appears volume depleted Dehydration likely significantly contributed to the symptoms AICD interrogated in the ED this evening, with no arrhythmias found Patient continued to have a paced rhythm and rate at 60 in the ED and blood pressure 140s over 60 to 70s range Most recent echocardiogram 1 with ejection fraction of 35-40% Acute kidney injury superimposed on CKD- Creatinine 1.74, with base 1.29 Hold furosemide, metolazone, spironolactone, and losartan Recheck laboratories in a.m., and resume medications when appropriate Elevated troponin/CHF/CAD- The patient will be admitted to telemetry for serial cardiac enzymes, serial EKG's, cardiac rhythm monitoring and a 2-D echocardiogram with Dopplers. Continue amiodarone, apixaban, aspirin carvedilol, mexiletine Parkinson's- Continue carbidopa/levodopa Resident Activity Tracking Resident Involvement: Resident Care Provided Care Provided: Adult Hospital Medicine (6) CHF (congestive heart failure) Heart failure chronicity: unspecified Heart failure type: unspecified Qualified Code(s): I50.9 - Heart failure, unspecified (8) CAD (coronary artery disease) Associated angina: without angina Coronary Disease-Associated Artery/Lesion type: [place] artery Hoh vs. transplanted heart: [place] heart Qualified Code(s): I25.10 - Atherosclerotic heart disease of [place] coronary artery without angina pectoris (9) Dysphagia Dysphagia type: unspecified Qualified Code(s): R13.10 - Dysphagia, unspecified (10) Chronic back pain Back pain laterality: midline Back pain location: low back pain Sciatica presence: without sciatica Qualified Code(s): M54.5 - Low back pain; G89.29 - Other chronic pain
--- NOTE | 2024-04-24 23:25 | Emergency Department Note ---
History of Present Illness General Chief complaint: Syncope Stated complaint: FALL, HIT HEAD AND BACK, SYNCOPE Time Seen by Provider: 04/24/24 22:02 History of Present Illness Maximum Pain Intensity: 6 This 79-year-old male presents the ER for syncope. Patient states he got lightheaded in the bathroom and collapsed. Patient states last time this happened he was in V. tach. Patient denies chest pain, dyspnea, abdominal pain, fever, chills, lightheadedness or dizziness. He does have some neck pain. He is on a DOAC. Home Medications Medication Instructions Recorded Confirmed Type atorvastatin 80 mg tablet 80 mg PO HS #30 tabs 05/21/19 04/24/24 Rx carvedilol 25 mg tablet 25 mg PO BID #60 tabs 05/21/19 04/24/24 Rx mexiletine 150 mg capsule 150 mg PO TID 06/27/19 03/09/24 History spironolactone 25 mg tablet 25 mg PO QAM #30 tabs 12/08/19 04/24/24 Rx probenecid 500 mg tablet 500 mg PO BID 06/15/20 03/09/24 History nitroglycerin 0.4 mg sublingual 0.4 mg sublingual UD PRN Chest 07/25/20 04/24/24 Rx tablet Pain #25 Tabs sulfasalazine 500 mg tablet 1,000 mg PO QID #0 tabs 10/06/20 03/09/24 History azathioprine 50 mg tablet 100 mg PO QAM 10/11/20 04/24/24 History cholecalciferol (vitamin D3) 25 1,000 unit PO QAM 10/11/20 04/24/24 History mcg (1,000 unit) tablet (Vitamin D3) furosemide 40 mg tablet 120 mg PO QAM 10/11/20 04/24/24 History levothyroxine 125 mcg tablet 250 mcg PO QAM 03/22/21 04/24/24 History pantoprazole 40 mg tablet,delayed 40 mg PO QAM 03/22/21 04/24/24 History release apixaban 5 mg tablet (Eliquis) 5 mg PO Q12H #0 tabs 04/12/21 04/24/24 Rx aspirin 81 mg tablet,delayed 81 mg PO QAM 05/17/21 04/24/24 History release amoxicillin 500 mg capsule 2,000 mg PO DIRECTED PRN .1 hr 07/03/22 03/09/24 History before dental mecobalamin (vitamin B12) 1,000 1,000 mcg sublingual DAILY #30 tabs 07/03/22 04/24/24 Rx mcg disintegrating tablet,sublingual ketoconazole 2 % topical cream 1 applic topical HS PRN Rash 08/07/22 03/09/24 History amiodarone 200 mg tablet 600 mg (3 x 200 mg) PO QAM #270 11/01/23 04/24/24 Rx tabs acetaminophen 325 mg tablet 325 mg PO UD 03/09/24 03/09/24 History calcium 500 mg tablet 500 mg PO QAM 03/09/24 03/09/24 History lidocaine 5 % topical patch 1 patch topical DAILY 03/09/24 03/09/24 History losartan 50 mg tablet 50 mg PO QAM 03/09/24 04/24/24 History metolazone 2.5 mg tablet 2.5 mg PO DAILY PRN Fluid Retention 03/09/24 03/09/24 History potassium chloride 20 mEq 40 meq PO UD 03/09/24 03/09/24 History tablet,extended release vit C 250 mg-vit E 90 mg-zinc 40 1 tab PO BID 03/09/24 03/09/24 History mg-copper 1 [id number] capsule (PreserVision AREDS-2) carbidopa ER 50 mg-levodopa 200 mg 2 tab PO DAILY 04/24/24 04/24/24 History tablet,extended release Allergies Allergy/AdvReac Type Severity Reaction Status Date / Time lisinopril Allergy Intermediate ABDOMINAL Verified 03/16/24 07:20 PAIN/DIARRHEA, Difficulty Swallowing simvastatin Allergy Intermediate DIARRHEA/ Verified 03/16/24 07:20 EXACERBATED COLITIS tetanus toxoid, adsorbed Allergy Mild Rash Verified 03/16/24 07:20 Past Med/Surg History Problem List (Updated 04/24/24 @ 23:25 by Carlyn Mcgee PA-C) Elevated troponin (Acute) MATT (acute kidney injury) (Acute) Syncope (Acute) Head injury (Acute) Diplopia Tremor of right hand Lumbar radicular pain Parkinson disease Morbid obesity AICD (automatic cardioverter/defibrillator) present (Acute) Gait abnormality Parkinsonism B12 deficiency CHF (congestive heart failure) (Acute) Hypothyroidism CAD (coronary artery disease) On amiodarone therapy Dysphagia "has a lot of difficulty" Gout Left bundle-branch block Cerebellar ataxia Osteoarthritis Chronic back pain BPH (benign prostatic hyperplasia) Medical History Implantable cardioverter-defibrillator (ICD) in situ dual-chamber ICD; generator change 03/2023 History of ventricular tachycardia 01/2019 History of cerebellar stroke 11/22/11, [facility], on eliquis, no deficits. Previously followed with Dr Ty, was released from neuro. Chronic combined systolic and diastolic heart failure EF 30-35% 2018 echo Obstructive sleep apnea cpap Coronary arteriosclerosis in [place] artery s/p 1997 x1 stent, LAD stent x 1 01/2006, CABG x 3 in 09/02/08>all done sat [facility] [place] History of DVT (deep vein thrombosis) Ischemic cardiomyopathy EF initially 25%, now 30-35% on most recent echo 2018. Ulcerative colitis On anticoagulant therapy eliquis--d/t CVA Hypertension Hyperlipidemia Atrial fibrillation PAF. on eliquis. Chronic obstructive pulmonary disease Parkinson disease Slow to wake up after anesthesia "took 2 1/2 days following CABG to extubate him" ICD (implantable cardioverter-defibrillator) battery depletion generator change 03/2023, [facility] Hypothyroidism Hearing deficit Ventricular tachycardia hx of--follows with Dr. Smith Myocardial Infarction x2-- follows with Dr. Smith Deep vein thrombosis RLE - dx ~2005, anticoagulant therapy; "still has one clot in his RLE as of 03/09/24" Surgical History Fusion of spine lumbar region, 2009 AICD (automatic cardioverter/defibrillator) present History of esophageal dilatation Pt does report continued issues with taking his pills due to esophageal problems. S/P cardiac pacemaker procedure inserted 09/17/2013. Medtronic device. 2022, generator change, [facility] History of tooth extraction upper teeth removed History of cardiac cath History of coronary artery bypass graft x 3 2007 @ [facility] [place] H/O prostate biopsy History of total hip arthroplasty bilateral-january and march 2006 Hx of transurethral resection of prostate x2 History of colonoscopy History of cholecystectomy 05/12/09 History of tonsillectomy History of adenoidectomy History of heart artery stent x1--1998, x1 stent 2006>both done at [facility] [place] Family History Father Coronary heart disease Myocardial infarction Mother Coronary heart disease Myocardial infarction Sister Breast cancer Had mastectomy in 2018'. Family history of diabetes mellitus Brother Cardiac disorder Other No family history of adverse response to anesthesia Denies family history of Ovarian cancer Prostate cancer Lung cancer Colorectal cancer Social History Smoking Status: Former smoker Tobacco Type: Cigarettes and Pipe Age Started Using Tobacco: 12; Age Quit Using Tobacco: 25; packs per day: 2; Cigarettes Per Day: smoked cigarettes, and pipes 2PPD; Second Hand Exposure: No; Do You Dip or Chew Tobacco: Yes (quit 1973; advised); Hx Alcohol Use: Yes (none since the s) Hx Substance Use: No Preferred Language: Armenian Communication Ability: Effective Visual Impairment: Limited Hearing Ability: Hard of Hearing Medical Records Specialist Required: No Beliefs That Will Affect Care: None marital status: Current Living Situation: Spouse Current Living Situation Comment: spouse current occupational status: retired and disabled How many Children do You have: 2 Feels Safe at Home: Yes Childhood Exposure to Second-Hand Smoke: Yes Diet: regular Diet Comment: regular caffeine: Yes during the past year weight has: remained stable Dental Care, Regularly: Yes Physical Activity Frequency: Does not Exercise Physical Activity Frequency Comment: limited d/t physical condition Seatbelt Use: always Sunscreen Use: Yes Assistive Devices: CPAP, Denture - Upper, Glasses, Hearing Aid - Bilateral and Walker Review of Systems A total of 10 systems reviewed and were otherwise negative Physical Exam Vital Signs Vital Signs - 24 hr 04/24/24 21:10 04/24/24 22:06 04/24/24 22:09 Temperature 36.7 C Temperature Source Temporal Artery Scan Pulse Rate 113 H 61 60 Respiratory Rate 20 19 Respiratory Effort / Characteristics Non-Labored Respiratory Depth Normal Respiratory Pattern Regular Blood Pressure 152/75 H 151/69 H Blood Pressure Mean 100 96 Pulse Oximetry 93 96 Oxygen Delivery Method Room Air Room Air Sepsis Recent Fever Within 48 Hours No Sepsis New/Unexplained Change in Mental Status N/A Sepsis Action Taken by Nursing No Action Required VITALS: Vitals are noted on the nurse's note and reviewed by myself. Vital signs stable. GENERAL: Pleasant elderly male c-collar, in no acute distress, nondiaphoretic, well-developed well-nourished. SKIN: The skin was without rashes, erythema, edema, or bruising. There is no tenting of the skin. Capillary reflex less than 2 seconds. HEAD: Normocephalic atraumatic. EARS: External auditory canals clear EYES: Pupils equal round and reactive to light and accommodation. Conjunctivae without injection, sclerae without icterus. Extraocular movements intact. NOSE: Patent, no discharge. MOUTH: Mucous membranes moist. Pharynx without erythema or exudate. Uvula midline. Airway patent. Tongue does not deviate. NECK: Supple without nuchal rigidity. No lymphadenopathy. No thyromegaly. Cervical spine is nontender. No JVD. HEART: Regular rate and rhythm LUNGS: Clear to auscultation bilaterally without wheezes, rales or rhonchi. No retractions or accessory muscle use. ABDOMEN: Positive bowel sounds x 4. Normal tympanic percussion. Soft, nontender, without masses or organomegaly. Mora sign negative. No guarding or rebound tenderness. No CVA tenderness MUSCULOSKELETAL: No muscle atrophy, erythema, or edema noted. 5 out of 5 strength throughout NEURO: Patient was alert and oriented to person place and time. Normal sensation to light and sharp touch. No focal neurological deficits. Course Administered Medications Discontinued Medications Acetaminophen (Ofirmev) 1,000 mg in 100 mls @ 400 mls/hr IV NOW STA Stop: 04/24/24 22:23 Last Infusion: 04/24/24 22:39 Dose: Infused Documented By: Admin: 04/24/24 22:24 Dose: 400 mls/hr Documented By: NORBERTO Medical Decision Making Medical Records Attestation: I reviewed the patient's medical records. Home Medications Current Medication List: was personally reviewed by me Laboratory Data Attestation: I reviewed the patient's lab results. 04/24/24 21:19 04/24/24 21:19 Lab Results 04/24/24 Range/Units 21:19 WBC 8.06 (4.8-10.8) K/ul RBC 3.75 L (4.70-6.10) M/uL Hgb 13.2 L (14.0-18.0) g/dl Hct 39.1 L (42.0-52.0) % MCV 104.3 H (80.0-100.0) fL MCH 35.2 H (25.0-34.0) pg MCHC 33.8 (32.0-36.0) g/dL RDW Std Deviation 51.8 H (36.4-46.3) fL RDW Coeff of Delmi 13.5 (11.5-14.5) % Plt Count 225 (130-400) K/uL MPV 9.9 (9.4-12.4) fL Immature Gran % (Auto) 0.4 % Neut % (Auto) 64.9 % Lymph % (Auto) 20.1 % [place] % (Auto) 11.2 % Eos % (Auto) 2.7 % Baso % (Auto) 0.7 % Neut # (Auto) 5.23 (1.40-6.50) K/uL Lymph # (Auto) 1.62 (1.20-3.40) K/uL [place] # (Auto) 0.90 H (0.11-0.59) K/uL Eos # (Auto) 0.22 (0.00-0.50) K/uL Baso # (Auto) 0.06 (0.00-0.20) K/uL Immature Gran # (Auto) 0.03 (0.01-0.20) K/uL PT 12.2 H (9.0-12.0) Seconds INR 1.1 (0.9-1.1) APTT 27 (21-31) Seconds PTT Ratio 1.0 Sodium 138 (136-145) mmol/L Potassium 4.0 (3.5-5.1) mmol/L Chloride 103 (98-107) mmol/L Carbon Dioxide 29 (21-32) mmol/L Anion Gap 6 (3-11) BUN 35 H (6-23) mg/dl Creatinine 1.74 H (0.6-1.4) mg/dl Est Cr Clr Drug Dosing Not Reportable Est GFR ( Amer) 42.0 ml/min Est GFR (Non-Af Amer) 36.2 ml/min BUN/Creatinine Ratio 20.1 H (10-20) Glucose 111 H (70-99(Fasting)) mg/dl Calcium 8.6 (8.6-10.3) mg/dl Total Bilirubin 0.4 (0.2-1.0) mg/dl AST 14 (13-39) U/L ALT 8 (7-52) U/L Alkaline Phosphatase 77 (34-104) U/L Troponin I High Sens 26.7 H (0-20) pg/ml Total Protein 6.7 (6.0-8.3) gm/dl Albumin 3.6 (3.4-5.0) gm/dl Globulin 3.1 (2.5-4.0) gm/dl Albumin/Globulin Ratio 1.2 (0.9-2) Imaging Data Attestation: I personally reviewed and interpreted this imaging study as follows: Radiologist's Impression: Cervical Spine CT 04/24/24 21:17 Exam(s): CT C SPINE EXAM: CT Cervical Spine Without Intravenous Contrast CLINICAL HISTORY: Reason for exam: Neck trauma. TECHNIQUE: Axial computed tomography images of the cervical spine without intravenous contrast. CTDI is 26.96 mGy and DLP is 529.47 mGy-cm. Automated exposure control was utilized for the study. A dose lowering technique was utilized adhering to the principles of ALARA. COMPARISON: No relevant prior studies available. FINDINGS: Vertebrae: Unremarkable. No acute fracture. Discs/spinal canal/neural foramina: No acute findings. No spinal canal stenosis. Soft tissues: Unremarkable. IMPRESSION: Normal cervical spine CT. Electronically signed by: Chuy Mcneil MD 04/24/24 22:[address] 04/24/24 21:17 Exam(s): CT HEAD Without Contrast EXAM: CT Head Without Intravenous Contrast CLINICAL HISTORY: Reason for exam: Head trauma moderate-severe. TECHNIQUE: Axial computed tomography images of the head/brain without intravenous contrast. CTDI is 37.61 mGy and DLP is 624.41 mGy-cm. age appropriate cerebral volume loss Automated exposure control was utilized for the study. A dose lowering technique was utilized adhering to the principles of ALARA. COMPARISON: No relevant prior studies available. FINDINGS: Brain: Unremarkable. No hemorrhage. No significant white matter disease. No edema. Ventricles: Unremarkable. No ventriculomegaly. Bones/joints: Unremarkable. No acute fracture. Soft tissues: Unremarkable. Sinuses: Unremarkable as visualized. No acute sinusitis. Mastoid air cells: Unremarkable as visualized. No mastoid effusion. Other findings: IMPRESSION: No acute findings in the head/brain. Electronically signed by: Chuy Mcneil MD 04/24/24 22:18 PM MDM Narrative Prior records/ancillary studies reviewed. Triage Nursing notes reviewed. Additional history obtained from family. The patient's history was concerning for syncope. Differential diagnosis: Etiologies such as vasovagal event, infection, hypoglycemia, electrolyte abnormalities, cardiac sources, intracerebral event, toxicologic, neurologic, as well as others were entertained. Physical examination: As above ER treatment provided: IV hydration with normal saline On reassessment the patient felt better. An order was placed for continuous cardiac monitoring. The monitor shows a rate of 60-100 with a sinus rhythm per my interpretation. Diagnostics interpretation by me: ECG: ordered for syncope ECG: Left axis, left bundle, paced rhythm, rate of 63. Impression paced rhythm with a left bundle independently turbid by myself The labs Independently Interpreted by myself revealed minimally elevated troponin and repeat was ordered Mild anemia, no worrisome leukocytosis, mild creatinine elevation Imaging studies: Chest x-ray with no acute consolidation, pneumothorax or free air per my independent interpretation CTs as above Consultation: A consultation was placed with the hospitalist. The case was discussed and diagnostics were reviewed. The patient was evaluated in the ER for further treatment. This appears to be consistent with syncope with a slightly elevated troponin. Pacemaker was requested to be interrogated. Medicine was consulted and the case was discussed. Patient be bedded to the medical service for further evaluation and workup. Last time patient passed out he was in V. tach. Patient has no chest pain now. He is asymptomatic. He is feeling much better. Creatinine slightly elevated from baseline. No bleed on CAT scan. Patient will be admitted. By the evaluation outlined above emergent etiologies such as infection, hypoglycemia, electrolyte abnormalities, intracerebral event, toxicologic, as well as others were deemed relatively unlikely. The pt informed about the findings as listed above. All questions were answered and pleased with the treatment. The chart was completed utilizing e[employer] Speech voice recognition software. Grammatical errors, random word insertions, pronoun errors, and incomplete sentences are an occassional consequence of this system due to software limitations, ambient noise, and hardware issues. Any formal questions or concerns about the content, text, or information contained within the body of this dictation should be directly addressed to the physician activity assistant for clarification. Impression & Plan Head injury, Syncope, MATT (acute kidney injury), Elevated troponin Discharge Plan Visit Data Chief Complaint: Syncope Stated Complaint: FALL, HIT HEAD AND BACK, SYNCOPE ED Provider: Ricci Silvestre ED Midlevel Provider: Cralyn Mcgee Discharge Problem: Head injury, Syncope, MATT (acute kidney injury), Elevated troponin Patient Disposition: Admitted As Inpatient Condition: Fair Forms Stand Alone Forms: [facility] Prescriptions Prescriptions: No Action spironolactone 25 mg tablet 25 mg PO QAM Qty: 30 0RF nitroglycerin 0.4 mg tablet, sublingual 0.4 mg Sublingual UD PRN (Reason: Chest Pain) Qty: 25 3RF sulfasalazine 500 mg tablet 1,000 mg PO QID Qty: 0 Rx Instructions: TAKES AT BREAKFAST, 1100, 1600 & HS amiodarone 200 mg tablet 600 mg PO QAM Qty: 270 3RF probenecid 500 mg tablet 500 mg PO BID Rx Instructions: TAKES WITH BREAKFAST & 1600. aspirin 81 mg tablet,delayed release (DR/EC) 81 mg PO DAILY amoxicillin 500 mg capsule 2,000 mg PO DIRECTED PRN (Reason: .1 hr before dental) Rx Instructions: TAKE 4 CAPSULES BY MOUTH 1/2 HOUR PRIOR TO APPOINTMENT mecobalamin (vitamin B12) 1,000 mcg tablet,disintegrating 1,000 mcg sublingual DAILY Qty: 30 5RF Rx Instructions: place 1 tablet under tongue and allow to dissolve for at least 30 secs before swallowing. carbidopa-levodopa 50-200 mg tablet extended release 1 tab PO BID Qty: 60 5RF atorvastatin 80 mg tablet 80 mg PO HS Qty: 30 5RF carvedilol 25 mg tablet 25 mg PO BID Qty: 60 5RF Rx Instructions: TAKES 0530 & 1600 mexiletine 150 mg capsule 150 mg PO TID Rx Instructions: TAKES WITH BREAKFAST, 1600 & HS cholecalciferol (vitamin D3) [Vitamin D3] 25 mcg (1,000 unit) Tablet 1,000 unit PO QAM furosemide 40 mg tablet 120 mg PO QAM azathioprine 50 mg tablet 100 mg PO QAM levothyroxine 125 mcg Tablet 250 mcg PO QAM Rx Instructions: USUALLY TAKES BETWEEN 1600-9780. pantoprazole 40 mg tablet,delayed release (DR/EC) 40 mg PO QAM Eliquis 5 mg tablet 5 mg PO Q12H Qty: 0 0RF ketoconazole 2 % Cream 1 applic TOPICAL HS PRN (Reason: Rash) metolazone 2.5 mg Tablet 2.5 mg PO DAILY PRN (Reason: Fluid Retention) acetaminophen 325 mg Tablet 325 mg PO UD Rx Instructions: 1 tab QAM and Noon, 2 tab HS calcium 500 mg Tablet 500 mg PO QAM lidocaine 5 % Adhesive Patch,Medicated 1 patch TOPICAL DAILY Rx Instructions: leave on most painful area for up to 12 hrs PreserVision AREDS-2 250-90-40-1 mg Capsule 1 tab PO BID losartan 50 mg tablet 50 mg PO QAM potassium chloride 20 mEq tablet extended release 40 meq PO UD Rx Instructions: Take 4 tabs PO daily, on day of Metolazone take extra 2 tabs PO daily; Referrals Referrals: Ashanti Melchor DO [Primary Care Provider] - Discharge Problem: Head injury Qualifiers: Encounter type: initial encounter Qualified Code(s): S09.90XA - Unspecified injury of head, initial encounter
--- NOTE | 2024-04-25 00:17 | Emergency Department Note ---
ED Visit Note Patient seen in conjunction with physician assistant elementary teacher HPI: Patient is an 79-year-old male who presents after falling in the bathroom after feeling lightheaded. Patient unsure if he passed out. Patient having no active chest pain or shortness of breath currently. A&P: Patient CT scan head and neck negative for traumatic injury. Patient's fir st troponin slightly elevated. Patient has left bundle branch block on EKG without signs of ischemia. Patient will be admitted to hospital service further treatment and evaluation Dx: Syncope, fall Dispo: Admission I agree with the physician assistants work-up and treatment plan. Please see their note for more detailed exam findings. .
[2024-04-25] MEDS ORDERED: LIDOCAINE 5% 1 PATCH TD PRN (02:03)
[2024-04-25] MEDS ORDERED: NITROGLYCERIN SL 0.4 MG/TAB TAB SL PRN (02:03)
[2024-04-25] MEDS ORDERED: ONDANSETRON INJ 2 MG/ML 2 ML VIAL IV PRN (02:03)
[2024-04-25] MEDS ORDERED: POLYETHYLENE (MIRALAX) 17 GM PACK PO PRN (02:03)
[2024-04-25] MEDS: ACETAMINOPHEN 325 MG TAB PO PRN (02:32)
[2024-04-25] MEDS: LEVOTHYROXINE SODIUM 125 MCG TABLET PO SCH (05:23)
--- NOTE | 2024-04-25 05:37 | Billing Data ---
Date of Service April 25, 2024 Coding Level of Care Code 28121 INT INP/OBS CARE
[2024-04-25] MEDS ORDERED: MEXILETINE HCL 150 MG CAPSULE PO SCH (06:00)
[2024-04-25 06:28] LABS: Hematocrit (blood only) 34.2 % (42.0-52.0); Hemoglobin 11.4 g/dl (14.0-18.0); Mean Corpuscular Hemoglobin 35.1 pg (25.0-34.0); Mean Corpuscular Hgb Conc 33.3 g/dL (32.0-36.0); Mean Corpuscular Volume 105.2 fL (80.0-100.0); Mean Platelet Volume 10.1 fL (9.4-12.4); Platelet Count 183 K/uL (130-400); RDW Coefficient of Variation 13.6 % (11.5-14.5); RDW Standard Deviation 52.4 fL (36.4-46.3); Red Blood Count 3.25 M/uL (4.70-6.10); White Blood Count 7.26 K/ul (4.8-10.8)
[2024-04-25 06:58] LABS: Albumin Globulin Ratio 1.3 (0.9-2); Albumin Level 3.1 gm/dl (3.4-5.0); BUN Creatinine Ratio 24.1 (10-20); Bilirubin,Total 0.4 mg/dl (0.2-1.0); Calcium 8.1 mg/dl (8.6-10.3); Est GFR (African American) 52.3 ml/min; Est GFR (Non-African American) 45.2 ml/min; Globulin 2.4 gm/dl (2.5-4.0); Magnesium 2.3 mg/dl (1.7-2.4); Potassium 3.7 mmol/L (3.5-5.1); Total Protein 5.5 gm/dl (6.0-8.3)
[2024-04-25 07:12] LABS: Thyroid Stimulating Hormone 1.772 uIu/ml (0.300-4.500)
--- NOTE | 2024-04-25 07:39 | Hospitalist Progress Note ---
Date of Service April 25, 2024 Assessment & Plan (1) Syncope: (2) MATT (acute kidney injury): (3) Elevated troponin: (4) Parkinson disease: (5) AICD (automatic cardioverter/defibrillator) present: (6) CHF (congestive heart failure): (7) Hypothyroidism: (8) CAD (coronary artery disease): (9) Dysphagia: (10) Chronic back pain: (11) BPH (benign prostatic hyperplasia): Zayda Arredondo is a 79M w/ PMH of PD, CAD w/ AICD, CHF, hypothyroidism, dysphagia, gout, LBBB, cerebellar ataxia, chronic LBP, and BPH who presents from home with concern of syncope. 1) Syncopal Event | Fall - Acute, singular event w/ subsequent striking of head - CT C-spine & Head negative - EKG w/ wide QRS and LBBB (known) - Interrogate AICD 04/25: no arrhythmias noted, device functioning as programmed - Admit to monitor on telemetry - Patient noticing increased LE edema, and took Metolazone in addition to daily Furosemide, subsequently losing 6 lbs in 2 days Weight loss provoked lightheadedness which likely provoked syncopal event - Echocardiogram ordered Last performed 2020, EF 35-40% - Cardiology contacted at patient's request, their recommendations: reduce outpt dosage of losartan, 25 mg, PO, daily; compression stockings prescribed upon discharge Longstanding patient of Dr. Smith - Will check AM TSH, Mg, CBC, and CMP 2) MATT - Cr, 1.45 <-- 1.74 (baseline creatinine ~ 1.3) currently 1.7 - Likely secondary to dehydration/diuretic use (as above) - Held Furosemide and Metolazone, hydrate o/n - trend BMP (Cr) AM tomorrow 3) Elevated Troponin - HSTrop, 25.6 <-- 26.7 - Appears to be patient's baseline ~25-30 - Trended to peak - No active chest pain or acute dyspnea Chronic Conditions - PD/cerebellar ataxia: carbidopa/levodopa ongoing - CHF: will reduce losartan per [facility] recs - CAD and Ischemic Cardiomyopathy w/ AICD: continue home medications - Hypothyroidism: continue home medications, check TSH - Dysphagia: continue home PPI - LBP: continue home lidocaine patch - Gout/RA: continue Azathioprine/Probenecid/Sulfasalazine Code: Full Diet: Heart Healthy IVF: None, diuretics held DVT: Continue home Eliquis Dispo: Med/Tele Admission and Anticipated Discharge Date Admission Date: April 25, 2024 Supervising Physician Co-Signing Physician Notes Attending attestation Pt seen and examined in concert with Dr. Machado. In agreement with the documented findings as noted in the resident documentation with any exceptions or additions as noted here. Evaluation while patient in bedside chair - reports long standing positional lightheadedness barry with transfers which had become more intense and has returned, per him, to roughly his chronic baseline for the last few months without other complaints. On examination, S1/S2 nl RRR, 2/6 LEYDI. CTAB. Abd NT/ND BS+ve, no cartotid bruit appreciated. Syncopal event with fall - cardiology consult appreciated - agree w/ likely orthostasis, especially with chronicity reported. Down adjust losartan to 25mg, encourage PO hydration, monitor BMP in AM and, if return to baseline, consider dispo at that time. MATT - improving today and approaching baseline w/ concomittant approach to baseline with patient. Trend BMP as above Else see resident documentation as noted. Subjective Chief Complaint: Syncope Primary Care Provider: Ashanti Melchor DO Arnulfo is a 79M w/ PMHx of PD, CAD w/ AICD, CHF, hypothyroidism, dysphagia, gout, LBBB, cerebellar ataxia, chronic LBP, and BPH who presents from home with concern of syncope. Patient notes that over the last 2 days he has been feeling increasingly lightheaded. He presented to the ED tonight after falling over backwards while brushing his teeth. Prior to this he had been sitting in his lounge chair, walked to the kitchen, taken his evening medications, and then walked to the bathroom. He notes this has occurred before, once when he fell into a chair and another when he fell into the wall. During one of the prior episodes he did have a run of V Tach. Patient has an AICD implanted and recently had the battery replaced. Patient notes that he has been feeling more 'puffy" and had noted 3 lbs of weight gain in 1 day. He takes Furosemide daily, but took an additional dose of Metolazone. Following the Metolazone he lost 6 lbs in 2 days, he then began to feel dizzy. Patient denies chest pain, dyspnea, nausea, or emesis. He is not experienced any recent fevers or chills. He denies dysuria, increaed urinary frequency, diarrhea, or constipation. Patient follows his BP, HR, and medications closely in a journal and has otherwise had no recent changes. He notes that he is dyspneic at baseline but notices it is more bothersome when the temperature rises. ED Course: Tylenol This morning the patient is only feeling a little lightheaded upon sitting up, or moving to the chair from the bed temporarily. He has some slight, 1+, pitting edema b/l that improved [facility] Review of Systems Constitutional: no fever, no chills, no fatigue and no weakness Respiratory: + dyspnea on exertion; no cough Cardiovascular: no chest pain and no palpitations Gastrointestinal: no abdominal pain, no nausea, no vomiting, no constipation and no diarrhea/loose stools Genitourinary: no dysuria or no urinary frequency Neurologic: + tremor(s) and + dizziness; no tingling , no numbness and no headache(s) no vertigo Physical Exam Constitutional: WD/WN, vitals as above Respiratory: normal respiratory effort, lungs clear to auscultation Cardiovascular: RRR, no murmur, no edema Extremities: normal capillary refill and + pedal edema (1+, patient feels skin tight, but almost at baseline); no calf tenderness Gastrointestinal (Abdomen): normal bowel sounds, soft, nontender, no hepatosplenomegaly Psychiatric: A+Ox3, euthymic affect Results & Data Results & Data Vital Signs (Past 12 Hours) Vital Signs Temp Pulse Pulse Pulse Resp BP BP 04/25/24 06:39 36.4 C L 69 18 133/61 04/25/24 03:26 04/25/24 03:26 36.6 C 77 20 146/73 H 04/25/24 02:00 60 04/25/24 01:21 63 18 117/74 04/24/24 23:29 60 16 141/64 H 04/24/24 22:09 60 19 151/69 H 04/24/24 22:06 61 04/24/24 21:10 36.7 C 113 H 20 152/75 H Pulse Ox O2 Del Method 04/25/24 06:39 95 Room Air 04/25/24 03:26 CPAP 04/25/24 03:26 94 Room Air 04/25/24 02:00 04/25/24 01:21 97 Room Air 04/24/24 23:29 98 Room Air 04/24/24 22:09 96 Room Air 04/24/24 22:06 04/24/24 21:10 93 Room Air (6) CHF (congestive heart failure) Heart failure chronicity: unspecified Heart failure type: unspecified Qualified Code(s): I50.9 - Heart failure, unspecified (8) CAD (coronary artery disease) Associated angina: without angina Coronary Disease-Associated Artery/Lesion type: [place] artery [place] vs. transplanted heart: [place] heart Qualified Code(s): I25.10 - Atherosclerotic heart disease of [place] coronary artery without angina pectoris (9) Dysphagia Dysphagia type: unspecified Qualified Code(s): R13.10 - Dysphagia, unspecified (10) Chronic back pain Back pain laterality: midline Back pain location: low back pain Sciatica presence: without sciatica Qualified Code(s): M54.5 - Low back pain; G89.29 - Other chronic pain
--- NOTE | 2024-04-25 07:53 | XRay Report ---
XR chest 1V not portable CLINICAL HISTORY: Chest pain, nonspecific COMPARISON STUDY: Chest radiograph November 22, 2023. FINDINGS: A left subclavian pacer/AICD is in place. There are median sternotomy wires. Cardiomegaly i s unchanged. No evidence for pulmonary edema. There is no pneumothorax or pleural effusion. IMPRESSION: No acute cardiopulmonary findings. No change in appearance of the chest. ACT 112: Negative or not required by law. Electronically signed by: Cristian Bradley M.D. 04/25/2024 7:52 AM
[2024-04-25] MEDS ORDERED: LOSARTAN POTASSIUM 50 MG TAB PO SCH (09:00)
[2024-04-25] MEDS ORDERED: SPIRONOLACTONE 25 MG TAB PO SCH (09:00)
[2024-04-25] MEDS: APIXABAN 5 MG TABLET PO SCH (09:34)
[2024-04-25] MEDS: sulfaSALAzine 500 MG TABLET PO SCH (09:34)
[2024-04-25] MEDS: CALCIUM 600MG + VIT D 400 IU TAB PO SCH (09:34)
[2024-04-25] MEDS: carvediloL 25 MG TAB PO SCH (09:34)
[2024-04-25] MEDS: ASPIRIN 81 MG ECTAB PO SCH (09:34)
[2024-04-25] MEDS: PROBENECID 500 MG TAB PO SCH (09:34)
[2024-04-25] MEDS: AMIODARONE 200 MG TAB PO SCH (09:34)
[2024-04-25] MEDS: PANTOprazole 40 MG TAB PO SCH (09:34)
[2024-04-25] MEDS: MEXILETINE HCL 150 MG CAPSULE PO SCH (09:34)
[2024-04-25] MEDS: azaTHIOprine 50 MG TAB PO SCH (09:34)
[2024-04-25] MEDS: CARBIDOPA/LEVODOPA 50/200MG EXT REL TAB PO SCH (09:34)
--- NOTE | 2024-04-25 12:15 | Cardiology Consultation ---
Date of Consultation April 25, 2024 Assessment & Plan (1) Syncope: (2) Elevated troponin: (3) AICD (automatic cardioverter/defibrillator) present: (4) CAD (coronary artery disease): (5) On amiodarone therapy: (6) HFrEF (heart failure with reduced ejection fraction): (7) Orthostatic lightheadedness: (8) Ventricular tachycardia: (9) Paroxysmal atrial fibrillation: (10) Aortic regurgitation: Plan ASSESSMENT/PLAN: 1. Syncope: Symptoms consistent with orthostatic etiology and follows more aggressive diuretic therapy with as needed metolazone. According to outpatient records, had orthostatic symptoms earlier this year after taking metolazone. For now, would reduce losartan to 25 mg daily. Would try to limit use of metolazone and perhaps use additional Lasix as needed which may be a bit more gentle for him. Fortunately, he uses metolazone infrequently. Remain well- hydrated. Compression stockings. 2. Orthostatic symptoms: Likely multifactorial. Can be seen in Parkinson's as well as his multiple medications, including his diuretics. For now, reduce lo sartan to 25 mg daily. Given his complex arrhythmia history, hesitant to reduce beta-talisha. Change positions slowly. Compression stockings recommended. Remain well-hydrated. 3. Elevated troponin: Only minimally elevated and when reviewing records going back to 2021, they have consistently been elevated in a similar range. He did not present with acute coronary syndrome. No further ischemic evaluation necessary. 4. CAD s/p CABG x 3 and LAD PCI: No angina. Continue aspirin 81 mg daily. Continue high intensity statin therapy and beta-talisha therapy. 5. Heart failure with reduced EF: He does not appear to be hypervolemic and in fact may have been hypovolemic on presentation following metolazone use at home and azotemic labs which have since improved. Continue carvedilol. Continue ARB. Consider Entresto as an outpatient in place of ARB if not attempted in the past, and if tolerated with his orthostatic symptoms. Continue spironolactone. No SGLT2 inhibitor at this time given orthostatic symptoms. 6. Ischemic cardiomyopathy: Stable LV systolic function findings on today's echo. Medical therapy as above. Biventricular ICD in place. 7. Ventricular tachycardia: Based on records, complex history. On high-dose amiodarone and also on mexiletine. Defer to his primary jack machine operator. Monitor TSH and transaminase levels while on amiodarone. 8. Paroxysmal atrial fibrillation: Details not well-known. On anticoagulation therapy for stroke risk reduction. On multiple antiarrhythmic therapies and beta-talisha. 9. Aortic regurgitation: Nonsevere. 10. Mildly dilated aortic root: Annual surveillance. Can be followed by his primary jack machine operator. 11. Disposition: Cardiology will sign off at this time. Please call with further questions or concerns. Recommend close follow-up with his primary jack machine operator, Dr. Smith. Patient care communicated with primary hospitalist service, Dr. Vazquez. Thank you for allowing me to participate in the care of your patient. Please call for any other questions or concerns. Sincerely, Pascual Estrada M.D. History of Present Illness Reason for Consultation: syncope Requesting Physician: Dr. Avina Attending Physician: Otto Vazquez MD History of Present Illness Mr. Orlando is a very pleasant 79-year-old gentleman with history significant for CAD s/p CABG x 3 (1999), LAD PCI (2005), paroxysmal atrial fibrillation, heart failure with reduced EF, ischemic cardiomyopathy, dual-chamber ICD, hypertension, dyslipidemia, ventricular tachycardia, cerebellar ataxia/stroke, Parkinson's, and ulcerative colitis. His primary jack machine operator is Dr. Smith. He was hospitalized on 04/25/2024 for syncope. He has chronic lower extremity edema and chronic dyspnea on exertion. He gained 3 pounds and his legs became tighter with edema and worsening shortness of breath, prompting him to take his as needed metolazone on 04/21/2024. Over the next 1 to 2 days, his weight decreased from 285 pounds down to 279 pounds. He has chronic lightheadedness intermittently, especially positional when getting up from a seated position. After the metolazone, his lightheadedness worsened, especially while in an upright position. He went into the bathroom and remembers starting to fall while significant lightheaded, and then lost consciousness. When he arrived to the ER he was mildly hypertensive. Creatinine was above baseline up to 1.74. His home dose of loop diuretic, Lasix 120 mg, was held here. He feels back to baseline. He still has intermittent lightheadedness but improved from presentation. He recalls having near syncope approximately 3 months ago as well. He denies chest pain, orthopnea, melena, hematochezia, or hematuria. He tries to remain hydrated. He maintains a low-sodium diet and weighs himself on a daily basis. He estimates that he takes the additional as needed metolazone once every 3 to 4 weeks. He otherwise is compliant with Lasix 120 mg daily. Review of systems: As above. Review of systems otherwise negative/unremarkable. Family history: CAD in parents and siblings. Social history: Quit smoking in the . No significant alcohol use. No drug abuse. Lives at home with his . Has 2 children. He was unaccompanied. Allergies Allergy/AdvReac Type Severity Reaction Status Date / Time lisinopril Allergy Intermediate ABDOMINAL Verified 03/16/24 07:20 PAIN/DIARRHEA, Difficulty Swallowing simvastatin Allergy Intermediate DIARRHEA/ Verified 03/16/24 07:20 EXACERBATED COLITIS tetanus toxoid, adsorbed Allergy Mild Rash Verified 03/16/24 07:20 Home Medications Medication Instructions Recorded Confirmed Type atorvastatin 80 mg tablet 80 mg PO HS #30 tabs 05/21/19 04/24/24 Rx carvedilol 25 mg tablet 25 mg PO BID #60 tabs 05/21/19 04/24/24 Rx mexiletine 150 mg capsule 150 mg PO Q8 06/27/19 04/24/24 History spironolactone 25 mg tablet 25 mg PO QAM #30 tabs 12/08/19 04/24/24 Rx probenecid 500 mg tablet 500 mg PO BID 06/15/20 04/24/24 History nitroglycerin 0.4 mg sublingual 0.4 mg sublingual UD PRN Chest 07/25/20 04/24/24 Rx tablet Pain #25 Tabs sulfasalazine 500 mg tablet 1,000 mg PO QID #0 tabs 10/06/20 04/24/24 History azathioprine 50 mg tablet 100 mg PO QAM 10/11/20 04/24/24 History cholecalciferol (vitamin D3) 25 1,000 unit PO QAM 10/11/20 04/24/24 History mcg (1,000 unit) tablet (Vitamin D3) furosemide 40 mg tablet 120 mg PO QAM 10/11/20 04/24/24 History levothyroxine 125 mcg tablet 250 mcg PO QAM 03/22/21 04/24/24 History pantoprazole 40 mg tablet,delayed 40 mg PO QAM 03/22/21 04/24/24 History release apixaban 5 mg tablet (Eliquis) 5 mg PO Q12H #0 tabs 04/12/21 04/24/24 Rx aspirin 81 mg tablet,delayed 81 mg PO QAM 05/17/21 04/24/24 History release amoxicillin 500 mg capsule 2,000 mg PO DIRECTED PRN .1 hr 07/03/22 04/24/24 History before dental mecobalamin (vitamin B12) 1,000 1,000 mcg sublingual DAILY #30 tabs 07/03/22 04/24/24 Rx mcg disintegrating tablet,sublingual ketoconazole 2 % topical cream 1 applic topical HS PRN Rash 08/07/22 04/24/24 History amiodarone 200 mg tablet 600 mg (3 x 200 mg) PO QAM #270 11/01/23 04/24/24 Rx tabs lidocaine 5 % topical patch 1 patch topical DAILY PRN Pain 03/09/24 04/24/24 History losartan 50 mg tablet 50 mg PO QAM 03/09/24 04/24/24 History metolazone 2.5 mg tablet 2.5 mg PO DAILY PRN Fluid Retention 03/09/24 04/24/24 History acetaminophen 650 mg 650 mg PO Q12H 04/24/24 04/24/24 History tablet,extended release calcium carbonate 600 mg-vitamin 1 tab PO DAILY 04/24/24 04/24/24 History D3 5 mcg (200 unit) tablet carbidopa ER 50 mg-levodopa 200 mg 2 tab PO DAILY 04/24/24 04/24/24 History tablet,extended release multivitamin with minerals 1 tab PO DAILY 04/24/24 04/24/24 History potassium chloride 20 mEq 240 meq PO DAILY 04/24/24 04/24/24 History tablet,extended release Problem List (Updated 04/25/24 @ 12:44 by Kirk Estrada MD) Aortic regurgitation Paroxysmal atrial fibrillation Orthostatic lightheadedness HFrEF (heart failure with reduced ejection fraction) Elevated troponin (Acute) MATT (acute kidney injury) (Acute) Syncope (Acute) Head injury (Acute) Diplopia Tremor of right hand Lumbar radicular pain Parkinson disease Morbid obesity AICD (automatic cardioverter/defibrillator) present (Acute) Gait abnormality Parkinsonism B12 deficiency CHF (congestive heart failure) (Acute) Hypothyroidism CAD (coronary artery disease) On amiodarone therapy Dysphagia "has a lot of difficulty" Gout Left bundle-branch block Cerebellar ataxia Osteoarthritis Chronic back pain BPH (benign prostatic hyperplasia) Patient History Medical History Implantable cardioverter-defibrillator (ICD) in situ dual-chamber ICD; generator change 03/2023 History of ventricular tachycardia 01/2019 History of cerebellar stroke 11/22/11, [facility], on eliquis, no deficits. Previously followed with Dr Ty, was released from neuro. Chronic combined systolic and diastolic heart failure EF 30-35% 2018 echo Obstructive sleep apnea cpap Coronary arteriosclerosis in [place] artery s/p 1997 x1 stent, LAD stent x 1 01/2006, CABG x 3 in 09/02/08>all done sat [facility] History of DVT (deep vein thrombosis) Ischemic cardiomyopathy EF initially 25%, now 30-35% on most recent echo 2018. Ulcerative colitis On anticoagulant therapy eliquis--d/t CVA Hypertension Hyperlipidemia Atrial fibrillation PAF. on eliquis. Chronic obstructive pulmonary disease Parkinson disease Slow to wake up after anesthesia "took 2 1/2 days following CABG to extubate him" ICD (implantable cardioverter-defibrillator) battery depletion generator change 03/2023, [facility] Hypothyroidism Hearing deficit Ventricular tachycardia hx of--follows with Dr. Smith Myocardial Infarction x2-- follows with Dr. Smith Deep vein thrombosis RLE - dx ~2005, anticoagulant therapy; "still has one clot in his RLE as of 03/09/24" Surgical History Fusion of spine lumbar region, 2009 AICD (automatic cardioverter/defibrillator) present History of esophageal dilatation Pt does report continued issues with taking his pills due to esophageal problems. S/P cardiac pacemaker procedure inserted 09/17/2013. [employer] device. 2022, generator change, [facility] History of tooth extraction upper teeth removed History of cardiac cath History of coronary artery bypass graft x 3 2007 @ [facility] H/O prostate biopsy History of total hip arthroplasty bilateral-january and march 2006 Hx of transurethral resection of prostate x2 History of colonoscopy History of cholecystectomy 05/12/09 History of tonsillectomy History of adenoidectomy History of heart artery stent x1--1997, x1 stent 2005>both done at [facility] Family History Father Coronary heart disease Myocardial infarction Mother Coronary heart disease Myocardial infarction Sister Breast cancer Had mastectomy in 2018'. Family history of diabetes mellitus Brother Cardiac disorder Other No family history of adverse response to anesthesia Denies family history of Ovarian cancer Prostate cancer Lung cancer Colorectal cancer Social History Smoking Status: Former smoker Tobacco Type: Cigarettes and Pipe Age Started Using Tobacco: 12; Age Quit Using Tobacco: 25; packs per day: 2; Cigarettes Per Day: smoked cigarettes, and pipes 2PPD; Second Hand Exposure: No; Do You Dip or Chew Tobacco: No; Hx Alcohol Use: No Hx Substance Use: No Preferred Language: Hungarian Communication Ability: Effective Visual Impairment: Limited Hearing Ability: Hard of Hearing Professional Shopper Required: No Beliefs That Will Affect Care: None marital status: Current Living Situation: Spouse Current Living Situation Comment: spouse current occupational status: retired and disabled How many Children do You have: 2 Other Information That Helps Us Care for You: No Feels Safe at Home: Yes Safety Concerns: Feels Safe At This Time Childhood Exposure to Second-Hand Smoke: Yes Diet: regular Diet Comment: regular caffeine: Yes during the past year weight has: remained stable Dental Care, Regularly: Yes Physical Activity Frequency: Does not Exercise Physical Activity Frequency Comment: limited d/t physical condition Seatbelt Use: always Sunscreen Use: Yes Assistive Devices: Denture - Upper, Glasses, Hearing Aid - Bilateral and Walker Physical Exam Physical Exam: Gen.: No acute distress. Alert. HEENT: Anicteric sclera. Neck: No appreciable JVD. No bruits. Normal carotid upstrokes bilaterally. Cardiac: No ventricular heave. Regular. Normal S1-S2. No audible murmur. Pulmonary: Clear to auscultation bilaterally without wheezes, rales, or rhonchi. Abdomen: Soft, nontender, nondistended, with normoactive bowel sounds. No bruits noted. Extremities: 2+ radial pulses bilaterally. 2+ posterior tibialis pulses bilaterally. Trace bilateral lower extremity edema. No cyanosis. Results & Data Vital Signs (Past 12 Hours) Vital Signs Temp Pulse Pulse Pulse Resp BP Pulse Ox 04/25/24 11:33 36.4 C L 62 18 107/65 96 04/25/24 06:39 36.4 C L 69 18 133/61 95 04/25/24 03:26 04/25/24 03:26 36.6 C 77 20 146/73 H 94 04/25/24 02:00 60 04/25/24 01:21 63 18 117/74 97 O2 Del Method 04/25/24 11:33 Room Air 04/25/24 06:39 Room Air 04/25/24 03:26 CPAP 04/25/24 03:26 Room Air 04/25/24 02:00 04/25/24 01:21 Room Air Intake & Output 04/23/24 04/24/24 04/25/24 04/26/24 06:59 06:59 06:59 06:59 Intake Total 200 / 200 Output Total 350 / 350 Balance -150 / -150 Weight 278 lb 5 oz Laboratory Results Laboratory Results - last 24 hr 04/24/24 04/24/24 04/25/24 21:19 23:12 05:41 WBC 8.06 7.26 RBC 3.75 L 3.25 L Hgb 13.2 L 11.4 L Hct 39.1 L 34.2 L MCV 104.3 H 105.2 H MCH 35.2 H 35.1 H MCHC 33.8 33.3 RDW Std Deviation 51.8 H 52.4 H RDW Coeff of Delmi 13.5 13.6 Plt Count 225 183 MPV 9.9 10.1 Immature Gran % (Auto) 0.4 Neut % (Auto) 64.9 Lymph % (Auto) 20.1 [place] % (Auto) 11.2 Eos % (Auto) 2.7 Baso % (Auto) 0.7 Neut # (Auto) 5.23 Lymph # (Auto) 1.62 [place] # (Auto) 0.90 H Eos # (Auto) 0.22 Baso # (Auto) 0.06 Immature Gran # (Auto) 0.03 PT 12.2 H INR 1.1 APTT 27 PTT Ratio 1.0 Sodium 138 140 Potassium 4.0 3.7 Chloride 103 105 Carbon Dioxide 29 30 Anion Gap 6 5 BUN 35 H 35 H Creatinine 1.74 H 1.45 H Est Cr Clr Drug Dosing Not Reportable 55.0 Est GFR ( Amer) 42.0 52.3 Est GFR (Non-Af Amer) 36.2 45.2 BUN/Creatinine Ratio 20.1 H 24.1 H Glucose 111 H 95 Calcium 8.6 8.1 L Magnesium 2.3 Total Bilirubin 0.4 0.4 AST 14 12 L ALT 8 5 L Alkaline Phosphatase 77 63 Troponin I High Sens 26.7 H 25.6 H Total Protein 6.7 5.5 L Albumin 3.6 3.1 L Globulin 3.1 2.4 L Albumin/Globulin Ratio 1.2 1.3 TSH 1.772 Diagnostic Findings ECHO 04/25/24: 1. Moderately dilated left ventricle with moderately reduced systolic function. EF 35-40%. Akinesis of the inferolateral wall and otherwise global hypokinesis. Severe asymmetric hypertrophy involving the basal anteroseptum. 2. Moderate left atrial dilation. 3. Mild aortic regurgitation. 4. Mild mitral regurgitation. 5. Mildly dilated aortic root; 4.5 cm. 6. Normal estimated right ventricular systolic pressure. 7. Technically difficult study. 8. Previous study on 05/09/2021 was enhanced with intravenous echo contrast. Labs reviewed and notable for mild anemia, mildly abnormal but improved renal function, normal potassium, nonelevated transaminase levels, minimally elevated high-sensitivity troponin, normal TSH. Telemetry personally reviewed: Atrial paced. ECG personally reviewed 04/24/2024: Sinus rhythm with first-degree AV block versus atrial paced. LBBB. CT head 04/24/2024: No acute findings per radiology. Chest x-ray 04/24/2024: No acute cardiopulmonary findings per radiology. Medications Administered Current Inpatient Medications Acetaminophen (Acetaminophen 325 Mg Tab) 650 mg PO Q4H PRN PRN Reason: Pain or Fever Stop: 05/25/24 02:02 Last Admin: 04/25/24 02:32 Dose: 650 mg Amiodarone HCl (Amiodarone 200 Mg Tab) 600 mg PO QAM [facility] Stop: 05/25/24 08:59 Last Admin: 04/25/24 09:34 Dose: 600 mg Apixaban (Apixaban 5 Mg Tablet) 5 mg PO Q12H UNA Stop: 05/25/24 02:02 Last Admin: 04/25/24 09:34 Dose: 5 mg Aspirin (Aspirin 81 Mg Ectab) 81 mg PO QAM UNA Stop: 05/25/24 08:59 Last Admin: 04/25/24 09:34 Dose: 81 mg Atorvastatin Calcium (Atorvastatin 40 Mg Tab) 80 mg PO HS UNA Stop: 05/25/24 20:59 Azathioprine (Azathioprine 50 Mg Tab) 100 mg PO QAM UNA Stop: 05/25/24 08:59 Last Admin: 04/25/24 09:34 Dose: 100 mg Calcium/Vitamin D (Calcium 600mg + Vit D 400 Iu Tab) 1 tab PO DAILY UNA Stop: 05/25/24 08:59 Last Admin: 04/25/24 09:34 Dose: 1 tab Carbidopa/Levodopa (Carbidopa/Levodopa 50/200mg Ext Rel Tab) 2 tab PO DAILY UNA Stop: 05/25/24 08:59 Last Admin: 04/25/24 09:34 Dose: 2 tab Carvedilol (Carvedilol 25 Mg Tab) 25 mg PO BID UNA Stop: 05/25/24 08:59 Last Admin: 04/25/24 09:34 Dose: 25 mg Levothyroxine Sodium (Levothyroxine Sodium 125 Mcg Tablet) 250 mcg PO DAILYBB UNA Stop: 05/25/24 06:29 Last Admin: 04/25/24 05:23 Dose: 250 mcg Lidocaine (Lidocaine 5% 1 Patch) 1 patch TD DAILY PRN PRN Reason: Pain Stop: 05/25/24 02:02 Mexiletine HCl (Mexiletine Hcl 150 Mg Capsule) 150 mg PO 0800,1600,2100 UNA Stop: 05/25/24 07:59 Last Admin: 04/25/24 09:34 Dose: 150 mg Miscellaneous (Remove Lidoderm Patch) 1 each N/A DAILY@2100 [facility] Stop: 05/25/24 20:59 Nitroglycerin (Nitroglycerin Sl 0.4 Mg/Tab Tab) 0.4 mg SL UD PRN PRN Reason: Chest Pain Stop: 05/25/24 02:02 Ondansetron HCl (Ondansetron Inj 2 Mg/Ml 2 Ml Vial) 4 mg IV Q6H PRN PRN Reason: Nausea Stop: 05/25/24 02:02 Pantoprazole Sodium (Pantoprazole 40 Mg Tab) 40 mg PO QAM [facility] Stop: 05/25/24 08:59 Last Admin: 04/25/24 09:34 Dose: 40 mg Polyethylene Glycol (Polyethylene (Miralax) 17 Gm Pack) 17 gm PO DAILY PRN PRN Reason: Constipation Stop: 05/25/24 02:02 Probenecid (Probenecid 500 Mg Tab) 500 mg PO BID [facility] Stop: 05/25/24 08:59 Last Admin: 04/25/24 09:34 Dose: 500 mg Sulfasalazine (Sulfasalazine 500 Mg Tablet) 1,000 mg PO QID [facility] Stop: 05/25/24 08:59 Last Admin: 04/25/24 09:34 Dose: 1,000 mg PG Care Time/CCT Total # of Minutes Spent Total Time Spent with Patient: Total time spent is greater than 50% in coordination of care (as documented) at patient's floor/unit and/or counseling patient: Coding Level of Care Code 94759 INT INP/OBS CARE 3/75MIN Diagnoses Syncope R55 Elevated troponin R79.89 AICD (automatic cardioverter/defibrillator) present Z95.810 Coronary artery disease involving [place] coronary artery of [place] heart without angina pectoris I25.10 Coronary Disease-Associated Artery/Lesion type: [place] artery [place] vs. transplanted heart: [place] heart Associated angina: without angina On amiodarone therapy Z79.899 HFrEF (heart failure with reduced ejection fraction) I50.20 Orthostatic lightheadedness R42 Ventricular tachycardia I47.2 Paroxysmal atrial fibrillation I48.0 Aortic regurgitation I35.1 (4) CAD (coronary artery disease) Coronary Disease-Associated Artery/Lesion type: [place] artery [place] vs. transplanted heart: [place] heart Associated angina: without angina Qualified Code(s): I25.10 - Atherosclerotic heart disease of [place] coronary artery without angina pectoris
--- NOTE | 2024-04-25 12:40 | XCELERA ---
[id number] [id number]
--- NOTE | 2024-04-25 17:47 | Electrocardiogram Report ---
Test Reason : Blood Pressure : / mmHG Vent. Rate : 063 BPM Atrial Rate : 000 BPM P-R Int : 000 ms QRS Dur : 138 ms QT Int : 496 ms P-R-T Axes : 000 -34 123 degrees QTc Int : 507 ms Possible Sinus rhythm with 1st degree A-V block Left axis deviation Left bundle branch block Abnormal ECG When compared with ECG of 22-NOV-2023 11:31, Atrial pacing is no longer visualized Confirmed by Kirk Estrada ([id number]) on 04/25/2024 5:47:07 PM Referred By: REFERRED SELF Confirmed By:Kirk Estrada
[2024-04-25] MEDS: ATORVASTATIN 40 MG TAB PO SCH (21:14)
--- NOTE | 2024-04-26 07:03 | Discharge Summary ---
Date of Service April 26, 2024 Admission HPI Per Admitting Provider Arnulfo is a 79M w/ PMH of PD, CAD w/ AICD, CHF, hypothyroidism, dysphagia, gout, LBBB, cerebellar ataxia, chronic LBP, and BPH who presents from home with concern of syncope. Patient notes that over the last 2 days he has been feeling increasingly lightheaded. He presented to the ED tonight after falling over backwards while brushing his teeth. Prior to this he had been sitting in his lounge chair, walked to the kitchen, taken his evening medications, and then walked to the bathroom. He notes this has occurred before, once when he fell into a chair and another when he fell into the wall. During one of the prior episodes he did have a run of V Tach. Patient has an AICD implanted and recently had the battery replaced. Patient notes that he has been feeling more 'puffy" and had noted 3 lbs of weight gain in 1 day. He takes Furosemide daily, but took an additional dose of Metolazone. Following the Metolazone he lost 6 lbs in 2 days, he then began to feel dizzy. Patient denies chest pain, dyspnea, nausea, or emesis. He is not experienced any recent fevers or chills. He denies dysuria, frequency, diarrhea, or constipation. Patient follows his BP, HR, and medications closely in a journal and has otherwise had no recent changes. He notes that he is dyspneic at baseline but notices it is more bothersome when the temperature rises. ED Course: Tylenol Admission Exam Per Admitting Provider Gen: NAD, alert, interactive HEENT: Supple, PERRLA/EOMI, NCAT, no LAD, no thyromegaly, no JVD Resp:Non-labored, no wheezing/rhonchi/rales, CTAB CV:irregular rhythm, regular rate, normal S1/S2, no M/R/G Abd: Soft, non-distended, no TTP, normoactive bowels, no masses Extr: 2+ dp bilaterally, 1+ peripheral edema edema bilaterally Skin: No rashes lesions or erythema Principal Diagnosis orthostatic lightheadedness, orthostatic syncope Discharge Exam Constitutional WD/WN, vitals as above Respiratory normal respiratory effort, lungs clear to auscultation Cardiovascular RRR, no murmur, no edema Extremities: normal capillary refill and + pedal edema (1+, patient feels skin tight, but almost at baseline); no calf tenderness Gastrointestinal (Abdomen) normal bowel sounds, soft, nontender, no hepatosplenomegaly Psychiatric A+Ox3, euthymic affect Discharge Data Allergies Allergy/AdvReac Type Severity Reaction Status Date / Time lisinopril Allergy Intermediate ABDOMINAL Verified 03/16/24 07:20 PAIN/DIARRHEA, Difficulty Swallowing simvastatin Allergy Intermediate DIARRHEA/ Verified 03/16/24 07:20 EXACERBATED COLITIS tetanus toxoid, adsorbed Allergy Mild Rash Verified 03/16/24 07:20 Consultations 04/24/24 23:18 ED Decision to Admit Stat 04/25/24 02:03 Consult Cardiology Routine Ordered Studies 04/24/24 21:17 CT cervical spine wo con Stat CT head/brain wo con Stat Hospital Course (1) Syncope: (2) MATT (acute kidney injury): (3) Elevated troponin: (4) Parkinson disease: (5) AICD (automatic cardioverter/defibrillator) present: (6) CHF (congestive heart failure): (7) Hypothyroidism: (8) CAD (coronary artery disease): (9) Dysphagia: (10) Chronic back pain: (11) BPH (benign prostatic hyperplasia): Zayda Arredondo is a 79M w/ PMH of PD, CAD w/ AICD, CHF, hypothyroidism, dysphagia, gout, LBBB, cerebellar ataxia, chronic LBP, and BPH who presents from home with concern of syncope. Patient should use the metolazone for 1 day then call his [facility] team for further instructions each time he meets threshold to use it (look in Sarah's note for that). Should F/U w/ cardiology in 1-2 wks to determine what intermediate manager plan for add on metolazone is? 1) Syncopal Event | Fall - Acute, singular event w/ subsequent striking of head - CT C-spine & Head negative - EKG w/ wide QRS and LBBB (known) - Interrogate AICD 04/25: no arrhythmias noted, device functioning as programmed - Admit to monitor on telemetry - Patient noticing increased LE edema, and took Metolazone in addition to daily Furosemide, subsequently losing 6 lbs in 2 days Weight loss provoked lightheadedness which likely provoked syncopal event - Echocardiogram results (04/25): moderately dilated LV, EF 35-40%; akinesis of inferolateral wall and global hypokinesis; severe asymmetric hypertrophy involving basal anteroseptum; moderate l. atrial dilation, mild aortic regurgitation, mild mitral regurgitation, mildly dilated aortic root--4.5 cm --> no significant change from prior Echo Last performed 2020, EF 35-40% Longstanding patient of Dr. Smith - TSH, 1.77; Mg, 2.3; - Cardiology contacted at patient's request, their recommendations: reduce outpt dosage of losartan, 25 mg, PO, daily; compression stockings prescribed upon discharge, - Reiterated the plan for patient's use of metolazone (trigger wgt of 295 lbs for initiating 2.5 mg, daily of metolazone; suggested just 1 dose before calling cardiology for suggestions so that pt doesn't increase dehydration/orthostatic syncope/fall risk) 2) MATT # resolved - Cr, 1.06 <-- 1.45 <-- 1.74 (baseline creatinine ~ 1.3) - Likely secondary to dehydration/diuretic use (as above) - Held Furosemide and Metolazone, hydrated o/n 3) Elevated Troponin - HSTrop, 25.6 <-- 26.7 - Appears to be patient's baseline ~25-30 - Trended to peak; No active chest pain or acute dyspnea Chronic Conditions - PD/cerebellar ataxia: carbidopa/levodopa ongoing - CHF: will reduce losartan per [facility] recs - CAD and Ischemic Cardiomyopathy w/ AICD: continue home medications - Hypothyroidism: continue home medications, check TSH - Dysphagia: continue home PPI - LBP: continue home lidocaine patch - Gout/RA: continue Azathioprine/Probenecid/Sulfasalazine Total Time Total Time Spent Total Time Spent (In Minutes): see attending attestation Discharge Plan Discharge Items Patient Disposition: Home - Self-Care Reason For Visit: SYNCOPE, MATT Discharge Diagnosis: orthostatic syncope Condition on Discharge: Fair Activity: Resume your previous activity Non-emergency contact: Primary Care Provider and [employer] Feeder Call non-emergency contact if: you have any medication questions and your symptoms worsen Follow-up/Referrals: Ashanti Melchor DO [Primary Care Provider] - 05/14/24 9:20 am Diet: Heart Healthy Addtl Attending Provider Instructions: You were admitted to the hospital for syncope-related falls. You were treated with IV fluids, while some of your home medications were held, to allow for rehydration. A discharge summary will be sent to your primary care physician to ensure continuity of care. Please bring this discharge summary with you to your next office appointment so that your provider can review it at that time. Follow-up appointments: We have requested a follow-up appointment with your primary care physician and equipment scheduler within one week of discharge. Please call their office if you do not hear from them. Keep all your follow-up appointments as already scheduled. If you cannot make an appointment, notify your provider. Medications: Your medication list has been reviewed and reconciled upon discharge to ensure accuracy and continuity of care. An updated list of all your medications is included with your hospital discharge paperwork. Please review this list closely, and make note of any changes. We sent a new medication called losartan to your pharmacy. Take losartan, 25 mg/one tablet, daily, regularly. A prior medication called metolazone that you're prescribed, needs to have its dosage instructions modified. You take daily weights at home and note a dry weight of 291 lb and a trigger weight of 295 lb. Typically takes Lasix 40 mg, 3 tablets daily along with spironolactone 25 mg daily. Takes metolazone 2.5 mg when necessary for weight gain or weight 295 lbs or above. Take one dose of metolazone, 2.5 mg/one tablet, daily, for 1 day, after which point, call your equipment scheduler for further recommendations regarding continued metolazone dosing. Take your medications as instructed; do not skip a dose of your medicines. Make sure all of your doctors know every medicine you are taking (including cefu-cjq-yrwwfls medicines, vitamins, and supplements). Call your primary care provider before taking any new medicines (including rtyr-hul-bvalqem medicines, vitamins, and supplements), because some of these may interact with your current medications, or may make your symptoms worse. Tell your primary care provider if you cannot afford your medications. CONTACT YOUR PRIMARY CARE PROVIDER if you experience any of the following: increased fatigue, shortness of breath, increased swelling of the feet/legs feelings of lightheadedness, subjective feeling that you may fall Difficulty following your treatment plan, or difficulty taking medications CALL 911 OR GO TO THE EMERGENCY DEPARTMENT if you experience any of the following: Sudden, severe abdominal pain or nausea/vomiting Severe chest pain, or chest pain that radiates (moves) to your jaw or arm Sudden, severe shortness of breath or difficulty breathing Thank you for allowing us to participate in your care Pending Studies at Discharge: No Stand-Alone Forms: My [facility], Smoking Cessation Medications and DC Order Prescriptions: New losartan 25 mg tablet 25 mg PO DAILY Qty: 30 0RF (DME) compress.stocking,knee,reg,med Misc See Rx Instructions .Route Qty: 2 0RF Rx Instructions: As directed Continued spironolactone 25 mg tablet 25 mg PO QAM Qty: 30 0RF nitroglycerin 0.4 mg tablet, sublingual 0.4 mg Sublingual UD PRN (Reason: Chest Pain) Qty: 25 3RF sulfasalazine 500 mg tablet 1,000 mg PO QID Qty: 0 Rx Instructions: TAKES AT BREAKFAST, 1100, 1600 & HS amiodarone 200 mg tablet 600 mg PO QAM Qty: 270 3RF probenecid 500 mg tablet 500 mg PO BID Rx Instructions: TAKES WITH BREAKFAST & 1600. aspirin 81 mg tablet,delayed release (DR/EC) 81 mg PO QAM amoxicillin 500 mg capsule 2,000 mg PO DIRECTED PRN (Reason: .1 hr before dental) Rx Instructions: TAKE 4 CAPSULES BY MOUTH 1/2 HOUR PRIOR TO APPOINTMENT mecobalamin (vitamin B12) 1,000 mcg tablet,disintegrating 1,000 mcg sublingual DAILY Qty: 30 5RF Rx Instructions: place 1 tablet under tongue and allow to dissolve for at least 30 secs before swallowing. atorvastatin 80 mg tablet 80 mg PO HS Qty: 30 5RF carvedilol 25 mg tablet 25 mg PO BID Qty: 60 5RF Rx Instructions: TAKES 0530 & 1600 mexiletine 150 mg capsule 150 mg PO Q8 Rx Instructions: TAKES WITH BREAKFAST, 1600 & HS cholecalciferol (vitamin D3) [Vitamin D3] 25 mcg (1,000 unit) Tablet 1,000 unit PO QAM furosemide 40 mg tablet 120 mg PO QAM azathioprine 50 mg tablet 100 mg PO QAM levothyroxine 125 mcg Tablet 250 mcg PO QAM Rx Instructions: USUALLY TAKES BETWEEN 0888-4120. pantoprazole 40 mg tablet,delayed release (DR/EC) 40 mg PO QAM Eliquis 5 mg tablet 5 mg PO Q12H Qty: 0 0RF ketoconazole 2 % Cream 1 applic TOPICAL HS PRN (Reason: Rash) metolazone 2.5 mg Tablet 2.5 mg PO DAILY PRN (Reason: Fluid Retention) lidocaine 5 % Adhesive Patch,Medicated 1 patch TOPICAL DAILY PRN (Reason: Pain) Rx Instructions: leave on most painful area for up to 12 hrs carbidopa-levodopa 50-200 mg tablet extended release 2 tab PO DAILY calcium carbonate-vitamin D3 600 mg-5 mcg (200 unit) Tablet 1 tab PO DAILY multivitamin with minerals Tablet 1 tab PO DAILY acetaminophen 650 mg Tablet Extended Release 650 mg PO Q12H potassium chloride 20 mEq Tablet Extended Release 240 meq PO DAILY Rx Instructions: states takes( 40 meq ) 6 tabs daily or as needed Discontinued losartan 50 mg tablet 50 mg PO QAM Discharge Orders: Discharge Order (Routine); Ordered 04/26/24 Ordered By: Otto Machado Admission Data Admit Date/Time: 04/25/24 00:08 Attending Provider: Otto Vazquez Admit Provider: Kenisha Avina Primary Care Provider: Ashanti Melchor Other Providers: Griffin Hoyt; Jozef Romo; Johnny Smith; Arnulfo Rudd; Alex Mosqueda; Usama Becerra Jr; Kirk Estrada; Peyton Luis; Jill Perla; Otto Wang; Otto Dooley; Ryan White; Naomi Polo; Cj Manjarrez; Corinne Isaacs; Richard Garcia; Darren Zapata; Chau Fagan; Shamar Lentz; Xavi Mohan Other Interventions: Discharge Summary Assessment (RN) Last Done: 04/26/24 14:09 Supervising Physician Co-Signing Physician Notes Attending attestation Pt seen and examined in concert with Dr. Machado. In agreement with the documented findings as noted in the resident documentation with any exceptions or additions as noted here. Reports return to essential baseline of positional lightheadedness without imbalance. Reports walker at home with consistent use without other falls. On examination, S1/S2 nl RRR, 2/6 LEYDI. CTAB. Abd NT/ND BS+ve, no cartotid bruit appreciated. Ambulatory assessment with inpatient team while using rolling walker, with good stability on standing, turning from bed without patient wily rn. Syncopal event with fall - cardiology consult appreciated - agree w/ likely orthostasis, especially with chronicity reported. On discharge, adjust losartan to 25mg, encourage PO hydration, monitor BMP at follow up MATT - resolved following PO intake, discontinuation of routine PRN metolazone use. Counseling provided to limit use to 1 tab then contact cardiology with close cardiology follow up. Else see resident documentation as noted. Total attending physician time spent with this patient's care on the day of discharge: 35 minutes. Resident Activity Tracking Resident Involvement: Resident Care Provided Care Provided: Adult Hospital Medicine
[2024-04-26 07:55] LABS: BUN Creatinine Ratio 27.4 (10-20); Calcium 8.5 mg/dl (8.6-10.3); Creatinine Clr Calc Pharmacy 75.7 ml/min; Est GFR (African American) 76.4 ml/min; Potassium 3.5 mmol/L (3.5-5.1)
== END 2024-04-26 15:40 | disposition home or self-care (01) | DRG 312 ==
LOC: ED 21:08 → 2W 04-25 00:08 → SUATTDRO 04-25 00:08 → INTOOBSV 04-25 00:08 → 2W 04-25 01:32
DX: Z95.810 Presence of automatic (implantable) cardiac defibrillator; I25.10 Atherosclerotic heart disease of native coronary artery without angina pectoris; I95.1 Orthostatic hypotension; G20.A1 Parkinson's disease without dyskinesia, without mention of fluctuations; M10.9 Gout, unspecified; Z79.890 Hormone replacement therapy; Z79.899 Other long term (current) drug therapy; I25.2 Old myocardial infarction; Z88.8 Allergy status to other drugs, medicaments and biological substances; N40.0 Benign prostatic hyperplasia without lower urinary tract symptoms; Z79.82 Long term (current) use of aspirin; G47.33 Obstructive sleep apnea (adult) (pediatric); Z79.01 Long term (current) use of anticoagulants; E86.0 Dehydration; M06.9 Rheumatoid arthritis, unspecified; I11.0 Hypertensive heart disease with heart failure; R55 Syncope and collapse; E78.5 Hyperlipidemia, unspecified; Z86.73 Personal history of transient ischemic attack (TIA), and cerebral infarction without residual deficits; Z86.718 Personal history of other venous thrombosis and embolism; Z87.891 Personal history of nicotine dependence; I48.91 Unspecified atrial fibrillation; Z88.7 Allergy status to serum and vaccine; Z82.49 Family history of ischemic heart disease and other diseases of the circulatory system; Z95.5 Presence of coronary angioplasty implant and graft; M54.9 Dorsalgia, unspecified; E03.9 Hypothyroidism, unspecified; G89.29 Other chronic pain; I50.42 Chronic combined systolic (congestive) and diastolic (congestive) heart failure; N17.9 Acute kidney failure, unspecified

== ENCOUNTER 2025-05-13 23:06 | Inpatient (IN) ==
[2025-05-13 23:29] LABS: Hematocrit (blood only) 40.4 % (42.0-52.0); Hemoglobin 13.4 g/dl (14.0-18.0); Immature Granulocytes # (auto) 0.08 K/uL (0.01-0.20); Immature Granulocytes % (auto) 1.3 %; Mean Corpuscular Hemoglobin 35.1 pg (25.0-34.0); Mean Corpuscular Volume 105.8 fL (80.0-100.0); Platelet Count 167 K/uL (130-400); RDW Standard Deviation 55.2 fL (36.4-46.3); Red Blood Count 3.82 M/uL (4.70-6.10); White Blood Count 6.15 K/ul (4.8-10.8)
[2025-05-13 23:52] LABS: Anion Gap 4.0 (3-11); Blood Urea Nitrogen 37.0 mg/dl (6-23); Calcium 8.4 mg/dl (8.6-10.3); Carbon Dioxide 29.0 mmol/L (21-32); Chloride 106.0 mmol/L (98-107); Creatinine Clr Calc Pharmacy 67.6 ml/min; Glucose 98.0 mg/dl (70-99(Fasting)); Potassium 3.8 mmol/L (3.5-5.1); Sodium 139.0 mmol/L (136-145)
[2025-05-14 00:08] LABS: Thyroid Stimulating Hormone 2.757 uIu/ml (0.300-4.500)
[2025-05-14 00:15] LABS: INR 1.2 (0.9-1.1); Prothrombin Time 12.6 Seconds (9.0-12.0)
--- NOTE | 2025-05-14 00:17 | Emergency Department Note ---
Impression & Plan Dyspnea, Chest pain, ICD (implantable cardioverter-defibrillator) discharge, Elevated troponin, Elevated brain natriuretic peptide (BNP) level ED Provider Note ED Provider Note NAME: PRABHU JALLOH AGE:80 SEX: Male : 1945 ARRIVES VIA: EMS INFORMANT: Patient ED PROVIDER(s): Marjorie Adams DO CHIEF COMPLAINT: Shortness of breath, chest pain, AICD fired HPI: This is an 80-year-old male brought in by EMS after he states he began having some chest pressure and tightness at home while laying in bed on his right side. He states he went to roll over and grabbed a nitroglycerin tablet from a bottle on the nightstand and his AICD fired. He states the chest pain began to resolve however he felt more short of breath after that. He states his then called 911. Patient does have significant cardiac history and does follow with Dr. Smith. He states he has been taking his medications as prescribed and none of them have changed recently. Patient states he has not recently had any fevers, chills, or illness symptoms. He denies any increased leg swelling. He denies any nausea or dizziness. He is uncertain EMS reports initial EKG reassuring however upon transporting the patient went into ventricular tachycardia. He had stable vitals get at this time so they called for medical management. Per medical orders patient given 150 mg of amiodarone bolus en route. PAST MEDICAL HISTORY:See Below PAST SURGICAL HISTORY:See Below FAMILY HISTORY:See Below SOCIAL HISTORY:See Below HOME MEDICATIONS:See Below ALLERGIES:See Below VITALS:See Below PHYSICAL EXAMINATION: GENERAL: alert, unwell appearing, well nourished, no distress, non-toxic EYE EXAM: normal conjunctiva, PERRL and EOM's grossly intact OROPHARYNX: no exudate, no erythema, lips, buccal mucosa, and tongue normal and mucous membranes are moist NECK: supple, no nuchal rigidity, no adenopathy, non-tender LUNGS: Clear to auscultation. Normal chest wall mechanics, no w/r/r HEART: no murmurs, S1 normal and S2 normal, well-healed vertical midline sternotomy scar. ABDOMEN: abdomen soft, non-tender, normo-active bowel sounds, no masses, no rebound or guarding. SKIN: no rashes, petechiae, orbruising UPPER EXTREMITIES: upper extremities are grossly normal. FROM, nml pulses b/l. LOWER EXTREMITIES: 2+ b/l pitting edema. FROM, nml pulses b/l. NEURO EXAM: Normal sensorium, cranial nerves II-XII grossly intact, normal speech, no facial droop,nogross weakness of arms, no gross weakness of legs. Gross sensation intact. No ataxia. Mild resting tremor noted to hands as well as head. Vital Signs: reviewed and remarkable Differential Diagnosis: pneumonia, bronchitis, COPD/Asthma exacerbation, pneumothorax, pulmonary embolism, congestive heart failure, acute coronary syndrome, as well as others were considered MEDICAL DECISION MAKING: This is an 80 yo male who presents to the ER c/o dyspnea and chest pain and firing of his ICD. On arrival he was afebrile and VS stable. He appeared to be paced on arrival and had received amio from EMS due to an episode of VT. Labs drawn and sent, IV established, EKG and CXR performed and interpreted at bedside, and patient placed on telemetry. His device was interrogated and I spoke with the [employer] rep. Patient with multiple episodes of VT this evening, one of which was eventually refractory to ATP and required defibrillation. Patient's labs reassuring. Patient's troponin and BNp reassuring however it is unclear if this was simply from the dysrhythmia and increased demand or was more causative. I do not suspect occult infection. Exam not suggestive of CHF. Case discussed with the hospitalist team for further evaluation and mgmt. Consultation(s): 2336: Discussed with Chris [employer] rep. [id number]: DIscussed with Dr. Mercedes, [place] hospitalist team, for additional evaluation and mgmt. ER Treatment Provided: See below Diagnostics Interpreted By Me: -ECG: Paced at 77, leftward axis, prolonged intervals, nonspecific ST/T wave changes, no change in morphology compared to June 29, 2024 however wider appearing QRS -Cardiac Monitoring: An order was placed for continuous cardiac monitoring. The monitor shows a rate of 62 with paced rhythm. -Laboratory studies: As stated above and show below. -Imaging studies: X-ray Chest: A single view study of the chest was reviewed and was negative for cardiomegaly, focal infiltrate, effusion, pulmonary edema, or wide mediastinum. Pacer/AICD present. Triage Nursing Note Reviewed Prior/Outside Records Reviewed -prior cardiology consultation from a year ago reviewed Critical Care: Critical care of 44 min performed to assess and manage high likelihood of life-threatening dysrhythmia, involving labs and imaging performed with assessment to evaluate chest pain and ICD firing diagnosis with frequent reassessment. This time includes bedside time, treatment discussions with patient/family/consultants, documentation time and excludes procedure time. Past Med/Surg History Problem List (Updated 05/15/25 @ 20:11 by Marjorie Adams, DO) Elevated brain natriuretic peptide (BNP) level (Acute) Ambulatory dysfunction DNR (do not resuscitate) Allergic rhinitis Gouty arthritis of both feet GERD (gastroesophageal reflux disease) Hypothyroidism Ulcerative colitis Decubitus ulcer, stage III Macrocytic anemia Multiple myeloma Parkinson disease CVD (cerebrovascular disease) Paroxysmal atrial fibrillation LBBB (left bundle branch block) CAD (coronary artery disease) Chronic diastolic (congestive) heart failure Chronic systolic (congestive) heart failure Demand ischemia Ventricular arrhythmia ICD (implantable cardioverter-defibrillator) discharge (Acute) Chest pain (Acute) Dyspnea (Acute) Ulcerative colitis Obstructive sleep apnea cpap Ischemic cardiomyopathy EF initially 25%, now 30-35% on most recent echo 2019. Hypertension Hyperlipidemia Hearing deficit Head injury Elevated troponin (Acute) Chronic combined systolic and diastolic heart failure EF 30-35% 2019 echo Atrial fibrillation PAF. on eliquis. Sacral wound Aortic regurgitation Paroxysmal atrial fibrillation Orthostatic lightheadedness HFrEF (heart failure with reduced ejection fraction) Diplopia Lumbar radicular pain Morbid obesity AICD (automatic cardioverter/defibrillator) present (Acute) Gait abnormality Parkinsonism B12 deficiency CHF (congestive heart failure) (Acute) Hypothyroidism CAD (coronary artery disease) On amiodarone therapy Dysphagia "has a lot of difficulty" Gout Left bundle-branch block Cerebellar ataxia Osteoarthritis Chronic back pain BPH (benign prostatic hyperplasia) Medical History COVID MATT (acute kidney injury) Syncope Implantable cardioverter-defibrillator (ICD) in situ dual-chamber ICD; generator change 03/2023 History of ventricular tachycardia 01/2019 History of cerebellar stroke 11/22/11, [facility], on eliquis, no deficits. Previously followed with Dr Ty, was released from neuro. Coronary arteriosclerosis in [place] artery s/p 1997 x1 stent, LAD stent x 1 01/2006, CABG x 3 in 09/02/08>all done [place] [facility] [place] History of DVT (deep vein thrombosis) On anticoagulant therapy eliquis--d/t CVA Chronic obstructive pulmonary disease Slow to wake up after anesthesia "took 2 1/2 days following CABG to extubate him" ICD (implantable cardioverter-defibrillator) battery depletion generator change 03/2023, [facility] Ventricular tachycardia hx of--follows with Dr. Smith Myocardial Infarction x2-- follows with Dr. Smith Deep vein thrombosis RLE - dx ~2005, anticoagulant therapy; "still has one clot in his RLE as of 03/09/24" Surgical History Fusion of spine lumbar region, 2009 AICD (automatic cardioverter/defibrillator) present History of esophageal dilatation Pt does report continued issues with taking his pills due to esophageal problems. S/P cardiac pacemaker procedure inserted 09/17/2013. [employer] device. 2022, generator change, [facility] History of tooth extraction upper teeth removed History of cardiac cath History of coronary artery bypass graft x 3 2007 @ [facility] [place] H/O prostate biopsy History of total hip arthroplasty bilateral-january and march 2006 Hx of transurethral resection of prostate x2 History of colonoscopy History of cholecystectomy 05/12/09 History of tonsillectomy History of adenoidectomy History of heart artery stent x1--1997, x1 stent 2005>both done at [facility] Family History Father Coronary heart disease Myocardial infarction Mother Coronary heart disease Myocardial infarction Sister Breast cancer Had mastectomy in 2018'. Family history of diabetes mellitus Brother Cardiac disorder Other No family history of adverse response to anesthesia Denies family history of Ovarian cancer Prostate cancer Lung cancer Colorectal cancer Social History Smoking Status: Former smoker Tobacco Type: Pipe Age Started Using Tobacco: 12; Age Quit Using Tobacco: 25; packs per day: 2; Second Hand Exposure: No; Do You Dip or Chew Tobacco: No; Hx Alcohol Use: No Hx Substance Use: No Preferred Language: Jordanian Communication Ability: Effective Visual Impairment: Limited Hearing Ability: Hard of Hearing Banking Attorney Required: No Beliefs That Will Affect Care: None marital status: Current Living Situation: Spouse Current Living Situation Comment: spouse current occupational status: retired and disabled How many Children do You have: 2 Feels Safe at Home: Yes Childhood Exposure to Second-Hand Smoke: Yes Diet: regular Diet Comment: regular caffeine: Yes during the past year weight has: remained stable Dental Care, Regularly: Yes Physical Activity Frequency: Does not Exercise Physical Activity Frequency Comment: limited d/t physical condition Seatbelt Use: always Sunscreen Use: Yes Assistive Devices: Walker Allergies Allergies Allergy/AdvReac Type Severity Reaction Status Date / Time lisinopril Allergy Intermediate DIFFICULTY Verified 05/13/25 23:43 SWALLOWING/ABD PAIN/N/V tetanus toxoid, adsorbed Allergy Mild Rash Verified 05/13/25 23:43 simvastatin AdvReac Intermediate DIARRHEA/ Verified 05/13/25 23:43 EXACERBATED COLITIS Home Meds Home Medications Medication Instructions Recorded Confirmed probenecid 500 mg tablet 500 mg PO BID 06/15/20 05/14/25 sulfasalazine 500 mg tablet 1,000 mg PO QID #0 tabs 10/06/20 05/14/25 azathioprine 50 mg tablet 100 mg PO QAM 10/11/20 05/14/25 cholecalciferol (vitamin D3) 25 1,000 unit PO QAM 10/11/20 05/14/25 mcg (1,000 unit) tablet (Vitamin D3) levothyroxine 125 mcg tablet 250 mcg PO DAILYBB 03/22/21 05/14/25 pantoprazole 40 mg tablet,delayed 40 mg PO QAM 03/22/21 05/14/25 release aspirin 81 mg tablet,delayed 81 mg PO QAM 05/17/21 05/14/25 release amoxicillin 500 mg capsule 2,000 mg PO DIRECTED PRN .1 hr 07/03/22 05/14/25 before dental lidocaine 5 % topical patch 1 patch topical DAILY PRN Pain 03/09/24 05/14/25 carbidopa ER 50 mg-levodopa 200 mg 1 tab PO BID 04/24/24 05/14/25 tablet,extended release multivitamin with minerals 1 tab PO DAILY 04/24/24 05/14/25 potassium chloride 20 mEq 40 meq PO TID 04/24/24 05/14/25 tablet,extended release ascorbic acid (vitamin C) 500 mg 500 mg PO DAILY 05/13/25 05/14/25 tablet (Vitamin C) calcium carbonate 500 mg PO DAILY 05/13/25 05/14/25 carboxymethylcellulose sodium 0.5 1 drp OPB QID PRN Dry Eyes 05/13/25 05/14/25 % eye drops cyanocobalamin (vitamin B-12) 1,000 mcg PO DAILY 05/13/25 05/14/25 1,000 mcg tablet (Vitamin B-12) docusate sodium 100 mg capsule 100 mg PO BID 05/13/25 05/14/25 food supplemt, lactose-reduced 1 ea PO DAILY 05/13/25 05/14/25 (Ensure Clear oral liquid) guaifenesin 100 mg/5 mL oral liquid 200 mg PO Q6H PRN COUGH/CONGESTION 05/13/25 05/14/25 menthol 0.44 %-zinc oxide 20.6 % 1 applic topical DAILY PRN APPLY 05/13/25 05/14/25 topical ointment (Calmoseptine) TO WOUNDS NEEDED polyethylene glycol 3350 17 17 g PO DAILY PRN Constipation 05/13/25 05/14/25 gram/dose oral powder (Miralax) protein supplement 1 ea PO BID 05/13/25 05/14/25 urea 40 % lotion 1 applic topical DAILY 05/13/25 05/14/25 vit C 250 mg-vit E 90 mg-zinc 40 1 tab PO BID 05/13/25 05/14/25 mg-copper 1 [id number] capsule (PreserVision AREDS-2) zinc sulfate 50 mg zinc (220 mg) 50 mg PO DAILY 05/13/25 05/14/25 tablet Previous Rx's Medication Instructions Recorded atorvastatin 80 mg tablet 80 mg PO HS #30 tabs 05/21/19 spironolactone 25 mg tablet 25 mg PO QAM #30 tabs 12/08/19 nitroglycerin 0.4 mg sublingual 0.4 mg sublingual UD PRN Chest 07/25/20 tablet Pain #25 Tabs apixaban 5 mg tablet (Eliquis) 5 mg PO Q12H #0 tabs 04/12/21 amiodarone 200 mg tablet 600 mg (3 x 200 mg) PO QAM #270 11/01/23 tabs compress.stocking,knee,reg,med #2 ea 04/26/24 furosemide 40 mg tablet 120 mg (3 x 40 mg) PO QAM #300 tabs 05/04/24 mexiletine 150 mg capsule 150 mg PO Q8 #270 caps 05/22/24 fluticasone propionate 50 1 spray intranasal DAILY PRN 02/22/25 mcg/actuation nasal allergy symptoms #48 grams spray,suspension (Flonase Allergy Relief) carvedilol 12.5 mg tablet 37.5 mg (3 x 12.5 mg) PO BID #90 05/15/25 tabs Results & Data (ED) Vital Signs Vital Signs - 24 hr 05/13/25 23:09 05/13/25 23:09 05/13/25 23:09 Temperature 36.8 C Temperature Source Oral Pulse Rate 83 64 Pulse Rate [Apical] Pulse Rhythm Regular Pulse Rhythm [Apical] Pulse Strength Normal Pulse Strength [Apical] Respiratory Rate 24 Respiratory Effort / Characteristics Non-Labored Spontaneous Non-Labored Spontaneous Respiratory Depth Deep Normal Respiratory Pattern Regular Blood Pressure 140/91 Blood Pressure [Right Arm] Blood Pressure Mean 107 Blood Pressure Mean [Right Arm] Blood Pressure Position Semi-fowlers Blood Pressure Position [Right Arm] Pulse Oximetry 94 Oxygen Delivery Method Room Air Room Air Sepsis Recent Fever Within 48 Hours No Sepsis New/Unexplained Change in Mental Status N/A Sepsis Action Taken by Nursing No Action Required 05/13/25 23:09 05/14/25 00:00 Temperature Temperature Source Pulse Rate Pulse Rate [Apical] 60 Pulse Rhythm Pulse Rhythm [Apical] Regular Pulse Strength Pulse Strength [Apical] Normal Respiratory Rate 18 Respiratory Effort / Characteristics Non-Labored Spontaneous Respiratory Depth Normal Respiratory Pattern Regular Blood Pressure Blood Pressure [Right Arm] 120/98 Blood Pressure Mean Blood Pressure Mean [Right Arm] 105 Blood Pressure Position Blood Pressure Position [Right Arm] Semi-fowlers Pulse Oximetry 94 94 Oxygen Delivery Method Room Air Room Air Sepsis Recent Fever Within 48 Hours Sepsis New/Unexplained Change in Mental Status Sepsis Action Taken by Nursing Laboratory Data 05/14/25 06:41 05/14/25 06:41 Lab Results 05/13/25 Range/Units 23:15 WBC 6.15 (4.8-10.8) K/ul RBC 3.82 L (4.70-6.10) M/uL Hgb 13.4 L (14.0-18.0) g/dl Hct 40.4 L (42.0-52.0) % MCV 105.8 H (80.0-100.0) fL MCH 35.1 H (25.0-34.0) pg MCHC 33.2 (32.0-36.0) g/dL RDW Std Deviation 55.2 H (36.4-46.3) fL RDW Coeff of Delmi 14.1 (11.5-14.5) % Plt Count 167 (130-400) K/uL MPV 10.0 (9.4-12.4) fL Immature Gran % (Auto) 1.3 % Neut % (Auto) 67.9 % Lymph % (Auto) 22.1 % Collin % (Auto) 5.7 % Eos % (Auto) 2.3 % Baso % (Auto) 0.7 % Neut # (Auto) 4.18 (1.40-6.50) K/uL Lymph # (Auto) 1.36 (1.20-3.40) K/uL Collin # (Auto) 0.35 (0.11-0.59) K/uL Eos # (Auto) 0.14 (0.00-0.50) K/uL Baso # (Auto) 0.04 (0.00-0.20) K/uL Immature Gran # (Auto) 0.08 (0.01-0.20) K/uL PT 12.6 H (9.0-12.0) Seconds INR 1.2 H (0.9-1.1) Sodium 139 (136-145) mmol/L Potassium 3.8 (3.5-5.1) mmol/L Chloride 106 (98-107) mmol/L Carbon Dioxide 29 (21-32) mmol/L Anion Gap 4 (3-11) BUN 37 H (6-23) mg/dl Creatinine 1.19 (0.6-1.4) mg/dl Est Cr Clr Drug Dosing 67.6 ml/min eGFR 61.37 BUN/Creatinine Ratio 31.1 H (10-20) Glucose 98 (70-99(Fasting)) mg/dl Calcium 8.4 L (8.6-10.3) mg/dl Magnesium 2.3 (1.7-2.4) mg/dl Total Bilirubin 0.5 (0.2-1.0) mg/dl AST 14 (13-39) U/L ALT 4 L (7-52) U/L Alkaline Phosphatase 83 (34-104) U/L Troponin I High Sens 32.1 H (0-20) pg/ml B-Natriuretic Peptide 582 H (0-100) pg/ml Total Protein 6.3 (6.0-8.3) gm/dl Albumin 3.5 (3.4-5.0) gm/dl Globulin 2.8 (2.5-4.0) gm/dl Albumin/Globulin Ratio 1.3 (0.9-2) Lipase 26 (11-82) U/L TSH 2.757 (0.300-4.500) uIu/ml Administered Medications Discontinued Medications Amiodarone HCl (Amiodarone 200 Mg Tab) [facility] [place] [place] Stop: 06/13/25 08:59 Last Admin: 05/15/25 07:52 Dose: 600 mg Documented By: Admin: 05/14/25 08:57 Dose: 600 mg Documented By: GPF Apixaban (Apixaban 5 Mg Tablet) 5 mg PO Q12H [facility] Stop: 06/13/25 08:59 Last Admin: 05/15/25 07:52 Dose: 5 mg Documented By: Admin: 05/14/25 20:08 Dose: 5 mg Documented By: Admin: 05/14/25 08:57 Dose: 5 mg Documented By: GPF Aspirin (Aspirin 81 Mg Ectab) [facility] [place] [place] Stop: 06/13/25 08:59 Last Admin: 05/15/25 07:52 Dose: 81 mg Documented By: Admin: 05/14/25 08:58 Dose: 81 mg Documented By: GPCorie Atorvastatin Calcium (Atorvastatin 40 Mg Tab) 80 mg PO HS [facility] Stop: 06/13/25 20:59 Last Admin: 05/14/25 20:08 Dose: 80 mg Documented By: GONZALO Azathioprine (Azathioprine 50 Mg Tab) 100 mg PO QAM [facility] Stop: 06/13/25 08:59 Last Admin: 05/15/25 07:50 Dose: 100 mg Documented By: Admin: 05/14/25 08:58 Dose: 100 mg Documented By: GPF Carbidopa/Levodopa (Carbidopa/Levodopa 50/200mg Ext Rel Tab) 1 tab PO BID [facility] Stop: 06/13/25 08:59 Last Admin: 05/15/25 07:52 Dose: 1 tab Documented By: Admin: 05/14/25 20:08 Dose: 1 tab Documented By: Admin: 05/14/25 08:58 Dose: 1 tab Documented By: KAMF Carvedilol (Carvedilol 25 Mg Tab) 25 mg PO BID [facility]NA Stop: 06/13/25 08:59 Last Admin: 05/14/25 08:57 Dose: 25 mg Documented By: NEIL Carvedilol (Carvedilol 12.5 Mg Tab) 37.5 mg PO BID UNA Stop: 06/13/25 20:59 Last Admin: 05/15/25 07:50 Dose: 37.5 mg Documented By: Admin: 05/14/25 20:07 Dose: 37.5 mg Documented By: GONZALO Furosemide (Furosemide 40 Mg Tab) 120 mg PO QAM UNA Stop: 06/13/25 08:59 Last Admin: 05/15/25 07:52 Dose: 120 mg Documented By: Admin: 05/14/25 08:56 Dose: 120 mg Documented By: NEIL Amiodarone HCl/Dextrose (Nexterone / D5w) 360 mg in 200 mls @ 16.667 mls/hr IV .Q12H UNA Stop: 06/13/25 02:14 Last Admin: 05/15/25 02:06 Dose: 0.5 mg/min, 16.7 mls/hr Documented By: GONZALO Co-signed By: DAH Infusion: 05/15/25 02:06 Dose: Infused Documented By: GONZALO Co-signed By: DAH Admin: 05/14/25 14:07 Dose: 0.5 mg/min, 16.7 mls/hr Documented By: GPCorie Co-signed By: BETITO Infusion: 05/14/25 14:07 Dose: Infused Documented By: GPCorie Co-signed By: BETITO Admin: 05/14/25 02:34 Dose: 0.5 mg/min, 16.7 mls/hr Documented By: BRANDOND Co-signed By: CAMI Levothyroxine Sodium (Levothyroxine Sodium 125 Mcg Tablet) 250 mcg PO DAILY@0200 UNA Stop: 06/13/25 06:29 Last Admin: 05/15/25 02:04 Dose: 250 mcg Documented By: Admin: 05/14/25 04:49 Dose: 250 mcg Documented By: DIO Pantoprazole Sodium (Pantoprazole 40 Mg Tab) 40 mg PO QAM UNA Stop: 06/13/25 08:59 Last Admin: 05/15/25 07:51 Dose: 40 mg Documented By: Admin: 05/14/25 08:58 Dose: 40 mg Documented By: GPF Potassium Chloride (Potassium Chloride Crtab 20 Meq Tabcr) 40 meq PO NOW STA Stop: 05/14/25 02:08 Last Admin: 05/14/25 02:40 Dose: 40 meq Documented By: IDD Potassium Chloride (Potassium Chloride Crtab 20 Meq Tabcr) 40 meq PO TID UNA Stop: 06/13/25 08:59 Last Admin: 05/15/25 07:49 Dose: 40 meq Documented By: Admin: 05/14/25 20:10 Dose: 40 meq Documented By: Admin: 05/14/25 14:07 Dose: 40 meq Documented By: Admin: 05/14/25 09:00 Dose: 40 meq Documented By: GPF Probenecid (Probenecid 500 Mg Tab) 500 mg PO BID@0730,1600 UNA Stop: 06/13/25 07:29 Last Admin: 05/15/25 07:49 Dose: 500 mg Documented By: Admin: 05/14/25 17:12 Dose: 500 mg Documented By: Admin: 05/14/25 08:58 Dose: 500 mg Documented By: GPF Spironolactone (Spironolactone 25 Mg Tab) 25 mg PO QAM UNA Stop: 06/13/25 08:59 Last Admin: 05/15/25 07:49 Dose: 25 mg Documented By: Admin: 05/14/25 11:08 Dose: 25 mg Documented By: GPF Sulfasalazine (Sulfasalazine 500 Mg Tablet) 1,000 mg PO QID@0730,1100,1600,2100 UNA Stop: 06/13/25 07:29 Last Admin: 05/15/25 11:39 Dose: 1,000 mg Documented By: Admin: 05/15/25 07:51 Dose: 1,000 mg Documented By: Admin: 05/14/25 20:08 Dose: 1,000 mg Documented By: Admin: 05/14/25 17:12 Dose: 1,000 mg Documented By: Admin: 05/14/25 11:08 Dose: 1,000 mg Documented By: Admin: 05/14/25 08:57 Dose: 1,000 mg Documented By: GPF Discharge Plan Visit Data Chief Complaint: Chest Pain Stated Complaint: Chest Pain, Shocked by Defibrillator ED Provider: Marjorie Adams Discharge Problem: Dyspnea, Chest pain, ICD (implantable cardioverter-defibrillator) discharge, Elevated troponin, Elevated brain natriuretic peptide (BNP) level Patient Disposition: Admitted As Inpatient Condition: Fair Discharge Instructions Interventions: ED Discharge Assessment Last Done: 05/14/25 03:01
[2025-05-14 00:22] LABS: Alanine Aminotransferase 4.0 U/L (7-52); Albumin Globulin Ratio 1.3 (0.9-2); Alkaline Phosphatase 83.0 U/L (34-104); Bilirubin,Total 0.5 mg/dl (0.2-1.0); Globulin 2.8 gm/dl (2.5-4.0); Lipase 26.0 U/L (11-82); Magnesium 2.3 mg/dl (1.7-2.4); Total Protein 6.3 gm/dl (6.0-8.3)
--- NOTE | 2025-05-14 01:40 | History & Physical Report ---
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 #Ventricular arrhythmia - extensive cardiac hx; a fib, CABG, HFrEF, ischemic cardiomyopathy - interrogation of his AICD done on 05/13; given 1 shock for VT/VF per report - will do amiodarone drip overnight - cardiology consulted for the am - continue home cardio meds for now - monitor in the PCU overnight - monitor electrolytes; goal potassium 4.0, goal mag 2.0 - TSH wnl - no further shocks given by AICD while in the ED #Troponin elevation - trop on admission 32, our records show him typically 20-30s - will trend to peak - chest pain has resolved but suspect most likely from VT/VF episode and not ACS, EKG done in ER consistent with prior #Ulcerative colitis - continue home medications - pt not noting flare up symptoms on admission #HTN - continue home meds as tolerated #Parkinsons - continue home meds #Sacral wound - chronic, has home health wound nurses per pt that help with this - pt does not appear septic on admission; afebrile, WBC count 6 - will consult wound nurse while here #YI - continue CPAP nightly VTE: home eliquis History of Present Illness Chief Complaint: Ventricular tachycardia Primary Care Provider: Ashanti Melchor DO Pt is a pleasant 80 yo male with a past med hx of VTach and ischemic cardiomyopathy on AICD since 2012, HFrEF, paroxysmal afib on eliquis, CABG x3 vessels in 1999 and LAD stent in 2005, cerebellar ataxia and hx of cerebellar CVA, ulcerative colitis, Parkinson, HTN, and HLD who presents to the hospital on 05/13 for ventricular arrhythmia at home leading to shock from his AICD. Pt states he was in his usual state of health throughout the day on 05/13. He states that he was laying in bed around 9 pm or so and states that he woke up with substernal chest pressure and states that after a few minutes of the chest pain he felt his ICD device go off. He states he does not recall any chest pain after the shock was delivered by his device. He states his urged for him to come into the hospital for further evaluation. He has not been sick recently. He denies chest pain or SOB at time of admission, states he just feels very "washed out" and tired. Talked to patient about his code status wishes on admission. Pt states his brother who lived in [place] had a heart attack and that his sister wanted for him to be full code and that his brother spent 3 days "hooked up to machines" before finally being taken off them. Pt states that experience was horrible and he would not want his family to have to make a decision like that for him. He states he is okay with his AICD device but would not want compressions or intubation/ventilation. He states his quality of life is not great as is due to very limited mobility and he would not want to worsen that. He states his family may feel differently, but at this time in the event of cardiac or respiratory arrest he would not want resuscitation. Pt exhibits full decision making capacity at the time of conversation about his wishes. Allergies Allergy/AdvReac Type Severity Reaction Status Date / Time lisinopril Allergy Intermediate DIFFICULTY Verified 05/19/25 10:05 SWALLOWING/ABD PAIN/N/V tetanus toxoid, adsorbed Allergy Mild Rash Verified 05/19/25 10:05 simvastatin AdvReac Intermediate DIARRHEA/ Verified 05/19/25 10:05 EXACERBATED COLITIS Home Medications Medication Instructions Recorded Confirmed Type atorvastatin 80 mg tablet 80 mg PO HS #30 tabs 05/21/19 05/19/25 Rx spironolactone 25 mg tablet 25 mg PO QAM #30 tabs 12/08/19 05/19/25 Rx probenecid 500 mg tablet 500 mg PO BID 06/15/20 05/19/25 History nitroglycerin 0.4 mg sublingual 0.4 mg sublingual UD PRN Chest 07/25/20 05/19/25 Rx tablet Pain #25 Tabs sulfasalazine 500 mg tablet 1,000 mg PO QID #0 tabs 10/06/20 05/19/25 History azathioprine 50 mg tablet 100 mg PO QAM 10/11/20 05/19/25 History cholecalciferol (vitamin D3) 25 1,000 unit PO QAM 10/11/20 05/19/25 History mcg (1,000 unit) tablet (Vitamin D3) levothyroxine 125 mcg tablet 250 mcg PO DAILYBB 03/22/21 05/19/25 History pantoprazole 40 mg tablet,delayed 40 mg PO QAM 03/22/21 05/19/25 History release apixaban 5 mg tablet (Eliquis) 5 mg PO Q12H #0 tabs 04/12/21 05/19/25 Rx aspirin 81 mg tablet,delayed 81 mg PO QAM 05/17/21 05/19/25 History release amoxicillin 500 mg capsule 2,000 mg PO DIRECTED PRN .1 hr 07/03/22 05/19/25 History before dental amiodarone 200 mg tablet 600 mg (3 x 200 mg) PO QAM #270 11/01/23 05/19/25 Rx tabs lidocaine 5 % topical patch 1 patch topical DAILY PRN Pain 03/09/24 05/19/25 History carbidopa ER 50 mg-levodopa 200 mg 1 tab PO BID 04/24/24 05/19/25 History tablet,extended release multivitamin with minerals 1 tab PO DAILY 04/24/24 05/19/25 History potassium chloride 20 mEq 40 meq PO TID 04/24/24 05/19/25 History tablet,extended release compress.stocking,knee,reg,med #2 ea 04/26/24 05/17/25 Rx furosemide 40 mg tablet 120 mg (3 x 40 mg) PO QAM #300 tabs 05/04/24 05/19/25 Rx mexiletine 150 mg capsule 150 mg PO Q8 #270 caps 05/22/24 05/19/25 Rx fluticasone propionate 50 1 spray intranasal DAILY PRN 02/22/25 05/19/25 Rx mcg/actuation nasal allergy symptoms #48 grams spray,suspension (Flonase Allergy Relief) ascorbic acid (vitamin C) 500 mg 500 mg PO DAILY 05/13/25 05/19/25 History tablet (Vitamin C) calcium carbonate 500 mg PO DAILY 05/13/25 05/19/25 History carboxymethylcellulose sodium 0.5 1 drp OPB QID PRN Dry Eyes 05/13/25 05/19/25 History % eye drops cyanocobalamin (vitamin B-12) 1,000 mcg PO DAILY 05/13/25 05/19/25 History 1,000 mcg tablet (Vitamin B-12) docusate sodium 100 mg capsule 100 mg PO BID 05/13/25 05/19/25 History food supplemt, lactose-reduced 1 ea PO DAILY 05/13/25 05/19/25 History (Ensure Clear oral liquid) guaifenesin 100 mg/5 mL oral liquid 200 mg PO Q6H PRN COUGH/CONGESTION 05/13/25 05/19/25 History menthol 0.44 %-zinc oxide 20.6 % 1 applic topical DAILY PRN APPLY 05/13/25 05/19/25 History topical ointment (Calmoseptine) TO WOUNDS NEEDED polyethylene glycol 3350 17 17 g PO DAILY PRN Constipation 05/13/25 05/19/25 History gram/dose oral powder (Miralax) protein supplement 1 ea PO BID 05/13/25 05/19/25 History urea 40 % lotion 1 applic topical DAILY 05/13/25 05/19/25 History vit C 250 mg-vit E 90 mg-zinc 40 1 tab PO BID 05/13/25 05/19/25 History mg-copper 1 [id number] capsule (PreserVision AREDS-2) zinc sulfate 50 mg zinc (220 mg) 50 mg PO DAILY 05/13/25 05/19/25 History tablet carvedilol 12.5 mg tablet 37.5 mg (3 x 12.5 mg) PO BID #90 05/15/25 05/19/25 Rx tabs Past Med/Surg History Problem List (Updated 05/19/25 @ 11:54 by Macy Cyr PA-C) Elevated brain natriuretic peptide (BNP) level (Acute) Ambulatory dysfunction DNR (do not resuscitate) Allergic rhinitis Gouty arthritis of both feet GERD (gastroesophageal reflux disease) Hypothyroidism Ulcerative colitis Decubitus ulcer, stage III Macrocytic anemia Multiple myeloma Parkinson disease CVD (cerebrovascular disease) Paroxysmal atrial fibrillation Ventricular arrhythmia ICD (implantable cardioverter-defibrillator) discharge (Acute) Chest pain (Acute) Dyspnea (Acute) Ulcerative colitis Obstructive sleep apnea cpap Ischemic cardiomyopathy EF initially 25%, now 30-35% on most recent echo 2019. Hypertension Hyperlipidemia Hearing deficit Head injury Elevated troponin (Acute) Chronic combined systolic and diastolic heart failure EF 30-35% 2019 echo Aortic regurgitation Paroxysmal atrial fibrillation Orthostatic lightheadedness HFrEF (heart failure with reduced ejection fraction) Diplopia Lumbar radicular pain Morbid obesity AICD (automatic cardioverter/defibrillator) present (Acute) Gait abnormality Parkinsonism B12 deficiency CHF (congestive heart failure) (Acute) Hypothyroidism CAD (coronary artery disease) On amiodarone therapy Dysphagia "has a lot of difficulty" Gout Left bundle-branch block Cerebellar ataxia Osteoarthritis Chronic back pain BPH (benign prostatic hyperplasia) Medical History (Updated 05/19/25 @ 11:54 by Macy Cyr PA-C) Demand ischemia COVID MATT (acute kidney injury) Syncope Implantable cardioverter-defibrillator (ICD) in situ dual-chamber ICD; generator change 03/2023 History of ventricular tachycardia 01/2019 History of cerebellar stroke 11/22/11, [facility], on eliquis, no deficits. Previously followed with Dr Ty, was released from neuro. Coronary arteriosclerosis in [place] artery s/p 1997 x1 stent, LAD stent x 1 01/2006, CABG x 3 in 09/02/08>[place] [facility] [place] History of DVT (deep vein thrombosis) On anticoagulant therapy eliquis--d/t CVA Chronic obstructive pulmonary disease Slow to wake up after anesthesia "took 2 1/2 days following CABG to extubate him" ICD (implantable cardioverter-defibrillator) battery depletion generator change 03/2023, [facility] Ventricular tachycardia hx of--follows with Dr. Smith Myocardial Infarction x2-- follows with Dr. Smith Deep vein thrombosis RLE - dx ~2005, anticoagulant therapy; "still has one clot in his RLE as of 03/09/24" Surgical History Fusion of spine lumbar region, 2009 AICD (automatic cardioverter/defibrillator) present History of esophageal dilatation Pt does report continued issues with taking his pills due to esophageal problems. S/P cardiac pacemaker procedure inserted 09/17/2013. [employer] device. 2022, generator change, [facility] History of tooth extraction upper teeth removed History of cardiac cath History of coronary artery bypass graft x 3 2007 [place] [facility] [place]/O prostate biopsy History of total hip arthroplasty bilateral-january and march 2006 Hx of transurethral resection of prostate x2 History of colonoscopy History of cholecystectomy 05/12/09 History of tonsillectomy History of adenoidectomy History of heart artery stent x1--1997, x1 stent 2005>both done at [facility] [place] Family History Father Coronary heart disease Myocardial infarction Mother Coronary heart disease Myocardial infarction Sister Breast cancer Family history of diabetes mellitus Brother Cardiac disorder Other No family history of adverse response to anesthesia Denies family history of Ovarian cancer Prostate cancer Lung cancer Colorectal cancer Social History Smoking Status: Former smoker Tobacco Type: Pipe Age Started Using Tobacco: 12; Age Quit Using Tobacco: 25; packs per day: 2; Second Hand Exposure: No; Do You Dip or Chew Tobacco: No; Hx Alcohol Use: No Hx Substance Use: No Preferred Language: Pashto Communication Ability: Effective Visual Impairment: Limited Hearing Ability: Hard of Hearing Administrative Services Manager Required: No Beliefs That Will Affect Care: None marital status: Current Living Situation: Spouse Current Living Situation Comment: spouse current occupational status: retired and disabled How many Children do You have: 2 Feels Safe at Home: Yes Childhood Exposure to Second-Hand Smoke: Yes Diet: regular Diet Comment: regular caffeine: Yes during the past year weight has: remained stable Dental Care, Regularly: Yes Physical Activity Frequency: Does not Exercise Physical Activity Frequency Comment: limited d/t physical condition Seatbelt Use: always Sunscreen Use: Yes Assistive Devices: Walker Review of Systems Review of Systems: Per HPI. Physical Exam Physical Exam: General: Alert and oriented, no acute distress, very pleasant gentleman, hard of hearing HEENT: Normocephalic, Cardio: Regular rate and rhythm, Resp: Lungs clear to auscultation b/l, no wheezes or rhonchi, GI: Soft and nontender, nondistended, bowel sounds active Skin: Warm, pink, dry, Results & Data Results & Data Vital Signs (Past 12 Hours) Vital Signs Temp Pulse Pulse Resp BP BP Pulse Ox 05/14/25 00:00 60 18 120/98 94 05/13/25 23:09 94 05/13/25 23:09 36.8 C 64 24 140/91 94 05/13/25 23:09 05/13/25 23:09 83 O2 Del Method 05/14/25 00:00 Room Air 05/13/25 23:09 Room Air 05/13/25 23:09 Room Air 05/13/25 23:09 Room Air 05/13/25 23:09 Supervising Physician Co-Signing Physician Notes I personally saw and examined the patient. I independently reviewed the labs, EKG, imaging, problem list, medication list, past medical history and family history. I verified all narayanan points and agree with resident physician Dr Kaela Mishra, with the following exceptions and/or additions: 80 year old male presents to the ER after ICD fired after episode of chest pain - reportedly having prolonged ventricular tahcycardia per pacemaker check. No further ventricular tachycardia in the ER O/E HS RRR, no murmurs, Chest CTAB, Abdo SNT A/P Ventricular tachycardia - amiodarone 150mg IV bolus given in the ER. Continue infusion at 0.5mg/min. Consult cardiology for ongoing recommendations. No chest pain or EKG changes outside of ventricular tachycardia to suggest ACS. Resident Activity Tracking Resident Involvement: Resident Care Provided Care Provided: Adult Hospital Medicine (4) Hypertension Hypertension type: essential hypertension Qualified Code(s): I10 - Essential (primary) hypertension (7) Ulcerative colitis Digestive disease complication type: without complication Ulcerative colitis location: unspecified ulcerative colitis location Qualified Code(s): K51.90 - Ulcerative colitis, unspecified, without complications
--- NOTE | 2025-05-14 01:59 | XRay Report ---
Exam(s): XR CXR 1 VIEW EXAM: XR Chest, 1 View CLINICAL HISTORY: cp, sob. TECHNIQUE: Frontal view of the chest. COMPARISON: Portable chest single view 06/29/2024 FINDINGS: Lungs: Unremarkable. No consolidation. The pulmonary vasculature demonstrates no significant radiographic abnormality. Pleural space: Unremarkable. No pneumothorax. No large pleural effusion. Heart: Stable cardiomegaly. Mediastinum: No significant abnormality identified. The trachea is midline. Bones/joints: Sternal hardware is stable in appearance with disrupted sternal wires, similar. No acute fracture. Tubes, lines and devices: Left subclavian dual lead defibrillator pacer, stable. IMPRESSION: Stable cardiomegaly. No focal consolidation or acute cardiopulmonary process identified. Electronically signed by: Jack Curry MD 05/14/25 01:58 AM
[2025-05-14] MEDS ORDERED: 0.2 MICRON FILTER SET 1 EACH IV ONE (02:01)
[2025-05-14] MEDS: AMIODARONE / D5W 360 MG/200 ML BAG IV SCH (02:34)
[2025-05-14] MEDS: POTASSIUM CHLORIDE CRTAB 20 MEQ TABCR PO STA (02:40)
[2025-05-14] MEDS ORDERED: ONDANSETRON INJ 2 MG/ML 2 ML VIAL IV PRN (03:47)
[2025-05-14] MEDS ORDERED: NITROGLYCERIN SL 0.4 MG/TAB TAB SL PRN (03:47)
[2025-05-14] MEDS ORDERED: ACETAMINOPHEN 325 MG TAB PO PRN (03:47)
[2025-05-14] MEDS ORDERED: MoRPHine SULFATE 2 MG/ML CARP IV PRN (03:47)
[2025-05-14] MEDS ORDERED: POLYETHYLENE (MIRALAX) 17 GM PACK PO PRN (03:47)
[2025-05-14] MEDS ORDERED: MENTHOL-ZINC OXIDE 360 APPLN/120 GM TUBE EXT PRN (03:47)
[2025-05-14] MEDS: LEVOTHYROXINE SODIUM 125 MCG TABLET PO SCH (04:49)
[2025-05-14 07:09] LABS: Hematocrit (blood only) 37.6 % (42.0-52.0); Hemoglobin 12.4 g/dl (14.0-18.0); Immature Granulocytes # (auto) 0.03 K/uL (0.01-0.20); Immature Granulocytes % (auto) 0.4 %; Mean Corpuscular Hemoglobin 35.1 pg (25.0-34.0); Mean Corpuscular Volume 106.5 fL (80.0-100.0); Platelet Count 168 K/uL (130-400); RDW Standard Deviation 55.3 fL (36.4-46.3); Red Blood Count 3.53 M/uL (4.70-6.10); White Blood Count 7.94 K/ul (4.8-10.8)
[2025-05-14 07:33] LABS: Anion Gap 5.0 (3-11); Blood Urea Nitrogen 34.0 mg/dl (6-23); Calcium 8.1 mg/dl (8.6-10.3); Carbon Dioxide 27.0 mmol/L (21-32); Chloride 108.0 mmol/L (98-107); Creatinine Clr Calc Pharmacy 85.0 ml/min; Glucose 91.0 mg/dl (70-99(Fasting)); Magnesium 2.2 mg/dl (1.7-2.4); Potassium 4.2 mmol/L (3.5-5.1); Sodium 140.0 mmol/L (136-145)
[2025-05-14] MEDS: FUROSEMIDE 40 MG TAB PO SCH (08:56)
[2025-05-14] MEDS: APIXABAN 5 MG TABLET PO SCH (08:57)
[2025-05-14] MEDS: AMIODARONE 200 MG TAB PO SCH (08:57)
[2025-05-14] MEDS: CARBIDOPA/LEVODOPA 50/200MG EXT REL TAB PO SCH (08:58)
[2025-05-14] MEDS: ASPIRIN 81 MG ECTAB PO SCH (08:58)
[2025-05-14] MEDS: PROBENECID 500 MG TAB PO SCH (08:58)
[2025-05-14] MEDS: POTASSIUM CHLORIDE CRTAB 20 MEQ TABCR PO SCH (09:00)
--- NOTE | 2025-05-14 09:38 | Cardiology Consultation ---
Date of Consultation May 14, 2025 Assessment & Plan (1) Ventricular arrhythmia: (2) ICD (implantable cardioverter-defibrillator) discharge: (3) Elevated troponin: (4) Ischemic cardiomyopathy: (5) Hypertension: (6) Hyperlipidemia: (7) Chronic combined systolic and diastolic heart failure: (8) Atrial fibrillation: Plan Mr. Orlando is an 80 year old male with a history of Hypertension, Dyslipidemia, COPD, Paroxysmal Atrial Fibrillation, LBBB, CAD s/p CABG x 3 Vessels 08/2000, LAD Stent 2005, Ventricular Tachycardia, Cerebellar Ataxia, Cerebellar CVA, Parkinson's Disease, Ulcerative Colitis, Chronic Systolic and Diastolic CHF, and an Ischemic Cardiomyopathy s/p Medtronic Evera Dual Chamber AICD 08/2013 (unable to place an LV lead due to technical difficulties) s/p Generator Change-out 04/10/23 who presents today for Cardiologic Follow-up. His LVEF was last measur ed at 35% to 40% in 2020. Patient was doing reasonably well from a cardiac standpoint until last evening. After the patient went to bed and was reading a book he developed significant chest pressure -- he felt like his chest was caving into his thoracic spine. Then he received a shock from his AICD -- which fortunately converted him back to a sinus/paced rhythm. This episode of V-Tach lasted 2 minutes and 39 seconds in total. He feels washed out and tired today. He offers no other complaints. His breathing is at baseline and his body weight is at his dry weight at 263 lb. If his weight is higher than 270 lb he takes extra Lasix. Patient has been cautious with salt in his diet. Patient denies any further chest pain, heaviness, tightness, pressure, discomfort, or angina pectoris. He has not had any recent weight gain or fluid retention. He denies any orthopnea or PND. He has not had any palpitations, tachy-palpitations, or syncope. Patient is compliant with his medications. He has not had any bleeding complications related to Eliquis therapy. Elevated high sensitivity troponin is elevated due to underlying CAD, ventricular tachycardia, and AICD discharge. Interrogation of his AICD as performed in the ER showed both NSVT and this Sustained Ventricular Tachycardia that lasted 2 minutes and 39 seconds, it appears that he had more than 1 discharge before being successfully cardioverted to a sinus/paced rhythm. Recommend the followin. Finish out IV Amiodarone. 2. Continue Amiodarone 600 ng daily. 3. Check Amiodarone level. 4. Increase Carvedilol to 37.5 mg b.i.d.. 5. Continue Aspirin 81 mg daily. 6. Continue Atorvastatin 80 mg daily. 7. Continue Eliquis 5 mg every 12 hours. 8, Continue Lasix 120 mg daily. 9. Continue Mexiletine 150 mg every 8 hours. 10. Continue Spironolactone 25 mg daily. 11. Monitor daily body weights. 12. Maintain a low sodium diet. 13. Monitor I&O's. Thank you for asking us to see this patient in consultation, we will continue to follow him in the hospital and following discharge. History of Present Illness Reason for Consultation: -- Sustained V-Tach s/p ICD Discharge. Requesting Physician: Star Negro MD, PhD Attending Physician: Johnny Smith MD History of Present Illness Mr. Orlando is an 80 year old male with a history of Hypertension, Dyslipidemia, COPD, Paroxysmal Atrial Fibrillation, LBBB, CAD s/p CABG x 3 Vessels 08/2000, LAD Stent 2005, Ventricular Tachycardia, Cerebellar Ataxia, Cerebellar CVA, Parkinson's Disease, Ulcerative Colitis, Chronic Systolic and Diastolic CHF, and an Ischemic Cardiomyopathy s/p Medtronic Evera Dual Chamber AICD 08/2013 (unable to place an LV lead due to technical difficulties) s/p Generator Change-out 04/10/23 who presents today for Cardiologic Follow-up. His LVEF was last measured at 35% to 40% in 2020. Patient was doing reasonably well from a cardiac standpoint until last evening. After the patient went to bed and was reading a book he developed significant chest pressure -- he felt like his chest was caving into his thoracic spine. Then he received a shock from his AICD -- which fortunately converted him back to a sinus/paced rhythm. This episode of V-Tach lasted 2 minutes and 39 seconds in total. He feels washed out and tired today. He offers no other complaints. His breathing is at baseline and his body weight is at his dry weight at 263 lb. If his weight is higher than 270 lb he takes extra Lasix. Patient has been cautious with salt in his diet. Patient denies any further chest pain, heaviness, tightness, pressure, discomfort, or angina pectoris. He has not had any recent weight gain or fluid retention. He denies any orthopnea or PND. He has not had any palpitations, tachy-palpitations, or syncope. Elevated high sensitivity troponin is elevated due to underlying CAD, ventricular tachycardia, and AICD discharge. Patient is compliant with his medications. He has not had any bleeding complications related to Eliquis therapy. Allergies Allergy/AdvReac Type Severity Reaction Status Date / Time lisinopril Allergy Intermediate DIFFICULTY Verified 05/13/25 23:43 SWALLOWING/ABD PAIN/N/V tetanus toxoid, adsorbed Allergy Mild Rash Verified 05/13/25 23:43 simvastatin AdvReac Intermediate DIARRHEA/ Verified 05/13/25 23:43 EXACERBATED COLITIS Home Medications Medication Instructions Recorded Confirmed Type atorvastatin 80 mg tablet 80 mg PO HS #30 tabs 05/21/19 05/14/25 Rx carvedilol 25 mg tablet 25 mg PO BID #60 tabs 05/21/19 05/14/25 Rx spironolactone 25 mg tablet 25 mg PO QAM #30 tabs 12/08/19 05/14/25 Rx probenecid 500 mg tablet 500 mg PO BID 06/15/20 05/14/25 History nitroglycerin 0.4 mg sublingual 0.4 mg sublingual UD PRN Chest 07/25/20 05/14/25 Rx tablet Pain #25 Tabs sulfasalazine 500 mg tablet 1,000 mg PO QID #0 tabs 10/06/20 05/14/25 History azathioprine 50 mg tablet 100 mg PO QAM 10/11/20 05/14/25 History cholecalciferol (vitamin D3) 25 1,000 unit PO QAM 10/11/20 05/14/25 History mcg (1,000 unit) tablet (Vitamin D3) levothyroxine 125 mcg tablet 250 mcg PO DAILYBB 03/22/21 05/14/25 History pantoprazole 40 mg tablet,delayed 40 mg PO QAM 03/22/21 05/14/25 History release apixaban 5 mg tablet (Eliquis) 5 mg PO Q12H #0 tabs 04/12/21 05/14/25 Rx aspirin 81 mg tablet,delayed 81 mg PO QAM 05/17/21 05/14/25 History release amoxicillin 500 mg capsule 2,000 mg PO DIRECTED PRN .1 hr 07/03/22 05/14/25 History before dental amiodarone 200 mg tablet 600 mg (3 x 200 mg) PO QAM #270 11/01/23 05/14/25 Rx tabs lidocaine 5 % topical patch 1 patch topical DAILY PRN Pain 03/09/24 05/14/25 History carbidopa ER 50 mg-levodopa 200 mg 1 tab PO BID 04/24/24 05/14/25 History tablet,extended release multivitamin with minerals 1 tab PO DAILY 04/24/24 05/14/25 History potassium chloride 20 mEq 40 meq PO TID 04/24/24 05/14/25 History tablet,extended release compress.stocking,knee,reg,med #2 ea 04/26/24 02/05/25 Rx furosemide 40 mg tablet 120 mg (3 x 40 mg) PO QAM #300 tabs 05/04/24 05/14/25 Rx mexiletine 150 mg capsule 150 mg PO Q8 #270 caps 05/22/24 05/14/25 Rx fluticasone propionate 50 1 spray intranasal DAILY PRN 02/22/25 05/14/25 Rx mcg/actuation nasal allergy symptoms #48 grams spray,suspension (Flonase Allergy Relief) ascorbic acid (vitamin C) 500 mg 500 mg PO DAILY 05/13/25 05/14/25 History tablet (Vitamin C) calcium carbonate 500 mg PO DAILY 05/13/25 05/14/25 History carboxymethylcellulose sodium 0.5 1 drp OPB QID PRN Dry Eyes 05/13/25 05/14/25 History % eye drops cyanocobalamin (vitamin B-12) 1,000 mcg PO DAILY 05/13/25 05/14/25 History 1,000 mcg tablet (Vitamin B-12) docusate sodium 100 mg capsule 100 mg PO BID 05/13/25 05/14/25 History food supplemt, lactose-reduced 1 ea PO DAILY 05/13/25 05/14/25 History (Ensure Clear oral liquid) guaifenesin 100 mg/5 mL oral liquid 200 mg PO Q6H PRN COUGH/CONGESTION 05/13/25 05/14/25 History menthol 0.44 %-zinc oxide 20.6 % 1 applic topical DAILY PRN APPLY 05/13/25 05/14/25 History topical ointment (Calmoseptine) TO WOUNDS NEEDED polyethylene glycol 3350 17 17 g PO DAILY PRN Constipation 05/13/25 05/14/25 History gram/dose oral powder (Miralax) protein supplement 1 ea PO BID 05/13/25 05/14/25 History urea 40 % lotion 1 applic topical DAILY 05/13/25 05/14/25 History vit C 250 mg-vit E 90 mg-zinc 40 1 tab PO BID 05/13/25 05/14/25 History mg-copper 1 [id number] capsule (PreserVision AREDS-2) zinc sulfate 50 mg zinc (220 mg) 50 mg PO DAILY 05/13/25 05/14/25 History tablet Patient History Medical History COVID MATT (acute kidney injury) Syncope Implantable cardioverter-defibrillator (ICD) in situ dual-chamber ICD; generator change 03/2023 History of ventricular tachycardia 01/2019 History of cerebellar stroke 11/22/11, [facility], on eliquis, no deficits. Previously followed with Dr Ty, was released from neuro. Coronary arteriosclerosis in [place] artery s/p 1997 x1 stent, LAD stent x 1 01/2006, CABG x 3 in 09/02/08>all done sat [facility] [place] History of DVT (deep vein thrombosis) On anticoagulant therapy eliquis--d/t CVA Chronic obstructive pulmonary disease Slow to wake up after anesthesia "took 2 1/2 days following CABG to extubate him" ICD (implantable cardioverter-defibrillator) battery depletion generator change 03/2023, [facility] Ventricular tachycardia hx of--follows with Dr. Smith Myocardial Infarction x2-- follows with Dr. Smith Deep vein thrombosis RLE - dx ~2005, anticoagulant therapy; "still has one clot in his RLE as of 03/09/24" Surgical History Fusion of spine lumbar region, 2009 AICD (automatic cardioverter/defibrillator) present History of esophageal dilatation Pt does report continued issues with taking his pills due to esophageal problems. S/P cardiac pacemaker procedure inserted 09/17/2013. Medtronic device. 2022, generator change, [facility] History of tooth extraction upper teeth removed History of cardiac cath History of coronary artery bypass graft x 3 2007 @ [facility] [place] H/O prostate biopsy History of total hip arthroplasty bilateral-january and march 2006 Hx of transurethral resection of prostate x2 History of colonoscopy History of cholecystectomy 05/12/09 History of tonsillectomy History of adenoidectomy History of heart artery stent x1--1997, x1 stent 2006>both done at [facility] [place] Family History Father Coronary heart disease Myocardial infarction Mother Coronary heart disease Myocardial infarction Sister Breast cancer Had mastectomy in 2018'. Family history of diabetes mellitus Brother Cardiac disorder Other No family history of adverse response to anesthesia Denies family history of Ovarian cancer Prostate cancer Lung cancer Colorectal cancer Social History Smoking Status: Former smoker Tobacco Type: Pipe Age Started Using Tobacco: 12; Age Quit Using Tobacco: 25; packs per day: 2; Second Hand Exposure: No; Do You Dip or Chew Tobacco: No; Tobacco Cessation Education Requested by Patient: No Hx Alcohol Use: No Hx Substance Use: No Preferred Language: Syrian Communication Ability: Effective Visual Impairment: Limited Hearing Ability: Hard of Hearing 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 Required: No Beliefs That Will Affect Care: None marital status: Current Living Situation: Spouse Current Living Situation Comment: spouse current occupational status: retired and disabled How many Children do You have: 2 Other Information That Helps Us Care for You: No Feels Safe at Home: Yes Safety Concerns: Feels Safe At This Time Childhood Exposure to Second-Hand Smoke: Yes Diet: regular Diet Comment: regular caffeine: Yes during the past year weight has: remained stable Dental Care, Regularly: Yes Physical Activity Frequency: Does not Exercise Physical Activity Frequency Comment: limited d/t physical condition Seatbelt Use: always Sunscreen Use: Yes Assistive Devices: Denture - Upper, Glasses, Hearing Aid - Bilateral and Walker Review of Systems Review of Systems: -- As per HPI. Physical Exam Physical Exam: Blood pressure 141/91. Pulse 63 and regular. Body weight 274 lb. GENERAL: Patient in no acute distress. HEENT: Head is atraumatic, normocephalic. EOM's intact. Facies symmetric. No perioral cyanosis. NECK: No JVD. JVP is not elevated. Carotid upstrokes are + 2 bilaterally. CHEST/LUNGS: Clear to auscultation throughout all lung agosto. No wheezes or rales. CVS: S1 and S2 are regular, distant without murmurs, gallops, or rubs. PMI is nonpalpable. No lifts, heaves, or thrills. No abdominal aortic or renal bruits. Palpable AICD generator is present in the left subclavian fossa. ABDOMINAL EXAM: Bowel sounds are present. EXTREMITIES: No clubbing or cyanosis. +1 bipedal and distal leg edema. Intact radial pulses bilaterally. NEUROLOGIC EXAM: Patient is awake, alert, and oriented. Pleasant and cooperative. Answers questions appropriately. Speech is clear. Results & Data Vital Signs (Past 12 Hours) Vital Signs Temp Pulse Pulse Resp BP BP BP 05/14/25 07:30 36.5 C 63 20 141/91 H 05/14/25 04:00 05/14/25 03:49 60 05/14/25 03:47 36.4 C L 62 18 145/79 H 05/14/25 03:01 60 18 132/74 05/14/25 02:00 60 18 142/66 H 05/14/25 00:00 60 18 120/98 05/13/25 23:09 05/13/25 23:09 36.8 C 64 24 140/91 05/13/25 23:09 05/13/25 23:09 83 Pulse Ox O2 Del Method O2 Flow Rate 05/14/25 07:30 99 Nasal Cannula 2.0 05/14/25 04:00 Room Air 05/14/25 03:49 05/14/25 03:47 97 Room Air 05/14/25 03:01 99 Room Air 05/14/25 02:00 96 Room Air 05/14/25 00:00 94 Room Air 05/13/25 23:09 94 Room Air 05/13/25 23:09 94 Room Air 05/13/25 23:09 Room Air 05/13/25 23:09 Laboratory Results Laboratory Results - last 24 hr 05/13/25 05/14/25 05/14/25 23:15 02:39 06:41 WBC 6.15 7.94 RBC 3.82 L 3.53 L Hgb 13.4 L 12.4 L Hct 40.4 L 37.6 L MCV 105.8 H 106.5 H MCH 35.1 H 35.1 H MCHC 33.2 33.0 RDW Std Deviation 55.2 H 55.3 H RDW Coeff of Delmi 14.1 14.1 Plt Count 167 168 MPV 10.0 10.1 Immature Gran % (Auto) 1.3 0.4 Neut % (Auto) 67.9 62.6 Lymph % (Auto) 22.1 20.3 [place] % (Auto) 5.7 13.0 Eos % (Auto) 2.3 2.9 Baso % (Auto) 0.7 0.8 Neut # (Auto) 4.18 4.98 Lymph # (Auto) 1.36 1.61 [place] # (Auto) 0.35 1.03 H Eos # (Auto) 0.14 0.23 Baso # (Auto) 0.04 0.06 Immature Gran # (Auto) 0.08 0.03 PT 12.6 H INR 1.2 H Sodium 139 140 Potassium 3.8 4.2 Chloride 106 108 H Carbon Dioxide 29 27 Anion Gap 4 5 BUN 37 H 34 H Creatinine 1.19 0.93 Est Cr Clr Drug Dosing 67.6 85.0 eGFR 61.37 82.49 BUN/Creatinine Ratio 31.1 H 36.6 H Glucose 98 91 Calcium 8.4 L 8.1 L Magnesium 2.3 2.2 Total Bilirubin 0.5 AST 14 ALT 4 L Alkaline Phosphatase 83 Troponin I High Sens 32.1 H 61.7 H* D Cancelled B-Natriuretic Peptide 582 H Total Protein 6.3 Albumin 3.5 Globulin 2.8 Albumin/Globulin Ratio 1.3 Lipase 26 TSH 2.757 Digitoxin 05/14/25 05/14/25 06:41 09:35 WBC RBC Hgb Hct MCV MCH MCHC RDW Std Deviation RDW Coeff of Delmi Plt Count MPV Immature Gran % (Auto) Neut % (Auto) Lymph % (Auto) [place] % (Auto) Eos % (Auto) Baso % (Auto) Neut # (Auto) Lymph # (Auto) [place] # (Auto) Eos # (Auto) Baso # (Auto) Immature Gran # (Auto) PT INR Sodium Potassium Chloride Carbon Dioxide Anion Gap BUN Creatinine Est Cr Clr Drug Dosing eGFR BUN/Creatinine Ratio Glucose Calcium Magnesium Total Bilirubin AST ALT Alkaline Phosphatase Troponin I High Sens 64.4 H* B-Natriuretic Peptide Total Protein Albumin Globulin Albumin/Globulin Ratio Lipase TSH Digitoxin Pending Diagnostic Findings CXR 05/13/28: Lungs: Unremarkable. No consolidation. The pulmonary vasculature demonstrates no significant radiographic abnormality. Pleural space: Unremarkable. No pneumothorax. No large pleural effusion. Heart: Stable cardiomegaly. Mediastinum: No significant abnormality identified. The trachea is midline. Bones/joints: Sternal hardware is stable in appearance with disrupted sternal wires, similar. No acute fracture. Tubes, lines and devices: Left subclavian dual lead defibrillator pacer, stable. IMPRESSION: Stable cardiomegaly. No focal consolidation or acute cardiopulmonary process identified. Medications Administered Medication List Amiodarone HCl (Amiodarone 200 Mg Tab) 600 mg PO QAM [facility] Stop: 06/13/25 08:59 Last Admin: 05/14/25 08:57 Dose: 600 mg Documented By: GPF Apixaban (Apixaban 5 Mg Tablet) 5 mg PO Q12H [facility] Stop: 06/13/25 08:59 Last Admin: 05/14/25 08:57 Dose: 5 mg Documented By: GPF Aspirin (Aspirin 81 Mg Ectab) 81 mg PO QAM [facility] Stop: 06/13/25 08:59 Last Admin: 05/14/25 08:58 Dose: 81 mg Documented By: GPF Azathioprine (Azathioprine 50 Mg Tab) 100 mg PO QAM [facility] Stop: 06/13/25 08:59 Last Admin: 05/14/25 08:58 Dose: 100 mg Documented By: GPF Carbidopa/Levodopa (Carbidopa/Levodopa 50/200mg Ext Rel Tab) 1 tab PO BID [facility] Stop: 06/13/25 08:59 Last Admin: 05/14/25 08:58 Dose: 1 tab Documented By: GPF Furosemide (Furosemide 40 Mg Tab) 120 mg PO QAM [facility] Stop: 06/13/25 08:59 Last Admin: 05/14/25 08:56 Dose: 120 mg Documented By: GPF Amiodarone HCl/Dextrose (Nexterone / D5w) 360 mg in 200 mls @ 16.667 mls/hr IV .Q12H [facility] Stop: 06/13/25 02:14 Last Admin: 05/14/25 02:34 Dose: 0.5 mg/min, 16.7 mls/hr Documented By: MARCELA Co-signed By: CAMI Levothyroxine Sodium (Levothyroxine Sodium 125 Mcg Tablet) 250 mcg PO DAILY@0200 [facility] Stop: 06/13/25 06:29 Last Admin: 05/14/25 04:49 Dose: 250 mcg Documented By: DIO Pantoprazole Sodium (Pantoprazole 40 Mg Tab) 40 mg PO QAM [facility] Stop: 06/13/25 08:59 Last Admin: 05/14/25 08:58 Dose: 40 mg Documented By: GPF Potassium Chloride (Potassium Chloride Crtab 20 Meq Tabcr) 40 meq PO TID [facility] Stop: 06/13/25 08:59 Last Admin: 05/14/25 09:00 Dose: 40 meq Documented By: GPF Probenecid (Probenecid 500 Mg Tab) 500 mg PO BID@0730,1600 [facility] Stop: 06/13/25 07:29 Last Admin: 05/14/25 08:58 Dose: 500 mg Documented By: NEIL Sulfasalazine (Sulfasalazine 500 Mg Tablet) 1,000 mg PO QID@0730,1100,1600,2100 [facility] Stop: 06/13/25 07:29 Last Admin: 05/14/25 08:57 Dose: 1,000 mg Documented By: GPF Discontinued Medications Carvedilol (Carvedilol 25 Mg Tab) 25 mg PO BID [facility] Stop: 06/13/25 08:59 Last Admin: 05/14/25 08:57 Dose: 25 mg Documented By: GPF Potassium Chloride (Potassium Chloride Crtab 20 Meq Tabcr) 40 meq PO NOW [facility] Stop: 05/14/25 02:08 Last Admin: 05/14/25 02:40 Dose: 40 meq Documented By: MARCELA PG Care Time/CCT Total # of Minutes Spent Total Time Spent with Patient: Total time spent is greater than 50% in coordination of care (as documented) at patient's floor/unit and/or counseling patient:47 Coding [place] [address] INT INP/OBS CARE 3/75MIN Patient Type Established History Comprehensive Exam Comprehensive Medical Decision Making High Complexity Diagnoses Ventricular arrhythmia I49.9 ICD (implantable cardioverter-defibrillator) discharge Z45.02 Elevated troponin R79.89 Ischemic cardiomyopathy I25.5 Essential hypertension I10 Hypertension type: essential hypertension Mixed hyperlipidemia E78.2 Hyperlipidemia type: mixed hyperlipidemia Chronic combined systolic and diastolic heart failure I50.42 Paroxysmal atrial fibrillation I48.0 Atrial fibrillation type: paroxysmal Time Spent (min) 78 (5) Hypertension Hypertension type: essential hypertension Qualified Code(s): I10 - Essential (primary) hypertension (6) Hyperlipidemia Hyperlipidemia type: mixed hyperlipidemia Qualified Code(s): E78.2 - Mixed hyperlipidemia (8) Atrial fibrillation Atrial fibrillation type: paroxysmal Qualified Code(s): I48.0 - Paroxysmal atrial fibrillation
[2025-05-14] MEDS: SPIRONOLACTONE 25 MG TAB PO SCH (11:08)
--- NOTE | 2025-05-14 11:51 | Electrocardiogram Report ---
Test Reason : Blood Pressure : */* mmHG Vent. Rate : 77 BPM Atrial Rate : 77 BPM P-R Int : 338 ms QRS Dur : 174 ms QT Int : 536 ms P-R-T Axes : 123 -83 85 degrees QTcB Int : 606 ms AV dual-paced rhythm with prolonged AV conduction Abnormal ECG When compared with ECG of 29-Jun-2024 10:08, Electronic ventricular pacemaker has replaced Sinus rhythm Confirmed by Johnny Smith ([id number]) on 05/14/2025 11:51:14 AM Referred By: REFERRED SELF Confirmed By: Johnny Smith
[2025-05-14] MEDS: ATORVASTATIN 40 MG TAB PO SCH (20:08)
[2025-05-15 07:27] VITALS: RESP 18
[2025-05-15 11:13] VITALS: BP 128/76; PULSE 63; TEMP 97.9; O2SAT 97
--- NOTE | 2025-05-15 13:38 | Discharge Summary ---
Discharge Summary Date of Service May 15, 2025 Principal Dx & Hospital Course #1 = Principal Diagnosis (1) Ventricular arrhythmia: Non-sustained ventricular tachycardia and sustained ventricular tachycardia (lasting 2 minutes, 39 seconds), culminating in AICD discharge x 1 at home (05/13/2025, 9:00pm, as patient lay in his bed awake, not asleep, and was turning over onto his right side, when patient felt acute onset of left-sided chest pressure, followed by "flying up off the bed about 4-5 inches as my said I did as I got the shock, that hurt a lot."). Patient underwent interrogation of his Medtronic Evera MRI XT [id number] Dual Chamber AICD (implant date, 08/2013; unable to place an LV lead due to technical difficulties), s/p generator change-out 04/10/2023) on admission date 05/14/2025, and his Medtronic Evera MRI XT [id number] Dual Chamber AICD (implant date, 08/2013; unable to place an LV lead due to technical difficulties), s/p generator change-out 04/10/2023) is functioning normally. Patient subsequently received pharmacologic therapy consisting of hospital- started amiodarone infusion @ 0.5mg/min (start date/time, 05/14/2025, 2:34am; stop date/time, 05/15/2025, 2:05pm) and his home-scheduled amiodarone 600mg PO qam. Patient also underwent send-out amiodarone level testing (05/15/2025, 8:01am) and the results will come back from [employer] on 05/18/2025 or on 05/19/2025. Patient was advised to follow up the results of this send-out amiodarone level testing (05/15/2025, 8:01am) with his PCP Dr. Ashanti Melchor within 5-7 days of hospital discharge, as patient will continue to take his home-scheduled amiodarone 0.6mg PO qam on hospital discharge back to his home on 05/15/2025. (2) Demand ischemia: Acute type II NSTEMI with nominal troponin elevation with troponin-I #1 32.1 pg/mL (05/13/2025, 11:15pm), troponin-I #2 61.7 pg/mL (05/14/2025, 2:39am), troponin-I #3 64.4 pg/mL (05/14/2025, 6:41am), all due to demand ischemia, which in turn, is due to underlying CAD, ventricular tachycardia, and AICD discharge x 1 at home (05/13/2025). Hence, I opted to observe this laboratory anomaly without further evaluation/intervention while patient remained in [facility] from 05/14/2025 through 05/15/2025. (3) Chronic systolic (congestive) heart failure: Chronic systolic CHF with reduced LVEF 35-40% (as noted on 04/25/2024, 8:01am TTE, CARDS Dr. Kirk Estrada), s/p Medtronic Evera MRI XT DR [id number] Dual Chamber AICD (implant date, 08/2013; unable to place an LV lead due to technical difficulties), s/p generator change-out 04/10/2023) with dry baseline weight of 263-265 pounds at home, 2 pillow orthopnea on a regular bed, no paroxysmal nocturnal dyspnea. Not acute exacerbation of chronic systolic CHF as patient reported no shortness of breath, dyspnea on exertion, cough, wheeze, weight gain (even though patient has a discharge weight of 274.12 pounds = 124.6 kg on discharge date 05/15/2025), paroxysmal nocturnal dyspnea, worsening orthopnea (compared to patient's chronic 2 pillow orthopnea at home on a daily basis), or platypnea while in [facility] from 05/14/2025 through 05/15/2025. Hence, patient continued to receive medical management of chronic systolic CHF by adhering to a 2 gram Na diet, daily weights, strict I/O, home-scheduled amiodarone 600mg PO qam, home-scheduled lasix 120mg PO qam, home-scheduled spironolactone 25mg PO qam, and hospital-started carvedilol 37.5mg PO bid (start date/time, 05/14/2025, 8:07pm; second and last dose administered on 05/15/2025, 7:50am). cf., home-scheduled carvedilol 25mg PO bid x 1 dose (05/14/2025, 8:57am) while in [facility] from 05/14/2025 through 05/15/2025. Subsequently, patient will continue the same regimen of adhering to a 2 gram Na diet, daily weights, strict I/O, home-scheduled amiodarone 600mg PO qam, home- scheduled lasix 120mg PO qam, home-scheduled spironolactone 25mg PO qam, and hospital-started carvedilol 37.5mg PO bid (start date/time, 05/14/2025, 8:07pm; second and last dose administered on 05/15/2025, 7:50am) on hospital discharge back to his home on 05/15/2025. To this end, patient's [facility] received an electronic prescription for hospital-started carvedilol 37.5mg PO bid, #90 tablets, each tablet 12.5mg, no refills, on 05/15/2025, prior to hospital discharge back to his home on 05/15/2025. (4) Chronic diastolic (congestive) heart failure: Chronic diastolic CHF with grade I LV diastolic dysfunction (as noted on 04/25/2024, 8:01am TTE, CARDS Dr. Kirk Estrada), s/p Medtronic Evera MRI XT [id number] Dual Chamber AICD (implant date, 08/2013; unable to place an LV lead due to technical difficulties), s/p generator change-out 04/10/2023) with dry baseline weight of 263-265 pounds at home, 2 pillow orthopnea on a regular bed, no paroxysmal nocturnal dyspnea. Not acute exacerbation of chronic diastolic CHF as patient reported no shortness of breath, dyspnea on exertion, cough, wheeze, weight gain (even though patient has a discharge weight of 274.12 pounds = 124.6 kg on discharge date 05/15/2025), paroxysmal nocturnal dyspnea, worsening orthopnea (compared to patient's chronic 2 pillow orthopnea at home on a daily basis), or platypnea while in [facility] from 05/14/2025 through 05/15/2025. Hence, patient continued to receive medical management of chronic systolic CHF by adhering to a 2 gram Na diet, daily weights, strict I/O, home-scheduled amiodarone 600mg PO qam, home-scheduled lasix 120mg PO qam, home-scheduled spironolactone 25mg PO qam, and hospital-started carvedilol 37.5mg PO bid (start date/time, 05/14/2025, 8:07pm; second and last dose administered on 05/15/2025, 7:50am). cf., home-scheduled carvedilol 25mg PO bid x 1 dose (05/14/2025, 8:57am) while in [facility] from 05/14/2025 through 05/15/2025. Subsequently, patient will continue the same regimen of adhering to a 2 gram Na diet, daily weights, strict I/O, home-scheduled amiodarone 600mg PO qam, home- scheduled lasix 120mg PO qam, home-scheduled spironolactone 25mg PO qam, and hospital-started carvedilol 37.5mg PO bid (start date/time, 05/14/2025, 8:07pm; second and last dose administered on 05/15/2025, 7:50am) on hospital discharge back to his home on 05/15/2025. To this end, patient's [facility] received an electronic prescription for hospital-started carvedilol 37.5mg PO bid, #90 tablets, each tablet 12.5mg, no refills, on 05/15/2025, prior to hospital discharge back to his home on 05/15/2025. (5) CAD (coronary artery disease): CAD s/p CABG x 3 Vessels (08/2000), s/p LAD stent x 1 (2005). Patient received secondary prophylaxis against CAD by receiving his home- scheduled ASA 81mg PO qam and his home-scheduled atorvastatin 80mg PO qhs while in [facility] from 05/14/2025 through 05/15/2025. Patient will continue both home-scheduled medications on hospital discharge back to his home on 05/15/2025. (6) LBBB (left bundle branch block): Chronic LBBB. cf., EKG (05/13/2025, 11:11pm): AV dual pacing @ 77, [place] 338, QTC 606, LAB, LBBB (by my review). cf., EKG (04/24/2024, 9:17pm): NSR @ 63, QTC 507, LAD, LBBB (by my review). Etiology of chronic LBBB in this patient is most probably due to: (a) CAD, (b) Chronic systolic CHF with reduced LVEF 35-40% (as noted on 04/25/2024, 8:01am TTE, CARDS Dr. Kirk Estrada), (c) Chronic diastolic CHF with grade I LV diastolic dysfunction (as noted on 04/25/2024, 8:01am TTE, CARDS Dr. Kirk Estrada),s/p Medtronic Evera MRI XT [id number] Dual Chamber AICD (implant date, 08/2013; unable to place an LV lead due to technical difficulties), s/p generator change-out 04/10/2023) with dry baseline weight of 263-265 pounds at home, 2 pillow orthopnea on a regular bed, no paroxysmal nocturnal dyspnea. Hence, I opted to observe this EKG anomaly without further evaluation or intervention while patient remained in [facility] from through 05/15/2025. (7) Paroxysmal atrial fibrillation: Paroxysmal atrial fibrillation. cf., EKG (05/13/2025, 11:11pm): AV dual pacing @ 77, [place] 338, QTC 606, LAB, LBBB (by my review). cf., EKG (04/24/2024, 9:17pm): NSR @ 63, QTC 507, LAD, LBBB (by my review). Asymptomatic on rhythm control on home-scheduled amiodarone 600mg PO qam, rate control now on hospital-started carvedilol 37.5mg PO bid (start date/time, 05/14/2025, 8:07pm; second and last dose administered on 05/15/2025, 7:50am). cf., home-scheduled carvedilol 25mg PO bid x 1 dose (05/14/2025, 8:57am) while in [facility] from 05/14/2025 through 05/15/2025. Patient subsequently received pharmacologic therapy consisting of hospital- started amiodarone infusion @ 0.5mg/min (start date/time, 05/14/2025, 2:34am; stop date/time, 05/15/2025, 2:05pm)[[to prevent recurrent ventricular tachycardia, not administered to treat paroxysmal atrial fibrillation while patient remained in [facility] from 05/14/2025 through 05/15/2025. Patient will not continue amiodarone infusion on hospital discharge back to his home on 05/15/2025. Patient also underwent send-out amiodarone level testing (05/15/2025, 8:01am) and the results will come back from [employer] on 05/18/2025 or on 05/19/2025. Patient was advised to follow up the results of this send-out amiodarone level testing (05/15/2025, 8:01am) with his PCP Dr. Ashanti Melchor within 5-7 days of hospital discharge, as patient will continue to take his home-scheduled amiodarone 0.6mg PO qam on hospital discharge back to his home on 05/15/2025. Patient will also continue to take hospital-started carvedilol 37.5mg PO bid (start date/time, 05/14/2025, 8:07pm; second and last dose administered on 05/15/2025, 7:50am) on hospital discharge back to his home on 05/15/2025. To this end, patient's [facility] received an electronic prescription for hospital-started carvedilol 37.5mg PO bid, #90 tablets, each tablet 12.5mg, no refills, on 05/15/2025, prior to hospital discharge back to his home on 05/15/2025. Of final note, patient received his home-scheduled apixaban 5mg PO q12 while in [facility] from 05/14/2025 through 05/15/2025, given CHADS2- VASC score = 6 points (e.g, 2 points for age > 74 years, 1 point for CHF, 1 point for PAD/CAD, and 2 points for CVA). Patient will continue to take his home-scheduled apixaban 2mg PO q12 on hospital discharge back to his home on 05/15/2025. (8) CVD (cerebrovascular disease): CVD s/p cerebellar CVA. No neurologic sequelae (e.g., dysarthria, pronator drift, facial droop, etc) for this right-handed patient. Patient received secondary prophylaxis against CVD by receiving his home- scheduled ASA 81mg PO qam and his home-scheduled atorvastatin 80mg PO qhs while in [facility] from 05/14/2025 through 05/15/2025. Patient will continue both home-scheduled medications on hospital discharge back to his home on 05/15/2025. (9) Parkinson disease: Chronic Parkinson's disease with cerebellar ataxia. Asymptomatic on home-scheduled carbidopa 50mg / levodopa 200mg PO bid with resting right hand tremor that extinguishes with movement. No masked facies. No scissoring gait or shuffling gait noted on ambulation with walker in patient's room at [facility] bed #E220-1. Patient will continue this home-scheduled medication on hospital discharge back to his home on 05/15/2025. (10) Multiple myeloma: Chronic multiple myeloma s/p Velcade, Revlimid, and Xgeva. Asymptomatic. Observe. (11) Macrocytic anemia: Chronic macrocytic, normochromic anemia with baseline Hb range, 13.4 g/dL (02/10/2024, 10:20am) to 12.6 g/dL (06/29/2024, 10:10am). cf., Hb 13.4 g/dL, MCV 105.8, MCHC 33.2 (05/13/2025, 11:15pm). cf., Hb 12.4 g/dL, MCV 106.5, MCHC 33.0 (05/14/2025, 6:41am). Patient reports no mucosal bleeding. Patient remains hemodynamically stable. Etiology of chronic macrocytic, normochromic anemia is most probably due to anemia of chronic disease (e.g., hypothyroidism). Of note, patient did not require or receive any packed RBC transfusion(s) while in [facility] from 05/14/2025 through 05/15/2025. Of final note, patient reports that he last underwent screening colonoscopy ~4 to 5 years ago, and it was reported as normal/negative for colon carcinoma or colonic polyps. (12) Decubitus ulcer, stage III: Chronic stage III intergluteal cleft linear decubitus, approximately 2cm long, present on admission date 05/14/2025. Patient underwent bed position changes q2h while in [facility] from 05/14/2025 through 05/15/2025. Patient will continue with bed position changes q2h on hospital discharge back to home on 05/15/2025. (13) Ulcerative colitis: Chronic ulcerative colitis. Asymptomatic on home-scheduled azathioprine 100mg PO qam and sulfasalazine 1000mg PO qid. Patient will continue both home-scheduled medications on hospital discharge back to his home on 05/15/2025. (14) Hypothyroidism: Chronic hypothyroidism on home-scheduled synthroid 125ug PO daily with normal TSH 2.757 uIU/mL (05/13/2025, 11:15pm). Patient has no lid lag, proptosis, or goiter on 05/15/2025 discharge physical exam. Patient will continue this home-scheduled medication on hospital discharge back to his home on 05/15/2025. (15) GERD (gastroesophageal reflux disease): Chronic GERD on home-scheduled protonix 40mg PO qam. Asymptomatic with no complaints of water brash in mouth or burning discomfort in the chest, radiating up to the throat at night. Patient will continue this home-scheduled medication on hospital discharge back to his home on 05/15/2025. (16) Gouty arthritis of both feet: Chronic gouty arthritis of bilateral halluces and bilateral calcanei on home- scheduled probenecid 500mg PO bid. Asymptomatic with last gouty attack having occurred 15 years ago. Patient will continue this home-scheduled medication on hospital discharge back to his home on 05/15/2025. (17) Allergic rhinitis: Chronic allergic rhinitis on fluticasone nasal spray, 50ug/spray, 1 spray to each nostril daily prn allergic rhinitis. Asymptomatic with no complaints of rhinorrhea or post-nasal drip while in [facility] from 05/14/2025 to 05/15/2025. Patient will continue this home-scheduled medication on hospital discharge back to his home on 05/15/2025. (18) Ambulatory dysfunction: Chronic ambulatory dysfunction utilizing walker @ home. Asymptomatic with no falls or retropulsion noted while utilizing his walker in [facility] from 05/14/2025 to 05/15/2025. Patient will continue utilizing his walker on hospital discharge back to his home on 05/15/2025. (19) DNR (do not resuscitate): DNR/DNI @ home. No adverse events were noted with this hospitalization. Patient's condition remains unchanged at fair on observation date 05/14/2025 and on discharge date 05/15/2025. Patient will follow up with his PCP Dr. Ashanti Melchor within 5-7 days of hospital discharge for routine, follow-up visit, to discuss patient's amiodarone level (sent out on 05/15/2025, 7:44am to [employer]) while taking amiodarone 600mg PO qam. Admission HPI Per Admitting Provider Pt is a pleasant 80 yo male with a past med hx of VTach and ischemic cardiomyopathy on AICD since 2012, HFrEF, paroxysmal afib on eliquis, CABG x3 vessels in 1999 and LAD stent in 2005, cerebellar ataxia and hx of cerebellar CVA, ulcerative colitis, Parkinson, HTN, and HLD who presents to the hospital on 05/13 for ventricular arrhythmia at home leading to shock from his AICD. Pt states he was in his usual state of health throughout the day on 05/13. He states that he was laying in bed around 9 pm or so and states that he woke up with substernal chest pressure and states that after a few minutes of the chest pain he felt his ICD device go off. He states he does not recall any chest pain after the shock was delivered by his device. He states his urged for him to come into the hospital for further evaluation. He has not been sick recently. He denies chest pain or SOB at time of admission, states he just feels very "washed out" and tired. Talked to patient about his code status wishes on admission. Pt states his brother who lived in [place] had a heart attack and that his sister wanted for him to be full code and that his brother spent 3 days "hooked up to machines" before finally being taken off them. Pt states that experience was horrible and he would not want his family to have to make a decision like that for him. He states he is okay with his AICD device but would not want compressions or intubation/ventilation. He states his quality of life is not great as is due to very limited mobility and he would not want to worsen that. He states his family may feel differently, but at this time in the event of cardiac or respiratory arrest he would not want resuscitation. Pt exhibits full decision making capacity at the time of conversation about his wishes. Discharge Exam Constitutional General: Comfortable, coherent, and cooperative. Not confused, obtunded, or lethargic. Patient speaks with regular ashvin, and in complete, fluent, and articulate 7-9 word sentences without pause, interruption, cough, or wheeze with O2 sat 91% on 2 liters/minute O2 via nasal cannula (05/13/2025, 7:07pm). O2 sat 96% on 2 liters/minute O2 via nasal cannula (05/14/2025, 11:42am). O2 sat 97% on room air (05/15/2025, 11:13am). HEENT: Normocephalic, atraumatic. No nystagmus, gaze paresis, anisocoria, miosis, mydriasis, hyphema, scleral injection, conjunctivitis, or pterygium. No lid lag, no proptosis. No otorrhea or rhinorrhea. No pharyngeal erythema, edema, or discharge. Neck: Supple, no stridor, bruit, goiter, or hepato-jugular reflux. Jugular venous pressure is estimated to be 3 cm above the sternal angle of Kennedy, which in turn, is 5 cm above the level of the right atrium; with jugular venous pressure estimated to be 8 cm, then, there is no jugular venous distention on 05/15/2025. Lymphatics: No cervical (anterior/posterior), supraclavicular, infraclavicular, axillary, epitrochlear, or inguinal adenopathy. Chest: Symmetric rise and fall with respirations. Non-tender to palpation. Lungs: Clear to auscultation and percussion. Heart: Regular rate and rhythm. S1 and S2 noted. No S3 or S4 summation gallop. No tripartite friction rub. Grade II/ early systolic murmur @ LLSB without radiation to the carotids, axilla, or back, and which remains invariant in regards to the respiratory cycle. Abdomen: Soft, non-tender, non-distended. No rebound, guarding, Mora's sign, or organomegaly. Bowel sounds auscultated in all 4 quadrants. Extremities: No clubbing, cyanosis, or edema. Skin: No decubitus ulcer or enanthem or exanthem. Neuro: Awake and oriented in regards to person, place, time, and situation. DTR+. 5/5 motor strength in all 4 extremities, both proximally and distally. No myoclonus or tics. Resting right hand tremor that extinguishes with movement. No masked facies. No scissoring gait or shuffling gait noted on ambulation with walker in patient's room at [facility] bed #E220-1. Genito-urinary: No urethral discharge. No tran catheter. Discharge Plan Discharge Items Patient Disposition: Home - Self-Care Reason For Visit: VENTRICULAR ARRHYTHMIA Discharge Diagnosis: 1. Non-sustained ventricular tachycardia and sustained ventricular tachycardia (lasting 2 minutes, 39 seconds), culminating in AICD discharge x 1 at home (05/13/2025). 2. Acute type II NSTEMI with nominal troponin elevation with troponin-I #1 32.1 pg/mL (05/13/2025, 11:15pm), troponin-I #2 61.7 pg/mL (05/14/2025, 2:39am), troponin-I #3 64.4 pg/mL (05/14/2025, 6:41am), all due to demand ischemia, which in turn, is due to underlying CAD, ventricular tachycardia, and AICD discharge x 1 at home (05/13/2025). 3. Chronic systolic CHF with reduced LVEF 35-40% (as noted on 04/25/2024, 8:01am TTE, CARDS Dr. Kirk Estrada), s/p Medtronic Evera MRI XT [id number] Dual Chamber AICD (implant date, 08/2013; unable to place an LV lead due to technical difficulties), s/p generator change-out 04/10/2023) with dry baseline weight of 263-265 pounds at home, 2 pillow orthopnea on a regular bed, no paroxysmal nocturnal dyspnea. 4. Chronic diastolic CHF with grade I LV diastolic dysfunction (as noted on 04/25/2024, 8:01am TTE, CARDS Dr. Kirk Estrada). 5. CAD s/p CABG x 3 Vessels (08/2000), s/p LAD stent x 1 (2005) on ASA 81mg PO qam, atorvastatin 80mg PO qhs. 6. Chronic LBBB. 7. Paroxysmal atrial fibrillation on apixaban 5mg PO q12, rhythm control on amiodarone 600mg PO qam, rate control now on carvedilol 37.5mg PO bid. 8. CVD s/p cerebellar CVA, on ASA 81mg PO qam, atorvastatin 80mg PO qhs. 9. Chronic Parkinson's disease with cerebellar ataxia, on carbidopa 50mg / levodopa 200mg PO bid with resting right hand tremor that extinguishes with movement. 10.Chronic multiple myeloma s/p Velcade, Revlimid, and Xgeva. 11.Chronic macrocytic, normochromic anemia with baseline Hb range, 13.4 g/dL (02/10/2024, 10:20am) to 12.6 g/dL (06/29/2024, 10:10am). 12.Chronic stage III intergluteal cleft linear decubitus, approximately 2cm long, present on admission date 05/14/2025. 13.Chronic ulcerative colitis on azathioprine 100mg PO qam and sulfasalazine 1000mg PO qid. 14.Chronic hypothyroidism on synthroid 125ug PO daily with normal TSH 2.757 uIU/mL (05/13/2025, 11:15pm). 15.Chronic GERD on protonix 40mg PO qam. 16.Chronic gouty arthritis on probenecid 500mg PO bid. 17.Chronic allergic rhinitis on fluticasone nasal spray, 50ug/spray, 1 spray to each nostril daily prn allergic rhinitis. 18.Chronic ambulatory dysfunction utilizing walker @ home. 19.DNR/DNI @ home. Condition on Discharge: Fair Activity: Resume your previous activity Lifting: Gradually increase as tolerated Bathing: No limitations Exercise/Sports: Gradually increase as tolerated Weightbearing: Full weightbearing Non-emergency contact: Primary Care Provider Call non-emergency contact if: you have any medication questions Follow-up/Referrals: Ashanti Melchor DO [Primary Care Provider] - 05/27/25 11:00 am (Primary care hospital follow up scheduled on 05/27/25 at 11:00 with Dudley Pérez) Diet: Heart Healthy Addtl Attending Provider Instructions: See your PCP Dr. Ashanti Melchor within 5-7 days of hospital discharge to discuss your amiodarone level (sent out on 05/15/2025, 7:44am to [facility]) while taking amiodarone 600mg PO daily. Pending Studies at Discharge: Yes Studies:: See your PCP Dr. Ashanti Melchor within 5-7 days of hospital discharge to discuss your amiodarone level (sent out on 05/15/2025, 7:44am to [facility]) while taking amiodarone 600mg PO qam. Stand-Alone Forms: My [facility] [address] [employer], Smoking Cessation Medications and DC Order Prescriptions: New carvedilol 12.5 mg tablet 37.5 mg PO BID Qty: 90 0RF Rx Instructions: must administer with a meal/food Continued spironolactone 25 mg tablet 25 mg PO QAM Qty: 30 0RF nitroglycerin 0.4 mg tablet, sublingual 0.4 mg Sublingual UD PRN (Reason: Chest Pain) Qty: 25 3RF sulfasalazine 500 mg tablet 1,000 mg PO QID Qty: 0 Rx Instructions: TAKES AT BREAKFAST, 1100, 1600 & HS amiodarone 200 mg tablet 600 mg PO QAM Qty: 270 3RF mexiletine 150 mg capsule 150 mg PO Q8 Qty: 270 3RF Rx Instructions: TAKES WITH BREAKFAST, 1600 & HS fluticasone propionate [Flonase Allergy Relief] 50 mcg/actuation spray,suspension 1 spray intranasal DAILY PRN (Reason: allergy symptoms) Qty: 48 1RF Rx Instructions: administer into each nostril probenecid 500 mg tablet 500 mg PO BID Rx Instructions: TAKES WITH BREAKFAST & 1600. aspirin 81 mg tablet,delayed release (DR/EC) 81 mg PO QAM amoxicillin 500 mg capsule 2,000 mg PO DIRECTED PRN (Reason: .1 hr before dental) Rx Instructions: TAKE 4 CAPSULES BY MOUTH 1/2 HOUR PRIOR TO APPOINTMENT atorvastatin 80 mg tablet 80 mg PO HS Qty: 30 5RF furosemide 40 mg tablet 120 mg PO QAM Qty: 300 0RF Rx Instructions: Take 120 mg daily. Can take an additional 80 mg PRN for weight gain, edema, or shortness of breath cholecalciferol (vitamin D3) [Vitamin D3] 25 mcg (1,000 unit) Tablet 1,000 unit PO QAM azathioprine 50 mg tablet 100 mg PO QAM levothyroxine 125 mcg Tablet 250 mcg PO DAILYBB Rx Instructions: USUALLY TAKES BETWEEN 5801-8972. pantoprazole 40 mg tablet,delayed release (DR/EC) 40 mg PO QAM Eliquis 5 mg tablet 5 mg PO Q12H Qty: 0 0RF lidocaine 5 % Adhesive Patch,Medicated 1 patch TOPICAL DAILY PRN (Reason: Pain) Rx Instructions: leave on most painful area for up to 12 hrs carbidopa-levodopa 50-200 mg tablet extended release 1 tab PO BID multivitamin with minerals Tablet 1 tab PO DAILY potassium chloride 20 mEq Tablet Extended Release 40 meq PO TID (DME) compress.stocking,knee,reg,med Misc See Rx Instructions .Route Qty: 2 0RF Rx Instructions: As directed cyanocobalamin (vitamin B-12) [Vitamin B-12] 1,000 mcg Tablet 1,000 mcg PO DAILY guaifenesin 100 mg/5 mL Liquid 200 mg PO Q6H PRN (Reason: COUGH/CONGESTION) zinc sulfate 50 mg zinc (220 mg) Tablet 50 mg PO DAILY calcium carbonate 500 mg calcium (1,250 mg) Tablet 500 mg PO DAILY ascorbic acid (vitamin C) [Vitamin C] 500 mg Tablet 500 mg PO DAILY carboxymethylcellulose sodium 0.5 % Drops 1 drp OPB QID PRN (Reason: Dry Eyes) docusate sodium 100 mg Capsule 100 mg PO BID polyethylene glycol 3350 [Miralax] 17 gram/dose Powder 17 g PO DAILY PRN (Reason: Constipation) urea 40 % Lotion 1 applic TOPICAL DAILY Rx Instructions: APPLY TO BOTTOMS AND SIDES OF FEET Ensure Clear Liquid 1 ea PO DAILY Rx Instructions: CASEY FLAVOR protein supplement Liquid 1 ea PO BID Rx Instructions: GRAPE FLAVOR--30 ML BID menthol-zinc oxide [Calmoseptine] 0.44-20.6 % Ointment 1 applic TOPICAL DAILY PRN (Reason: APPLY TO WOUNDS NEEDED) PreserVision AREDS-2 250-90-40-1 mg Capsule 1 tab PO BID Discontinued carvedilol 25 mg tablet 25 mg PO BID Qty: 60 5RF Discharge Orders: Discharge Order (Routine); Ordered 05/15/25 Ordered By: Star Negro Discharge Order- CHF (Routine); Ordered 05/15/25 Ordered By: Star Hall/Other Patient Handouts: Ventricular Arrhythmia, Your Heart's Electrical System, Identifying Your Heart Risks Admission Data Admit Date/Time: 05/14/25 02:00 Attending Provider: Star Negro Admit Provider: Kaela Mishra Primary Care Provider: Ashanti Melchor Other Providers: Tito Mercedes; Griffin Hoyt; Johnny Smith; Arnulfo Rudd; Alex Mosqueda; Usama Becerra Jr; Kirk Estrada; Peyton Luis; Jill Perla; Otto Wang; Otto Dooley; Naomi Polo; Cj Manjarrez; Corinne Isaacs; Cj Jasso; Chau Fagan; Alejandro Salazar; Esvin Domínguez; Sebastian May; Raji Robledo; Lisa Rao; [facility] Other Interventions: Discharge Summary Assessment (RN) Last Done: 05/15/25 12:20 Hospital Stay Data Consultations 05/14/25 01:10 ED Decision to Admit Stat 05/14/25 03:47 Consult Cardiology Routine Pending Results Patient Have Any Pending Studies at Discharge: Yes Discharge Instructions Given to Patient (Per Discharging Provider) See your PCP Dr. Ashanti Melchor within 5-7 days of hospital discharge to discuss y our amiodarone level (sent out on 05/15/2025, 7:44am to [facility]) while taking amiodarone 600mg PO daily. Total Time Total Time Spent Total Time Spent (In Minutes): 35 minutes. Of this time period, 19 minutes were spent in coordinating patient's discharge. Coding Level of Care Code 91687 INP/OBS DISCH >30 MIN Diagnoses Ventricular arrhythmia I49.9 Demand ischemia I24.89 Chronic systolic (congestive) heart failure I50.22 Chronic diastolic (congestive) heart failure I50.32 CAD (coronary artery disease) I25.10 LBBB (left bundle branch block) I44.7 Paroxysmal atrial fibrillation I48.0 CVD (cerebrovascular disease) I67.9 Parkinson disease G20.A1 Multiple myeloma C90.00 Macrocytic anemia D53.9 Decubitus ulcer, stage III L89.93 Ulcerative colitis K51.90 Hypothyroidism E03.9 GERD (gastroesophageal reflux disease) K21.9 Gouty arthritis of both feet M10.9 Allergic rhinitis J30.9 Ambulatory dysfunction R26.2 DNR (do not resuscitate) Z66
--- NOTE | 2025-05-19 19:07 | Billing Data ---
Date of Service May 14, 2025 Coding Level of Care Code 09946 INT INP/OBS CARE
== END 2025-05-15 14:22 | disposition home health service (06) | DRG 280 ==
LOC: SUATTDRO → ED 23:06 → SUATTDRO 05-14 02:00 → 2S 05-14 02:00
DX: E03.9 Hypothyroidism, unspecified; I67.9 Cerebrovascular disease, unspecified; I21.A1 Myocardial infarction type 2; Z83.3 Family history of diabetes mellitus; Z86.718 Personal history of other venous thrombosis and embolism; I25.5 Ischemic cardiomyopathy; D53.9 Nutritional anemia, unspecified; E78.5 Hyperlipidemia, unspecified; Z86.73 Personal history of transient ischemic attack (TIA), and cerebral infarction without residual deficits; G47.33 Obstructive sleep apnea (adult) (pediatric); K21.9 Gastro-esophageal reflux disease without esophagitis; Z95.5 Presence of coronary angioplasty implant and graft; Z66 Do not resuscitate; Z88.7 Allergy status to serum and vaccine; I47.29 Other ventricular tachycardia; Z79.890 Hormone replacement therapy; Z87.891 Personal history of nicotine dependence; Z95.810 Presence of automatic (implantable) cardiac defibrillator; G20.A1 Parkinson's disease without dyskinesia, without mention of fluctuations; L89.893 Pressure ulcer of other site, stage 3; M10.9 Gout, unspecified; I50.42 Chronic combined systolic (congestive) and diastolic (congestive) heart failure; I25.2 Old myocardial infarction; I44.7 Left bundle-branch block, unspecified; G11.9 Hereditary ataxia, unspecified; I48.0 Paroxysmal atrial fibrillation